=== PATIENT | female | born 1940 | race Native Hawaiian/Other Pacific Islander ===

== ENCOUNTER 2019-09-16 12:44 | Outpatient (CLI) | payer OTHER, SELFPAY ==
--- NOTE | ~2019-09-16 | XR_ITS ---
XR chest 2V DATE: 09/16/2019 14:22 INDICATION: Chronic cough TECHNIQUE: 2 views COMPARISON: 09/28/2018 2 view chest FINDINGS: A new ill-defined up to approximately 2 cm opacity is noted at the middle lobe; CT thorax i s recommended to exclude any pulmonary mass lesion or focal consolidation. The lungs are hyperinflated but clear of infiltrate or consolidation otherwise. No pleural effusion or pulmonary vascular congestion or pneumothorax. Normal heart size. Aortic arch calcification. Included skeletal structures are unremarkable other than osteopenia, calcified intervertebral at appr oximately T12-L1. IMPRESSION: Approximately 2 cm ill-defined density of middle lobe; recommend CT thorax Bilateral hyperinflation suggesting COPD Dr. Cota telephoned the report and recommendation for CT chest examination to Dr. Gaspar on 09/16/2019 a t 1550 hours. Reviewed, dictated and finalized at location B. UCT CONTROL AND LOGISTICS ANALYST IMPRESSION: Approximately 2 cm ill-defined density of middle lobe; recommend CT thorax Bilateral hyperinflation suggesting COPD Dr. Cota telephoned the report and recommendation for CT chest examination to Natasha Gaspar on 09/16/2019 at 1550 hours.
--- NOTE | 2019-09-17 11:12 | WPDPFTINT ---
PFT Interpretation PFT Interpretation: This PFT met all criteria for ATS standards and reproducibility FEV/FVC post bronchodilator 70% of predicted which improved to 74% post bronchodilator FEV1 126% of predicted FVC 116 % of predicted TLC 122% of predicted RV 119% RV/TLC 41% DLCO 83% when adjusted for alveolar volume but not adjusted for hemoglobin Flow volume loops showed some end expiratory coving Impression: Possible mild airflow obstruction with hyperinflation and borderline air trapping. This may correlate with Asthma or COPD. Clinical correlation is advised.
== END 2019-09-16 12:45 | disposition home or self-care (01) ==
PROVIDERS: PCP Internal Medicine; Visit Provider Internal Medicine Critical Care Medicine
DX: J44.9 Chronic obstructive pulmonary disease, unspecified (principal); R05 Cough; J45.909 Unspecified asthma, uncomplicated; R91.8 Other nonspecific abnormal finding of lung field
CPT/HCPCS: 36415; 71046; 82785; 86003; 94060; 94726; 94729

== ENCOUNTER 2019-11-08 10:16 | Outpatient (CLI) | payer OTHER, SELFPAY ==
--- NOTE | ~2019-11-08 | CT_ITS ---
EXAMINATION: CT chest w con EXAM DATE: 11/08/2019 11:26 INDICATION: Right lung nodule. TECHNIQUE: Spiral CT of the chest following intravenous injection of 75 mL Omnipaque 350. Axial, cor onal and sagittal images were reviewed. Coronal maximum intensity pixel images of chest reviewed. T he dose-length product (DLP) for this examination was 137.32 mGy-cm. The exposure was tailored accor ding to patient size (auto mA exposure control), and iterative reconstruction (ASIR) was used as alcides tional dose reduction technique. Correlation is made to 09/16/2019. FINDINGS: There is a bilobulated nodule with some spiculations in the right middle lobe measuring 2. 1 x 1.0 cm, the same opacity seen on chest x-ray from last month. If this were infectious process, sh ould have resolved. Appearances suspicious for malignancy, CT-guided biopsy is indicated. Smaller denny obular lingular opacity more medially. There is mild emphysema and hyperinflation. Mild bronchiectasi s. Biapical scarring. There are no pleural or pericardial effusions. Tracheobronchial tree is paten t. There is no mediastinal, hilar or axillary lymphadenopathy. There is no pneumothorax. Heart normal in size. No evidence of coronary arterial calcification. Several liver lesions consistent wi th cysts. There is thoracic spondylosis without osteoblastic or osteolytic lesions identified. IMPRESSION: 1. Right middle lobe lobulated nodules, suspicious for primary lung cancer. Largest amenable to CT-g uided percutaneous biopsy. 2. Mild emphysema, hyperinflation and bronchiectasis. Reviewed, dictated and finalized at location A. IMPRESSION: 1. Right middle lobe lobulated nodules, suspicious for primary lung cancer. La rgest amenable to CT-guided percutaneous biopsy. 2. Mild emphysema, hyperinflation and bronchiectasis.
[2019-11-08 11:18] LABS: Estimated Glomerular Filt Rate > 60
== END 2019-11-08 10:17 | disposition home or self-care (01) ==
PROVIDERS: Visit Provider Internal Medicine Critical Care Medicine
DX: R91.8 Other nonspecific abnormal finding of lung field (principal); J43.9 Emphysema, unspecified
CPT/HCPCS: 36415; 71260; Q9967

== ENCOUNTER → 2020-03-21 09:18 | Outpatient (CLI) | payer OTHER, SELFPAY ==
--- NOTE | ~2020-03-21 | CT_ITS ---
EXAMINATION: CT sinus wo con DATE: 03/21/2020 09:32 INDICATION: Chronic sinusitis, chronic cough TECHNIQUE: Computed tomography (CT) of the paranasal sinuses was performed without contrast. Iterativ e reconstruction technique was employed. Exam dose: 266.74 mGy-cm total exam DLP. COMPARISON: None FINDINGS: There is rightward bowing of the nasal septum. There is intralamellar cell and manjula bullosa of the left middle nasal turbinate. There is moderate soft tissue thickening of the nasal turbinates. The ostiomeatal units are patent. The paranasal sinuses are normally developed and aerated. The mastoid air cells are normally developed and aerated. IMPRESSION: Rightward bowing of nasal septum Manjula bullosa and intralamellar cell of left middle nasal turbinate Patent paranasal sinuses, ostiomeatal units and mastoid air cells Reviewed, dictated and finalized at [facility]. Reviewed, dictated and finalized at location A.
== END ==
PROVIDERS: PCP Internal Medicine; Visit Provider Allergy & Immunology
DX: J32.9 Chronic sinusitis, unspecified (principal); R05 Cough
CPT/HCPCS: 70486

== ENCOUNTER 2021-02-23 14:50 | Outpatient (CLI) | payer OTHER, SELFPAY ==
--- NOTE | ~2021-02-23 | US_ITS ---
EXAMINATION: US pelvic limited DATE: 02/23/2021 15:26 INDICATION: Pelvic and perineal pain. Dysuria. TECHNIQUE: Multiple transabdominal sonographic images of the pelvis were obtained. COMPARISON: None. FINDINGS: The bladder is normal with calculated prevoid volume of 135 mL calculated postvoid bladder volume of 21 mL which remains within normal limits. Shadowing bowel gas partially obscures the dome of the blad phuong on the prevoid imaging. No evident free fluid in the visualized pelvis. IMPRESSION: Normal bladder. Reviewed, dictated and finalized at location A. IMPRESSION: Normal bladder.
== END 2021-02-23 14:51 | disposition home or self-care (01) ==
LOC: ANHIMG 14:56
PROVIDERS: PCP Internal Medicine; Visit Provider Nurse Practitioner
DX: R10.2 Pelvic and perineal pain (principal)
CPT/HCPCS: 76857

== ENCOUNTER 2021-03-14 10:42 | Outpatient (CLI) | payer OTHER, SELFPAY ==
--- NOTE | ~2021-03-14 | CT_ITS ---
EXAMINATION: CT abdomen pelvis wo con DATE: 03/14/2021 11:06 INDICATION: Pelvic and perineal pain, history of breast and uterine cancer TECHNIQUE: Computed tomography (CT) of the abdomen and pelvis was performed without intravenous contr ast. The dose-length product (DLP) was 234.34 mGy-cm. Automated exposure control and iterative recons truction technique were employed. COMPARISON: 11/08/2019 FINDINGS: Minimal dependent atelectasis is present in the lung bases. Cardiomegaly is noted. Cysts of the liver measure up to 9 mm. The spleen, pancreas, gallbladder, and adrenal glands are normal. Ther e is a 1.8 cm cyst of the right kidney. The left kidney is unremarkable. No pathologically enlarged l ymph nodes are identified. There are changes of pelvic lymph node dissection. Severe lumbar spondylos is is noted. IMPRESSION: 1. No CT correlate for the patient's symptoms. Reviewed, dictated and finalized at location A.
== END 2021-03-14 10:43 | disposition home or self-care (01) ==
PROVIDERS: PCP Internal Medicine; Visit Provider Nurse Practitioner
DX: R10.2 Pelvic and perineal pain (principal)
CPT/HCPCS: 74176

== ENCOUNTER 2021-10-22 10:51 | Outpatient (CLI) | payer OTHER, SELFPAY ==
--- NOTE | ~2021-10-22 | CT_ITS ---
EXAMINATION: CT diagnostic chest wo con DATE: 10/22/2021 11:35 INDICATION: Solitary pulmonary nodule TECHNIQUE: Computed tomography (CT) of the chest was performed without intravenous contrast. The dose -length product (DLP) was 55.80 mGy-cm. Automated exposure control and iterative reconstruction techn ique were employed. COMPARISON: 11/08/2019 FINDINGS: There is mild emphysema. The previously described right middle lobe nodules have resolved. There is a small amount of residual scarring. Scattered small nodules throughout the lungs are stable . The lungs are free of acute opacities. There is no pleural effusion or pneumothorax. There is biatr ial enlargement of the heart. There are no pathologically enlarged thoracic lymph nodes. There is mil d thoracic spondylosis. IMPRESSION: 1. Resolved right middle lobe nodule with residual scarring, consistent with prior infection/inflamma tion. 2. Mild emphysema. Reviewed, dictated and finalized at location A. IMPRESSION: 1. Resolved right middle lobe nodule with residual scarring, consistent with pr ior infection/inflammation. 2. Mild emphysema.
== END 2021-10-22 10:52 | disposition home or self-care (01) ==
LOC: ANHIMG 10:52
PROVIDERS: PCP Internal Medicine; Visit Provider Physician Assistant
DX: R91.1 Solitary pulmonary nodule (principal); R91.8 Other nonspecific abnormal finding of lung field; J43.9 Emphysema, unspecified
CPT/HCPCS: 71250

== ENCOUNTER 2022-05-01 09:10 | Outpatient (CLI) | payer OTHER, SELFPAY ==
--- NOTE | 2022-05-01 09:20 | EST_ITS ---
Patient Info Name: Karely Terrazas Age: 82 years : 1940 Gender: Female Ht: 61 in Wt: 124 lbs BSA: 1.56 m2 Exam Date: 05/01/2022 9:31 AM Exam Location: [facility] Stress Patient Status: Outpatient Admit Date: 05/01/2022 Staff Ordering Physician: Nydia Cheung Attending Provider: Nydia Cheung Exercise Technologist: Anselmo Quiroz RDCS, RT Exercise Physician: Fer Parmar DO Exam Type: CA stress test treadmill Study Info A treadmill exercise stress test was performed. Summary 1. 1. Negative Ady exercise stress test for ischemic ST changes by ECG criteria. However, patient achieved only 74% MPHR for age group which reduces sensitivity of the test. 2. 2. Reduced functional capacity, achieving 7 METs of workload. 3. 3. Baseline hypertension with hypertensive response to exercise. 4. 4. Appropriate HR response to exercise. 5. 5. Appropriate HR recovery at 1 minute post exercise. 6. 6. No imaging with stress testing. 7. 7. Patient informed of the above results. Protocol: Ady Stress ECG Details Stage: REST Duration (min): 2 min : 7 sec Speed (mph): 0.0 Grade (%): 0 HR (bpm): 69 SBP (mmHg): 184 DBP (mmHg): 97 METS: --- Stage: REST Duration (min): 11 min : 15 sec Speed (mph): 0.0 Grade (%): 0 HR (bpm): 67 SBP (mmHg): 184 DBP (mmHg): 97 METS: --- Stage: STAGE 1 Duration (min): 1 min : 0 sec Speed (mph): 1.7 Grade (%): 10 HR (bpm): 79 SBP (mmHg): 184 DBP (mmHg): 97 METS: --- Stage: STAGE 1 Duration (min): 2 min : 0 sec Speed (mph): 1.7 Grade (%): 10 HR (bpm): 88 SBP (mmHg): 184 DBP (mmHg): 97 METS: --- Stage: STAGE 1 Duration (min): 3 min : 0 sec Speed (mph): 1.7 Grade (%): 10 HR (bpm): 94 SBP (mmHg): 181 DBP (mmHg): 104 METS: --- Stage: STAGE 2 Duration (min): 1 min : 0 sec Speed (mph): 2.5 Grade (%): 12 HR (bpm): 98 SBP (mmHg): 181 DBP (mmHg): 104 METS: --- Stage: STAGE 2 Duration (min): 1 min : 37 sec Speed (mph): 2.5 Grade (%): 12 HR (bpm): 102 SBP (mmHg): 181 DBP (mmHg): 104 METS: --- Stage: RECOVERY Duration (min): 0 min : 22 sec Speed (mph): 1.5 Grade (%): 0 HR (bpm): 102 SBP (mmHg): 165 DBP (mmHg): 103 METS: --- Stage: RECOVERY Duration (min): 1 min : 22 sec Speed (mph): 0.0 Grade (%): 0 HR (bpm): 89 SBP (mmHg): 165 DBP (mmHg): 103 METS: --- Stage: RECOVERY Duration (min): 2 min : 22 sec Speed (mph): 0.0 Grade (%): 0 HR (bpm): 81 SBP (mmHg): 165 DBP (mmHg): 103 METS: --- Stage: RECOVERY Duration (min): 3 min : 22 sec Speed (mph): 0.0 Grade (%): 0 HR (bpm): 77 SBP (mmHg): 165 DBP (mmHg): 103 METS: --- Stage: RECOVERY Duration (min): 4 min : 22 sec Speed (mph): 0.0 Grade (%): 0 HR (bpm): 73 SBP (mmHg): 165 DBP (mmHg): 103
== END 2022-05-01 09:11 | disposition home or self-care (01) ==
PROVIDERS: PCP Internal Medicine; Visit Provider Nurse Practitioner
DX: R06.00 Dyspnea, unspecified (principal)
CPT/HCPCS: 93017

== ENCOUNTER 2023-12-22 10:57 | Emergency (ER) | payer OTHER, SELFPAY ==
[2023-12-22 11:04] VITALS: BP 149/85; PULSE 69; RESP 16; TEMP 36.3; O2SAT 100
--- NOTE | 2023-12-22 12:27 | ED.NAVMDI ---
HPI - Nausea/Vomiting/Diarrhea General Chief complaint: Nausea/Vomiting/Diarrhea Stated complaint: Nausea Time Seen by Provider: 12/22/23 13:02 Source: patient and RN notes reviewed Mode of arrival: ambulatory Limitations: no limitations History of Present Illness HPI Narrative: Patient presents today complaining of 5 day history of nausea and 2 day history of left sided abdominal pain that is worse with movement with decreased appetite. Patient also reports loose stools today without mucus or blood. Denies vomiting or fever. She currently rates her pain 3/10 and has tried Tums or Gas-X without relief. Related Data Home Medications Medication Instructions Recorded Confirmed multivitamin 1 tablet PO DAILY 06/14/21 09/29/23 omeprazole 20 mg capsule,delayed 20 mg PO DAILY 12/31/21 12/22/23 release fluorometholone 0.1 % eye 1 drp ophthalmic (eye) DIRECTED 12/22/23 12/22/23 drops,suspension Allergies Allergy/AdvReac Type Severity Reaction Status Date / Time nabumetone Allergy Unknown Rash Verified 12/22/23 11:22 Review of Systems Review of Systems: CONSTITUTIONAL: Denies body aches, fever, chills, or sweats. EYES: Denies visual changes, redness, or discharge. ENT: Denies rhinorrhea, congestion, sore throat, or otalgia. CARDIOVASCULAR: Denies chest pain, palpitations, or edema. RESPIRATORY: Denies cough or dyspnea. GASTROINTESTINAL: Denies vomiting, or diarrhea.+ nausea, abdominal pain, loose stool, decreased appetite GENITOURINARY: Denies dysuria or hematuria. SKIN: Denies rash, itching, or wounds. MUSCULOSKELETAL: Denies back pain, joint pain, or myalgia. NEUROLOGIC: Denies headache, numbness, tingling, or weakness. PSYCH: Denies depression or anxiety. [facility] Past Medical History Medical History Chronic left-sided thoracic back pain Diverticulosis of large intestine without perforation or abscess with bleeding Heart palpitations Hernia, umbilical History of uterine cancer Hyperlipidemia Hypertension Insomnia Insomnia, unspecified Osteoporosis Screening for breast cancer Surgical History Surgical History H/O cataract removal with insertion of prosthetic lens History of hysterectomy Family History Family History Father Family history of emphysema Patient's father is Family history of chronic obstructive pulmonary disease, Onset Age: 84 Sibling Family history of atrial fibrillation Mother Family history of atrial fibrillation Patient's mother is Family history of malignant neoplasm of kidney Social History Social History Smoking status: Never smoker Second hand tobacco smoke exposure: No Alcohol intake: never Substance use: never Substance use type: does not use Lack of Transportation: No Lack of Food: Never True Current Housing: I Have Housing Concerned About Future Housing: No Difficulty Paying Gas/Electric Bills: No Difficulty Paying for Meds: No Currently Unemployed: No Education: Associate Degree Difficulty w/ Childcare or Family Care: No Occupation/Education: retired Comments At time of signature, I have reviewed and agree with nursing past medical, surgical, social and family history unless otherwise noted. Please see nursing chart for further information. There is no relevant family history pertinent to the presenting complaint Exam Narrative: GENERAL: Well-appearing, well-nourished, and in no acute distress. HEAD: Normocephalic, atraumatic. EYES: EOMI. No redness or drainage. Conjunctivae normal. ENT: Mucous membranes pink and moist. NECK: Normal AROM. CHEST: No respiratory distress. Clear to auscultation. HEART: Regular rate and rhythm. No murmur appreciated.
== END 2023-12-22 13:02 | disposition left against medical advice (07) ==
PROVIDERS: Emergency Provider Nurse Practitioner; PCP Family Medicine
DX: R10.12 Left upper quadrant pain (principal); R10.32 Left lower quadrant pain; R11.0 Nausea; E78.5 Hyperlipidemia, unspecified; I10 Essential (primary) hypertension; M81.0 Age-related osteoporosis without current pathological fracture
CPT/HCPCS: 99211; G0463

== ENCOUNTER 2023-12-23 11:31 | Emergency (ER) | payer OTHER, SELFPAY ==
[2023-12-23] VITALS (24 sets, daily range): BP systolic 164–194; BP diastolic 76–97; PULSE 57–76; RESP 9–21; TEMP 36.3; O2SAT 59–100
--- NOTE | ~2023-12-23 | XR_ITS ---
Clinical Indication: Cough PA and lateral views of the chest: Comparison: 09/16/2019 Findings: The lungs are clear, without evidence of focal consolidation or pleural effusion. Oh cells COPD. Cardiomediastinal silhouette is within normal limits. Bones and soft tissues are unremarkable. Impression: Clear lungs. Possible COPD. Reviewed, dictated and finalized at location . Impression: Clear lungs. Possible COPD.
--- NOTE | ~2023-12-23 | CT_ITS ---
CTA chest PE abdomen pel Ordering provider: Tigre Guzmán MD History: 83 years Female with . ddimer, nausea, CP . Comparison: October 22, 2021 Technique: CT angiogram chest was performed following timed intravenous injection of contrast. Thin s lice axial images and reformatted coronal images were obtained. Three dimensional reformatted images of the chest were also obtained using a [employer] workstation. Radiation reduction technique utilized. Findings: PULMONARY ARTERIES: No pulmonary embolus. VISUALIZED THORACIC INLET: Normal. MEDIASTINUM: Aorta/coronary arteries: Mild atheromatous disease. Heart/other: The heart is slightly enlarged. Lymph nodes: No mediastinal or hilar adenopathy. LUNGS: No pulmonary nodules or masses. No infiltrates or effusions. No pneumothorax. MUSCULOSKELETAL: Soft tissues: The superficial soft tissues are normal. Bones: Age appropriate degenerative changes of the spine. IMPRESSION: 1. No pulmonary embolus. 2. No acute cardiopulmonary pathology. CTA chest PE abdomen pel Ordering provider: Tigre Guzmán MD History: . ddimer, nausea, CP . Comparison: None. Technique: CT abdomen with IV and without oral contrast. Radiation reduction technique utilized. Findings: VISUALIZED LOWER CHEST: Normal. UPPER ABDOMINAL ORGANS: Liver: Multiple hypodense lesions most likely small cysts seen in segment 6, 7 and 8. CBD measures 0. 9 cm. Gallbladder: Normal. Spleen: Normal. Stomach/duodenum: Normal. Pancreas: Normal. Slight dilatation of the pancreatic duct. Adrenals: Normal. Kidneys: Right renal cyst measuring 1.4 cm. Urinary bladder: Normal. VISUALIZED BOWEL AND MESENTERY: No evidence of diverticulitis. No evidence of appendicitis. The bowel is otherwise normal. No free air or free fluid. No mesenteric lymphadenopathy. RETROPERITONEUM: Mild atheromatous disease of the abdominal aorta. No retroperitoneal lymphadenopathy . MUSCULOSKELETAL: The superficial soft tissues are normal. Age appropriate degenerative changes of the spine. Facet degenerative disease in the lower lumbar area. Anterolisthesis at the level of L4-L5. IMPRESSION: Slightly dilated pancreatic duct. No acute abdominal process. Multiple hypodense lesions in the liver most likely cysts. Right renal cyst. Reviewed, dictated and finalized at location A. IMPRESSION: 1. No pulmonary embolus. 2. No acute cardiopulmonary pathology. CTA chest PE abdomen pel Ordering provider: Tigre Guzmán MD History: . ddimer, nausea, CP . Comparison: None. Technique: CT abdomen with IV and without oral contrast. Radiation reduction technique utilized. Findings: VISUALIZED LOWER CHEST: Normal. UPPER ABDOMINAL ORGANS: Liver: Multiple hypodense lesions most likely small cysts seen in segment 6, 7 and 8. CBD measures 0.9 cm. Gallbladder: Normal. Spleen: Normal. Stomach/duodenum: Normal. Pancreas: Normal. Slight dilatation of the pancreatic duct. Adrenals: Normal. Kidneys: Right renal cyst measuring 1.4 cm. Urinary bladder: Normal. VISUALIZED BOWEL AND MESENTERY: No evidence of diverticulitis. No evidence of a ppendicitis. The bowel is otherwise normal. No free air or free fluid. No mesen teric lymphadenopathy. RETROPERITONEUM: Mild atheromatous disease of the abdominal aorta. No retroperi toneal lymphadenopathy. MUSCULOSKELETAL: The superficial soft tissues are normal. Age appropriate degen erative changes of the spine. Facet degenerative disease in the lower lumbar ar ea. Anterolisthesis at the
--- NOTE | 2023-12-23 11:48 | ECG_ITS ---
Test Date: 2023-12-23 11:56:13 Measurements Intervals [place] Rate: 61 P: 66 DC: 165 QRS: 29 QRSD: 93 T: 23 QT: 405 QTc: 411 Interpretive Statements SINUS RHYTHM WITH SINUS ARRHYTHMIA No previous ECG available for comparison Electronically Signed On 12-23-2023 12:21:21 CDT by Joan Larkin M.D.
[2023-12-23 12:05] LABS: Basophils Absolute Auto 0.1 K/mm3 (0.0-0.1); Basophils Percent Auto 1.2 % (0.2-1.2); Eosinophils Absolute Auto 0.3 K/mm3 (0-0.3); Eosinophils Percent Auto 4.6 % (0-4.4); Hemoglobin 13.9 g/dL (12.0-15.0); Immature Granulocyte Absolute 0.01 K/mm3 (0.00-0.031); Immature Granulocyte Percent A 0.2 % (0-0.5); Mean Corpuscular HGB Conc 33.1 g/dl (32-36); Mean Corpuscular Hemoglobin 32.9 pg (26-34); Mean Corpuscular Volume 99.5 fl (80-100); Mean Platelet Volume 11.5 fl (7.4-10.4); Monocytes Absolute Auto 0.5 K/mm3 (0.1-0.6); Monocytes Percent Auto 8.7 % (2.6-8.5); Neutrophils Absolute Auto 3.4 K/mm3 (1.3-6.7); Neutrophils Percent Auto 60.3 % (45.5-73.1); Platelet Count Result 184 k/mm3 (150-375); Red Blood Count 4.22 M/mm3 (4.2-5.4); Red Cell Distribution Width 12.7 % (11.5-14.5); White Blood Count 5.6 K/mm3 (4.5-10.0)
[2023-12-23 12:23] LABS: Alanine Aminotransferase 20 U/L (6-35); Albumin Level 4.6 g/dL (3.5-5.1); Alkaline Phosphatase 66 U/L (38-126); Anion Gap 7 mmol/L (4-12); Aspartate Amino Transferase 38 U/L (14-36); Bilirubin,Total 0.8 mg/dL (0.2-1.3); Blood Urea Nitrogen 13 mg/dL (7-17); Calcium 10.2 mg/dL (8.4-10.2); Carbon Dioxide 32 mmol/L (22-30); Chloride 99 mmol/L (98-107); Estimated CRCL calculation 36 ml/min; Estimated Glomerular Filt Rate > 60; Glucose 90 mg/dL (65-110); Lipase 150 U/L (23-300); Potassium 3.3 mmol/L (3.4-5.0); Sodium 138 mmol/L (137-145)
--- NOTE | 2023-12-23 12:34 | ED.GENADULT ---
HPI - General Adult General Chief complaint: Nausea/Vomiting/Diarrhea Stated complaint: N/V Time Seen by Provider: 12/23/23 11:56 History of Present Illness HPI narrative: 83-year-old female present to the emergency department for evaluation nausea without vomiting over the course of the last week. Family states patient is also had increased cough increased congestion with increased sputum production. Patient does have a prior history of COPD. Patient states she is having some intermittent chest pain that is worsened with coughing. Patient denies any chest pain at rest. Patient attempted have follow-up with her primary care physician and was referred to the emergency department for further workup. Patient does have a prior history of hysterectomy and bili hernia repair. Patient denies any prior history of [place] Related Data Home Medications Medication Instructions Recorded Confirmed multivitamin 1 tablet PO DAILY 06/14/21 09/29/23 omeprazole 20 mg capsule,delayed 20 mg PO DAILY 12/31/21 12/22/23 release fluorometholone 0.1 % eye 1 drp ophthalmic (eye) DIRECTED 12/22/23 12/22/23 drops,suspension Allergies Allergy/AdvReac Type Severity Reaction Status Date / Time nabumetone Allergy Unknown Rash Verified 12/23/23 11:41 Review of Systems Review of Systems: All systems reviewed & are unremarkable except as noted in HPI and below PMFSH Past Medical History Medical History Chronic left-sided thoracic back pain Diverticulosis of large intestine without perforation or abscess with bleeding Heart palpitations Hernia, umbilical History of uterine cancer Hyperlipidemia Hypertension Insomnia Insomnia, unspecified Osteoporosis Screening for breast cancer Surgical History Surgical History H/O cataract removal with insertion of prosthetic lens History of hysterectomy Family History Family History Father Family history of emphysema Patient's father is Family history of chronic obstructive pulmonary disease, Onset Age: 84 Sibling Family history of atrial fibrillation Mother Family history of atrial fibrillation Patient's mother is Family history of malignant neoplasm of kidney Social History Social History Smoking status: Never smoker Second hand tobacco smoke exposure: No Alcohol intake: never Substance use: never Substance use type: does not use Lack of Transportation: No Lack of Food: Never True Current Housing: I Have Housing Concerned About Future Housing: No Difficulty Paying Gas/Electric Bills: No Difficulty Paying for Meds: No Currently Unemployed: No Education: Associate Degree Difficulty w/ Childcare or Family Care: No Occupation/Education: retired Exam Narrative: APPEARANCE: Well appearing, no pain, no distress, well-nourished. HEAD: normocephalic, atraumatic. EYES: PERRLA/EOMI, conjunctivae clear. NOSE: Normal no drainage EARS:TMS clear with good light reflex. THROAT: Pharynx clear, no exudate. NECK: Supple. No adenopathy, no masses. RESPIRATORY: Airway patent, respirations nonlabored. Clear to auscultation bilaterally, no rales, rhonchi, wheezing. CARDIOVASCULAR: Regular rate and rhythm without murmurs rubs or gallops. ABDOMINAL: Soft, nontender, nondistended, normal bowel sounds MUSCULOSKELETAL: Moves all extremities. Strength/ROM intact, No edema, No calf tenderness. NEURO: Alert. Cranial nerves II through XII intact. grossly intact SKIN: Warm, dry. Normal Color Course Course Emergency Course: patient family were updated on the results of the workup patient was comfortable the plan for discharge and close follow-up. Vital Signs Vital signs: Vital Signs Temperatu
[2023-12-23 12:59] LABS: Appearance Urine Clear (Clear); Bacteria Urine None Seen /hpf; Bilirubin Urine Negative (Negative); Blood Urine Negative (Negative); Color Urine Yellow (Yellow); Glucose Urine UA Negative (Negative); Ketones Urine Negative (Negative); Leukocyte Esterase Ur Trace LEU/UL (Negative); Nitrate Urine Negative (Negative); Non Pathogenic Casts 0-2; Protein Urine Negative (Negative); RBC Urine 0-2 /hpf (0-2); Specific Grav Ur 1.005 (1.001-1.035); Squamous Epithelial Cell Urine None Seen /hpf (Few); Urobilinogen Urine 0.2 mg/dL (<2.0); WBC Urine 0-5 /hpf (0-3)
[2023-12-23 13:20] LABS: Add Urine Microscopic? YES
[2023-12-23 13:28] LABS: D Dimer 1.11 ug/mL (<0.48)
[2023-12-23 13:30] LABS: Influenza A QL RT-PCR Negative (Negative); Influenza B QL RT-PCR Negative (Negative); RSV RNA, RT-PCR Negative (Negative); SARS-CoV-2 RNA PCR Negative (Negative)
[2023-12-23 14:57] LABS: Troponin I < 0.012 ng/mL (0.000-0.034)
[2023-12-23 15:50] LABS: Troponin I < 0.012 ng/mL (0.000-0.034)
== END 2023-12-23 16:32 | disposition home or self-care (01) ==
PROVIDERS: Emergency Medicine; Emergency Provider Emergency Medicine; PCP Family Medicine
DX: R11.0 Nausea (principal); R07.89 Other chest pain; Z20.822 Contact with and (suspected) exposure to COVID-19; Z85.42 Personal history of malignant neoplasm of other parts of uterus; E78.5 Hyperlipidemia, unspecified; I10 Essential (primary) hypertension
CPT/HCPCS: 36415; 71046; 71275; 74177; 80053; 81001; 83690; 84484; 85025; 85380; 87637; 93005; 99284; Q9967

== ENCOUNTER 2023-12-25 14:07 | Emergency (ER) | payer OTHER, SELFPAY ==
--- NOTE | ~2023-12-25 | XR_ITS ---
EXAMINATION: XR chest 2V 12/25/2023 13:30 INDICATION: Chest pain and shortness of breath PROCEDURE: 2 view chest COMPARISON: Comparison to multiple prior studies sequentially, with oldest reviewed study dated 01/28. FINDINGS: The lungs are clear. The lungs are hyperinflated which is consistent with, but not diagnost ic of chronic obstructive pulmonary disease. The cardiomediastinal silhouette is within normal limits . There are no pleural effusions. There is no pneumothorax suspected. IMPRESSION: 1: NO ACUTE CARDIOPULMONARY DISEASE. Reviewed, dictated and finalized at location B.
[2023-12-25 12:58] VITALS: BP 153/71; PULSE 60; RESP 18; TEMP 36.2; O2SAT 98
--- NOTE | 2023-12-25 13:03 | ECG_ITS ---
Test Date: 2023-12-25 13:08:28 Measurements Intervals [place] Rate: 62 P: 75 HI: 163 QRS: 48 QRSD: 93 T: 42 QT: 418 QTc: 425 Interpretive Statements SINUS RHYTHM NONSPECIFIC ST & T-WAVE ABNORMALITY ABNORMAL ECG No previous ECG available for comparison Electronically Signed On 12-26-2023 06:57:36 CDT by Diego Carrillo M.D.
[2023-12-25 13:53] LABS: Basophils Percent Auto 0.9 % (0.2-1.2); Eosinophils Absolute Auto 0.1 K/mm3 (0-0.3); Eosinophils Percent Auto 2.8 % (0-4.4); Hemoglobin 13.8 g/dL (12.0-15.0); Immature Granulocyte Absolute 0.02 K/mm3 (0.00-0.031); Immature Granulocyte Percent A 0.4 % (0-0.5); Lymphocytes Absolute Auto 1.06 K/mm3 (0.9-3.2); Lymphocytes Percent Auto 22.8 % (18.3-44.2); Mean Corpuscular HGB Conc 33.7 g/dl (32-36); Mean Corpuscular Hemoglobin 32.9 pg (26-34); Mean Corpuscular Volume 97.9 fl (80-100); Mean Platelet Volume 11.5 fl (7.4-10.4); Monocytes Absolute Auto 0.4 K/mm3 (0.1-0.6); Neutrophils Percent Auto 64.1 % (45.5-73.1); Platelet Count Result 187 k/mm3 (150-375); Red Blood Count 4.19 M/mm3 (4.2-5.4); Red Cell Distribution Width 12.5 % (11.5-14.5); White Blood Count 4.7 K/mm3 (4.5-10.0)
[2023-12-25 14:06] LABS: Alanine Aminotransferase 20 U/L (6-35); Albumin Level 4.5 g/dL (3.5-5.1); Alkaline Phosphatase 88 U/L (38-126); Anion Gap 8 mmol/L (4-12); Aspartate Amino Transferase 41 U/L (14-36); Bilirubin,Total 0.9 mg/dL (0.2-1.3); Blood Urea Nitrogen 17 mg/dL (7-17); Calcium 10.6 mg/dL (8.4-10.2); Carbon Dioxide 33 mmol/L (22-30); Chloride 98 mmol/L (98-107); Estimated CRCL calculation 36 ml/min; Estimated Glomerular Filt Rate > 60; Glucose 97 mg/dL (65-110); Lipase 204 U/L (23-300); Potassium 3.3 mmol/L (3.4-5.0); Sodium 139 mmol/L (137-145)
--- NOTE | 2023-12-25 14:07 | ED.WEAKNESS ---
HPI - Weakness General Chief complaint: Weakness <JONATAN Herrera Last Filed: 12/25/23 14:18> Stated complaint: weak, sob <JONATAN Herrera Last Filed: 12/25/23 14:18> Time Seen by Provider: 12/25/23 14:08 <Yusra Barry PA-C - Last Filed: 12/25/23 14:18> Focused HPI: Patient is an 83 y/o female who presents to the ED via EMS with report of weakness. Patient reports she was seen in the ED here on Friday for weakness, N/V, SOB. Had reassuring w/u, negative cardiac enzymes, negative CTA of chest, negative viral swabs. Patient states she felt slightly better yesterday but felt increasingly weak this morning. States she felt very shaky and was having labored breathing. She then called her daughter who called EMS. Patient states she feels improved currently. She has been having intermittent cough and CP over the past 2 weeks. Denies CP currently. Was rx'd zofran on Friday, has not taken this. Denies vomiting. Does endorse diarrhea. Denies fevers. Patient lives at home alone. GENERAL: Elderly, well-nourished, and in no acute distress. HEAD: Normocephalic, atraumatic. CHEST: Clear to auscultation. ?No respiratory distress. No focal lung sounds. HEART: Regular rate and rhythm.? NEURO: ?Alert and oriented x3. Patient screened in triage and initial orders placed.? ?Additional care and disposition to be based upon?diagnostic testing and treatment. <Yusra Barry PA-C - Last Filed: 12/25/23 14:18> Source: patient <JONATAN Herrera Last Filed: 12/25/23 14:18> Mode of arrival: EMS <JONATAN Herrera Last Filed: 12/25/23 14:18> Limitations: no limitations <JONATAN Herrera Last Filed: 12/25/23 14:18> History of Present Illness HPI Narrative: 83-year-old with a history of hypertension hyperlipidemia, asthma with med in by family with a sudden onset of generalized weakness, feeling shaky. If his states that he has happened this morning. She was seen few days ago for the same had a pretty extensive workup which were all unremarkable was advised to come back to the ER a few feels the same. She presently denies having any chest pain however she states that she has on and off chest pain for does past several weeks. She denies any nausea or vomiting. No history of fever or chills. By the time she got into the ER room she her symptoms have not subsided. She states that when she walks around she gets extremely weak and tired. <Pierre Ramirez MD - Last Filed: 12/25/23 16:58> MD Complaint: generalized weakness <Pierre Ramirez MD - Last Filed: 12/25/23 16:58> Onset (ago): week(s) (1) <Pierre Ramirez MD - Last Filed: 12/25/23 16:58> Duration: intermittent <Pierre Ramirez MD - Last Filed: 12/25/23 16:58> Location: generalized <Pierre Ramirez MD - Last Filed: 12/25/23 16:58> Migration: none <Pierre Ramirez MD - Last Filed: 12/25/23 16:58> Severity: moderate <Pierre Ramirez MD - Last Filed: 12/25/23 16:58> Exacerbating factors: exertion <Pierre Ramirez MD - Last Filed: 12/25/23 16:58> Associated symptoms: denies other symptoms <Pierre Ramirez MD - Last Filed: 12/25/23 16:58> Related Data Home medications: Home Medications Medication Instructions Recorded Confirmed multivitamin 1 tablet PO DAILY 06/14/21 09/29/23 omeprazole 20 mg capsule,delayed 20 mg PO DAILY 12/31/21 12/22/23 release fluorometholone 0.1 % eye 1 drp ophthalmic (eye) DIRECTED 12/22/23 12/22/23 drops,suspension <Yusra Barry PA-C - Last Filed: 12/25/23 14:18> Allergies/Adverse reactions: Allergies Allergy/AdvReac Type Severity Reaction Status Date / Time nabumetone Allergy Unknown Rash Verified 12/25/23 15:02 <Yusra Barry PA-C - Last Filed: 12/25/23 14:18> Review of Systems Review of Systems: All systems reviewed & are unremarkable except as noted in HPI
[2023-12-25 14:08] LABS: Partial Thromboplastin Time 27.2 Seconds (22.3-36.8); Prothrombin Time 13.4 Seconds (11.1-14.7)
[2023-12-25 14:16] LABS: Troponin I < 0.012 ng/mL (0.000-0.034)
[2023-12-25 14:46] LABS: Magnesium 1.9 mg/dL (1.6-2.3)
[2023-12-25 15:03] VITALS: PULSE 63
[2023-12-25 15:06] VITALS: O2SAT 100
[2023-12-25 15:07] VITALS: BP 161/89; PULSE 63; RESP 18; O2SAT 100
[2023-12-25 16:10] VITALS: BP 173/68; PULSE 61; RESP 15; O2SAT 99
--- NOTE | 2023-12-25 16:13 | ECG_ITS ---
Test Date: 2023-12-25 16:20:37 Measurements Intervals [place] Rate: 68 P: 74 FL: 168 QRS: 32 QRSD: 92 T: 21 QT: 401 QTc: 426 Interpretive Statements SINUS RHYTHM NONSPECIFIC ST AND T ABNORMALITY ABNORMAL ECG Compared to ECG 12/25/2023 13:08:28 NO DIFFERENCE Electronically Signed On 12-26-2023 07:04:01 CDT by Diego Carrillo M.D.
[2023-12-25 16:42] LABS: Troponin I < 0.012 ng/mL (0.000-0.034)
[2023-12-25 17:17] VITALS: BP 164/87; PULSE 62; RESP 14; O2SAT 99
== END 2023-12-25 17:19 | disposition home or self-care (01) ==
PROVIDERS: Physician Assistant; Emergency Provider Family Medicine; PCP Family Medicine
DX: R53.1 Weakness (principal); I10 Essential (primary) hypertension; E78.5 Hyperlipidemia, unspecified; J45.909 Unspecified asthma, uncomplicated; Z85.42 Personal history of malignant neoplasm of other parts of uterus
CPT/HCPCS: 36415; 71046; 80053; 83690; 83735; 84484; 85025; 85610; 85730; 93005; 99284

== ENCOUNTER 2024-04-20 10:38 | Outpatient (CLI) | payer OTHER, SELFPAY ==
[2024-04-20 14:32] LABS: Basophils Absolute Auto 0.1 K/mm3 (0.0-0.1); Eosinophils Absolute Auto 0.1 K/mm3 (0-0.3); Eosinophils Percent Auto 1.2 % (0-4.4); Hematocrit 36.8 % (37.0-47.0); Hemoglobin 11.9 g/dL (12.0-15.0); Immature Granulocyte Absolute 0.04 K/mm3 (0.00-0.031); Immature Granulocyte Percent A 0.6 % (0-0.5); Lymphocytes Absolute Auto 0.82 K/mm3 (0.9-3.2); Lymphocytes Percent Auto 12.2 % (18.3-44.2); Mean Corpuscular HGB Conc 32.3 g/dl (32-36); Mean Corpuscular Hemoglobin 33.2 pg (26-34); Mean Corpuscular Volume 102.8 fl (80-100); Mean Platelet Volume 11.8 fl (7.4-10.4); Monocytes Absolute Auto 0.5 K/mm3 (0.1-0.6); Monocytes Percent Auto 6.7 % (2.6-8.5); Neutrophils Absolute Auto 5.2 K/mm3 (1.3-6.7); Neutrophils Percent Auto 78.3 % (45.5-73.1); Platelet Count Result 179 k/mm3 (150-375); Red Blood Count 3.58 M/mm3 (4.2-5.4); White Blood Count 6.7 K/mm3 (4.5-10.0)
[2024-04-20 14:49] LABS: Alanine Aminotransferase 59 U/L (6-35); Albumin Level 4.3 g/dL (3.5-5.1); Alkaline Phosphatase 100 U/L (38-126); Anion Gap 8 mmol/L (4-12); Aspartate Amino Transferase 77 U/L (14-36); Bilirubin,Total 0.8 mg/dL (0.2-1.3); Blood Urea Nitrogen 19 mg/dL (7-17); Calcium 9.1 mg/dL (8.4-10.2); Carbon Dioxide 30 mmol/L (22-30); Chloride 98 mmol/L (98-107); Estimated Glomerular Filt Rate > 60; Glucose 139 mg/dL (65-110); Potassium 3.6 mmol/L (3.4-5.0); Sodium 136 mmol/L (137-145)
== END 2024-04-20 10:39 | disposition home or self-care (01) ==
PROVIDERS: PCP Family Medicine; Visit Provider Family Medicine
DX: I10 Essential (primary) hypertension (principal); R53.83 Other fatigue; Z13.228 Encounter for screening for other metabolic disorders; Z13.29 Encounter for screening for other suspected endocrine disorder
CPT/HCPCS: 36415; 80053; 84443; 85025

== ENCOUNTER 2024-04-20 10:47 | Outpatient (CLI) | payer OTHER, SELFPAY ==
--- NOTE | ~2024-04-20 | XR_ITS ---
XR chest 2V 04/20/2024 11:06 Indication: Cough and shortness of breath Procedure: 2 view chest Comparison: Comparison to multiple prior studies sequentially, with oldest reviewed study dated 02/2019. Findings: Cardiomegaly. Bibasilar airspace disease. Small pleural effusions. No pneumothorax. There i s atherosclerosis. Impression: 1: Bibasilar airspace disease, compatible with pneumonia. 2: Small pleural effusions. Reviewed, dictated and finalized at location B. Impression: 1: Bibasilar airspace disease, compatible with pneumonia. 2: Small pleural effusions.
== END 2024-04-20 10:48 | disposition home or self-care (01) ==
PROVIDERS: PCP Family Medicine; Visit Provider Family Medicine
DX: J39.8 Other specified diseases of upper respiratory tract (principal); J90 Pleural effusion, not elsewhere classified
CPT/HCPCS: 71046

== ENCOUNTER 2024-12-08 10:32 | Outpatient (CLI) | payer OTHER, SELFPAY ==
--- NOTE | ~2024-12-08 | XR_ITS ---
XR facial bones min 3V Ordering provider: Margaret Martin DO History: . Walked into screen door 10 days ago. . Comparison: None. FINDINGS: BONES: No acute fracture as visualized. PARANASAL SINUSES: Well aerated. Mild left nasal septal deviation. SOFT TISSUES: Normal. IMPRESSION: No visualized acute facial fracture. . Reviewed, dictated and finalized at location A.
== END 2024-12-08 10:33 | disposition home or self-care (01) ==
LOC: GOSHIMG 10:32
PROVIDERS: PCP Family Medicine; Visit Provider Family Medicine
DX: S09.93XA Unspecified injury of face, initial encounter (principal); X58.XXXA Exposure to other specified factors, initial encounter
CPT/HCPCS: 70150

== ENCOUNTER 2025-03-09 18:26 | Inpatient (IN) | payer OTHER, SELFPAY ==
--- OUTSIDE RECORDS SUMMARY | 2005-02-12 10:15 | XMS_ITS | Continuity of Care Document ---
Author Organization [facility] Address [address] [place] [address] Phone Care Team Providers Care Adult Caregiver Name Role Phone Ketty White Unavailable Unavailable Advance Directives Directive Yes / No Effective Date File Name No Information Encounters Encounter Description Practice Location Reason(s) For Visit Diagnoses Date Provider Providers Copied on Encounter [facility], [address], [place], [place], [address], [place] tel:[phone] [facility] No Information 0 2-200 5 Cindy Hdez. [address] , [address], [place], [address], [place]. tel:[phone] Family History Family Member Type Diagnosis Age [...]
--- OUTSIDE RECORDS SUMMARY | 2013-08-11 16:29 | XMS_ITS | Continuity of Care Document ---
Author Organization [facility] Address [address] [place] [address] Phone Care Team Providers Care Special Effects Technician Name Role Phone Patric Russell MD Unavailable Unavailable Allergies, Adverse Reactions, Alerts Substance Reaction Status Criticality nabumetone rash Active No Information Medications Medication Instructions Dosage Effective Dates (start - stop) Status Comments Actonel 150 mg tablet take 1 tablet by o ral route every month on the same date with a full glass of water at least 30 min before first food or drink of the day; remain in an upright position for at least 30 min. 150 MG - Active Ambien 5 mg tablet take 1 Tablet by ora l route every day at bedtime 5 MG - Active naproxen 375 mg tablet take 1 tablet by oral route 2 times every day with food 375 MG - Active Advance Directives Directive Yes / No Effective Date File Name No Information Encounters Encounter Description Practice Location Reason(s) For Visit Diagnoses Date Provider Providers Copied on Encounter [facility], [address], [place], [place], [address] , tel: [phone] [facility] No Information [address], [place], [place], [address] , [place]. tel: [phone] [facility], [address], [place], [place], [address] , tel: [phone] [facility] Rectal bleeding 3 Drew [address]. [address], [address], [place], [place], [address] , [place]. tel: [phone] Referring Provider: [address], [place], [address] . tel:[phone] [facility], [address], [place], [place], [address] , tel: [phone] [facility] Enlargement of lymph nodes Mar- 0-201 3 Drew [address]. [address], [address], [place], [place], [address] , . tel: [phone] Referring Provider: [address], [place], [address] . tel:[phone] [facility], [address], [place], [place], [address] , tel: [phone] [facility] NEED FOR PROPHYLACTIC VACCINATION AND INOCULATION, INFLUENZATrochanter ic bursitis of left hipEnlarged lymph nodeHistory of uterine cancerHistory of breast cancer 3 Drew [address], [address] [facility], [place], [place], [address] , . tel: [phone] Referring Provider: [address] [facility], [place], [address] . tel:[phone] Family History Family Member Type Diagnosis Age At Onset No Information Immunizations Vaccine Date Status Comments Fluzone administered Source: New Imm unization Record Td (7 yrs and older) administered Source: Other Provider pneumo (2 yrs or older) (PPV23) administered Source: New Immuniza tion Record Payers Payer name Insurance type Covered green party ID Authoriza tion(s) [facility] [id number] Social History Type Description Quantity Date Captured [...]
--- OUTSIDE RECORDS SUMMARY | 2015-08-03 01:00 | XMS_ITS | Encounter Summary ---
Author Organization [facility] Address [address] [place] [address] Care Team Providers Care Unix Analyst Name Role Phone Unavailable Primary Care Provider Unavailabl e Reason for Visit * Diagnostic Imaging (Routine) - Closed Specialty Diagnoses / Procedures Referred By Contac t Referred To Contact Procedures Breast Imaging Screening Outside Reference Lakeshia Woodall MD PhD [address] [phone] [place] [address] Phone: tel: fax: Referral ID Status Reason Start Date Expiration Date Visits Re quested Visits Authorized [id number] Closed 01/10/2022 02/09/2023 1 1 Encounter Details Date Type Department Care Team (Late st Contact Info) Description 08/03/2015 Hospital Encounter [facility] [address] [place] [address] Social History Tobacco Use Types Packs/Day Years Used Date Smoking Tobacco: Never Smokeless Tobacco: Never Comments Unknown Sex and Gender Information Value Date Recorded Sex Assigned at Not on file Legal Sex Female 6:16 AM PERSONAL INJURY LEGAL ASSISTANT Gender Identity Female 08/17/2020 12:34 PM PERSONAL INJURY LEGAL ASSISTANT Sexual Orientation Straight 11/22/2019 7: 07 PM CDT documented as of this encounter Plan of Treatment Not on file documented as of this encounter Procedures Procedure Name Priority Date/Time Associated Diagnosis Comments BREAST IMAGING MG SCREENING OUTSIDE REFERENCE Routine 08/03/2015 12:00 AM PERSONAL INJURY LEGAL ASSISTANT documented in this encounter Results * Breast Imaging Screening Outside Reference (08/03/2015 12:00 AM PERSONAL INJURY LEGAL ASSISTANT) Impressions [facility] - 01/10/2022 1:24 PM CDT These images are for Reference purposes only and have not been reviewed by [facility] Radiology. There will be no report generated by a [facility] Radiologist. Narrative [facility] - 01/10/2022 1:24 PM CDT EXAMINATION: Images For Reference Purposes Only us Lakeshia Woodall MD PhD IMG MAMMO PROCEDURES Final Result [facility] documented in this encounter Visit Diagnoses Not on filedocumented in this encounter
--- OUTSIDE RECORDS SUMMARY | 2016-08-06 01:00 | XMS_ITS | Encounter Summary ---
Author Organization [facility] Address [address] [place] [address] Care Team Providers Care Washery Boss Name Role Phone Unavailable Primary Care Provider Unavailabl e Reason for Visit * Diagnostic Imaging (Routine) - Closed Specialty Diagnoses / Procedures Referred By Contac t Referred To Contact Procedures Breast Imaging Screening Outside Reference Lakeshia Woodall MD PhD [address] [phone] [place] [address] Phone: tel: fax: Referral ID Status Reason Start Date Expiration Date Visits Re quested Visits Authorized [id number] Closed 01/10/2022 02/09/2023 1 1 Encounter Details Date Type Department Care Team (Late st Contact Info) Description 08/06/2016 Hospital Encounter [facility] [address] [place] [address] Social History Tobacco Use Types Packs/Day Years Used Date Smoking Tobacco: Never Smokeless Tobacco: Never Comments Unknown Sex and Gender Information Value Date Recorded Sex Assigned at Not on file Legal Sex Female 6:16 AM GYNAECOLOGICAL ONCOLOGIST Gender Identity Female 08/17/2020 12:34 PM GYNAECOLOGICAL ONCOLOGIST Sexual Orientation Straight 11/22/2019 7: 07 PM CDT documented as of this encounter Plan of Treatment Not on file documented as of this encounter Procedures Procedure Name Priority Date/Time Associated Diagnosis Comments BREAST IMAGING MG SCREENING OUTSIDE REFERENCE Routine 08/06/2016 12:00 AM GYNAECOLOGICAL ONCOLOGIST documented in this encounter Results * Breast Imaging Screening Outside Reference (08/06/2016 12:00 AM GYNAECOLOGICAL ONCOLOGIST) Impressions [facility] - 01/10/2022 1:24 PM CDT These images are for Reference purposes only and have not been reviewed by [facility] Radiology. There will be no report generated by a [facility] Radiologist. Narrative [facility] - 01/10/2022 1:24 PM CDT EXAMINATION: Images For Reference Purposes Only us Lakeshia Woodall MD PhD IMG MAMMO PROCEDURES Final Result [facility] documented in this encounter Visit Diagnoses Not on filedocumented in this encounter
--- OUTSIDE RECORDS SUMMARY | 2017-08-07 01:00 | XMS_ITS | Encounter Summary ---
Author Organization [facility] Healthcare Address [address] [place] [address] Care Team Providers Care Analysis Evaluator Name Role Phone Ion García MD Primary Care Provider [phone] Reason for Visit * Diagnostic Imaging (Routine) - Closed Specialty Diagnoses / Procedures Referred By Contac t Referred To Contact Procedures Breast Imaging Screening Outside Reference Lakeshia Woodall MD PhD [address] [phone] [place] [address] Phone: tel: fax: Referral ID Status Reason Start Date Expiration Date Visits Re quested Visits Authorized [id number] Closed 01/10/2022 02/09/2023 1 1 Encounter Details Date Type Department Care Team (Late st Contact Info) Description 08/07/2017 Hospital Encounter [facility] Radiology [facility] [address] [place] [address] Social History Tobacco Use Types Packs/Day Years Used Date Smoking Tobacco: Never Smokeless Tobacco: Never Comments Unknown Sex and Gender Information Value Date Recorded Sex Assigned at Not on file Legal Sex Female 6:16 AM SEWING TECHNIQUES DEMONSTRATOR Gender Identity Female 08/17/2020 12:34 PM SEWING TECHNIQUES DEMONSTRATOR Sexual Orientation Straight 11/22/2019 7: 07 PM CDT documented as of this encounter Plan of Treatment Not on file documented as of this encounter Procedures Procedure Name Priority Date/Time Associated Diagnosis Comments BREAST IMAGING MG SCREENING OUTSIDE REFERENCE Routine 08/07/2017 12:00 AM SEWING TECHNIQUES DEMONSTRATOR documented in this encounter Results * Breast Imaging Screening Outside Reference (08/07/2017 12:00 AM SEWING TECHNIQUES DEMONSTRATOR) Impressions [facility] - 01/10/2022 1:25 PM CDT These images are for Reference purposes only and have not been reviewed by [facility] Radiology. There will be no report generated by a [facility] Radiologist. Narrative RAD_M[facility]MO[facility] - 01/10/2022 1:25 PM CDT EXAMINATION: Images For Reference Purposes Only us Lakeshia Woodall MD PhD IMG MAMMO PROCEDURES Final Result [facility] documented in this encounter Visit Diagnoses Not on filedocumented in this encounter Care Teams Analysis Evaluator Relationship Specialty Start Date End Date Ion García MD PCP - General Internal Medicine 07/24/17 11/18/19 documented as of this encounter
--- OUTSIDE RECORDS SUMMARY | 2018-09-08 01:00 | XMS_ITS | Encounter Summary ---
Author Organization [facility] Healthcare Address [address] [place] [address] Care Team Providers Care Regulatory Technician Name Role Phone Ion García MD Primary Care Provider [phone] Reason for Visit * Diagnostic Imaging (Routine) - Closed Specialty Diagnoses / Procedures Referred By Contac t Referred To Contact Procedures Breast Imaging Screening Outside Reference Lakeshia Woodall MD PhD [address] [phone] [place] [address] Phone: tel: fax: Referral ID Status Reason Start Date Expiration Date Visits Re quested Visits Authorized [id number] Closed 01/10/2022 02/09/2023 1 1 Encounter Details Date Type Department Care Team (Late st Contact Info) Description 09/08/[address] [facility]iology [facility] [address] [place] [phone] Social History Tobacco Use Types Packs/Day Years Used Date Smoking Tobacco: Never Smokeless Tobacco: Never Comments Unknown Sex and Gender Information Value Date Recorded Sex Assigned at Not on file Legal Sex Female 6:16 AM CULINARY ASSISTANT Gender Identity Female 08/17/2020 12:34 PM CULINARY ASSISTANT Sexual Orientation Straight 11/22/2019 7: 07 PM CDT documented as of this encounter Plan of Treatment Not on file documented as of this encounter Procedures Procedure Name Priority Date/Time Associated Diagnosis Comments BREAST IMAGING MG SCREENING OUTSIDE REFERENCE Routine 09/08/2018 12:00 AM CULINARY ASSISTANT documented in this encounter Results * Breast Imaging Screening Outside Reference (09/08/2018 12:00 AM CULINARY ASSISTANT) Impressions [facility] - 01/10/2022 1:24 PM CDT These images are for Reference purposes only and have not been reviewed by [facility] Radiology. There will be no report generated by a [facility] Radiologist. Narrative RAD_M[facility]MO[facility] - 01/10/2022 1:24 PM CDT EXAMINATION: Images For Reference Purposes Only us Lakeshia Woodall MD PhD IMG MAMMO PROCEDURES Final Result [facility] documented in this encounter Visit Diagnoses Not on filedocumented in this encounter Care Teams Regulatory Technician Relationship Specialty Start Date End Date Ion Gacría MD PCP - General Internal Medicine 07/24/17 11/18/19 documented as of this encounter
--- OUTSIDE RECORDS SUMMARY | 2019-09-21 | XMS_ITS | Encounter Summary ---
Author Organization [facility] Healthcare Address [address] [place] [address] Care Team Providers Care Reference Services Head Name Role Phone Ion García MD Primary Care Provider [phone] Reason for Visit * Diagnostic Imaging (Routine) - Closed Specialty Diagnoses / Procedures Referred By Contac t Referred To Contact Procedures Breast Imaging Screening Outside Reference aLkeshia Woodall MD PhD [address] [phone] [place] [address] Phone: tel: fax: Referral ID Status Reason Start Date Expiration Date Visits Re quested Visits Authorized [id number] Closed 01/10/2022 02/09/2023 1 1 Encounter Details Date Type Department Care Team (Late st Contact Info) Description 09/21/2019 Hospital Encounter [facility]iology [facility] [address] [place] [address] Social History Tobacco Use Types Packs/Day Years Used Date Smoking Tobacco: Never Smokeless Tobacco: Never Comments Unknown Sex and Gender Information Value Date Recorded Sex Assigned at Not on file Legal Sex Female 6:16 AM AUTOMOBILE BODY REPAIRER Gender Identity Female 08/17/2020 12:34 PM AUTOMOBILE BODY REPAIRER Sexual Orientation Straight 11/22/2019 7: 07 PM [...] only and have not been reviewed by [facility] Radiology. There will be no report generated by a [facility] Radiologist. Narrative RAD_M[facility]MO[facility] - 01/10/2022 1:25 PM CDT EXAMINATION: Images For Reference Purposes Only us Lakeshia Woodall MD PhD IMG MAMMO PROCEDURES Final Result [facility] documented in this encounter Visit Diagnoses Not on filedocumented in this encounter Care Teams Reference Services Head Relationship Specialty Start Date End Date Ion García MD PCP - General Internal Medicine 07/24/17 11/18/19 documented as of this encounter
--- OUTSIDE RECORDS SUMMARY | 2020-10-13 | XMS_ITS | Encounter Summary ---
Author Organization [facility] Healthcare Address [address] [place] [address] Care Team Providers Care Speech Lang Path Name Role Phone Gonzalez Kolb DO Primary Care Provider [phone] Reason for Visit * Diagnostic Imaging (Routine) - Closed Specialty Diagnoses / Procedures Referred By Janae t Referred To Contact Procedures Breast Imaging Screening Outside Reference Lakeshia Woodall MD PhD [address] [id number] [place] [address] Phone: tel: fax: Referral ID Status Reason Start Date Expiration Date Visits Re quested Visits Authorized [id number] Closed 01/10/2022 02/09/2023 1 1 Encounter Details Date Type Department Care Team (Late st Contact Info) Description 10/13/2020 Hospital Encounter [facility] [address] [place] [id number] Social History Tobacco Use Types Packs/Day Years Used Date Smoking Tobacco: Never Smokeless Tobacco: Never Comments Unknown Sex and Gender Information Value Date Recorded Sex Assigned at Not on file 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. There will be no report generated by a [facility] Radiologist. Narrative [facility] - 01/10/2022 1:24 PM CDT EXAMINATION: Images For Reference Purposes Only us Lakeshia Woodall MD PhD IMG MAMMO PROCEDURES Final Result [facility] documented in this encounter Visit Diagnoses Not on filedocumented in this encounter Care Teams Speech Lang Path Relationship Specialty Start Date End Date Gonzalez Kolb DO PCP - General Internal Medicine 11/19/19 10/29/23 documented as of this encounter
[2025-03-09] VITALS (16 sets, daily range): BP systolic 152–168; BP diastolic 83–105; PULSE 78–96; RESP 10–21; TEMP 36.6; O2SAT 95–100; BMI 19.1
--- NOTE | ~2025-03-09 | CT_ITS ---
EXAMINATION: CT diagnostic chest wo con DATE: 03/10/2025 11:39 INDICATION: Mild emphysema TECHNIQUE: Computed tomography (CT) of the chest was performed without intravenous contrast. The dose-length product was 139.07 mGy-cm. COMPARISON: CTA chest abdomen 12/23/2023 FINDINGS: No enlarged mediastinal or hilar lymph nodes. There are a few nonenlarged, nonspecific mediastinal and hilar lymph nodes. Heart is mildly enlarged. There are a few too small to characterize low-attenuation lesions in the liver similar to the prior study. Thoracic aorta is partially calcified but is not aneurysmal. Tracheobronchial tree is patent. No pleural effusion. No pneumothorax. No pulmonary mass. Minimal centrilobular emphysema in the lung apices. Mild biapical scarring. There are a few small reticular and bandlike opacities in the lower lungs likely atelectasis or scarring. Bones appear osteopenic. Multilevel predominantly mild degenerative change throughout the visualized spine. IMPRESSION: 1. No pulmonary mass. No pulmonary nodules. 2. There are a few small reticular and bandlike opacities in the lower lungs likely atelectasis or scarring. 3. Minimal centrilobular emphysema in the lung apices. Reviewed, dictated and finalized at location Q. IMPRESSION: 1. No pulmonary mass. No pulmonary nodules. 2. There are a few small reticular and bandlike opacities in the lower lungs li edson atelectasis or scarring. 3. Minimal centrilobular emphysema in the lung apices.
--- NOTE | ~2025-03-09 | XR_ITS ---
EXAMINATION: XR chest 1V portable DATE: 03/09/2025 19:17 INDICATION: Palpitations TECHNIQUE: frontal view of the chest was obtained. COMPARISON: Chest radiograph dated 04/20/24 FINDINGS: Cardiomegaly. Basilar predominant increased interstitial pattern in the bilateral mid and lower lung zones with associated peripheral Ahsan B-lines consistent with mild pulmonary edema. No pleural effusion or pneumothorax. IMPRESSION: 1. Congestive heart failure with cardiomegaly and mild pulmonary edema in the bilateral mid and lower lung zones. Reviewed, dictated and finalized at location A. IMPRESSION: 1. Congestive heart failure with cardiomegaly and mild pulmonary edema in the b ilateral mid and lower lung zones.
--- NOTE | 2025-03-09 18:54 | ECG_ITS ---
Test Date: 2025-03-09 18:57:46 Measurements Intervals [place] Rate: 79 P: 0 WY: 0 QRS: 67 QRSD: 89 T: 41 QT: 384 QTc: 442 Interpretive Statements ATRIAL FIBRILLATION VOLTAGE CRITERIA FOR LVH BASELINE ARTIFACT- I, II, AR, AVL, AVF, V1-V3 ABNORMAL ECG Compared to ECG 12/25/2023 16:20:37 Sinus rhythm no longer present Electronically Signed On 03-09-2025 19:01:14 CDT by Fer Parmar D.O.
--- OUTSIDE RECORDS SUMMARY | 2025-03-09 19:02 | XMS_ITS | Encounter Summary ---
Author Organization [facility] Address [address] [place] [address] Care Team Providers Care End Touching Machine Operator Name Role Phone Domo Scruggs DO Primary Care Provider +1- [phone] Encounter Details Date Type Department Care Team (Late st Contact Info) Description 10/07/2002 Outpatient Historical [facility] [address] [facility] [address] [address] Patric Monroe Social History Tobacco Use Types Packs/Day Years Used Date Smoking Tobacco: Never Assessed Comments Unknown Sex and Gender Information Value Date Recorded Sex Assigned at Not on file Legal Sex Female 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
--- OUTSIDE RECORDS SUMMARY | 2025-03-09 19:02 | XMS_ITS | Encounter Summary ---
Author Organization [facility] Address [address] [place] [address] Care Team Providers Care Hog Cutter Name Role Phone Domo Scruggs DO Primary Care Provider +1- [phone] Encounter Details Date Type Department Care Team (Late st Contact Info) Description 01/11/2002 Outpatient Historical [facility] [address] [facility] [address] [address] Patric Monroe Social History Tobacco Use Types Packs/Day Years Used Date Smoking Tobacco: Never Assessed Comments Unknown Sex and Gender Information Value Date Recorded Sex Assigned at Not on file Legal Sex Female 4:44 AM BUSINESS DIVISION CHAIR Gender Identity Not on file Sexual Orientation Not on file documented as of this encounter Plan of Treatment Not on file documented as of this encounter Visit Diagnoses Not on filedocumented in this encounter Care Teams Hog Cutter Relationship Specialty Start Date End Date Domo Scruggs DO [address] [place] [address] PCP - General 07/01/06 documented as of this encounter
--- OUTSIDE RECORDS SUMMARY | 2025-03-09 19:02 | XMS_ITS | Encounter Summary ---
Author Organization [facility] Address [address] [place] [address] Care Team Providers Care Big Machine Consultant Name Role Phone Domo Scruggs DO Primary Care Provider +1- [phone] Encounter Details Date Type Department Care Team (Late st Contact Info) Description 09/17/2001 Outpatient Historical [facility] [address] [facility] [address] [address] Patric Monroe Social History Tobacco Use Types Packs/Day Years Used Date Smoking Tobacco: Never Assessed Comments Unknown Sex and Gender Information Value Date Recorded Sex Assigned at Not on file Legal Sex Female 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
--- OUTSIDE RECORDS SUMMARY | 2025-03-09 19:02 | XMS_ITS | Encounter Summary ---
Author Organization [facility] Address [address] [place] [address] Care Team Providers Care Section Chief Name Role Phone Domo Scruggs DO Primary Care Provider +1- [phone] Encounter Details Date Type Department Care Team (Latest Contact Info) Description 01/08/2007 Outpatient Historical [facility] Ion Pham MD NO ADDRESS ON FILE Malignant Neoplasm of Cervix Uteri, Unspecified Site (CMS/HCC) (Primary Dx) Social History Tobacco Use Types Packs/Day Years Used Date Smoking Tobacco: Never Assessed Comments Unknown Sex and Gender Information Value Date Recorded Sex Assigned at Not on file Legal Sex Female 4:44 AM NURSE NAVIGATOR Gender Identity Not on file Sexual Orientation Not on file documented as of this encounter Plan of Treatment Not on file documented as of this encounter Visit Diagnoses Diagnosis Malignant neoplasm of cervix uteri, unspecified site (CMS/HCC)- Primary Malignant neoplasm of cervix uteri, unspecified site documented in this encounter Care Teams Section Chief Relationship Specialty Start Date End Date Domo Scruggs DO [address] [place] [address] PCP - General 07/01/06 documented as of this encounter
--- OUTSIDE RECORDS SUMMARY | 2025-03-09 19:02 | XMS_ITS | Encounter Summary ---
Author Organization [facility] Address [address] [place] [address] Care Team Providers Care Facility Maintenance Technician Name Role Phone Domo Scruggs DO Primary Care Provider +1- [phone] Encounter Details Date Type Department Care Team (Late st Contact Info) Description 06/24/2002 Outpatient Historical [facility] Mahoney, Catalino Saucedo MD [address] [place] [address] [address] PERS HX OF BREAST MALIGNANCY (Primary Dx) Social History Tobacco Use Types Packs/Day Years Used Date Smoking Tobacco: Never Assessed Comments Unknown Sex and Gender Information Value Date Recorded Sex Assigned at Not on file Legal Sex Female 4:44 AM THERMOMETER TESTER Gender Identity Not on file Sexual Orientation Not on file documented as of this encounter Plan of Treatment Not on file documented as of this encounter Visit Diagnoses Diagnosis Personal history of malignant neoplasm of breast- Primary documented in this encounter Care Teams Facility Maintenance Technician Relationship Specialty Start Date End Date Domo Scruggs DO [address] [place] [address] PCP - General 07/01/06 documented as of this encounter
--- OUTSIDE RECORDS SUMMARY | 2025-03-09 19:02 | XMS_ITS | Encounter Summary ---
Author Organization [facility] Address [address] [place] [address] Care Team Providers Care Bee Worker Name Role Phone Domo Scruggs DO Primary Care Provider +1- [phone] Encounter Details Date Type Department Care Team (Latest Contact Info) Description 07/01/2006 Outpatient Historical [facility] Rodriguez, Henrry Jennings MD [facility] [place] [address] Lump or Mass in Breast (Primary Dx) Social History Tobacco Use Types Packs/Day Years Used Date Smoking Tobacco: Never Assessed Comments Unknown Sex and Gender Information Value Date Recorded Sex Assigned at Not on file Legal Sex Female 4:44 AM MISSILE TECHNICIAN Gender Identity Not on file Sexual Orientation Not on file documented as of this encounter Plan of Treatment Not on file documented as of this encounter Visit Diagnoses Diagnosis Lump or mass in breast- Primary documented in this encounter Care Teams Bee Worker Relationship Specialty Start Date End Date Domo Scruggs DO [address] [place] [address] PCP - General 07/01/06 documented as of this encounter
--- OUTSIDE RECORDS SUMMARY | 2025-03-09 19:02 | XMS_ITS | Encounter Summary ---
Author Organization [facility] Address [address] [place] [address] Care Team Providers Care Money Order Clerk Name Role Phone Domo Scruggs DO Primary Care Provider +1- [phone] Encounter Details Date Type Department Care Team (Latest Contact Info) Description 06/01/2003 Outpatient Historical HIS [facility] MARCIAL Rodriguez, Henrry Jennings MD [facility] [place] [address] MASTODYNIA (Primary Dx) Social History Tobacco Use Types Packs/Day Years Used Date Smoking Tobacco: Never Assessed Comments Unknown Sex and Gender Information Value Date Recorded Sex Assigned at Not on file Legal Sex Female 4:44 AM WATER SYSTEMS DESIGNER Gender Identity Not on file Sexual Orientation Not on file documented as of this encounter Plan of Treatment Not on file documented as of this encounter Visit Diagnoses Diagnosis Mastodynia- Primary documented in this encounter Care Teams Money Order Clerk Relationship Specialty Start Date End Date Domo Scruggs DO [address] [place] [address] PCP - General 07/01/06 documented as of this encounter
--- OUTSIDE RECORDS SUMMARY | 2025-03-09 19:02 | XMS_ITS | Encounter Summary ---
Author Organization [facility] Address [address] [place] [address] Care Team Providers Care Physical Sciences Instructor Name Role Phone Domo Scruggs DO Primary Care Provider +1- [phone] Encounter Details Date Type Department Care Team (Late st Contact Info) Description 02/10/2002 Outpatient Historical [facility] [address] [facility] [facility] [address] [address] Patric Monroe Social History Tobacco Use Types Packs/Day Years Used Date Smoking Tobacco: Never Assessed Comments Unknown Sex and Gender Information Value Date Recorded Sex Assigned at Not on file Legal Sex Female 4:44 AM BRICK GRADER Gender Identity Not on file Sexual Orientation Not on file documented as of this encounter Plan of Treatment Not on file documented as of this encounter Visit Diagnoses Not on filedocumented in this encounter Care Teams Physical Sciences Instructor Relationship Specialty Start Date End Date Domo Scruggs DO [address] [place] [address] PCP - General 07/01/06 documented as of this encounter
--- OUTSIDE RECORDS SUMMARY | 2025-03-09 19:02 | XMS_ITS | Encounter Summary ---
Author Organization [facility] Address [address] [place] [address] Care Team Providers Care Neon Sign Maker Name Role Phone Domo Scruggs DO Primary Care Provider +1- [phone] Encounter Details Date Type Department Care Team (Late st Contact Info) Description 04/26/2002 Outpatient Historical [facility] [address] [facility] [address] [address] Patric Monroe Social History Tobacco Use Types Packs/Day Years Used Date Smoking Tobacco: Never Assessed Comments Unknown Sex and Gender Information Value Date Recorded Sex Assigned at Not on file Legal Sex Female 4:44 AM MEDICAL POLICY SPECIALIST Gender Identity Not on file Sexual Orientation Not on file documented as of this encounter Plan of Treatment Not on file documented as of this encounter Visit Diagnoses Not on filedocumented in this encounter Care Teams Neon Sign Maker Relationship Specialty Start Date End Date Domo Scruggs DO [address] [place] [address] PCP - General 07/01/06 documented as of this encounter
--- OUTSIDE RECORDS SUMMARY | 2025-03-09 19:02 | XMS_ITS | Encounter Summary ---
Author Organization [facility] Address [address] [facility] [address] [place] [address] Phone Care Team Providers Care Fire Lieutenant Marine Name Role Phone Margaret Martin DO Primary Care Provider + Marisela Hannon MD Unavailable [phone] Encounter Details Date Type Department Care Team (Late st Contact Info) Description 01/16/2025 Results Follow-Up [facility] Medicine Surgery [address] [place] [address] Lakeshia Woodall MD PhD [address] [facility] 4281[address]7930[address] [place] [address] Surgical pathology Social History Tobacco Use Types Packs/Day Years Used Date Smoking Tobacco: Never Smokeless Tobacco: Never Comments Unknown Sex and Gender Information Value Date Recorded Sex Assigned at Not on file Legal Sex Female 6:16 AM ACCORDION REPAIRER Gender Identity Female 08/17/2020 12:34 PM ACCORDION REPAIRER Sexual Orientation Straight 11/22/2019 7: 07 PM CDT documented as of this encounter Plan of Treatment Not on file documented as of this encounter Visit Diagnoses Not on filedocumented in this encounter Care Teams Fire Lieutenant Marine Relationship Specialty Start Date End Date Margaret Martin DO [address] [place] [address] [address] [place], [place] [id number] PCP - General Family Medicine 10/25/24 Marisela Hannon MD [address] [place] [address] Referring Physician Gynecology 11/10/24 documented as of this encounter
--- OUTSIDE RECORDS SUMMARY | 2025-03-09 19:02 | XMS_ITS | Encounter Summary ---
Author Organization [facility] Address [address] [place] [address] Care Team Providers Care Urban Planning Teacher Name Role Phone Domo Scruggs DO Primary Care Provider +1- [phone] Encounter Details Date Type Department Care Team (Latest Contact Info) Description 07/01/2007 Outpatient Historical HIS [facility] MARCIAL Rodriguez, Henrry Jennings MD [facility] [place] [address] Other Screening Mammogram; Personal History of Malignant Neoplasm of Breast Social History Tobacco Use Types Packs/Day Years Used Date Smoking Tobacco: Never Assessed Comments Unknown Sex and Gender Information Value Date Recorded Sex Assigned at Not on file Legal Sex Female 4:44 AM LUNCH COUNTER MANAGER Gender Identity Not on file Sexual Orientation Not on file documented as of this encounter Plan of Treatment Not on file documented as of this encounter Visit Diagnoses Diagnosis Other screening mammogram Personal history of malignant neoplasm of breast documented in this encounter Care Teams Urban Planning Teacher Relationship Specialty Start Date End Date Domo Scruggs DO [address] [place] [address] PCP - General 07/01/06 documented as of this encounter
--- OUTSIDE RECORDS SUMMARY | 2025-03-09 19:02 | XMS_ITS | Encounter Summary ---
Author Organization [facility] Address [address] [place] [address] Care Team Providers Care Plastic Surgery Coordinator Name Role Phone Domo Scruggs DO Primary Care Provider +1- [phone] Encounter Details Date Type Department Care Team (Late st Contact Info) Description 06/26/2001 Outpatient Historical [facility] MARCIAL Mahoney, Catalino Saucedo MD [address] [place] [address] [address] MALIG NEOPLASM BREAST UP-OUTER (CMS/HCC) (Primary Dx) Social History Tobacco Use Types Packs/Day Years Used Date Smoking Tobacco: Never Assessed Comments Unknown Sex and Gender Information Value Date Recorded Sex Assigned at Not on file Legal Sex Female 4:44 AM FEATHER BONER Gender Identity Not on file Sexual Orientation Not on file documented as of this encounter Plan of Treatment Not on file documented as of this encounter Visit Diagnoses Diagnosis 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
--- OUTSIDE RECORDS SUMMARY | 2025-03-09 19:02 | XMS_ITS | Encounter Summary ---
Author Organization [facility] Address [address] [place] [address] Care Team Providers Care Rubber Block Layer Name Role Phone Domo Scruggs DO Primary Care Provider +1- [phone] Encounter Details Date Type Department Care Team (Late st Contact Info) Description 01/06/2007 Outpatient Historical [facility] ([facility]) [address] [place] [address] Jose Alfredo Sanz MD NO ADDRESS ON FILE Social History Tobacco Use Types Packs/Day Years Used Date Smoking Tobacco: Never Assessed Comments Unknown Sex and Gender Information Value Date Recorded Sex Assigned at Not on file Legal Sex Female 4:44 AM CHRISTIAN SCIENCE PRACTITIONER Gender Identity Not on file Sexual Orientation Not on file documented as of this encounter Plan of Treatment Not on file documented as of this encounter Visit Diagnoses Not on filedocumented in this encounter Care Teams Rubber Block Layer Relationship Specialty Start Date End Date Domo Scruggs DO [address] [place] [address] PCP - General 07/01/06 documented as of this encounter
--- OUTSIDE RECORDS SUMMARY | 2025-03-09 19:02 | XMS_ITS | Encounter Summary ---
Author Organization [facility] Address [address] [place] [address] Care Team Providers Care Spinning Operator Name Role Phone Domo Scruggs DO Primary Care Provider +1- [phone] Encounter Details Date Type Department Care Team (Latest Contact Info) Description 09/13/2004 Outpatient Historical HIS [facility] MARCIAL Rodriguez, Henrry Jennings MD [facility] [place] [address] CHEST PAIN NOS (Primary Dx) Social History Tobacco Use Types Packs/Day Years Used Date Smoking Tobacco: Never Assessed Comments Unknown Sex and Gender Information Value Date Recorded Sex Assigned at Not on file Legal Sex Female 4:44 AM DIRECTOR PUBLIC POLICY Gender Identity Not on file Sexual Orientation Not on file documented as of this encounter Plan of Treatment Not on file documented as of this encounter Visit Diagnoses Diagnosis Chest pain, unspecified- Primary documented in this encounter Care Teams Spinning Operator Relationship Specialty Start Date End Date Domo Scruggs DO [address] [place] [address] PCP - General 07/01/06 documented as of this encounter
--- OUTSIDE RECORDS SUMMARY | 2025-03-09 19:02 | XMS_ITS | Encounter Summary ---
Author Organization Address [address] [place] [address] Care Team Providers Care Public Transportation Inspector Name Role Phone Domo Scruggs DO Primary Care Provider [phone]- [phone] Encounter Details Date Type Department Care Team (Late st Contact Info) Description 06/12/2004 Outpatient Historical [facility] Mahoney, Catalino Saucedo MD [address] [place] [address] [address] PERS HX OF BREAST MALIGNANCY (Primary Dx) Social History Tobacco Use Types Packs/Day Years Used Date Smoking Tobacco: Never Assessed Comments Unknown Sex and Gender Information Value Date Recorded Sex Assigned at Not on file Legal Sex Female 4:44 AM PRODUCT CONSULTANT Gender Identity Not on file Sexual Orientation Not on file documented as of this encounter Plan of Treatment Not on file documented as of this encounter Visit Diagnoses Diagnosis Personal history of malignant neoplasm of breast- Primary documented in this encounter Care Teams Public Transportation Inspector Relationship Specialty Start Date End Date Domo Scruggs DO [address] [place] [address] PCP - General 07/01/06 documented as of this encounter
--- OUTSIDE RECORDS SUMMARY | 2025-03-09 19:02 | XMS_ITS | Clinical Summary ---
Author Organization [facility] Address [address] [place] [address] Care Team Providers Care Systems Qa Analyst Name Role Phone Gonzalez Kolb Primary Care Provider [phone] Allergies Active Allergy Reactions Criticality Noted Date Comments Nabumetone Rash Low 07/26/2018 Social History Tobacco Use Types Packs/Day Years Used Date Smoking Tobacco: Never Smokeless Tobacco: Never Alcohol Use Standard Drinks/Week Comments No 0 (1 standard drink = 0.6 oz pur e alcohol) AUDIT-C Answer Date Recorded Frequency of Alcohol Consumption Never 07/26/2018 Average Number of Drinks Not on file 019 Frequency of Binge Drinking Not on file 07/14 Comments No Sex and Gender Information Value Date Recorded Sex Assigned at Not on file Legal Sex Female 11:46 AM HELICOPTER ENGINEER Gender Identity Not on file Sexual Orientation Not on file Last Filed Vital Signs Vital Sign Reading Time Taken Comments Blood Pressure 174/91 07/26/2018 11:56 AM HELICOPTER ENGINEER Pulse 68 07/26/2018 3:45 PM HELICOPTER ENGINEER Temperature 36.9 C (98.4 F) 07/26/2018 11:56 AM HELICOPTER ENGINEER Respiratory Rate 16 07/26/2018 3:45 PM HELICOPTER ENGINEER Oxygen Saturation 98% 07/26/2018 3:45 PM HELICOPTER ENGINEER Inhaled Oxygen Concentration - - Weight 56.9 kg (125 lb 6.4 oz) 07/26/2018 11:56 AM HELICOPTER ENGINEER Height 154.9 cm (5' 1) 07/26/2018 11:56 AM HELICOPTER ENGINEER Body Mass Index 23.69 07/26/2018 11:56 AM HELICOPTER ENGINEER Plan of Treatment Health Maintenance Due Date Last Done Comments DTaP, Tdap and Td Vaccines ( 1 - Tdap) 1959 Annual Medicare Wellness Visit 2007 Dexa Scan (General) 2007 Pneumococcal Vaccine: 50+ Ye ars (2 of 2 - PCV) 07/14/2008 07/14/2007 Zoster Vaccines (2 of 3) 06/26/2011 05/01/2011 RSV Immunization or 60+ Years (1 - 1-dose 75+ series) 2017 COVID-19 Vaccine (1 - 2023-2 5 season) 2024 Meningococcal B Vaccine Aged Out No l onger eligible based on patient's age to complete this topic Meningococcal Vaccine Aged Out No cassandra madeline eligible based on patient's age to complete this topic RSV Immunizations Under 20 Months Aged Out No longer eligible based on patient's age to complete this topic Insurance [employer] Care Teams Systems Qa Analyst Relationship Specialty Start Date End Date Gonzalez Kolb DO [address] [place] [address] PCP - General INTERNAL MEDICINE 07/26/18
--- OUTSIDE RECORDS SUMMARY | 2025-03-09 19:02 | XMS_ITS | Encounter Summary ---
Author Organization [facility] Address [address] [place] [address] Phone Care Team Providers Care Tin Flopper Name Role Phone Ion García MD Primary Care Provider [phone] Gonzalez Kolb DO Primary Care Provider [phone] Anselmo Hernandez DO Primary Care Provider [phone] Margaret Martin DO Primary Care Provider + Marisela Hannon MD Unavailable [phone] Encounter Details Date Type Department Care Team (Latest Contact Info) Description 09/16/2019 Orders Only [facility] Scanning, Provider Social History Tobacco Use Types Packs/Day Years Used Date Smoking Tobacco: Never Assessed Comments Unknown Sex and Gender Information Value Date Recorded Sex Assigned at Not on file Legal Sex Female 6:16 AM CASING CREW Gender Identity Female 08/17/2020 12:34 PM CASING CREW Sexual Orientation Straight 11/22/2019 7: 07 PM CDT documented as of this encounter Plan of Treatment Not on file documented as of this encounter Procedures Procedure Name Priority Date/Time Associated Diagnosis Comments PULMONARY - RESULT SCAN 09/16/2019 SCAN - RADIOLOGY/IMAGING 09/16/2019 documented in this encounter Results * SCAN - RADIOLOGY/IMAGING (09/16/2019) Anatomical Region Laterality Modality Other us Provider Scanning Final Result * PULMONARY - RESULT SCAN (09/16/2019) Anatomical Region Laterality Modality Other us Provider Scanning Final Result documented in this encounter Visit Diagnoses Not on filedocumented in this encounter Care Teams Tin Flopper Relationship Specialty Start Date End Date Ion García MD PCP - General Internal Medicine 07/24/17 11/18/19 Gonzalez Kolb DO PCP - General Internal Medicine 11/19/19 10/29/23 Anselmo Hernandez DO [address] [place] [address] [address] [place] [address] PCP - General Family Medicine 10/30/23 10/24/24 Margaret Martin DO [address] [place] [address] [address] [place] [address] PCP - General Family Medicine 10/25/24 Marisela Hannon MD [address] [place] [address] Referring Physician Gynecology 11/10/24 documented as of this encounter
--- OUTSIDE RECORDS SUMMARY | 2025-03-09 19:02 | XMS_ITS | Encounter Summary ---
Author Organization [employer] Address [address] [place] [address] Care Team Providers Care Tank Washer Name Role Phone Domo Scruggs DO Primary Care Provider [phone]- [phone] Encounter Details Date Type Department Care Team (Latest Contact Info) Description 01/12/2007 Inpatient Historical [facility] Ion Pham MD NO ADDRESS ON FILE Malignant Neoplasm of Uterus, Part Unspecified (CMS/HCC) (Primary Dx) Social History Tobacco Use Types Packs/Day Years Used Date Smoking Tobacco: Never Assessed Comments Unknown Sex and Gender Information Value Date Recorded Sex Assigned at Not on file Legal Sex Female 4:44 AM RETAIL CASHIER ASSOCIATE Gender Identity Not on file Sexual Orientation Not on file documented as of this encounter Plan of Treatment Not on file documented as of this encounter Procedures Procedure Name Priority Date/Time Associated Diagnosis Comments HEMOGLOBIN AND HEMATOCRIT Routine 01/13/2007 6:30 AM CDT BASIC METABOLIC PANEL Routine 01/13/2007 6:30 AM CDT HEMOGLOBIN AND HEMATOCRIT Routine 01/06/2007 2:22 PM CDT BASIC METABOLIC PANEL Routine 01/06/2007 2:22 PM CDT documented in this encounter Results * (ABNORMAL) BASIC METABOLIC PANEL (01/13/2007 6:30 AM CDT) GLUCOSE 98 65 - 99 mg/dL INTERFACE SYSTEM CREATININE 0.65 0.51 - 0.95 mg/dL INTERFACE SYSTEM CALCIUM 7.1(L) 8.4 - 10.2 mg/dL INTERFACE SYSTEM BUN 8 6 - 20 mg/dL INTERFACE SYSTEM SODIUM 140 135 - 145 mmol/L INTERFACE SYSTEM POTASSIUM 4.3 3.5 - 4.9 mmol/L INTERFACE SYSTEM CHLORIDE 110(H) 96 - 108 mmol/L INTERFACE SYSTEM CO2 25 22 - 30 mmol/L INTERFACE SYSTEM GFR, >60 >=60 mL/min/1. 7 sq meter INTERFACE SYSTEM GFR >60 >=60 mL/min/1. 7 sq meter INTERFACE SYSTEM Comment: Estimated GFR rate interpretative information for both Americans and non- Americans is available on the [facility] at: [email or web address] Select: Lab Policies and Procedures Select: Reference Ranges - GFR 01/13/2007 6:30 AM CDT us Ion Pham MD CHEMISTRY ORDERABLES Edited Performing Organization Address [facility] de Phone Number INTERFACE SYSTEM Refer to clinic/hospital department * (ABNORMAL) HEMOGLOBIN AND HEMATOCRIT (01/13/2007 6:30 AM CDT) HEMOGLOBIN 10.2(L) 11.8 - 14.8 g/dL INTERFACE SYSTEM HEMATOCRIT 31.1(L) 35.5 - 44.0 % INTERFACE SYSTEM 01/13/2007 6:30 AM CDT us Ion Pham MD HEMATOLOGY ORDERABLES Edited Performing Organization Address [facility] de Phone Number INTERFACE SYSTEM Refer to clinic/hospital department * BASIC METABOLIC PANEL (01/06/2007 2:22 PM CDT) GLUCOSE 90 65 - 99 mg/dL INTERFACE SYSTEM CREATININE 0.73 0.51 - 0.95 mg/dL INTERFACE SYSTEM CALCIUM 9.7 8.4 - 10.2 mg/dL INTERFACE SYSTEM BUN 11 6 - 20 mg/dL INTERFACE SYSTEM SODIUM 143 135 - 145 mmol/L INTERFACE SYSTEM POTASSIUM 4.3 3.5 - 4.9 mmol/L INTERFACE SYSTEM CHLORIDE 106 96 - 108 mmol/L INTERFACE SYSTEM CO2 30 22 - 30 mmol/L INTERFACE SYSTEM GFR, >60 >=60 mL/min/1.7 sq meter INTERFACE SYSTEM GFR >60 >=60 mL/min/1.7 sq meter INTERFACE SYSTEM Comment: Estimated GFR rate interpretative information for both Americans and non- Americans is available on the [facility] at: [email or web address] Select: Lab Policies and Procedures Select: Reference Ranges - GFR 01/06/2007 2:22 PM CDT oIn Pham MD CHEMISTRY ORDERABLES Edited Performing Organization Address City/[facility] Co de Phone Number INTERFACE SYSTEM Refer to clinic/hospital department * HEMOGLOBIN AND HEMATOCRIT (01/06/2007 2:22 PM CDT) HEMOGLOBIN 12.2 11.8 - 14.8 g/dL INTERFACE SYSTEM HEMATOCRIT 37.0 35.5 - 44.0 % INTERFACE SYSTEM 01/06/2007 2:22 PM CDT Ion Pham MD HEMATOLOGY ORDERABLES Edited INTERFACE SYSTEM Refer to clinic/hospital department documented in this encounter Visit Diagnoses Diagnosis Malignant neoplasm of uterus, part unspecified (CMS/HCC)- Primary Malignant neoplasm of uterus, part unspecified documented in this encounter Care Teams Tank Washer Relationship Specialty Start Date End Date Domo Scruggs DO [address] [place] [phone] PCP - General 07/01/06 documented as of this encounter
--- OUTSIDE RECORDS SUMMARY | 2025-03-09 19:02 | XMS_ITS | Encounter Summary ---
Author Organization [facility] Address [address] [place] [address] Care Team Providers Care Script Editor Name Role Phone Domo Scruggs DO Primary Care Provider [phone]- [phone] Encounter Details Date Type Department Care Team (Late st Contact Info) Description 12/28/2001 Outpatient Historical [facility] [address] [facility] [address] [address] Patric Monroe Social History Tobacco Use Types Packs/Day Years Used Date Smoking Tobacco: Never Assessed Comments Unknown Sex and Gender Information Value Date Recorded Sex Assigned at Not on file Legal Sex Female 4:44 AM FIRE CHIEF'S AIDE Gender Identity Not on file Sexual Orientation Not on file documented as of this encounter Plan of Treatment Not on file documented as of this encounter Visit Diagnoses Not on filedocumented in this encounter Care Teams Script Editor Relationship Specialty Start Date End Date Domo Scruggs DO [address] [place] [address] PCP - General 07/01/06 documented as of this encounter
--- OUTSIDE RECORDS SUMMARY | 2025-03-09 19:02 | XMS_ITS | Encounter Summary ---
Author Organization [facility] Address [address] [place] [address] Care Team Providers Care Certified Travel Counselor Name Role Phone Domo Scruggs DO Primary Care Provider +1- [phone] Encounter Details Date Type Department Care Team (Latest Contact Info) Description 03/23/2003 Outpatient Historical [facility] Domenic Lozano MD [address] [place] [address] MALIGN NEOPL BREAST NOS (CMS/HCC) (Primary Dx) Social History Tobacco Use Types Packs/Day Years Used Date Smoking Tobacco: Never Assessed Comments Unknown Sex and Gender Information Value Date Recorded Sex Assigned at Not on file Legal Sex Female 4:44 AM RN TELEHEALTH Gender Identity Not on file Sexual Orientation Not on file documented as of this encounter Plan of Treatment Not on file documented as of this encounter Visit Diagnoses Diagnosis Malignant neoplasm of breast (female), unspecified site- Primary documented in this encounter Care Teams Certified Travel Counselor Relationship Specialty Start Date End Date Domo Scruggs DO [address] [place] [address] PCP - General 07/01/06 documented as of this encounter
--- OUTSIDE RECORDS SUMMARY | 2025-03-09 19:02 | XMS_ITS | Encounter Summary ---
Author Organization [facility] Address [address] [place] [address] Care Team Providers Care Arborist Climber Name Role Phone Domo Scruggs DO Primary Care Provider [phone]- [phone] Encounter Details Date Type Department Care Team (Latest Contact Info) Description 04/25/2004 Outpatient Historical [facility] Domenic Lozano MD [address] [place] [address] [address] Henrry Rodriguez MD [address] [place] [address] MALIGN NEOPL BREAST NOS (CMS/HCC) (Primary Dx) Social History Tobacco Use Types Packs/Day Years Used Date Smoking Tobacco: Never Assessed Comments Unknown Sex and Gender Information Value Date Recorded Sex Assigned at Not on file Legal Sex Female 4:44 AM BOILERMAKER INDUSTRIAL BOILERS Gender Identity Not on file Sexual Orientation Not on file documented as of this encounter Plan of Treatment Not on file documented as of this encounter Visit Diagnoses Diagnosis Malignant neoplasm of breast (female), unspecified site- Primary documented in this encounter Care Teams Arborist Climber Relationship Specialty Start Date End Date Domo Scruggs DO [address] [place] [address] PCP - General 07/01/06 documented as of this encounter
--- OUTSIDE RECORDS SUMMARY | 2025-03-09 19:02 | XMS_ITS | Encounter Summary ---
Author Organization [facility] Address [address] [place] [address] Care Team Providers Care Technical Account Representative Name Role Phone Domo Scruggs DO Primary Care Provider [phone]- [phone] Encounter Details Date Type Department Care Team (Late st Contact Info) Description 02/25/2002 Outpatient Historical [facility] [address] [facility] [address] [address] Patric Monroe Social History Tobacco Use Types Packs/Day Years Used Date Smoking Tobacco: Never Assessed Comments Unknown Sex and Gender Information Value Date Recorded Sex Assigned at Not on file Legal Sex Female 4:44 AM HAY RAKE OPERATOR Gender Identity Not on file Sexual Orientation Not on file documented as of this encounter Plan of Treatment Not on file documented as of this encounter Visit Diagnoses Not on filedocumented in this encounter Care Teams Technical Account Representative Relationship Specialty Start Date End Date Domo Scruggs DO [address] [place] [address] PCP - General 07/01/06 documented as of this encounter
--- OUTSIDE RECORDS SUMMARY | 2025-03-09 19:02 | XMS_ITS | Encounter Summary ---
Author Organization [facility] Address [address] [place] [address] Care Team Providers Care Crew Mess Attendant Name Role Phone Domo Scruggs DO Primary Care Provider +1- [phone] Encounter Details Date Type Department Care Team (Late st Contact Info) Description 08/03/1998 Outpatient Historical [facility] Mahoney, Catalino Saucedo MD [address] [place] [address] [address] Malignant neoplasm of breast (female), unspecified site (Primary Dx) Social History Tobacco Use Types Packs/Day Years Used Date Smoking Tobacco: Never Assessed Comments Unknown Sex and Gender Information Value Date Recorded Sex Assigned at Not on file Legal Sex Female 4:44 AM AUTOMATION ARCHITECT Gender Identity Not on file Sexual Orientation Not on file documented as of this encounter Plan of Treatment Not on file documented as of this encounter Visit Diagnoses Diagnosis Malignant neoplasm of breast (female), unspecified site- Primary documented in this encounter Care Teams Crew Mess Attendant Relationship Specialty Start Date End Date Domo Scruggs DO [address] [place] [address] PCP - General 07/01/06 documented as of this encounter
--- OUTSIDE RECORDS SUMMARY | 2025-03-09 19:02 | XMS_ITS | Encounter Summary ---
Author Organization [facility] Address [address] [place] [address] Care Team Providers Care Vocational Director Name Role Phone Domo Scruggs DO Primary Care Provider +1- [phone] Encounter Details Date Type Department Care Team (Late st Contact Info) Description 09/22/2003 Outpatient Historical [facility] [address] [facility] [address] [address] Patric Monroe Social History Tobacco Use Types Packs/Day Years Used Date Smoking Tobacco: Never Assessed Comments Unknown Sex and Gender Information Value Date Recorded Sex Assigned at Not on file Legal Sex Female 4:44 AM BRICKMASON Gender Identity Not on file Sexual Orientation Not on file documented as of this encounter Plan of Treatment Not on file documented as of this encounter Visit Diagnoses Not on filedocumented in this encounter Care Teams Vocational Director Relationship Specialty Start Date End Date Domo Scruggs DO [address] [place] [address] PCP - General 07/01/06 documented as of this encounter
--- OUTSIDE RECORDS SUMMARY | 2025-03-09 19:02 | XMS_ITS | Clinical Summary ---
Author Organization [employer] [facility] Address [address] [place] [address] Phone Care Team Providers Care Freezer Machine Operator Name Role Phone Domo Scruggs Primary Care Provider +1- [phone] Family History Medical History Relation Name Comments Breast Cancer Neg Hx Ovarian Cancer Neg Hx Social History Tobacco Use Types Packs/Day Years Used Date Smoking Tobacco: Never Assessed Comments Unknown Sex and Gender Information Value Date Recorded Sex Assigned at Not on file Legal Sex Female 4:44 AM SPECIAL EDUCATION PARAPROFESSIONAL Gender Identity Not on file Sexual Orientation Not on file Occupation Industry Job Start Date Job End Date Not on file Not on file Not on file Not on file Plan of Treatment Health Maintenance Due Date Last Done Comments DTAP/TDAP/TD VACCINES (1 - Tdap) 1959 PNEUMOCOCCAL VACCINE 50+ YEA RS (1 of 1 - PCV) 02/17/1992 ZOSTER VACCINE (1 of 2) 02/17/1992 OSTEOPOROSIS SCREENING 2007 RSV VACCINE (60+ or ) (1 - 1-dose 75+ series) 2017 INFLUENZA VACCINE (#1) 2025 Colorectal Cancer Screening Discontinued FIT/FOBT Q 1 year Discontinued 09/22/2003, , 09/17/2001, Additional history exists COLORECTAL SCREENING Discontinued FIT-DNA Q 3 years Discontinued Flex Sig/CT Colonography Q 5 years Discontinued Insurance [facility] Care Teams Freezer Machine Operator Relationship Specialty Start Date End Date Domo Scruggs DO [address] [place] [address] PCP - General 07/01/06
--- OUTSIDE RECORDS SUMMARY | 2025-03-09 19:02 | XMS_ITS | Encounter Summary ---
Author Organization [facility] Address [address] [place] [address] Care Team Providers Care Button Buttonhole Marker Name Role Phone Domo Scruggs DO Primary Care Provider +1- [phone] Encounter Details Date Type Department Care Team (Late st Contact Info) Description 10/07/2002 Outpatient Historical [facility] [address] [facility] [address] [address] Estevan Monroe MD NO ADDRESS ON FILE Social History Tobacco Use Types Packs/Day Years Used Date Smoking Tobacco: Never Assessed Comments Unknown Sex and Gender Information Value Date Recorded Sex Assigned at Not on file Legal Sex Female 4:44 AM PROPERTY OFFICER Gender Identity Not on file Sexual Orientation Not on file documented as of this encounter Plan of Treatment Not on file documented as of this encounter Visit Diagnoses Not on filedocumented in this encounter Care Teams Button Buttonhole Marker Relationship Specialty Start Date End Date Domo Scruggs DO [address] [place] [address] PCP - General 07/01/06 documented as of this encounter
--- OUTSIDE RECORDS SUMMARY | 2025-03-09 19:02 | XMS_ITS | Encounter Summary ---
Author Organization [facility] Address [address] [place] [address] Care Team Providers Care Grain Mill Products Inspector Name Role Phone Domo Scruggs DO Primary Care Provider +1- [phone] Encounter Details Date Type Department Care Team (Late st Contact Info) Description 06/20/2005 Outpatient Historical [facility] Mahoney, Catalino Saucedo MD [address] [place] [address] [address] SCREENING MAMM-MAILG NEOPL NEC (Primary Dx) Social History Tobacco Use Types Packs/Day Years Used Date Smoking Tobacco: Never Assessed Comments Unknown Sex and Gender Information Value Date Recorded Sex Assigned at Not on file Legal Sex Female 4:44 AM UNDERGROUND DRILL OPERATOR Gender Identity Not on file Sexual Orientation Not on file documented as of this encounter Plan of Treatment Not on file documented as of this encounter Visit Diagnoses Diagnosis Other screening mammogram- Primary documented in this encounter Care Teams Grain Mill Products Inspector Relationship Specialty Start Date End Date Domo Scruggs DO [address] [place] [address] PCP - General 07/01/06 documented as of this encounter
--- OUTSIDE RECORDS SUMMARY | 2025-03-09 19:03 | XMS_ITS | Encounter Summary ---
Author Organization [facility] Address [address] [place] [address] Care Team Providers Care Net Developer Architect Name Role Phone Domo Scruggs DO Primary Care Provider +1- [phone] Encounter Details Date Type Department Care Team (Late st Contact Info) Description 11/03/1998 Outpatient Historical [facility] Mahoney, Catalino Saucedo MD [address] [place] [address] [address] Personal history of malignant neoplasm of breast (Primary Dx) Social History Tobacco Use Types Packs/Day Years Used Date Smoking Tobacco: Never Assessed Comments Unknown Sex and Gender Information Value Date Recorded Sex Assigned at Not on file Legal Sex Female 4:44 AM GENERAL INTERNAL MEDICINE PHYSICIAN Gender Identity Not on file Sexual Orientation Not on file documented as of this encounter Plan of Treatment Not on file documented as of this encounter Visit Diagnoses Diagnosis Personal history of malignant neoplasm of breast- Primary documented in this encounter Care Teams Net Developer Architect Relationship Specialty Start Date End Date Domo Scruggs DO [address] [place] [address] PCP - General 07/01/06 documented as of this encounter
--- OUTSIDE RECORDS SUMMARY | 2025-03-09 19:03 | XMS_ITS | Encounter Summary ---
Author Organization [facility] Health Address [address] [place] [address] Care Team Providers Care Last Waxer Name Role Phone Wandy Arellano MD Unavailable [phone] Ion García MD Primary Care Provider [phone] Gonzalez Kolb DO Primary Care Provider [phone] Encounter Details Date Type Department Care Team (Late st Contact Info) Description 10/20/2013 Therapy Visit EXTERNAL NON-[facility] DEPT Unknown, Provider Social History Tobacco Use Types Packs/Day Years Used Date Smoking Tobacco: Never Smokeless Tobacco: Never Alcohol Use Standard Drinks/Week Comments No 0 (1 standard drink = 0.6 oz pur e alcohol) Comments No Sex and Gender Information Value Date Recorded Sex Assigned at Female 11/15/2022 8:26 PM CDT Legal Sex Female 4:28 AM ANTIQUE COLLECTOR Gender Identity Female 11/15/2022 8:26 PM CDT Sexual Orientation Straight 11/15/2022 8: 26 PM CDT documented as of this encounter Plan of Treatment Not on file documented as of this encounter Visit Diagnoses Not on filedocumented in this encounter Care Teams Last Waxer Relationship Specialty Start Date End Date Ion García MD [address] [place] [address] PCP - General Internal Medicine 10/13/13 09/07/18 Gonzalez Kolb DO [address] [place] [address] PCP - General Internal Medicine 09/08/18 Wandy Arellano MD Orthopedic Surgery 02/05/13 documented as of this encounter
--- OUTSIDE RECORDS SUMMARY | 2025-03-09 19:03 | XMS_ITS | Encounter Summary ---
Author Organization [facility] Address 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) Social History Tobacco Use Types Packs/Day Years Used Date Smoking Tobacco: Never Assessed Comments Unknown Sex and Gender Information Value Date Recorded Sex Assigned at Not on file Legal Sex Female 4:44 AM CEMENTING BULK MATERIAL OPERATOR Gender Identity Not on file Sexual Orientation Not on file documented as of this encounter Plan of Treatment Not on file documented as of this encounter Visit Diagnoses Diagnosis Malignant neoplasm of upper-outer quadrant of female breast (CMS/HCC)- Primary Malignant neoplasm of upper-outer quadrant of female breast documented in this encounter Care Teams Drying Tumbler Operator Relationship Specialty Start Date End Date Domo Scruggs DO [address] [place] [address] PCP - General 07/01/06 documented as of this encounter
--- OUTSIDE RECORDS SUMMARY | 2025-03-09 19:03 | XMS_ITS | Encounter Summary ---
Author Organization [facility] Address [address] [place] [address] Care Team Providers Care Pricing Associate Name Role Phone Domo Scruggs DO Primary Care Provider [phone] Encounter Details Date Type Department Care Team (Late st Contact Info) Description 02/28/2009 Outpatient Historical [facility] Gallo Duong MD [address] [place] [address] Social History Tobacco Use Types Packs/Day Years Used Date Smoking Tobacco: Never Assessed Comments Unknown Sex and Gender Information Value Date Recorded Sex Assigned at Not on file Legal Sex Female 4:44 AM VIGOUREUX PRINTER Gender Identity Not on file Sexual Orientation Not on file documented as of this encounter Plan of Treatment Not on file documented as of this encounter Visit Diagnoses Not on filedocumented in this encounter Care Teams Pricing Associate Relationship Specialty Start Date End Date Domo Scruggs DO [address] [place] [address] PCP - General 07/01/06 documented as of this encounter
--- OUTSIDE RECORDS SUMMARY | 2025-03-09 19:03 | XMS_ITS | Encounter Summary ---
Author Organization [facility] Address [address] [place] [address] Care Team Providers Care Shrub Planter Name Role Phone Domo Scruggs DO Primary Care Provider [phone] Encounter Details Date Type Department Care Team (Late st Contact Info) Description 09/13/1999 Outpatient Historical [facility] [address] [address] Patric Monroe Social History Tobacco Use Types Packs/Day Years Used Date Smoking Tobacco: Never Assessed Comments Unknown Sex and Gender Information Value Date Recorded Sex Assigned at Not on file Legal Sex Female 4:44 AM RISK MANAGEMENT PROFESSIONAL Gender Identity Not on file Sexual Orientation Not on file documented as of this encounter Plan of Treatment Not on file documented as of this encounter Visit Diagnoses Not on filedocumented in this encounter Care Teams Shrub Planter Relationship Specialty Start Date End Date Domo Scruggs DO [address] [place] [address] PCP - General 07/01/06 documented as of this encounter
--- OUTSIDE RECORDS SUMMARY | 2025-03-09 19:03 | XMS_ITS | Encounter Summary ---
Author Organization [facility] Address [address] [place] [address] Care Team Providers Care Process Improvement Specialist Name Role Phone Domo Scruggs DO Primary Care Provider [phone] Encounter Details Date Type Department Care Team (Late st Contact Info) Description 05/18/1999 Outpatient Historical [facility] Mahoney, Catalino Saucedo MD [address] [place] [address] [address] Malignant neoplasm of upper-outer quadrant of female breast (CMS/HCC) (Primary Dx) Social History Tobacco Use Types Packs/Day Years Used Date Smoking Tobacco: Never Assessed Comments Unknown Sex and Gender Information Value Date Recorded Sex Assigned at Not on file Legal Sex Female 4:44 AM CLINICAL REIMBURSEMENT SPECIALIST Gender Identity Not on file Sexual Orientation Not on file documented as of this encounter Plan of Treatment Not on file documented as of this encounter Visit Diagnoses Diagnosis Malignant neoplasm of upper-outer quadrant of female breast (CMS/HCC)- Primary Malignant neoplasm of upper-outer quadrant of female breast documented in this encounter Care Teams Process Improvement Specialist Relationship Specialty Start Date End Date Domo Scruggs DO [address] [place] [address] PCP - General 07/01/06 documented as of this encounter
--- OUTSIDE RECORDS SUMMARY | 2025-03-09 19:03 | XMS_ITS | Encounter Summary ---
Author Organization [facility] Health Address [address] [place] [address] Care Team Providers Care Service Establishment Attendant Name Role Phone Wandy Arellano MD Unavailable [phone] Ion García MD Primary Care Provider [phone] Gonzalez Kolb DO Primary Care Provider [phone] Encounter Details Date Type Department Care Team (Late st Contact Info) Description 01/06/2014 Therapy Visit EXTERNAL NON-[facility] DEPT Unknown, Provider Social History Tobacco Use Types Packs/Day Years Used Date Smoking Tobacco: Never Smokeless Tobacco: Never Alcohol Use Standard Drinks/Week Comments No 0 (1 standard drink = 0.6 oz pur e alcohol) Comments No Sex and Gender Information Value Date Recorded Sex Assigned at Female 11/15/2022 8:26 PM CDT 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 Gender Identity Female 11/15/2022 8:26 PM CDT Sexual Orientation Straight 11/15/2022 8: 26 PM CDT documented as of this encounter Plan of Treatment Not on file documented as of this encounter Visit Diagnoses Not on filedocumented in this encounter Care Teams Service Establishment Attendant Relationship Specialty Start Date End Date Ion García MD [address] [place] [address] PCP - General Internal Medicine 10/13/13 09/07/18 Gonzalez Kolb DO [address] [place] [address] PCP - General Internal Medicine 09/08/18 Wandy Arellano MD Orthopedic Surgery 02/05/13 documented as of this encounter
--- OUTSIDE RECORDS SUMMARY | 2025-03-09 19:03 | XMS_ITS | Clinical Summary ---
Author Organization [facility] [address] Address [address] [place] [address] Care Team Providers Care Cut Off Saw Operator Pipe Blanks Name Role Phone Margaret Martin DO Primary Care Provider + Marisela Hannon MD Unavailable [phone] Allergies Active Allergy Reactions Criticality Noted Date Comments Nabumetone Rash Medium 05/01/2010 Medications metoprolol succinate (KAPSPARGO) 25 mg capsule,sprinkl e,ER 24hr extended release capsule 8 Active multivitamin (MULTIPLE VITAMINS ORAL) Take by mouth A ctive calcium citrate-vitamin D3 250 mg-5 mcg (200 unit) tablet Take by mouth Active doxepin (SINEquan) 10 mg capsule 0 Active ipratropium (ATROVENT) 0.03 % nasal spray Active albuterol HFA (Proventil HFA) 90 mcg/actuation inhaler Inhale 2 puffs every 4 (four) hours as needed for wheezing or shortness of breath 6.7 g 1 0 Active Additional Information Patient not taking.Reported on 12/21/2024 atorvastatin (LIPITOR) 10 mg tablet Take 1 tablet (10 mg total) by mouth daily 0 Active losartan (COZAAR) 25 mg tablet Take 25 mg by mouth daily 2 Active senna-docusate (PERICOLACE) 8.6-50 mg Take 1 tablet by mouth daily Active amLODIPine (NORVASC) 5 mg tablet Take 1 tablet (5 mg total) by mouth daily 3 Active benzonatate (TESSALON) 200 mg capsule TAKE 1 CAPSULE BY MOUTH THREE TIMES A DAY NEEDED FOR COUGH 3 Active fluticasone propionate (FLONASE) 50 mcg/actuation nasal spray SPRAY 1 SPRAY INTO EACH NOSTRIL TWICE A DAY 3 Active losartan (COZAAR) 100 mg tablet Take 1 tablet (100 mg total) by mouth daily 3 Active metoprolol XL (TOPROL-XL) 25 mg extended release tablet Take 1 tablet (25 mg total) by mouth 2 (two) times a day 3 Active Active Problems Problem Noted Date Diagnosed Date Lung nodule 11/16/2019 Encounters Date Type Department Care Team Description 01/16/2025 Results Follow-Up [facility] [address] [place] [phone] Lakeshia Woodall MD PhD Surgical pathology 01/11/2025 4:22 PM CDT - 01/11/2025 11:59 PM CDT Hospital Encounter [facility] [address] [place] [phone] Discharge Disposition: Discharge to home or self care 01/11/2025 10:30 AM CDT Office Visit [facility] [address] [place] [phone] Lakeshia Woodall MD PhD Abnormal finding on breast imaging (Primary Dx); Breast erythema; Inversion of left nipple 12/21/2024 10:00 AM CDT Office Visit [facility] [address] [place] [phone] Karley Floyd NP Breast erythema 12/10/2024 8:08 AM CDT - 12/10/2024 11:59 PM CDT Hospital Encounter [facility] ` [address] [place] [id number] Other signs and symptoms in breast Discharge Disposition: Discharge to home or self care 12/10/2024 8:07 AM CDT - 12/10/2024 11:59 PM CDT Hospital Encounter [facility] [address] [place] [phone] Other signs and symptoms in breast Discharge Disposition: Discharge to home or self care from Last 3 Months Immunizations Immunization Administration Dates Next Due Influenza, Quadrivalent, Hig h Dose, Preservative Free, Intrr 04/28/2020 Influenza, Trivalent, High D ose, Split, Preservative Free, Intramuscular 05/22/2019,04/24/2018 Influenza, Trivalent, IM (MDV) 04/19/2012 Influenza, Unspecified 04/13/2011,04/16/2010 Pneumococcal Polysaccharide PPV23 07/14/2007 Tdap 02/05/2016 ZOSTER LIVE 01/12/2019,05/01/2011 ZOSTER Recombinant 01/12/2019 Surgical History Surgery Date Site/Laterality Comments BREAST BIOPSY 07/14/1981 - 07/13/1982 Left benign BREAST BIOPSY 07/14/1997 - 07/13/1998 Left DCIS HYSTERECTOMY 07/14/2006 - 07/13/2007 HERNIA REPAIR 07/14/2006 - 07/13/2007 DILATION AND CURETTAGE OF UTERUS 07/14/2006 - 07/13/2007 CATARACT EXTRACTION 07/14/2019 - 07/13/2020 Medical History Medical History Date Comments Hypertension Headache Osteoporosis Arthritis History of radiation therapy Fracture, foot 2019 Breast cancer (HCC) 1998 History of chemotherapy Family History Medical History Relation Name Comments Emphysema Father Heart disease Father Prostate cancer Father's Brother Cancer Mother Kidney cancer Mother Kidney cancer Mother's Sister Breast cancer Neg Hx Endometrial cancer Neg Hx Ovarian cancer Neg Hx Thyroid cancer Neg Hx Relation Name Status Comments Father Father's Brother Mother Mother's Sister Social History Tobacco Use Types Packs/Day Years Used Date Smoking Tobacco: Never Smokeless Tobacco: Never Comments Unknown Sex and Gender Information Value Date Recorded Sex Assigned at Not on file Legal 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 Gender Identity Female 08/17/2020 12:34 PM EXHAUSTER ENGINEER Sexual Orientation Straight 11/22/2019 7: 07 PM CDT Obstetrics History Para Term AB IAB SAB Ectopic Multiple Livin g Live Births 4 3 3 Date Outcome GA Total Labor Labor/2nd/3rd Weight Sex Type Anes PTL Christy A1 A5 Name Clin Term Term Term Last Filed Vital Signs Vital Sign Reading Time Taken Comments Blood Pressure 161/83 01/11/2025 11:12 AM CDT notified team Pulse 69 01/11/2025 11:12 AM CDT Temperature 36.3 C (97.3 F) 01/11/2025 11:12 AM CDT Respiratory Rate 18 01/11/2025 11:1 2 AM CDT Oxygen Saturation 99% 01/11/2025 11: 12 AM CDT Inhaled Oxygen Concentration - - Weight 55.7 kg (122 lb 12.8 oz) 01/11/2025 11:12 AM CDT Height 152.4 cm (5') 01/11/2025 11:12 AM CDT Body Mass Index 23.98 01/11/2025 11:12 AM CDT Plan of Treatment Health Maintenance Due Date Last Done Comments Depression Screening 1940 Fall Risk Assessment 1940 Hepatitis B Screening 02/17/1960 Well Visit 65+ 2007 Pneumococcal vaccine 65+ (2 of 2 - PCV) 07/14/2008 07/14/2007 Zoster Vaccine (3 of 3) 03/09/2019 01/13/20 19, 01/12/2019, 05/01/2011 Influenza Vaccine (#1) 2025 0, 05/22/2019, 04/24/2018, Additional history exists Osteoporosis Screening-Bone Density Scan 11/12/2025 11/13/2023, 10/18/2021, 10/18/2021, Additional history exists DTaP/Tdap/Td Vaccine (2 - Td or Tdap) 02/04/2026 02/05/2016 Procedures Procedure Name Priority Date/Time Associated Diagnosis Comments SPECIMEN TRACKING Routine 01/11/2025 4:1 8 PM CDT DERM PUNCH BIOPSY Routine 01/11/2025 1:0 5 PM CDT Breast erythema SURGICAL PATHOLOGY Routine 01/11/2025 9 :55 AM CDT US BREAST LEFT LIMITED Schedule Routine, Read Routine (OP Routine) 12/10/2024 9:19 AM CDT Other signs and symptoms in breast DIAGNOSTIC MAMMOGRAM BILATERAL W THAD Schedule Routine, Read Routine (OP Routine) 12/10/2024 8:45 AM CDT Other signs and symptoms in breast DEXA AXIAL SKELETON BONE DENSITY 1 OR MORE SITES Schedule Routine, Read Routine (OP Routine) 11/13/2023 2:07 PM CDT Age-related osteoporosis without current pathological fracture from Last 3 Months or Most Recently Relevant to Health Maintenance Results * Specimen tracking (01/11/2025 4:18 PM CDT) Specimen Tissue Comment:Testing performed by : [facility] [place] [address] Specimen sent to Surgical Pathology [facility] Comment: Sent to [facility] Surgical Pathology Testing performed by: [facility] [place] [address] Date sent [id number] [facility] Comment:Testing performed by : [facility] [place] [address] Other 01/11/2025 4:18 PM CDT 01/11/2025 4:23 PM CDT us Lakeshia Woodall MD PhD LAB BLOOD ORDERABLES Final Result [facility] [address] [facility] Department [place] [address] * DERM PUNCH BIOPSY (01/11/2025 1:05 PM CDT) Narrative Lakeshia Woodall MD PhD - 01/11/2025 1:05 PM CDT Lakeshia Woodall MD PhD 01/16/2025 7:53 PM Punch Biopsy Date/Time: 01/11/2025 1:05 PM Performed by: Lakeshia Woodall MD PhD Authorized by: Lakeshia Woodall MD PhD Preparation: Patient was prepped and draped in the usual sterile fashion. Local anesthesia used: yes Anesthesia: local infiltration Anesthesia: Local anesthesia used: yes Local Anesthetic: lidocaine 1% without epinephrine Anesthetic total: 3 mL Sedation: Patient sedated: no Patient tolerance: patient tolerated the procedure well with no immediate complications Comments: After obtaining verbal consent, the patient's left breast was prepped and draped in usual sterile fashion. The skin lesion/skin thickening was identified and a wheal of local anesthetic was made in this area 3 ml 1:1 mix of 0.5 % Bupivacaine and 1% Lidocaine. This was at the 9 o'clock position of the nipple. A 4 mm punch biopsy was obtained and placed in formalin. Pressure was held for hemostasis. The skin defect was then closed with a 4-0 Monocryl suture. Dermabond applied. Patient tolerated the procedure well without immediate complications. us Lakeshia Woodall MD PhD IN CLINIC /BEDSIDE ORDERABLES Final Result * Surgical pathology (01/11/2025 9:55 AM CDT) Skin, punch biopsy 01/11/2025 9:55 AM CDT 01/12/2025 9:55 AM CDT Narrative 01/13/2025 8:53 PM CDT EPIC results best viewed via link to PDF [facility] Department of Pathology [address] [place] [phone] Note to Patients: This report may contain a detailed description of human tissue sent by a health care provider to the laboratory for pathologic evaluation. The content of this report is essential for diagnosis and may provide important critical findings. This information may be unfamiliar to patients to review without a medical professional present. It is advised that the patient review this report in the presence of a health care provider who can answer questions and explain the details. Final Report Patient Name: SULEMAN CHAVARRIA Address: [address] [place] [address] Gender: F : 1940 (Age: 84) Service: Location: [facility] : [id number] [facility] #: [id number] Patient Type: SPECIMEN Taken: 01/11/2025 Received: 01/12/2025 Accessioned: 01/12/2025 Reported: 01/13/2025 Physician(s):Lakeshia Woodall M.D. Diagnosis: Skin, left breast, punch biopsy: - Superficial dermal perivascular chronic inflammation with eosinophils. - See microscopic description. Estefani De La Rosa M.D. Report Electronically Reviewed and Signed Out By Estefani De La Rosa M.D. 01/13/2025 20:53:21 Specimen(s) Received: A: Left breast Microscopic Description: Microscopic examination of the left breast punch biopsy, examined at multiple levels show skin with a superficial dermal, perivascular chronic inflammatory infiltrate composed of lymphocytes with scattered eosinophils. There is some hyperkeratosis, however there is no evidence of dysplasia or malignancy by routine light microscopy on review of the negative healy keratin AE1/AE3 (performed with appropriate controls). A special stain (PAS) for fungi (performed with appropriate controls) is also negative. While these findings are mild and nonspecific, possible etiologies include but are not limited to contact dermatitis, drug reaction or insect bite. Clinical correlation is recommended. Clinical History: Breast erythema Gross Description: The specimen is submitted in a single container labeled SULEMAN BIMES and left breast. It is a 3 mm in diameter punch biopsy of lucero skin measuring 6 mm in depth. The specimen is inked and all in one cassette. Jimmy Figueroa R.N., P.A./Haydee Adler M.D. REPORT IMAGES AND SCANNED DOCUMENTS, IF INCLUDED, ONLY VIEWABLE IN PDF VERSION OF REPORT The performance characteristics of some immunohistochemical stains, fluorescence in-situ hybridization tests and immunophenotyping by flow cytometry cited in this report (if any) were determined by the Surgical Pathology Department at [facility] as part of an ongoing quality assurance assessor program and in compliance with federally mandated regulations drawn from the Clinical Laboratory Improvement Act of 1988 (CLIA '88). Some of these tests rely on the use of analyte specific reagents and are subject to specific labeling requirements by the US Food and Drug Administration. Such diagnostic tests may only be performed in a facility that is certified by the Department of Health and Human Services as a high complexity laboratory under CLIA '88. The FDA has determined that such clearance or approval is not necessary. This test is used for clinical purposes. It should not be regarded as investigational or for research. Nevertheless, federal rules concerning the medical use of analyte specific reagents require that the following disclaimer be attached to the report: This test was developed and its performance characteristics determined by the Surgical Pathology Department [facility]. It has not been cleared or approved by the U. S. Food and Drug Administration. Note for decalcified specimens: This assay has not been validated on decalcified tissues. Results should be interpreted with caution given the possibility of false negativity on decalcified specimens us Lakeshia Woodall MD PhD LAB PATHO LOGY ORDERABLES Final Result * US Breast Left Limited (12/10/2024 9:19 AM CDT) Anatomical Region Laterality Modality Breast Left Ultrasound 12/10/2024 9:37 AM CDT Impressions 12/10/2024 9:37 AM CDT 1. No suspicious mammographic abnormality in EITHER breast. 2. A small amount of erythema associated with a chronically inverted LEFT nipple. Further evaluation with breast surgery is recommended to assess for need for punch biopsy. OVERALL FINAL ASSESSMENT: BI-RADS Category 1: Negative. RECOMMENDATION: 1. Annual screening mammography is recommended. 2. Clinical follow-up is recommended. Breast surgery consultation is recommended to evaluate for need for punch biopsy of the LEFT nipple. Dr. Morales discussed the above findings and recommendations with the patient, who expressed her understanding of the management plan. Electronically signed by: Patrica Morales M.D. Narrative 12/10/2024 9:37 AM CDT EXAMINATION: BILATERAL DIGITAL DIAGNOSTIC MAMMOGRAM INCLUDING CAD AND BILATERAL DIGITAL BREAST TOMOSYNTHESIS; LEFT BREAST SONOGRAM HISTORY: 84-year-old female with a history of LEFT breast conservation therapy greater than 20 years ago, presenting with small erythematous area overlying her chronically inverted LEFT nipple. COMPARISON: Multiple prior mammograms dating back to 2020 TECHNIQUE: Full field digital mammographic views of BOTH breasts were performed, including computer aided detection (CAD) and BILATERAL digital breast tomosynthesis (DBT). Directed ultrasound evaluation of the LEFT breast was performed. BREAST PARENCHYMAL COMPOSITION: There are scattered areas of fibroglandular density. MAMMOGRAM FINDINGS: Apparent asymmetries in the LEFT breast does not persist on additional views compatible with overlapping fibroglandular tissue. There is chronic inversion of the LEFT nipple. No suspicious abnormality in EITHER breast. On physical examination, there is a small amount of erythema associated with the LEFT nipple which is chronically inverted. SONOGRAM FINDINGS: LEFT breast, subareolar, there is no suspicious cystic or solid mass. us Marisela Hannon MD IMG MAMMO PROCEDURES Fin al Result * Diagnostic Mammogram Bilateral W Thad (12/10/2024 8:45 AM CDT) Anatomical Region Laterality Modality Breast Bilateral Mammography 12/10/2024 9:37 AM CDT Impressions 12/10/2024 9:37 AM CDT 1. No suspicious mammographic abnormality in EITHER breast. 2. A small amount of erythema associated with a chronically inverted LEFT nipple. Further evaluation with breast surgery is recommended to assess for need for punch biopsy. OVERALL FINAL ASSESSMENT: BI-RADS Category 1: Negative. RECOMMENDATION: 1. Annual screening mammography is recommended. 2. Clinical follow-up is recommended. Breast surgery consultation is recommended to evaluate for need for punch biopsy of the LEFT nipple. Dr. Morales discussed the above findings and recommendations with the patient, who expressed her understanding of the management plan. Electronically signed by: Patrica Morales M.D. Narrative 12/10/2024 9:37 AM CDT EXAMINATION: BILATERAL DIGITAL DIAGNOSTIC MAMMOGRAM INCLUDING CAD AND BILATERAL DIGITAL BREAST TOMOSYNTHESIS; LEFT BREAST SONOGRAM HISTORY: 84-year-old female with a history of LEFT breast conservation therapy greater than 20 years ago, presenting with small erythematous area overlying her chronically inverted LEFT nipple. COMPARISON: Multiple prior mammograms dating back to 2020 TECHNIQUE: Full field digital mammographic views of BOTH breasts were performed, including computer aided detection (CAD) and BILATERAL digital breast tomosynthesis (DBT). Directed ultrasound evaluation of the LEFT breast was performed. BREAST PARENCHYMAL COMPOSITION: There are scattered areas of fibroglandular density. MAMMOGRAM FINDINGS: Apparent asymmetries in the LEFT breast does not persist on additional views compatible with overlapping fibroglandular tissue. There is chronic inversion of the LEFT nipple. No suspicious abnormality in EITHER breast. On physical examination, there is a small amount of erythema associated with the LEFT nipple which is chronically inverted. SONOGRAM FINDINGS: LEFT breast, subareolar, there is no suspicious cystic or solid mass. us Marisela BROWN MAMMO PROCEDURES Fin al Result * Dexa Axial Skeleton Bone Density 1 or 2 Site (11/13/2023 2:07 PM CDT) Anatomical Region Laterality Modality Body N/A Other 11/13/2023 2:16 PM CDT Impressions 11/13/2023 2:16 PM CDT Osteopenia. Consider follow-up bone densitometry evaluation in 2-3 years. Electronically signed by: Henrry Gutierrez II, D.O. Narrative 11/13/2023 2:16 PM CDT Examination: Bone densitometry of the lumbar spine and the left hip History: Osteoporosis screening. Comparison: No priors available for comparison. Findings: The bone densitometry of the L1-L4 region, the left femoral neck and the total left hip was calculated using dual-energy x-ray absorptiometry. Menopausal status: Post menopausal Summary: Bone mineral density (BMD) of the lumbar spine (L1-4): T-score -0.7 Bone mineral density (BMD) of the left femoral neck: T-score -2.4 Bone mineral density (BMD) of the total left hip: T-score -1.8 Procedure Note Henrry Gutierrez II, DO - 11/13/2023 Examination: Bone densitometry of the lumbar spine and the left hip History: Osteoporosis screening. Comparison: No priors available for comparison. Findings: The bone densitometry of the L1-L4 region, the left femoral neck and the total left hip was calculated using dual-energy x-ray absorptiometry. Menopausal status: Post menopausal Summary: Bone mineral density (BMD) of the lumbar spine (L1-4): T-score -0.7 Bone mineral density (BMD) of the left femoral neck: T-score -2.4 Bone mineral density (BMD) of the total left hip: T-score -1.8 IMPRESSION: Osteopenia. Consider follow-up bone densitometry evaluation in 2-3 years. Electronically signed by: Henrry Gutierrez II, D.O. Tarsha Ash NP IMG DXA PROCEDURES Final Re sult from Last 3 Months or Most Recently Relevant to Health Maintenance Insurance [facility] ADVANTAGE CHOICE PPO [facility] ADVANTAGE CHOICE PPO Member Subscriber Plan / Payer (Ef fective 2024-Present) Name:Suleman Chavarria Relation to Subscriber:Self Name:Suleman Chavarria Payer ID:[id number] (NAIC) Type:MEDICARE RISK OTHER Address: [place] [id number] Care Teams Cut Off Saw Operator Pipe Blanks Relationship Specialty Start Date End Date Margaret Martin DO [address] [place] [address] [place] [address] PCP - General Family Medicine 10/25/24 Marisela Hannon MD [address] [place] [address] Referring Physician Gynecology 11/10/24
--- OUTSIDE RECORDS SUMMARY | 2025-03-09 19:03 | XMS_ITS | Encounter Summary ---
Author Organization [facility] Address [address] [place] [address] Care Team Providers Care Roof Panel Hanger Name Role Phone Domo Scruggs DO Primary Care Provider [phone] Encounter Details Date Type Department Care Team (Latest Contact Info) Description 06/14/1998 Outpatient Historical HIS [facility] Rodriguez, Henrry Jennings MD [address] [place] [address] Personal history of malignant neoplasm of breast (Primary Dx) Social History Tobacco Use Types Packs/Day Years Used Date Smoking Tobacco: Never Assessed Comments Unknown Sex and Gender Information Value Date Recorded Sex Assigned at Not on file 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
--- OUTSIDE RECORDS SUMMARY | 2025-03-09 19:03 | XMS_ITS | Encounter Summary ---
Author Organization [facility] Address [address] [place] [address] Care Team Providers Care Nutrition Coordinator Name Role Phone Domo Scruggs DO Primary Care Provider [phone] Encounter Details Date Type Department Care Team (Late st Contact Info) Description 05/30/2000 Outpatient Historical HIS [facility] Mahoney, Catalino Saucedo MD [address] [place] [address] [address] Malignant neoplasm of upper-outer quadrant of female breast (CMS/HCC) (Primary Dx) Social History Tobacco Use Types Packs/Day Years Used Date Smoking Tobacco: Never Assessed Comments Unknown Sex and Gender Information Value Date Recorded Sex Assigned at Not on file Legal Sex Female 4:44 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
--- OUTSIDE RECORDS SUMMARY | 2025-03-09 19:03 | XMS_ITS | Encounter Summary ---
Author Organization [facility] Address [address] [place] [address] Care Team Providers Care Director Workers Compensation Name Role Phone Domo Scruggs DO Primary Care Provider +1- [phone] Encounter Details Date Type Department Care Team (Latest Contact Info) Description 02/07/2009 Outpatient Historical HIS [facility] MARCIAL Duong, Gallo Salazar MD [address] [place] [address] Abdominal Pain, Epigastric Social History Tobacco Use Types Packs/Day Years Used Date Smoking Tobacco: Never Assessed Comments Unknown Sex and Gender Information Value Date Recorded Sex Assigned at Not on file 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 Gender Identity Not on file Sexual Orientation Not on file documented as of this encounter Plan of Treatment Not on file documented as of this encounter Procedures Procedure Name Priority Date/Time Associated Diagnosis Comments CBC WITH DIFFERENTIAL Routine 02/07/2009 8:38 AM CDT LIPASE Routine 02/07/2009 8:38 AM CDT AMYLASE Routine 02/07/2009 8:38 AM CDT COMPREHENSIVE METABOLIC PANEL Routine 02/07/2009 8:38 AM CDT documented in this encounter Results * (ABNORMAL) COMPREHENSIVE METABOLIC PANEL (02/07/2009 8:38 AM CDT) ALKALINE PHOSPHATASE 65 35 - 104 U/L [facility] BILIRUBIN TOTAL 0.4 0.2 - 1.0 mg/dL [facility] CO2 34(H) 22 - 30 mmol/L [facility] TOTAL PROTEIN 7.2 6.3 - 8.6 g/dL [facility] POTASSIUM 3.9 3.5 - 4.9 mmol/L [facility] GLUCOSE 88 65 - 99 mg/dL [facility] AST 24 12 - 32 U/L [facility] BUN 14 6 - 20 mg/dL [facility] CALCIUM 9.8 8.6 - 10.2 mg/dL [facility] CHLORIDE 103 96 - 108 mmol/L [facility] ALBUMIN 4.7 3.4 - 4.8 g/dL [facility] CREATININE 0.79 0.51 - 0.95 mg/dL [facility] SODIUM 142 135 - 145 mmol/L [facility] ALT 18 0 - 31 U/L [facility] GFR, >60 >=60 mL/min/1.7 sq meter [facility] GFR >60 >=60 mL/min/1.7 sq meter [facility] Comment: Modification of Diet in Renal Disease (MDRD) study formula. Estimated GFR rate interpretative information for both Americans and non- Americans is available on the [facility] Intranet at: [email or web address] Select: Lab Policies and Procedures Select: Reference Ranges - GFR Blood specimen (specimen) 02/07/2009 8:38 AM CDT 02/07/2009 8:39 AM CDT Narrative [facility] - 02/07/2009 9:23 AM CDT cc: Dr. Ion Pham [address] [address], [place] [address] Gallo Duong MD CHEMISTRY ORDERABLES Edited Performing Organization Address [facility] Co de Phone Number [facility] CLIA# [id number] [address] [place] [address] * LIPASE (02/07/2009 8:38 AM CDT) [facility] LIPASE 51 13 - 60 U/L [facility] Blood specimen (specimen) 02/07/2009 8:38 AM CDT 02/07/2009 8:39 AM CDT Narrative [facility] - 02/07/2009 9:23 AM CDT cc: Dr. Ion Pham [address] [address] [facility] [address], [address], [place] [address] Gallo Duong MD CHEMISTRY ORDERABLES Final Resul t Performing Organization Address [facility] Co de Phone Number [facility] CLIA# [id number] [address] [place] [address] * (ABNORMAL) CBC WITH DIFFERENTIAL (02/07/2009 8:38 AM CDT) [facility] WBC 4.1 4.0 - 9.8 K/uL [facility] MCH 32.6 27.2 - 32.6 pg [facility] MPV 11.4 9.3 - 12.4 fL [facility] HEMATOCRIT 37.9 35.5 - 44.0 % [facility] RDW-STDEV 43.5 37.1 - 48.7 fL [facility] RBC 3.93 3.90 - 4.90 M/uL [facility] MCHC 33.8 31.5 - 35.5 % [facility] MCV 96.4 82.0 - 99.0 fL [facility] PLATELETS 227 140 - 350 K/uL [facility] HEMOGLOBIN 12.8 11.8 - 14.8 g/dL [facility] RDW 12.4 11.5 - 14.5 % [facility] BASOPHILS 1 0 - 2 % [facility] BASOPHILS ABSOLUTE 0.03 0.00 - 0.20 K/uL [facility] MONOCYTES 10 3 - 13 % [facility] MONOCYTE ABSOLUTE 0.42 0.10 - 1.30 K/uL [facility] NEUTROPHILS 50 45 - 70 % [facility] NEUTROPHIL ABSOLUTE 2.04 1.90 - 7.00 K/uL [facility] EOSINOPHILS 8(H) 0 - 7 % [facility] EOSINOPHIL ABSOLUTE 0.31 0.00 - 0.70 K/uL [facility] LYMPHOCYTES 32 16 - 45 % [facility] LYMPHOCYTE ABSOLUTE 1.30 0.70 - 4.50 K/uL [facility] Blood specimen (specimen) 02/07/2009 8:38 AM CDT 02/07/2009 8:39 AM CDT Narrative [facility] - 02/07/2009 9:11 AM CDT cc: Dr. Ion Pham [address] [address], [address], [place] [address] Gallo Duong MD HEMATOLOGY ORDERABLES Edited [facility] CLIA# [id number] [address] [place] [address] * (ABNORMAL) AMYLASE (02/07/2009 8:38 AM CDT) AMYLASE 126(H) 28 - 100 U/L [facility] Blood specimen (specimen) 02/07/2009 8:38 AM CDT 02/07/2009 8:39 AM CDT Narrative [facility] - 02/07/2009 9:23 AM CDT cc: Dr. Ion Pham [address] [facility] , [address], [place] [address] us Gallo Duong MD CHEMISTRY ORDERABLES Final Resul t [facility] CLIA# [id number] [address] [place] [address] documented in this encounter Visit Diagnoses Diagnosis Abdominal pain, epigastric documented in this encounter Care Teams Director Workers Compensation Relationship Specialty Start Date End Date Domo Scruggs DO [address] [place] [address] PCP - General 07/01/06 documented as of this encounter
--- OUTSIDE RECORDS SUMMARY | 2025-03-09 19:03 | XMS_ITS | Encounter Summary ---
Author Organization [facility] Address [address] [place] [address] Care Team Providers Care Supervisor Hot Strip Mill Name Role Phone Domo Scruggs DO Primary Care Provider +1- [phone] Encounter Details Date Type Department Care Team (Late st Contact Info) Description 12/07/1999 Outpatient Historical HIS [facility] MARCIAL Mahoney, Catalino Saucedo MD [address] [place] [address] [address] Malignant neoplasm of upper-outer quadrant of female breast (CMS/HCC) (Primary Dx) Social History Tobacco Use Types Packs/Day Years Used Date Smoking Tobacco: Never Assessed Comments Unknown Sex and Gender Information Value Date Recorded Sex Assigned at Not on file Legal Sex Female 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
--- OUTSIDE RECORDS SUMMARY | 2025-03-09 19:03 | XMS_ITS | Encounter Summary ---
Author Organization [facility] Address [address] [place] [address] Care Team Providers Care Welding Machine Assembler Name Role Phone Domo Scruggs DO Primary Care Provider +1- [phone] Encounter Details Date Type Department Care Team (Late st Contact Info) Description 06/25/2001 Outpatient Historical HIS [facility] MARCIAL Mahoney, Catalino Saucedo MD [address] [place] [address] [address] PERS HX OF BREAST MALIGNANCY (Primary Dx) Social History Tobacco Use Types Packs/Day Years Used Date Smoking Tobacco: Never Assessed Comments Unknown Sex and Gender Information Value Date Recorded Sex Assigned at Not on file 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
--- OUTSIDE RECORDS SUMMARY | 2025-03-09 19:03 | XMS_ITS | Encounter Summary ---
Author Organization [facility] Address [address] [place] [address] Care Team Providers Care Industrial Accountant Name Role Phone Domo Scruggs DO Primary Care Provider +1- [phone] Encounter Details Date Type Department Care Team (Latest Contact Info) Description 06/22/1999 Outpatient Historical HIS [facility] MARCIAL Rodriguez, Henrry Jennings MD [address] [place] [address] Personal history of malignant neoplasm of breast (Primary Dx) Social History Tobacco Use Types Packs/Day Years Used Date Smoking Tobacco: Never Assessed Comments Unknown Sex and Gender Information Value Date Recorded Sex Assigned at Not on file 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
--- OUTSIDE RECORDS SUMMARY | 2025-03-09 19:03 | XMS_ITS | Encounter Summary ---
Author Organization [facility] Address [address] [place] [address] Care Team Providers Care Senior Counsel Name Role Phone Domo Scruggs DO Primary Care Provider +1- [phone] Encounter Details Date Type Department Care Team (Late st Contact Info) Description 04/12/1999 Outpatient Historical [facility] [address] [facility] [address] [address] Patric Monroe Social History Tobacco Use Types Packs/Day Years Used Date Smoking Tobacco: Never Assessed Comments Unknown Sex and Gender Information Value Date Recorded Sex Assigned at Not on file Legal Sex Female 4:44 AM RELAY CHECKER Gender Identity Not on file Sexual Orientation Not on file documented as of this encounter Plan of Treatment Not on file documented as of this encounter Visit Diagnoses Not on filedocumented in this encounter Care Teams Senior Counsel Relationship Specialty Start Date End Date Domo Scruggs DO [address] [place] [address] PCP - General 07/01/06 documented as of this encounter
--- OUTSIDE RECORDS SUMMARY | 2025-03-09 19:03 | XMS_ITS | Encounter Summary ---
Author Organization [facility] Address [address] [place] [address] Care Team Providers Care Block Hacker Name Role Phone Domo Scruggs DO Primary Care Provider +1- [phone] Encounter Details Date Type Department Care Team (Latest Contact Info) Description 09/22/1998 Outpatient Historical HIS [facility] MARCIAL Rodriguez, Henrry Jennings MD [facility] [place] [address] General symptoms NEC (Primary Dx) Social History Tobacco Use Types Packs/Day Years Used Date Smoking Tobacco: Never Assessed Comments Unknown Sex and Gender Information Value Date Recorded Sex Assigned at Not on file Legal Sex Female 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
--- OUTSIDE RECORDS SUMMARY | 2025-03-09 19:03 | XMS_ITS | Encounter Summary ---
Author Organization [facility] Address [address] [place] [address] Care Team Providers Care Access Nurse Name Role Phone Domo Scruggs DO Primary Care Provider +1- [phone] Encounter Details Date Type Department Care Team (Late st Contact Info) Description 09/01/2000 Outpatient Historical [facility] [address] [facility] [address] [address] Patric Monroe Social History Tobacco Use Types Packs/Day Years Used Date Smoking Tobacco: Never Assessed Comments Unknown Sex and Gender Information Value Date Recorded Sex Assigned at Not on file Legal Sex Female 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
--- OUTSIDE RECORDS SUMMARY | 2025-03-09 19:03 | XMS_ITS | Encounter Summary ---
Author Organization [facility] Address [address] [place] [address] Care Team Providers Care Instructor Bridge Name Role Phone Domo Scruggs Primary Care Provider +1- [phone] Encounter Details Date Type Department Care Team (Late st Contact Info) Description 07/01/2008 Outpatient Historical HIS [facility] Catalino Mathis MD [address] [place] [address] [address] Other Screening Mammogram; Personal History of Malignant Neoplasm of Breast Social History Tobacco Use Types Packs/Day Years Used Date Smoking Tobacco: Never Assessed Comments Unknown Sex and Gender Information Value Date Recorded Sex Assigned at Not on file Legal Sex Female 4:44 AM CHARGING BOARD OPERATOR Gender Identity Not on file Sexual Orientation Not on file documented as of this encounter Plan of Treatment Not on file documented as of this encounter Procedures Procedure Name Priority Date/Time Associated Diagnosis Comments MAMMO SCREEN BILAT W OR WO CAD Routine 07/01/2008 10:00 AM CHARGING BOARD OPERATOR documented in this encounter Results * MAMMO DIGITAL SCREEN BILAT (07/01/2008 10:00 AM CHARGING BOARD OPERATOR) Anatomical Region Laterality Modality Breast Bilateral Other 07/01/2008 10:0 0 AM CHARGING BOARD OPERATOR Narrative 07/02/2008 10:20 AM CHARGING BOARD OPERATOR [address] [address] Admit Date: 07/01/2008 KARELY CHAVARRIA Sex: F Admit Prov: CATALINO LEE Date: 1940 Primary Care Prov: DOMO SCRUGGS CMRN: [id number] [facility]: [id number] IMAGING SERVICES Ordering Prov: CATALINO LEE Accession Number: [id number] Interpretation BILATERAL SCREENING DIGITAL MAMMOGRAMS WITH COMPUTER ASSISTED DIAGNOSIS History: Annual screening study. Comparison is made to 06/20/05. The images were reviewed using the CAD system. The breast parenchyma has scattered fibroglandular densities. No new dominant masses, suspicious calcifications or areas of parenchymal asymmetry or distortion are identified. Impression: Stable screening mammogram Recommend routine followup Overall assessment: BIRADS category 1 - Negative Assessment BIRADS: 1-Negative Recommendation: Normal interval follow-up Dictated by: YELENA MORIN Electronically signed by: YELENA MORIN 07/02/2008 10:19 Transcribed: 07/02/2008 10:01 AMK Procedure Note Yelena Morin - 07/02/2008 [facility] [address] [place], [place] [address] Admit Date: 07/01/2008 KARELY CHAVARRIA Sex: F Admit Prov: CATALINO LEE Date: 1940 Primary Care Prov: DOMO SCRUGGS CMRN: [id number] [facility] [id number] IMAGING SERVICES Ordering Prov: CATALINO LEE Interpretation BILATERAL SCREENING DIGITAL MAMMOGRAMS WITH COMPUTER ASSISTEDDIAGNOSIS History: Annual screening study. Comparison is made to 06/20/05. The images were reviewed using theCAD system. The breast parenchyma has scattered fibroglandulardensities. No new dominant masses, suspicious calcifications or areas ofparenchymal asymmetry or distortion are identified. Impression: Stable screening mammogram Recommend routine followup Overall assessment: BIRADS category 1 - Negative Assessment BIRADS: 1-Negative Recommendation: Normal interval follow-up Dictated by: YELENA MORIN Electronically signed by: YELENA MORIN 07/02/2008 10:19 Transcribed: 07/02/2008 10:01 AMK Catalino Lee MD MAMMO ORDERABLES Final Result documented in this encounter Visit Diagnoses Diagnosis Other screening mammogram Personal history of malignant neoplasm of breast documented in this encounter Care Teams Instructor Bridge Relationship Specialty Start Date End Date Domo Scruggs DO [address] [place] [address] PCP - General 07/01/06 documented as of this encounter
--- OUTSIDE RECORDS SUMMARY | 2025-03-09 19:03 | XMS_ITS | Encounter Summary ---
Author Organization [facility] Address [address] [place] [address] Care Team Providers Care Learning Services Coordinator Name Role Phone Domo Scruggs DO Primary Care Provider +1- [phone] Encounter Details Date Type Department Care Team (Late st Contact Info) Description 11/21/2000 Outpatient Historical HIS [facility] MARCIAL Mahoney, Catalino Saucedo MD [address] [place] [address] [address] Malignant neoplasm of upper-outer quadrant of female breast (CMS/HCC) (Primary Dx) Social History Tobacco Use Types Packs/Day Years Used Date Smoking Tobacco: Never Assessed Comments Unknown Sex and Gender Information Value Date Recorded Sex Assigned at Not on file Legal Sex Female 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
--- OUTSIDE RECORDS SUMMARY | 2025-03-09 19:03 | XMS_ITS | Clinical Summary ---
Author Organization [facility] Address [address] [place] [address] Care Team Providers Care Solder Technician Name Role Phone Wandy Arellano MD Unavailable [phone] Gonzalez Kolb DO Primary Care Provider [phone] Source Comments [facility],non-owned Affiliates and Associated Physician Practices is amultiple site organization consisting of ambulatory clinics and hospital sitesin [place], [place], [place] and [place]. This disclosure is being madepursuant to the Care Everywhere program and may not contain all information available regarding this patient. Last updated 18.[facility] Allergies Active Allergy Reactions Criticality Noted Date Comments Relafen Rash Low 05/01/2010 Medications * Be aware that medications may not be up to date on this document. Alwaysverify current medications with the patient. aspirin 81 MG tablet Take 81 mg by mouth daily. Active Calcium Citrate-Vitamin D (CITRACAL + D) 250-200 MG-UNIT TABS Take by mouth. Active Multiple Vitamins-Minera ls (WOMENS 50+ MULTI VITAMIN/MIN) TABS Take by mouth. Active mometasone (NASONEX) 50 MCG/ACT nasal spray Clover 1 Clover into each nostril daily. 1 Inhaler 5 10/24/2010 Active zolpidem (AMBIEN) 5 MG tablet Take 1 Tab by mouth nightly as needed for Insomnia. 30 Tab 0 07/20/2012 Active Docusate Calcium (STOOL SOFTENER PO) Take 1 Tab by mouth once daily. Active ACTONEL 150 MG tablet TAKE 1 TABLET BY MOUTH EVERY 30 DAYS 3 Tab 3 02/07/2013 Active naproxen (NAPROSYN) 375 MG tablet Take 375 mg by mouth 2 times daily. Active hydrocodone-hiram taminophen (NORCO) 5-325 MG tablet Take 1 Tab by mouth every 4 hours as needed for Pain. 30 Tab 0 04/06/2013 Active hydrocodone-hiram taminophen (NORCO) 5-325 MG tablet Take 1 Tab by mouth every 4 hours as needed for Pain. 15 Tab 0 07/31/2013 Active ondansetron (ZOFRAN) 4 MG tablet Take 1 Tab by mouth every 4 hours as needed for Nausea/Vomit ing. 10 Tab 0 07/31/2013 Active Active Problems Problem Noted Date Diagnosed Date Left hip pain 10/13/2013 Insomnia 05/01/2011 Hx of breast cancer 05/01/2010 Overview (05/01/2010): dx'ed in 98 Uterine cancer 05/01/2010 Overview (05/01/2010): Dx'ed in 07 HTN (hypertension) 07/21/2009 Hypothyroidism 07/21/2009 Immunizations Immunization Administration Dates Next Due INFLUENZA VACCINE 04/19/2012,04/13/2011,04/16/20 10 PNEUMOCOCCAL PPSV23 07/14/2007 ZOSTER VACCINE, LIVE 05/01/2011 Family History Medical History Relation Name Comments Emphysema Father Heart Failure Maternal Grandmother Other Mother afib Heart Failure Paternal Grandmother Other Sister 2 afib Relation Name Status Comments Father emphyesma Maternal Grandmother Mother heart attack Paternal Grandmother Sister 1 Alive Sister 2 Social History Tobacco Use Types Packs/Day Years Used Date Smoking Tobacco: Never Smokeless Tobacco: Never Alcohol Use Standard Drinks/Week Comments No 0 (1 standard drink = 0.6 oz pur e alcohol) Comments No Sex and Gender Information Value Date Recorded Sex Assigned at Female 11/15/2022 8:26 PM CDT Legal Sex Female 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 Gender Identity Female 11/15/2022 8:26 PM CDT Sexual Orientation Straight 11/15/2022 8: 26 PM CDT Last Filed Vital Signs Vital Sign Reading Time Taken Comments Blood Pressure 157/72 07/31/2013 5:36 AM STROBOROMA OPERATOR Pulse 86 07/31/2013 5:36 AM STROBOROMA OPERATOR Temperature 36.4 C (97.6 F) 07/31/2013 3:07 AM STROBOROMA OPERATOR Respiratory Rate 13 07/31/2013 5:36 AM STROBOROMA OPERATOR Oxygen Saturation 100% 07/31/2013 5:35 AM STROBOROMA OPERATOR Inhaled Oxygen Concentration - - Weight 55.8 kg (123 lb) 07/31/2013 3:07 AM STROBOROMA OPERATOR Height 154.9 cm (5' 1) 07/31/2013 3:07 AM STROBOROMA OPERATOR Body Mass Index 23.24 07/31/2013 3:07 AM STROBOROMA OPERATOR Plan of Treatment Health Maintenance Due Date Last Done Comments DTAP/TDAP/TD VACCINES (1 - Tdap) 1959 PNEUMOCOCCAL VACCINE 50+ (2 of 2 - PCV) 07/14/2008 07/14/2007 ZOSTER VACCINE (2 of 3) 06/26/2011 05/01/2011 Respiratory Syncytial Virus (RSV) Vaccine Pt: or over 60 yrs (1 - 1-dose 75+ series) 2017 COVID-19 VACCINE ( - season) 2024 06/10/2021, 10/03/2020, 08/23/2020 DEPRESSION SCREENING 07/14/2024 INFLUENZA VACCINE (#1) 2025 , 04/28/2020, 04/19/2012, Additional history exists BONE DENSITY TESTING Completed 10/18/2021, 09/21/2019, 08/07/2017, Additional history exists HEPATITIS B VACCINE Aged Out No longe r eligible based on patient's age to complete this topic HIB VACCINE Aged Out No longer eligi ble based on patient's age to complete this topic HPV VACCINE Aged Out No longer eligi ble based on patient's age to complete this topic MENINGOCOCCAL (Group B) VACCINE SHARED DECISION-MAKING Aged Out No longer eligible based on patient's age to complete this topic MENINGOCOCCAL GROUPS A/C/Y/W VACCINE Aged Out No longer eligible based on patient's age to complete this topic Procedures Procedure Name Priority Date/Time Associated Diagnosis Comments DEXA BONE DENSITY AXIAL SKELETON Routine 10/18/2021 12:29 PM CDT Osteoporosis, unspecified osteoporosis type, unspecified pathological fracture presence from Last 3 Months or Most Recently Relevant to Health Maintenance Results * DEXA BONE DENSITY AXIAL SKELETON (10/18/2021 12:29 PM CDT) Anatomical Region Laterality Modality Mammography 10/18/2021 2:29 PM CDT Narrative 10/18/2021 2:57 PM CDT BONE MINERAL DENSITY STUDY INDICATION: Ovarian failure. FINDINGS: The average bone mineral density from L1 to L4 is 1.007 g/cm2. T-score is -1.4 which is the standard deviations (SD) of the mean for the young adult. The Z-score is 0.7 which is the standard deviations for the mean for age matched control. Since 09/21/2019, decreased 2.3% bone mineral density. The average bone mineral density of the total mean hip is 0.760 g/cm2. T-score is -2.0. Z-score is 0.3. Since 09/21/2019, decreased 3.7% bone mineral density. ASSESSMENT: The above findings represent mild increased risk of fracture through the spine and moderate increased risk of fracture through femur. WORLD HEALTH ORGANIZATION DEFINITIONS OSTEOPENIA = -1 TO -2.5 SD BELOW T-SCORE OSTEOPOROSIS = LESS THAN -2.5 SD BELOW T-SCORE 1. No significant- < 1 SD below T score 2. Mild - 1 -2.0 SD below T-score 3. Moderate - 2 -2.5 SD below T-score 4. Significant - > 2.5 SD below T-score Edited by Radha Casillas on 10/18/2021 2:50 PM *Reading Radiologist: Royal Estrada on 10/18/2021 at 2:57 PM Procedure Note Royal Estrada MD - 10/18/2021 BONE MINERAL DENSITY STUDY INDICATION: Ovarian failure. FINDINGS: The average bone mineral density from L1 to L4 is 1.007 g/cm2. T-score is -1.4 which is the standard deviations (SD) of the mean for the young adult. The Z-score is 0.7 which is the standard deviations for the mean for age matched control. Since 09/21/2019, decreased 2.3% bone mineral density. The average bone mineral density of the total mean hip is 0.760 g/cm2. T-score is -2.0. Z-score is 0.3. Since 09/21/2019, decreased 3.7% bone mineral density. ASSESSMENT: The above findings represent mild increased risk of fracture through the spine and moderate increased risk of fracture through femur. WORLD HEALTH ORGANIZATION DEFINITIONS OSTEOPENIA = -1 TO -2.5 SD BELOW T-SCORE OSTEOPOROSIS = LESS THAN -2.5 SD BELOW T-SCORE 1. No significant- < 1 SD below T score 2. Mild - 1 -2.0 SD below T-score 3. Moderate - 2 -2.5 SD below T-score 4. Significant - > 2.5 SD below T-score Edited by Radha Casillas on 10/18/2021 2:50 PM *Reading Radiologist: Royal Estrada on 10/18/2021 at 2:57 PM us Marisela Hannon MD DEXA ORDERABLES Final Res ult from Last 3 Months or Most Recently Relevant to Health Maintenance Insurance [facility] MED[facility] MEDIC[facility] Care Teams Solder Technician Relationship Specialty Start Date End Date Gonzalez oKlb DO [address] [place] [address] PCP - General Internal Medicine 09/08/18 Wandy Arellano MD Orthopedic Surgery 02/05/13
--- OUTSIDE RECORDS SUMMARY | 2025-03-09 19:03 | XMS_ITS | Encounter Summary ---
Author Organization [facility] Address [address] [place] [address] Care Team Providers Care Rn Mobile Name Role Phone Domo Scruggs DO Primary Care Provider [phone] Encounter Details Date Type Department Care Team (Late st Contact Info) Description 12/22/[address] 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
--- OUTSIDE RECORDS SUMMARY | 2025-03-09 19:03 | XMS_ITS | Encounter Summary ---
Author Organization [facility] Address [address] [place] [address] Care Team Providers Care Wing Coverer Name Role Phone Domo Scruggs DO Primary Care Provider [phone] Encounter Details Date Type Department Care Team (Latest Contact Info) Description 07/04/2000 Outpatient Historical [facility] Rodriguez, Henrry Jennings MD [facility] [place] [address] Personal history of malignant neoplasm of breast (Primary Dx) Social History Tobacco Use Types Packs/Day Years Used Date Smoking Tobacco: Never Assessed Comments Unknown Sex and Gender Information Value Date Recorded Sex Assigned at Not on file Legal Sex Female 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
[2025-03-09 19:37] LABS: Hematocrit 38.1 % (37.0-47.0); Hemoglobin 12.4 g/dL (12.0-15.0); Immature Granulocyte Percent A 0.4 % (0-0.5); Lymphocytes Absolute Auto 1.00 K/mm3 (0.9-3.2); Mean Corpuscular HGB Conc 32.5 g/dl (32-36); Mean Corpuscular Hemoglobin 31.9 pg (26-34); Mean Corpuscular Volume 97.9 fl (80-100); Nucleated Red Blood Cells Absolute Auto 0.000 K/mm3 (0.0-0.012); Nucleated Red Blood Cells Perc 0.0 % (0.0-0.2); Platelet Count Result 199 k/mm3 (150-375); Red Blood Count 3.89 M/mm3 (4.2-5.4); White Blood Count 5.2 K/mm3 (4.5-10.0)
--- NOTE | 2025-03-09 19:46 | ED_ITS ---
HPI - Arrhythmia/Palpitations General Chief Complaint: Arrhythmia/Palpitations Stated Complaint: sob Time Seen by Provider: 03/09/25 18:57 History of Present Illness HPI narrative: Patient is an 85-year-old female who presents to the emergency department this evening complaining of an episode of palpitations and shortness of breath. Patient states this started earlier this afternoon and lasted for a brief period and has not subsided. Patient states that she has also noticed that lately she has been having more exertional dyspnea. Denies any history of coronary artery disease or heart failure. Denies any active chest pain, nausea vomiting, recent illness, fevers or chills. Related Data Home Medications ?Medication ?Instructions ?Recorded ?Confirmed ?Last Taken ?Type multivitamin 1 tablet PO DAILY 06/14/21 0 03/03/25 Unknown History fluorometholone 0.1 % eye 1 drp ophthalmic (eye) DI RECTED 12/22/23 03/03/25 Unknown History drops,suspension Allergies Allergy/AdvReac Type Severity Reaction Status Date / Time nabumetone Allergy Unknown Rash Verified 03/09/25 18:33 Review of Systems 2 Review of Systems: All systems are reviewed and are negative unless stated otherwise in the HPI. [facility] Past Medical History Medical History Screening for breast cancer History of uterine cancer Chronic left-sided thoracic back pain Diverticulosis of large intestine without perforation or abscess with bleeding Insomnia, unspecified Heart palpitations Hernia, umbilical Insomnia Osteoporosis Hyperlipidemia Hypertension Surgical History Surgical History H/O cataract removal with insertion of prosthetic lens History of hysterectomy Family History Family History Father Family history of emphysema Patient's father is Family history of chronic obstructive pulmonary disease, Onset Age: 84 Sibling Family history of atrial fibrillation Mother Family history of atrial fibrillation Patient's mother is Family history of malignant neoplasm of kidney Social History Social History Smoking status: Never smoker Second hand tobacco smoke exposure: No Alcohol intake: never Substance use: never Substance use type: does not use Lack of Transportation: No Lack of Food: Never True Current Housing: I Have Housing Concerned About Future Housing: No Difficulty Paying Gas/Electric Bills: No Difficulty Paying for Meds: No Currently Unemployed: No Education: Associate Degree Difficulty w/ Childcare or Family Care: No Occupation/Education: retired Exam 2 Narrative: General: Alert, awake, afebrile, in no acute distress. HEENT: PERRL, no rhinorrhea, no post nasal drip, oropharynx clear. Neck: Trachea midline, no JVD, no lymphadenopathy. Cardiovascular: Regular rate and rhythm, no murmurs, rubs or gallops, no peripheral edema. Respiratory: Clear to auscultation bilaterally, no tachypnea, no wheezing, no rhonchi, no rubs, no respiratory distress. Abdomen: Soft, nontender, nondistended, no rebound, no guarding, no peritoneal signs. Musculoskeletal: No joint swelling or deformity, normal muscle tone. Skin: No rashes or petechia, no signs of infection. Psychiatric: Alert and oriented, normal behavior and judgment for situation. Neurological: Alert and oriented to person, place, and time. Follows all commands. No focal deficits, speech is clear and fluent. Course Vital Signs Vital signs: Vital Signs Temperature 97.9 F 03/09/25 18:33 Pulse Rate 79 03/09/25 18:33 Respiratory Rate 16 03/09/25 18:33 Blood Pressure 157/98 H 03/09/25 18:33 Pulse Oximetry 97 03/09/25 18:33 Temperature 97.9 F 03/09/25 18:33 Pulse Rate 89 03/09/25 21:25 Respiratory Rate 16 03/09/25 21:25 Blood Pressure 159/92 H 03/09/25 20:16 Pulse Oximetry 98 03/09/25 21:25 MDM - Arrhythmia/Palpitations MDM Narrative Medical decision making narrative: The patient was evaluated by myself in the emergency department. History is obtained from patient who is an independent historian and physical exam was performed. External medical records were reviewed at this time. IV was established and pertinent tests were ordered. EKG was obtained which revealed atrial fibrillation at a rate of 79 beats per minute, otherwise no evidence of acute ischemia. EKG was independently interpreted by me and is currently pending official cardiology read. Laboratory results obtained revealing an elevated proBNP of 3320, mild transaminitis with an AST 51 and ALT of 39, otherwise unremarkable. Troponin negative. D-dimer negative. Imaging studies obtained included CXR which was independently interpreted by me revealing: IMPRESSION: 1. Congestive heart failure with cardiomegaly and mild pulmonary edema in the bilateral mid and lower lung zones. Differential diagnosis considerations include pulmonary emboli, acute viral syndrome, cardiomyopathy, coronary artery disease, acute viral syndrome, infectious process such as pneumonia. Comorbidities impacting this visit include history of AFIB. I have evaluated and discussed social determinants of health with the patient that could potentially impact subsequent diagnosis and treatment plans. On repeat assessment of the patient, reevaluation revealed that the patient is doing well and is in no acute distress. Patient symptoms have improved since she arrived to our emergency department. Repeat vital signs were all reviewed and noted to be stable. Differential diagnosis and treatment plan were discussed with the patient at bedside. Patient agrees with discussion and after shared medical decision making agrees with admission. All questions were answered to the patient's satisfaction. Case discussed with the on-call SPECIALIZED LANGUAGE INSTRUCTOR for kristopher Blanco at [phone] and he accepted admission for further evaluation for possible new onset CHF. Lab Data 03/09/25 19:31 03/09/25 19:31 Labs: Lab Results 03/09/25 03/09/25 Range/Units 19:31 22:34 WBC 5.2 (4.5-10.0) K/mm3 RBC 3.89 L (4.2-5.4) M/mm3 Hgb 12.4 (12.0-15.0) g/dL Hct 38.1 (37.0-47.0) % MCV 97.9 (80-100) fl MCH 31.9 (26-34) pg MCHC 32.5 (32-36) g/dl RDW 13.1 (11.5-14.5) % Plt Count 199 (150-375) k/mm3 MPV 10.5 H (7.4-10.4) fl Immature Gran % (Auto) 0.4 (0-0.5) % Neut % (Auto) 65.4 (45.5-73.1) % Lymph % (Auto) 19.1 (18.3-44.2) % [place] % (Auto) 7.3 (2.6-8.5) % Eos % (Auto) 6.7 H (0-4.4) % Baso % (Auto) 1.1 (0.2-1.2) % Lymph # (Auto) 1.00 (0.9-3.2) K/mm3 [place] # (Auto) 0.4 (0.1-0.6) K/mm3 Eos # (Auto) 0.4 H (0-0.3) K/mm3 Baso # (Auto) 0.1 (0.0-0.1) K/mm3 Abs Immat Gran (auto) 0.02 (0.00-0.031) K/mm3 Absolute Neuts (auto) 3.4 (1.3-6.7) K/mm3 Absolute Nucleated RBC 0.000 (0.0-0.012) K/mm3 Nucleated RBC % 0.0 (0.0-0.2) % PT 13.7 (11.1-14.7) Seconds INR 1.1 APTT 31.8 (22.3-36.8) Seconds D-Dimer 0.30 (<0.48) ug/mL Sodium 134 L (137-145) mmol/L Potassium 3.8 (3.4-5.0) mmol/L Chloride 98 (98-107) mmol/L Carbon Dioxide 29 (22-30) mmol/L Anion Gap 7 (4-12) mmol/L BUN 22 H (7-17) mg/dL Creatinine 0.94 (0.7-1.0) mg/dL Estim Creat Clear Calc 30 ml/min Estimated GFR 57 L (59 - ) Glucose 108 (65-110) mg/dL Calcium 9.2 (8.4-10.2) mg/dL Magnesium 2.0 (1.6-2.3) mg/dL Total Bilirubin 0.4 (0.2-1.3) mg/dL AST 51 H (14-36) U/L ALT 39 H (6-35) U/L Alkaline Phosphatase 132 H (38-126) U/L Troponin I < 0.012 Cancelled (0.000-0.034) ng/mL NT-Pro-B Natriuret Pep 3320 H (19.9-100) pg/mL Total Protein 6.9 (6.3-8.2) g/dL Albumin 4.1 (3.5-5.1) g/dL Discharge Plan Discharge Clinical Impression: Exertional dyspnea, Congestive heart failure, Heart palpitations Patient Disposition: Still a Patient Condition: Improved Patient Language: Jordanian Prescriptions: No Action fluorometholone 0.1 % drops,suspension 1 drp ophthalmic (eye) DIRECTED multivitamin Tablet 1 tablet PO DAILY Eliquis 2.5 mg tablet 2.5 mg PO BID Qty: 60 5RF omeprazole 40 mg capsule,delayed release(DR/EC) 40 mg PO DAILY Qty: 90 1RF Linzess 145 mcg capsule 145 mcg PO QAM Qty: 90 0RF ipratropium bromide 21 mcg (0.03 %) spray,non-aerosol See Rx Instructions .ROUTE .COMPLEX Qty: 30 5RF Dose Instruction: USE 2 SPRAYS INTO EACH NOSTRIL TWICE A DAY Rx Instructions: USE 2 SPRAYS INTO EACH NOSTRIL TWICE A DAY losartan 100 mg tablet 100 mg PO DAILY Qty: 90 1RF metoprolol succinate 25 mg tablet extended release 24 hr 25 mg PO BID Qty: 180 1RF atorvastatin 10 mg tablet 10 mg PO DAILY Qty: 90 0RF Rx Instructions: DUE FOR APPOINTMENT IN MAY amlodipine 5 mg tablet 5 mg PO DAILY Qty: 90 0RF Rx Instructions: DUE FOR APPOINTMENT IN MAY Follow-up/Referrals: Margaret Martin DO [Primary Care Provider, [facility]] Time of Disposition: 21:01
[2025-03-09 19:51] LABS: Alanine Aminotransferase 39 U/L (6-35); Albumin Level 4.1 g/dL (3.5-5.1); Alkaline Phosphatase 132 U/L (38-126); Anion Gap 7 mmol/L (4-12); Aspartate Amino Transferase 51 U/L (14-36); Bilirubin,Total 0.4 mg/dL (0.2-1.3); Blood Urea Nitrogen 22 mg/dL (7-17); Calcium 9.2 mg/dL (8.4-10.2); Carbon Dioxide 29 mmol/L (22-30); Chloride 98 mmol/L (98-107); Estimated CRCL calculation 30 ml/min; Estimated Glomerular Filt Rate 57; Glucose 108 mg/dL (65-110); Magnesium 2.0 mg/dL (1.6-2.3); Potassium 3.8 mmol/L (3.4-5.0); Sodium 134 mmol/L (137-145); Total Protein 6.9 g/dL (6.3-8.2)
[2025-03-09 20:03] LABS: NT Pro B Type Natriuretic Pept 3320 pg/mL (19.9-100); Troponin I < 0.012 ng/mL (0.000-0.034)
[2025-03-09 20:09] LABS: INR 1.1; Partial Thromboplastin Time 31.8 Seconds (22.3-36.8); Prothrombin Time 13.7 Seconds (11.1-14.7)
--- NOTE | 2025-03-09 22:23 | ECG_ITS ---
Test Date: 2025-03-09 22:41:43 Measurements Intervals [place] Rate: 86 P: 0 ND: 0 QRS: 60 QRSD: 93 T: 26 QT: 362 QTc: 435 Interpretive Statements ATRIAL FIBRILLATION VOLTAGE CRITERIA FOR LVH ABNORMAL ECG Compared to ECG 03/09/2025 18:57:46 NO SIGNIFICANT CHANGE Electronically Signed On 03-10-2025 06:14:36 CDT by Fer Parmar D.O.
[2025-03-09 22:57] LABS: Troponin I < 0.012 ng/mL (0.000-0.034)
--- NOTE | 2025-03-09 23:12 | P.HP_ITS ---
H&P: HPI History of Present Illness Date/Time: 03/09/25 23:12 Chief Complaint: Dyspnea on exertion, New Onset CHF most likely Narrative: Karely is an 85-year-old female admitted for apparent new onset CHF with incre ased dyspnea on exertion and palpitations. She reports a sensation of her heart pounding earlier this evening, but not racing. She has a history of hypertension and is currently taking Amlodipine, Losartan (both in the morning), and Metoprolol 25 mg twice daily (missed her evening dose today). She has been on Metoprolol for a few years, prescribed for high blood pressure. She also takes Eliquis 2.5 mg in the evening for a new diagnosis of atrial fibrillation, diagnosed after experiencing abnormal heartbeats at night; this was confirmed by EKG by Dr. Parmar whom she sees in the clinic. She describes worsening shortness of breath over the past few weeks, now significant enough to require ambulance transport today. She notes decreased exercise tolerance, with symptoms triggered by minimal exertion (e.g., walking up the driveway, climbing steps). She denies chest pain, lightheadedness, dizziness, or syncope. She reports a productive cough, worse over the last few weeks, consistent with a flare of her mild emphysema. Sputum is usually white or clear and often occurs after eating. She experiences mild morning nausea for the past couple of months, resolving after 5?10 minutes. She also describes bilateral upper back/shoulder pain, starting nightly around 7?8 pm and lasting through the evening, possibly related to posture. No recent vomiting, fevers, chills, or leg swelling. No history of blood clots. Past medical history includes: * Hypertension * Atrial fibrillation (recent diagnosis) * Mild emphysema * DCIS (left breast, treated with lumpectomy and radiation in 1998) * Uterine cancer (radical hysterectomy in 2006) No known drug allergies (possible Relafen allergy listed, but patient doubts this). Review of Systems Review of Systems: * Constitutional: Denies fever, chills. Reports fatigue with exertion. * Cardiovascular: Heart pounding (not racing), hypertension, new diagnosis of atrial fibrillation. Denies current chest pain, syncope, or dizziness. Notes prior heart palpitations seven years ago. * Respiratory: Worsening shortness of breath, productive cough (white/clear sputum), mild emphysema. Denies wheezing. * Gastrointestinal: Mild morning nausea, no vomiting. * Musculoskeletal: Bilateral upper back/shoulder pain, worse in evenings, possibly positional. Electrolyte imbalances may contribute to muscle spasms. * Skin: No edema or swelling in legs. * Allergic/Immunologic: No true allergies identified. * Other systems: No significant findings reported. All systems reviewed & are unremarkable except as noted in HPI and below PMFSH Past Medical History Medical History Screening for breast cancer History of uterine cancer Chronic left-sided thoracic back pain Diverticulosis of large intestine without perforation or abscess with bleeding Insomnia, unspecified Heart palpitations Hernia, umbilical Insomnia Osteoporosis Hyperlipidemia Hypertension Surgical History Surgical History H/O cataract removal with insertion of prosthetic lens History of hysterectomy Family History Family History Father Family history of emphysema Patient's father is Family history of chronic obstructive pulmonary disease, Onset Age: 84 Sibling Family history of atrial fibrillation Mother Family history of atrial fibrillation Patient's mother is Family history of malignant neoplasm of kidney Social History Social History Smoking status: Never smoker Second hand tobacco smoke exposure: No Alcohol intake: never Substance use: never Substance use type: does not use Lack of Transportation: No Lack of Food: Never True Current Housing: I Have Housing Concerned About Future Housing: No Difficulty Paying Gas/Electric Bills: No Difficulty Paying for Meds: No Currently Unemployed: No Education: Associate Degree Difficulty w/ Childcare or Family Care: No Occupation/Education: retired Spiritual care concerns: No Meds Home Medications and Allergies Home Medications ?Medication ?Instructions ?Recorded ?Confirmed ?Type multivitamin 1 tablet PO DAILY 06/14/21 0 03/09/25 History fluorometholone 0.1 % eye 1 drp ophthalmic (eye) PRN 0 12/22/23 03/09/25 History drops,suspension ipratropium bromide 21 mcg (0.03 See Rx Instructions . Route 07/02/24 03/09/25 Rx %) nasal spray .COMPLEX #30 mL losartan 100 mg tablet 100 mg PO DAILY #90 tabs 11/0503/09/25 Rx metoprolol succinate 25 mg 25 mg PO BID #180 tabs 11/0503/09/25 Rx tablet,extended release 24 hr apixaban 2.5 mg tablet (Eliquis) 2.5 mg PO BID #60 tab s 02/09/25 03/09/25 Rx amlodipine 5 mg tablet 5 mg PO DAILY #90 tabs 02/2203/09/25 Rx atorvastatin 10 mg tablet 10 mg PO DAILY #90 tabs 02/1103/09/25 Rx linaclotide 145 mcg capsule 145 mcg PO QAM #90 caps 03/09/25 Rx (Linzess) omeprazole 40 mg capsule,delayed 40 mg PO DAILY #90 ca ps 03/03/25 03/09/25 Rx release Allergies Allergy/AdvReac Type Severity Reaction Status Date / Time nabumetone Allergy Unknown Rash Verified 03/09/25 18:33 Vital Signs Vital Signs - 24 hr 03/09/25 18:33 03/09/25 18:53 03/09/25 18:54 Temperature 36.6 C Pulse Rate 79 79 80 Respiratory Rate 16 16 13 Blood Pressure 157/98 H 168/105 H Pulse Oximetry 97 99 100 03/09/25 18:57 03/09/25 19:00 03/09/25 19:15 Temperature Pulse Rate 79 78 86 Respiratory Rate 10 L 18 Blood Pressure Pulse Oximetry 97 97 03/09/25 19:30 03/09/25 19:31 03/09/25 19:59 Temperature Pulse Rate 80 81 84 Respiratory Rate 14 11 L 17 Blood Pressure 167/93 H Pulse Oximetry 96 97 98 03/09/25 20:00 03/09/25 20:01 03/09/25 20:15 Temperature Pulse Rate 85 83 79 Respiratory Rate 20 19 14 Blood Pressure 152/83 H Pulse Oximetry 98 97 03/09/25 20:16 03/09/25 21:00 03/09/25 21:25 Temperature Pulse Rate 85 89 89 Respiratory Rate 21 H 13 16 Blood Pressure 159/92 H Pulse Oximetry 95 98 98 Exam Narrative: GENERAL: Well-appearing, well-nourished, and in no acute distress. HEAD: Normocephalic, atraumatic. ENT:? Mucous membranes moist. CHEST: Clear to auscultation.? No respiratory distress. HEART: Regular rate and irregular rhythm. ? Normal peripheral pulses. ABDOMEN: Soft, nontender, nondistended. EXTREMITIES: Normal range of motion. No peripheral edema. SKIN: Warm dry normal color NEURO: Alert and oriented x3. PSYCH: Normal mood and affect H&P: Results Labs Labs: Short CBC 03/09/25 Range/Units 19:31 WBC 5.2 (4.5-10.0) K/mm3 Hgb 12.4 (12.0-15.0) g/dL Hct 38.1 (37.0-47.0) % Plt Count 199 (150-375) k/mm3 BMP 03/09/25 19:31 Sodium 134 L Potassium 3.8 Chloride 98 Carbon Dioxide 29 BUN 22 H Creatinine 0.94 Glucose 108 Calcium 9.2 Cardiac Enzymes 03/09/25 03/09/25 03/09/25 Range/Units 19:31 22:28 22:34 Troponin I < 0.012 < 0.012 Cancelled (0.000-0.034) ng/mL Liver Function 03/09/25 Range/Units 19:31 Total Bilirubin 0.4 (0.2-1.3) mg/dL AST 51 H (14-36) U/L ALT 39 H (6-35) U/L Alkaline Phosphatase 132 H (38-126) U/L Albumin 4.1 (3.5-5.1) g/dL Pulse Oximetry SpO2 results: 95-100% on room air Attestation: I personally reviewed and interpreted this pulse oximetry as follows: Interpretation: No need for supplemental oxygenation at this time ECG Attestation: I personally reviewed and interpreted this ECG as follows: ECG completion date: 03/09/25 ECG completion time: 22:41 Prior ECG tracings: available for review Interpretation: Atrial fibrillation rate of 86 QRS duration 93 QTC 435 QRS axis 60? no STEMI or acute ischemic changes, no significant change from prior EKG Imaging Chest x-ray: Radiologist's impression: EXAMINATION: XR chest 1V portable DATE: 03/09/2025 19:17 INDICATION: Palpitations TECHNIQUE: frontal view of the chest was obtained. COMPARISON: Chest radiograph dated 04/20/24 FINDINGS: Cardiomegaly. Basilar predominant increased interstitial pattern in the bilateral mid and lower lung zones with associated peripheral Ahsan B-lines consistent with mild pulmonary edema. No pleural effusion or pneumothorax. IMPRESSION: 1. Congestive heart failure with cardiomegaly and mild pulmonary edema in the bilateral mid and lower lung zones. Reviewed, dictated and finalized at location A. Assessment and Plan Assessment and plan (1) Congestive heart failure: Code(s): I50.9 - Heart failure, unspecified Status: Acute Assessment and Plan: -New onset CHF with worsening dyspnea on exertion for a few weeks -CXR with findings of pulmonary edema and Cardiomegaly -Echocardiogram ordered -Recent discovery of atrial fibrillation, on Eliquis 2.5 mg BID for about a month, dose reduction due to weight and age. -Dr. Parmar consulted--patient sees Ghulam in the clinic (2) Dyspnea on exertion: Code(s): R06.00 - Dyspnea, unspecified Status: Acute Assessment and Plan: -Worsening over the past couple weeks (3) Heart palpitations: Code(s): R00.2 - Palpitations Status: Acute Assessment and Plan: -Patient felt heart pounding in her chest today with increased dyspnea which is why she called 911 to come to ER (4) Atrial fibrillation: Code(s): I48.91 - Unspecified atrial fibrillation Status: Chronic Assessment and Plan: -See above (5) GERD (gastroesophageal reflux disease): Qualifiers: Esophagitis presence: esophagitis presence not specified Qualified Code(s): K21.9 - Gastro-esophageal reflux disease without esophagitis Code(s): K21.9 - Gastro-esophageal reflux disease without esophagitis Status: Chronic Assessment and Plan: -Noted, continue PPI (6) Chronic constipation: Code(s): K59.09 - Other constipation Status: Chronic Assessment and Plan: -History noted, prescribed Linzess but doesn't take due to cost (7) COPD (chronic obstructive pulmonary disease): Code(s): J44.9 - Chronic obstructive pulmonary disease, unspecified Status: Chronic Assessment and Plan: -Mild productive white sputum (8) Insomnia, unspecified: Qualifiers: Insomnia type: unspecified Qualified Code(s): G47.00 - Insomnia, unspecified Code(s): G47.00 - Insomnia, unspecified Status: Chronic Assessment and Plan: -Melatonin PRN (9) Hypertension: Qualifiers: Hypertension type: primary hypertension Qualified Code(s): I10 - Essential (primary) hypertension Code(s): I10 - Essential (primary) hypertension Status: Chronic Assessment and Plan: -Continue home medications -Dr. Parmar consulted and Echocardiogram ordered Quality VTE Prophylaxis VTE prophylaxis: pharmacologic ordered (Heparin SQ) Hospitalist MIPS Advance Care Plan I have confirmed that the patient's Advanced Care Plan is present, code status is documented, or surrogate decision maker is listed in patient medical record.: Yes Medication Reconciliation I have utilized all available resources to obtain, update and review the patients current medications (includes all prescriptions, OTC, herbals, cannabis, and nutritional supplements).: Yes
--- NOTE | 2025-03-09 23:20 | ADMGEN ---
This patient, Karely Terrazas, was admitted to IMU Room 206-02. Patient/family oriented to hospital policies and general routines including ID bracelet, bed and alarms, visiting hours, pain management, procedures, bathroom and other care routines, personal items, smoking policy, room service/diet, and visiting hours. Information on how to activate the Rapid Response Team has been discussed. Patient/Family are encouraged to report perceived risks to care and to ask questions if they do not understand what they are told or what they should do.
[2025-03-10] VITALS (18 sets, daily range): BP systolic 135–146; BP diastolic 74–89; PULSE 65–101; RESP 12–18; TEMP 36.4–36.9; O2SAT 95–100
--- NOTE | 2025-03-10 | ECHO_ITS ---
Patient Info Name: Karely Terrazas Age: 85 years : 1940 Gender: Female Ht: 67 in Wt: 121 lbs BSA: 1.60 m2 HR: 68 bpm BP: 135 / 81 mmHg Heart Rhythm: Atrial Fibrillation Technical Quality: Good Exam Date: 03/10/2025 10:45 AM Patient Status: I Admit Date: 03/09/2025 Exam Type: CA echo doppler color flow Complete two-dimensional, color flow and Doppler transthoracic echocardiogram is performed. Staff Referring Physician: Reji Rosario Media Coordinator: Blanca Dixon Attending Provider: Reji Rosario Summary 1. Complete two-dimensional, color flow and Doppler transthoracic echocardiogram is performed. 2. Left ventricular chamber dimension is normal. 3. Left ventricular systolic function is normal, estimated at 60-65. 4. The left ventricular diastolic function is abnormal. 5. E/e' 12 is mildly elevated. 6. Atrial fibrillation. 7. Left atrial chamber dimension is moderately enlarged. 8. Right atrial chamber dimension is moderately enlarged. 9. There is mild aortic valve sclerosis. 10. There is mild to moderate aortic valve regurgitation. 11. The mitral valve has a moderately calcified annulus. 12. There is mild to moderate mitral valve regurgitation. 13. There is moderate to severe tricuspid valve regurgitation. 14. Moderate pulmonary hypertension, estimated pulmonary arterial systolic pressure is 58 mmHg. 15. There is trace pulmonic regurgitation. Left Ventricle E/e' 12 is mildly elevated. Left ventricular chamber dimension is normal. Left ventricular systolic function is normal, estimated at 60-65. The left ventricular diastolic function is abnormal. Atrial fibrillation. Right Ventricle Right ventricular chamber dimension is normal. Right ventricular systolic function is normal. Left Atria Left atrial chamber dimension is moderately enlarged. Right Atria Right atrial chamber dimension is moderately enlarged. Aortic Valve The aortic valve is trileaflet. There is mild aortic valve sclerosis. There is no aortic valve stenosis. There is mild to moderate aortic valve regurgitation. Pulmonic Valve There is trace pulmonic regurgitation. Mitral Valve The mitral valve has a moderately calcified annulus. There is no mitral valve stenosis. There is mild to moderate mitral valve regurgitation. Tricuspid Valve There is moderate to severe tricuspid valve regurgitation. Moderate pulmonary hypertension, estimated pulmonary arterial systolic pressure is 58 mmHg. Pericardium/Pleural There is no pericardial effusion. Inferior Vena Cava Normal inferior vena cava with >50% collapse upon inspiration consistent with normal right atrial pressure, 5 mmHg. Aorta The aortic root size at the sinus of Valsalva is normal. Left Ventricular Outflow Tract Name Value Normal LVOT 2D LVOT Diameter 1.6 cm LVOT Doppler LVOT Peak Velocity 91 cm/s LVOT Peak Gradient 3 mmHg LVOT Mean Gradient 2 mmHg LVOT VTI 20 cm LVOT Stroke Volume 41 ml LVOT CO 2.8 l/min LVOT CI 1.7 l/min/m2 Pulmonic Valve Name Value Normal RVOT Doppler RVOT Peak Velocity 56 cm/s RVOT Peak Gradient 1 mmHg PV Doppler PV Peak Velocity 75 cm/s PV Peak Gradient 2 mmHg PV Regurgitation Doppler [place] Peak End Diastolic Velocity 130 cm/s Mitral Valve Name Value Normal MV Regurgitation Doppler MR Peak Gradient 186 mmHg MV Diastolic Function MV E Peak Velocity 103 cm/s MV A Peak Velocity 30 cm/s MV E/A 3.5 MV Decel Time (PW) 151 ms MV Annular TDI MV E/e' (Septal) 13.0 MV E/e' (Lateral) 11.9 MV E/e' (Average) 12.5 Tricuspid Valve Name Value Normal TV Regurgitation Doppler TR Peak Velocity 363 cm/s TR Peak Gradient 34 mmHg Estimated PAP/RSVP RA Pressure 5 mmHg <=5 PA Systolic Pressure 58 mmHg <36 RV Systolic Pressure 58 mmHg <36 Aortic Valve Name Value Normal AV Doppler AV Peak Velocity 149 cm/s AV Peak Gradient 9 mmHg AV Area (Cont Eq Anil) 1.3 cm2 AV DI (Anil) 0.61 AV Regurgitation 2D LVOT Area 2.1 cm2 Ventricles Name Value Normal LV Dimensions 2D/MM IVS Diastolic Thickness (2D) 1.0 cm 0.6-1.0 LVID Diastole (2D) 4.4 cm 3.8-5.2 LVIW Diastolic Thickness (2D) 0.9 cm 0.6-0.9 LVID Systole (2D) 2.8 cm 2.2-3.5 LVOT Diameter 1.6 cm LV Mass (2D Cubed) 138.76 g 67.00-162.00 LV Mass Index (2D Cubed) 87 g/m2 43-95 Relative Wall Thickness (2D) 0.42 <=0.42 LV Fractional Shortening/Ejection Fraction 2D/MM LV Fractional Shortening (2D) 36 % 27-45 LV EF (2D Teichholz) 66 % LV Diastolic Volume (4C MOD) 70 ml LV EF (4C MOD) 65 % LV Diastolic Volume (2C MOD) 64 ml LV EF (2C MOD) 57 % LV Diastolic Volume (BP MOD) 68 ml 46-106 LV Diastolic Volume Index (BP MOD) 42 ml/m2 29-61 LV Systolic Volume (BP MOD) 27 ml 14-42 LV Systolic Volume Index (BP MOD) 17 ml/m2 8-24 LV EF (BP MOD) 60 % 54-74 LV Diastolic Length (4C) 7.1 cm LV Systolic Length (4C) 6.3 cm LV Stroke Volume (4C MOD) 45 ml RV Dimensions 2D/MM TAPSE 1.3 cm >=1.7 Atria Name Value Normal LA Dimensions LA Volume (4C A-L) 81 ml LA Volume (BP A-L) 79 ml RA Dimensions RA Systolic Major Sandy Length (4C) 6.4 cm 2.2-2.8 RA Area (4C) 25.0 cm2 <=18.0 Report Signatures
[2025-03-10] MEDS: APIXABAN 2.5 MG TABLET PO ×3 (00:33→20:10)
[2025-03-10] MEDS: METOPROLOL SUCCINATE EXT REL 25 MG TABCR PO ×3 (00:33→20:10)
[2025-03-10] MEDS: MELATONIN 5 MG TABLET PO (00:33)
[2025-03-10] MEDS: ACETAMINOPHEN 325 MG TABLET 650 MG PO (00:33)
[2025-03-10 01:40] LABS: Hematocrit 34.8 % (37.0-47.0); Hemoglobin 11.6 g/dL (12.0-15.0); Immature Granulocyte Percent A 0.6 % (0-0.5); Lymphocytes Absolute Auto 0.90 K/mm3 (0.9-3.2); Mean Corpuscular HGB Conc 33.3 g/dl (32-36); Mean Corpuscular Hemoglobin 32.3 pg (26-34); Mean Corpuscular Volume 96.9 fl (80-100); Nucleated Red Blood Cells Absolute Auto 0.000 K/mm3 (0.0-0.012); Nucleated Red Blood Cells Perc 0.0 % (0.0-0.2); Platelet Count Result 178 k/mm3 (150-375); Red Blood Count 3.59 M/mm3 (4.2-5.4); White Blood Count 5.1 K/mm3 (4.5-10.0)
[2025-03-10 01:54] LABS: Alanine Aminotransferase 35 U/L (6-35); Albumin Level 3.9 g/dL (3.5-5.1); Alkaline Phosphatase 126 U/L (38-126); Anion Gap 6 mmol/L (4-12); Aspartate Amino Transferase 51 U/L (14-36); Bilirubin,Total 0.5 mg/dL (0.2-1.3); Blood Urea Nitrogen 19 mg/dL (7-17); Calcium 9.2 mg/dL (8.4-10.2); Carbon Dioxide 27 mmol/L (22-30); Chloride 102 mmol/L (98-107); Cholesterol 142 mg/dL (0-200); Estimated CRCL calculation 40 ml/min; Estimated Glomerular Filt Rate > 60; Glucose 114 mg/dL (65-110); HDL Direct 62 mg/dL; Magnesium 2.0 mg/dL (1.6-2.3); Potassium 3.6 mmol/L (3.4-5.0); Sodium 135 mmol/L (137-145); Total Protein 6.5 g/dL (6.3-8.2); Triglycerides 67 mg/dL (<150)
[2025-03-10 02:04] LABS: Troponin I < 0.012 ng/mL (0.000-0.034)
--- NOTE | 2025-03-10 07:47 | P.PNIM_ITS ---
Progress Note: A&P Assessment and Plan (1) Congestive heart failure: Code(s): I50.9 - Heart failure, unspecified Status: Acute Assessment and Plan: -New onset CHF with worsening dyspnea on exertion for a few weeks -CXR with findings of pulmonary edema and Cardiomegaly -Echocardiogram ordered -Recent discovery of atrial fibrillation, on Eliquis 2.5 mg BID for about a month, dose reduction due to weight and age. -Dr. Parmar consulted--patient sees Ghulam in the clinic (2) Dyspnea on exertion: Code(s): R06.00 - Dyspnea, unspecified Status: Acute Assessment and Plan: -Worsening over the past couple weeks (3) Heart palpitations: Code(s): R00.2 - Palpitations Status: Acute Assessment and Plan: -Patient felt heart pounding in her chest today with increased dyspnea which is why she called 911 to come to ER (4) Atrial fibrillation: Code(s): I48.91 - Unspecified atrial fibrillation Status: Chronic Assessment and Plan: -See above (5) GERD (gastroesophageal reflux disease): Qualifiers: Esophagitis presence: esophagitis presence not specified Qualified Code(s): K21.9 - Gastro-esophageal reflux disease without esophagitis Code(s): K21.9 - Gastro-esophageal reflux disease without esophagitis Status: Chronic Assessment and Plan: -Noted, continue PPI (6) Chronic constipation: Code(s): K59.09 - Other constipation Status: Chronic Assessment and Plan: -History noted, prescribed Linzess but doesn't take due to cost (7) COPD (chronic obstructive pulmonary disease): Code(s): J44.9 - Chronic obstructive pulmonary disease, unspecified Status: Chronic Assessment and Plan: -Mild productive white sputum (8) Insomnia, unspecified: Qualifiers: Insomnia type: unspecified Qualified Code(s): G47.00 - Insomnia, unspecified Code(s): G47.00 - Insomnia, unspecified Status: Chronic Assessment and Plan: -Melatonin PRN (9) Hypertension: Qualifiers: Hypertension type: primary hypertension Qualified Code(s): I10 - Essential (primary) hypertension Code(s): I10 - Essential (primary) hypertension Status: Chronic Assessment and Plan: -Continue home medications -Dr. Parmar consulted and Echocardiogram ordered Subjective Date/time seen: 03/10/25 07:47 Interval history: Patient underwent CT scan which shows minimal centrilobular emphysema. Patient denies a smoking but exposed to secondary smoking. Patient follows up with Dr. Parmar for atrial fibrillation. Review of Systems Review of Systems: * Constitutional: Denies fever, chills. Reports fatigue with exertion. * Cardiovascular: Heart pounding (not racing), hypertension, new diagnosis of atrial fibrillation. Denies current chest pain, syncope, or dizziness. Notes prior heart palpitations seven years ago. * Respiratory: Worsening shortness of breath, productive cough (white/clear sputum), mild emphysema. Denies wheezing. * Gastrointestinal: Mild morning nausea, no vomiting. * Musculoskeletal: Bilateral upper back/shoulder pain, worse in evenings, possibly positional. Electrolyte imbalances may contribute to muscle spasms. * Skin: No edema or swelling in legs. * Allergic/Immunologic: No true allergies identified. * Other systems: No significant findings reported. All systems reviewed & are unremarkable except as noted in HPI and below Exam Narrative: GENERAL: Well-appearing, well-nourished, and in no acute distress. HEAD: Normocephalic, atraumatic. ENT:? Mucous membranes moist. CHEST: Clear to auscultation.? No respiratory distress. HEART: Regular rate and irregular rhythm. ? Normal peripheral pulses. ABDOMEN: Soft, nontender, nondistended. EXTREMITIES: Normal range of motion. No peripheral edema. SKIN: Warm dry normal color NEURO: Alert and oriented x3. PSYCH: Normal mood and affect Objective Data Vital Signs Vital Signs: Vital Signs - 24 hr 03/09/25 18:33 03/09/25 18:53 03/09/25 18:54 Temperature 97.9 F Pulse Rate 79 79 80 Respiratory Rate 16 16 13 Blood Pressure 157/98 H 168/105 H Pulse Oximetry 97 99 100 Oxygen Delivery 03/09/25 18:57 03/09/25 19:00 03/09/25 19:15 Temperature Pulse Rate 79 78 86 Respiratory Rate 10 L 18 Blood Pressure Pulse Oximetry 97 97 Oxygen Delivery 03/09/25 19:30 03/09/25 19:31 03/09/25 19:59 Temperature Pulse Rate 80 81 84 Respiratory Rate 14 11 L 17 Blood Pressure 167/93 H Pulse Oximetry 96 97 98 Oxygen Delivery 03/09/25 20:00 03/09/25 20:01 03/09/25 20:15 Temperature Pulse Rate 85 83 79 Respiratory Rate 20 19 14 Blood Pressure 152/83 H Pulse Oximetry 98 97 Oxygen Delivery 03/09/25 20:16 03/09/25 21:00 03/09/25 21:25 Temperature Pulse Rate 85 89 89 Respiratory Rate 21 H 13 16 Blood Pressure 159/92 H Pulse Oximetry 95 98 98 Oxygen Delivery 03/09/25 23:55 03/10/25 00:00 03/10/25 00:00 Temperature 97.8 F Pulse Rate 96 88 Respiratory Rate 17 Blood Pressure 157/99 H Pulse Oximetry 100 Oxygen Delivery Room Air 03/10/25 00:33 03/10/25 02:00 03/10/25 03:59 Temperature 97.7 F Pulse Rate 90 76 91 Respiratory Rate 17 Blood Pressure 135/81 Pulse Oximetry 95 Oxygen Delivery 03/10/25 04:00 03/10/25 04:00 03/10/25 06:00 Temperature Pulse Rate 101 H 68 Respiratory Rate Blood Pressure Pulse Oximetry Oxygen Delivery Room Air Meds/Results Medications: Active Medications Generic Name Dose Route Start Last Admin Trade Name Freq PRN Reason Stop Dose Admin Acetaminophen 650 mg 03/10/25 00:01 03/10/25 00:33 Acetaminophen 325 Mg Tablet PO 650 mg Q6H PRN Administration Pain/Fever/Headache Amlodipine Besylate 5 mg 03/10/25 09:00 Amlodipine Besylate 5 Mg Tablet PO DAILY [facility] Apixaban 2.5 mg 03/10/25 00:00 03/10/25 00:33 Apixaban 2.5 Mg Tablet PO 2.5 mg Q12HR [facility] Administration Atorvastatin Calcium 10 mg 03/10/25 09:00 Atorvastatin 10 Mg Tablet PO DAILY [facility] Fluorometholone 1 drop 03/09/25 23:58 Fluorometholone 0.1% Op Susp 5 Ml Btl EACH EYE On Hold: 03/10/25 00:42 PRN PRN Comment: HOLD WHILE IN dry eye HOSPITAL Furosemide 20 mg 03/10/25 09:00 Furosemide Inj 40 Mg/4 Ml Vial IV PUSH BID [facility] Ipratropium [place] 2 spray 03/10/25 09:00 Ipratropium Nasal [place] 0.03% 15 Ml Bottle NASAL Q12HR [facility] Linaclotide 145 mcg 03/10/25 09:00 Linaclotide 145 Mcg Capsule PO QAM [facility] Losartan Potassium 100 mg 08/28/25 09:00 Losartan Potassium 100 Mg Tablet PO DAILY [facility] Melatonin 5 mg 03/10/25 00:01 03/10/25 00:33 Melatonin 5 Mg Tablet PO 5 mg HS PRN Administration insomnia Metoprolol Succinate 25 mg 03/10/25 00:00 03/10/25 00:33 Metoprolol Succinate Ext Rel 25 Mg Tabcr PO 25 mg Q12HR [facility] Administration Multivitamins Therapeutic 1 tablet 03/10/25 09:00 Multivitamins Therapeutic Tab (*Bkc) PO DAILY [facility] Pantoprazole Sodium 40 mg 03/10/25 09:00 Pantoprazole 40 Mg Tablet PO QAM [facility] Perflutren Lipid Microsphere 0 ml 03/10/25 00:02 Perflutren Lipid Microspheres 1.5 Ml Vial Diluted To 10 Ml Total Volume IV PUSH 03/13/25 00:03 ONCE PRN adequate visualization Protocol Spironolactone 25 mg 03/10/25 09:00 Spironolactone 25 Mg Tablet PO QAM [facility] Radiology Results: ITS Impressions Chest X-Ray 03/09/25 19:44 IMPRESSION: 1. Congestive heart failure with cardiomegaly and mild pulmonary edema in the bilateral mid and lower lung zones. Labs Labs: Laboratory Results - last 24 hr 03/09/25 03/09/25 03/09/25 19:31 22:28 22:34 WBC 5.2 RBC 3.89 L Hgb 12.4 Hct 38.1 MCV 97.9 MCH 31.9 MCHC 32.5 RDW 13.1 Plt Count 199 MPV 10.5 H Immature Gran % (Auto) 0.4 Neut % (Auto) 65.4 Lymph % (Auto) 19.1 [place] % (Auto) 7.3 Eos % (Auto) 6.7 H Baso % (Auto) 1.1 Lymph # (Auto) 1.00 [place] # (Auto) 0.4 Eos # (Auto) 0.4 H Baso # (Auto) 0.1 Abs Immat Gran (auto) 0.02 Absolute Neuts (auto) 3.4 Absolute Nucleated RBC 0.000 Nucleated RBC % 0.0 PT 13.7 INR 1.1 APTT 31.8 D-Dimer 0.30 Sodium 134 L Potassium 3.8 Chloride 98 Carbon Dioxide 29 Anion Gap 7 BUN 22 H Creatinine 0.94 Estim Creat Clear Calc 30 Estimated GFR 57 L Glucose 108 Calcium 9.2 Magnesium 2.0 Total Bilirubin 0.4 AST 51 H ALT 39 H Alkaline Phosphatase 132 H Troponin I < 0.012 < 0.012 Cancelled NT-Pro-B Natriuret Pep 3320 H Total Protein 6.9 Albumin 4.1 Triglycerides Cholesterol LDL Cholesterol Direct HDL Direct 03/10/25 01:35 WBC 5.1 RBC 3.59 L Hgb 11.6 L Hct 34.8 L MCV 96.9 MCH 32.3 MCHC 33.3 RDW 13.0 Plt Count 178 MPV 10.4 Immature Gran % (Auto) 0.6 H Neut % (Auto) 64.0 Lymph % (Auto) 17.8 L [place] % (Auto) 10.7 H Eos % (Auto) 5.7 H Baso % (Auto) 1.2 Lymph # (Auto) 0.90 [place] # (Auto) 0.5 Eos # (Auto) 0.3 Baso # (Auto) 0.1 Abs Immat Gran (auto) 0.03 Absolute Neuts (auto) 3.2 Absolute Nucleated RBC 0.000 Nucleated RBC % 0.0 PT INR APTT D-Dimer Sodium 135 L Potassium 3.6 Chloride 102 Carbon Dioxide 27 Anion Gap 6 BUN 19 H Creatinine 0.82 Estim Creat Clear Calc 40 Estimated GFR > 60 Glucose 114 H Calcium 9.2 Magnesium 2.0 Total Bilirubin 0.5 AST 51 H ALT 35 Alkaline Phosphatase 126 Troponin I < 0.012 NT-Pro-B Natriuret Pep Total Protein 6.5 Albumin 3.9 Triglycerides 67 Cholesterol 142 LDL Cholesterol Direct 47 HDL Direct 62 Quality VTE Prophylaxis VTE prophylaxis: pharmacologic ordered (Heparin SQ) Hospitalist MIPS Advance Care Plan I have confirmed that the patient's Advanced Care Plan is present, code status is documented, or surrogate decision maker is listed in patient medical record.: Yes Medication Reconciliation I have utilized all available resources to obtain, update and review the patients current medications (includes all prescriptions, OTC, herbals, cannabis, and nutritional supplements).: Yes
--- NOTE | 2025-03-10 07:49 | PM.CNCAR ---
Assessment and Plan Assessment and plan (1) Congestive heart failure: Code(s): I50.9 - Heart failure, unspecified Status: Acute Assessment and Plan: Probably acute on chronic diastolic HF in setting of atrial fibrillation. Check echo. Start Lasix 20 mg IV BID and Spironolactone 25 mg daily. If echo is OK, would change Lasix 20 mg PO daily and continue Spironolactone, and may d/c home and f/u with me in 2 weeks. (2) Atrial fibrillation: Code(s): I48.91 - Unspecified atrial fibrillation Status: Chronic Assessment and Plan: [id number] 4. Rate is controlled on Metoprolol. On Eliquis. (3) Hypertension: Qualifiers: Hypertension type: primary hypertension Qualified Code(s): I10 - Essential (primary) hypertension Code(s): I10 - Essential (primary) hypertension Status: Chronic Assessment and Plan: Stable. (4) Hyperlipidemia: Code(s): E78.5 - Hyperlipidemia, unspecified Status: Acute Assessment and Plan: On Atorvastatatin. History of Present Illness History of Present Illness Consult date/time: 03/10/25 07:49 Reason For Visit: Exertional dyspnea, new onset CHF Narrative: Patient is a 85 yr old woman who is my regular cardiology patient and patient of Dr. Martin presents to ER with sob. She has a history of atrial fibrillation, diastolic dysfunction, hypertension, dyslipidemia and PAT. Reports she felt sob and palpitations last evening that started a few weeks ago that prompted her to call ambulance to come to ER. She feels better now and no longer sob. She can walk up to 1 mile now after having foot surgery. When she checks her BP at home it would tell her she is in atrial fib. No palpitations, chest pain or sob. Cardiovascular Procedures Echo/MUGA:: Echo (EF 60-65%, grade 3 diastolic dysfunction (E/E' 11), mod biatrial enlargement, mod MAC, mild MR/AI/TR, RVSP 42 mmHg.) - 09/10/2017 Electrophysiology:: 02/09/25 EKG: Atrial fibrillation at 68 bpm. EVR (14 day event monitor: Sinus rhythm, HR range 56-73 bpm; intermittent PAC's.) - 02/18/2018 EVR (21 day event monitor: Sinus rhythm, HR range 47-120 bpm; average 61 bpm; one atrial tachycardia at 110 bpm lasting 5 beats.) - 11/26/2017 EKG (Sinus rhythm at 61 bpm.) - 11/26/2017 EKG (Sinus rhythm, RSR' in v1 or v2, consider RVH or right VC, borderline ST abnormality- inferior leads.) - 08/05/2017 Holter (Sinus rhythm, HR range 52-104 bpm; average 74 bpm; 84 PAC's, 2 short atrial runs longest lasting 5 beats; 336 PVC's and 1 couplet.) - 07/25/2017 Stress Tests:: 05/01/22 Stress test: Negative; achieved 74% MPHR for age group; exercised for 4 min and 37 seconds. Review of Systems Review of Systems: All systems reviewed & are unremarkable except as noted in HPI and below Constitutional: Constitutional: Reports as per HPI, Denies chills and Denies fever(s) Cardiovascular: Cardiovascular: Reports as per HPI, Denies chest pain and Reports irregular heart rhythm Respiratory: Respiratory: Reports as per HPI and Reports dyspnea Gastrointestinal: Gastrointestinal: Reports as per HPI and Denies abdominal pain Genitourinary: Genitourinary: Reports as per HPI and Denies dysuria Musculoskeletal: Musculoskeletal: Reports as per HPI Neurologic: Reports as per HPI, Denies dizziness and Denies syncope PMFSH Past Medical History Medical History Screening for breast cancer History of uterine cancer Chronic left-sided thoracic back pain Diverticulosis of large intestine without perforation or abscess with bleeding Insomnia, unspecified Heart palpitations Hernia, umbilical Insomnia Osteoporosis Hyperlipidemia Hypertension Surgical History Surgical History H/O cataract removal with insertion of prosthetic lens History of hysterectomy Family History Family History Father Family history of emphysema Patient's father is Family history of chronic obstructive pulmonary disease, Onset Age: 84 Sibling Family history of atrial fibrillation Mother Family history of atrial fibrillation Patient's mother is Family history of malignant neoplasm of kidney Social History Social History Smoking status: Never smoker Second hand tobacco smoke exposure: No Alcohol intake: never Substance use: never Substance use type: does not use Lack of Transportation: No Lack of Food: Never True Current Housing: I Have Housing Concerned About Future Housing: No Difficulty Paying Gas/Electric Bills: No Difficulty Paying for Meds: No Currently Unemployed: No Education: Associate Degree Difficulty w/ Childcare or Family Care: No Occupation/Education: retired Spiritual care concerns: No Meds Home Medications and Allergies Home Medications ?Medication ?Instructions ?Recorded ?Confirmed ?Type multivitamin 1 tablet PO DAILY 06/14/21 03/09/25 History fluorometholone 0.1 % eye 1 drp ophthalmic (eye) PRN 12/22/23 03/09/25 History drops,suspension ipratropium bromide 21 mcg (0.03 See Rx Instructions .Route 07/02/24 03/09/25 Rx %) nasal spray .COMPLEX #30 mL losartan 100 mg tablet 100 mg PO DAILY #90 tabs 12/15/24 03/09/25 Rx metoprolol succinate 25 mg 25 mg PO BID #180 tabs 12/15/24 03/09/25 Rx tablet,extended release 24 hr apixaban 2.5 mg tablet (Eliquis) 2.5 mg PO BID #60 tabs 02/09/25 03/09/25 Rx amlodipine 5 mg tablet 5 mg PO DAILY #90 tabs 02/22/25 03/09/25 Rx atorvastatin 10 mg tablet 10 mg PO DAILY #90 tabs 02/22/25 03/09/25 Rx linaclotide 145 mcg capsule 145 mcg PO QAM #90 caps 03/03/25 03/09/25 Rx (Linzess) omeprazole 40 mg capsule,delayed 40 mg PO DAILY #90 caps 03/03/25 03/09/25 Rx release Allergies Allergy/AdvReac Type Severity Reaction Status Date / Time nabumetone Allergy Unknown Rash Verified 03/09/25 18:33 Vital Signs Vital Signs - 24 hr 03/09/25 18:33 03/09/25 18:53 03/09/25 18:54 Temperature 97.9 F Pulse Rate 79 79 80 Respiratory Rate 16 16 13 Blood Pressure 157/98 H 168/105 H Pulse Oximetry 97 99 100 Oxygen Delivery 03/09/25 18:57 03/09/25 19:00 03/09/25 19:15 Temperature Pulse Rate 79 78 86 Respiratory Rate 10 L 18 Blood Pressure Pulse Oximetry 97 97 Oxygen Delivery 03/09/25 19:30 03/09/25 19:31 03/09/25 19:59 Temperature Pulse Rate 80 81 84 Respiratory Rate 14 11 L 17 Blood Pressure 167/93 H Pulse Oximetry 96 97 98 Oxygen Delivery 03/09/25 20:00 03/09/25 20:01 03/09/25 20:15 Temperature Pulse Rate 85 83 79 Respiratory Rate 20 19 14 Blood Pressure 152/83 H Pulse Oximetry 98 97 Oxygen Delivery 03/09/25 20:16 03/09/25 21:00 03/09/25 21:25 Temperature Pulse Rate 85 89 89 Respiratory Rate 21 H 13 16 Blood Pressure 159/92 H Pulse Oximetry 95 98 98 Oxygen Delivery 03/09/25 23:55 03/10/25 00:00 03/10/25 00:00 Temperature 97.8 F Pulse Rate 96 88 Respiratory Rate 17 Blood Pressure 157/99 H Pulse Oximetry 100 Oxygen Delivery Room Air 03/10/25 00:33 03/10/25 02:00 03/10/25 03:59 Temperature 97.7 F Pulse Rate 90 76 91 Respiratory Rate 17 Blood Pressure 135/81 Pulse Oximetry 95 Oxygen Delivery 03/10/25 04:00 03/10/25 04:00 03/10/25 06:00 Temperature Pulse Rate 101 H 68 Respiratory Rate Blood Pressure Pulse Oximetry Oxygen Delivery Room Air Exam Const: General: cooperative, healthy appearing and comfortable Resp: Auscultation: clear to auscultation bilaterally, no crackles, no rales, no rhonchi and no wheezes Cardio: Rate: regular rate Rhythm: abnormal rhythm Heart sounds: no murmurs Peripheral pulses: dorsalis pedis present GI: GI Palp: No abdominal tenderness and Yes Soft to palpation Neuro: General: oriented to person, oriented to place and oriented to time Extrem: Right lower extremity: no edema Left lower extremity: no edema Results Labs and Meds 03/10/25 01:35 03/10/25 01:35 Lab results: Cardiac Enzymes 03/09/25 03/09/25 03/09/25 Range/Units 19:31 22:28 22:34 AST 51 H (14-36) U/L Troponin I < 0.012 < 0.012 Cancelled (0.000-0.034) ng/mL 03/10/25 Range/Units 01:35 AST 51 H (14-36) U/L Troponin I < 0.012 (0.000-0.034) ng/mL Coagulation 03/09/25 Range/Units 19:31 PT 13.7 (11.1-14.7) Seconds APTT 31.8 (22.3-36.8) Seconds Lipids 03/10/25 Range/Units 01:35 Triglycerides 67 (<150) mg/dL Cholesterol 142 (0-200) mg/dL CBC 03/09/25 03/10/25 Range/Units 19:31 01:35 WBC 5.2 5.1 (4.5-10.0) K/mm3 RBC 3.89 L 3.59 L (4.2-5.4) M/mm3 Hgb 12.4 11.6 L (12.0-15.0) g/dL Hct 38.1 34.8 L (37.0-47.0) % Plt Count 199 178 (150-375) k/mm3 Lymph # (Auto) 1.00 0.90 (0.9-3.2) K/mm3 [place] # (Auto) 0.4 0.5 (0.1-0.6) K/mm3 Eos # (Auto) 0.4 H 0.3 (0-0.3) K/mm3 Baso # (Auto) 0.1 0.1 (0.0-0.1) K/mm3 Comprehensive Metabolic Panel 03/09/25 03/10/25 Range/Units 19:31 01:35 Sodium 134 L 135 L (137-145) mmol/L Potassium 3.8 3.6 (3.4-5.0) mmol/L Chloride 98 102 (98-107) mmol/L Carbon Dioxide 29 27 (22-30) mmol/L BUN 22 H 19 H (7-17) mg/dL Creatinine 0.94 0.82 (0.7-1.0) mg/dL Glucose 108 114 H (65-110) mg/dL Calcium 9.2 9.2 (8.4-10.2) mg/dL AST 51 H 51 H (14-36) U/L ALT 39 H 35 (6-35) U/L Alkaline Phosphatase 132 H 126 (38-126) U/L Total Protein 6.9 6.5 (6.3-8.2) g/dL Albumin 4.1 3.9 (3.5-5.1) g/dL Intake and Output 03/09/25 03/09/25 03/10/25 15:59 23:59 07:59 Other: # Unmeasured Voids 1 1 Patient Weight 03/10/25 23:59 Weight 54.9 kg
[2025-03-10] MEDS: LOSARTAN POTASSIUM 100 MG TABLET PO (08:51)
[2025-03-10] MEDS: PANTOPRAZOLE 40 MG TABLET PO (08:51)
[2025-03-10] MEDS: ATORVASTATIN 10 MG TABLET PO (08:51)
[2025-03-10] MEDS: FUROSEMIDE INJ 40 MG/4 ML VIAL 20 MG IV PUSH (08:52)
[2025-03-10] MEDS: MULTIVITAMINS THERAPEUTIC TAB (*BKC) 1 TABLET PO (08:52)
[2025-03-10] MEDS: SPIRONOLACTONE 25 MG TABLET PO (08:52)
[2025-03-10] MEDS: IPRATROPIUM NASAL SPRAY 0.03% 15 ML BOTTLE 2 SPRAY NASAL ×2 (10:19→20:11)
--- NOTE | 2025-03-10 21:45 | PC.NURSE ---
Pt was transferred from IMU to Med/Surg rm [id number]. Pt arrived to the floor via hospital bed. Pt oriented to room & hospital policies. Pt placed on telemetry, monitor 10. Vitals within normal range. Bed alarm on.
[2025-03-11 00:05] VITALS: PULSE 77
[2025-03-11 04:00] VITALS: PULSE 75
[2025-03-11 04:42] VITALS: BP 142/87; PULSE 81; RESP 16; TEMP 36.6; O2SAT 100
[2025-03-11 06:20] LABS: Hematocrit 35.0 % (37.0-47.0); Hemoglobin 11.4 g/dL (12.0-15.0); Mean Corpuscular HGB Conc 32.6 g/dl (32-36); Mean Corpuscular Hemoglobin 32.3 pg (26-34); Mean Corpuscular Volume 99.2 fl (80-100); Platelet Count Result 176 k/mm3 (150-375); Red Blood Count 3.53 M/mm3 (4.2-5.4); White Blood Count 4.8 K/mm3 (4.5-10.0)
[2025-03-11 06:59] LABS: Alanine Aminotransferase 29 U/L (6-35); Albumin Level 3.6 g/dL (3.5-5.1); Alkaline Phosphatase 107 U/L (38-126); Anion Gap 4 mmol/L (4-12); Aspartate Amino Transferase 41 U/L (14-36); Bilirubin,Total 0.5 mg/dL (0.2-1.3); Blood Urea Nitrogen 17 mg/dL (7-17); Calcium 8.7 mg/dL (8.4-10.2); Carbon Dioxide 29 mmol/L (22-30); Chloride 102 mmol/L (98-107); Estimated CRCL calculation 38 ml/min; Estimated Glomerular Filt Rate > 60; Glucose 88 mg/dL (65-110); Magnesium 2.1 mg/dL (1.6-2.3); NT Pro B Type Natriuretic Pept 3270 pg/mL (19.9-100); Potassium 3.7 mmol/L (3.4-5.0); Sodium 135 mmol/L (137-145); Total Protein 6.1 g/dL (6.3-8.2)
[2025-03-11 08:01] VITALS: PULSE 85
--- NOTE | 2025-03-11 08:09 | P.DS_ITS ---
DS: Admitting Diagnosis Discharge Date 03/11/2025 Admitting Diagnosis Shortness of breath DS: Discharge Diagnosis Discharge Diagnosis (1) Congestive heart failure: Code(s): I50.9 - Heart failure, unspecified Status: Acute Assessment and Plan: Please refer to hospital course for brief summary -New onset CHF with worsening dyspnea on exertion for a few weeks -CXR with findings of pulmonary edema and Cardiomegaly -Echocardiogram ordered -Recent discovery of atrial fibrillation, on Eliquis 2.5 mg BID for about a month, dose reduction due to weight and age. -Dr. Parmar consulted--patient sees Ghulam in the clinic (2) Dyspnea on exertion: Code(s): R06.00 - Dyspnea, unspecified Status: Acute Assessment and Plan: -Worsening over the past couple weeks (3) Heart palpitations: Code(s): R00.2 - Palpitations Status: Acute Assessment and Plan: -Patient felt heart pounding in her chest today with increased dyspnea which is why she called 911 to come to ER (4) Atrial fibrillation: Code(s): I48.91 - Unspecified atrial fibrillation Status: Chronic Assessment and Plan: -See above (5) GERD (gastroesophageal reflux disease): Qualifiers: Esophagitis presence: esophagitis presence not specified Qualified Code(s): K21.9 - Gastro-esophageal reflux disease without esophagitis Code(s): K21.9 - Gastro-esophageal reflux disease without esophagitis Status: Chronic Assessment and Plan: -Noted, continue PPI (6) Chronic constipation: Code(s): K59.09 - Other constipation Status: Chronic Assessment and Plan: -History noted, prescribed Linzess but doesn't take due to cost (7) COPD (chronic obstructive pulmonary disease): Code(s): J44.9 - Chronic obstructive pulmonary disease, unspecified Status: Chronic Assessment and Plan: -Mild productive white sputum (8) Insomnia, unspecified: Qualifiers: Insomnia type: unspecified Qualified Code(s): G47.00 - Insomnia, unspecified Code(s): G47.00 - Insomnia, unspecified Status: Chronic Assessment and Plan: -Melatonin PRN (9) Hypertension: Qualifiers: Hypertension type: primary hypertension Qualified Code(s): I10 - Essential (primary) hypertension Code(s): I10 - Essential (primary) hypertension Status: Chronic Assessment and Plan: -Continue home medications -Dr. Parmar consulted and Echocardiogram ordered DS: Summary Hospital Course Hospital Course: 85-year-old female admitted for apparent new onset CHF with increased dyspnea on exertion and palpitations. She reports a sensation of her heart pounding earlier this evening, but not racing. She has a history of hypertension and is currently taking Amlodipine, Losartan (both in the morning), and Metoprolol 25 mg twice daily (missed her evening dose today). She has been on Metoprolol for a few years, prescribed for high blood pressure. She also takes Eliquis 2.5 mg in the evening for a new diagnosis of atrial fibrillation, diagnosed after experiencing abnormal heartbeats at night; this was confirmed by EKG by Dr. Parmar whom she sees in the clinic. She describes worsening shortness of breath over the past few weeks, now si gnificant enough to require ambulance transport today. She notes decreased exercise tolerance, with symptoms triggered by minimal exertion (e.g., walking up the driveway, climbing steps). She denies chest pain, lightheadedness, dizziness, or syncope. She reports a productive cough, worse over the last few weeks, consistent with a flare of her mild emphysema. Sputum is usually white or clear and often occurs after eating. She experiences mild morning nausea for the past couple of months, resolving after 5?10 minutes. She also describes bilateral upper back/shoulder pain, starting nightly around 7?8 pm and lasting through the evening, possibly related to posture. No recent vomiting, fevers, chills, or leg swelling. No history of blood clots 03/11/2025: Patient underwent echocardiogram which shows 60-65%. Patient underwent a CT chest due to history of mild emphysema which shows Minimal centrilobular emphysema in the lung apices. Cardiology evaluated the patient and started on spironolactone and Lasix 20 mg once a day and advised to follow- up in 2 weeks. On the day of discharge, the patient was seen and examined. Vital signs were stable. Physical exam were stable and labs were reviewed at length. Discharge instructions, medications, and follow-up appointments were discussed with the patient at length and all day questions were answered. ER warnings were given. Status at Discharge Cognitive/behavioral status at discharge: Stable Time Spent with Patient Time attestation: Total time spent providing and/or coordinating discharge services: 45 minutes Exam Narrative: GENERAL: Well-appearing, well-nourished, and in no acute distress. HEAD: Normocephalic, atraumatic. ENT:? Mucous membranes moist. CHEST: Clear to auscultation.? No respiratory distress. HEART: Regular rate and irregular rhythm. ? Normal peripheral pulses. ABDOMEN: Soft, nontender, nondistended. EXTREMITIES: Normal range of motion. No peripheral edema. SKIN: Warm dry normal color NEURO: Alert and oriented x3. PSYCH: Normal mood and affect DS: Data Data Completed and Pending Labs on day of discharge: Labs from last 24 hours 03/11/25 06:07 WBC 4.8 RBC 3.53 L Hgb 11.4 L Hct 35.0 L MCV 99.2 MCH 32.3 MCHC 32.6 RDW 13.2 Plt Count 176 MPV 10.4 Sodium 135 L Potassium 3.7 Chloride 102 Carbon Dioxide 29 Anion Gap 4 BUN 17 Creatinine 0.89 Estim Creat Clear Calc 38 Estimated GFR > 60 Glucose 88 Calcium 8.7 Magnesium 2.1 Total Bilirubin 0.5 AST 41 H ALT 29 Alkaline Phosphatase 107 NT-Pro-B Natriuret Pep 3270 H Total Protein 6.1 L Albumin 3.6 Imaging Radiologist's impression: ITS Impressions Chest X-Ray 03/09/25 19:44 IMPRESSION: 1. Congestive heart failure with cardiomegaly and mild pulmonary edema in the bilateral mid and lower lung zones. Chest CT 03/10/25 12:20 IMPRESSION: 1. No pulmonary mass. No pulmonary nodules. 2. There are a few small reticular and bandlike opacities in the lower lungs likely atelectasis or scarring. 3. Minimal centrilobular emphysema in the lung apices. Discharge Plan Discharge Attending physician on discharge: Reji Rosario Consulting providers: Fer Parmar Discharging Clinician: Reji Rosario Anticipated Discharge Date/Time: 03/11/25 08:23 Patient Disposition: Home Activity: as tolerated Diet: heart healthy Discharge Instructions: Patient started on spironolactone and Lasix by Cardiology Check blood pressure 1 to 2 times a day. Record and bring into your doctor for review. Call your doctor if your blood pressure is greater than 180/110 or less than 90/45. Walk with cane or other assist device. Take precautions to avoid falls. Rise slowly from a lying or sitting position. Pause before standing or walking. Contact your doctor or call 911 and come to the Emergency Room if you have any type of trauma, lightheadedness with standing or other worrisome symptoms. Avoid NSAIDs (ibuprofen, naproxen, Aleve). Tylenol is safe to take. Follow-up with your primary care provider in 1-2 weeks. Please call for appointment. Follow-up with Cardiology in 2-4 weeks. Please call for an appointment. Thank you for using [facility] for your health care needs. Patient Instructions: Antibiotic Form, Apixaban (By mouth), Heart Failure (GEN) Patient Language: Chinese Stand Alone Forms: General Discharge Information Follow-up/Referrals: Margaret Martin DO [Primary Care Provider, Family Practice] Fer Parmar DO [Physician, Cardiology] Discharge Medications: New spironolactone 25 mg Tablet 25 mg PO QAM Qty: 30 0RF furosemide 20 mg Tablet 20 mg PO DAILY Qty: 30 0RF Continued fluorometholone 0.1 % drops,suspension 1 drp ophthalmic (eye) PRN multivitamin Tablet 1 tablet PO DAILY Eliquis 2.5 mg tablet 2.5 mg PO BID Qty: 60 5RF omeprazole 40 mg capsule,delayed release(DR/EC) 40 mg PO DAILY Qty: 90 1RF Linzess 145 mcg capsule 145 mcg PO QAM Qty: 90 0RF senna 8.6 mg capsule 8.6 mg PO HS ipratropium bromide 21 mcg (0.03 %) spray,non-aerosol See Rx Instructions .ROUTE .COMPLEX Qty: 30 5RF Dose Instruction: USE 2 SPRAYS INTO EACH NOSTRIL TWICE A DAY Rx Instructions: USE 2 SPRAYS INTO EACH NOSTRIL TWICE A DAY losartan 100 mg tablet 100 mg PO DAILY Qty: 90 1RF metoprolol succinate 25 mg tablet extended release 24 hr 25 mg PO BID Qty: 180 1RF atorvastatin 10 mg tablet 10 mg PO DAILY Qty: 90 0RF Rx Instructions: DUE FOR APPOINTMENT IN MAY amlodipine 5 mg tablet 5 mg PO DAILY Qty: 90 0RF Rx Instructions: DUE FOR APPOINTMENT IN MAY Date of admission: 03/09/25 22:19 Primary Care Provider: Margaret Martin Admitting Provider: Reji Rosario Attending physician on admission: Reji Rosario Condition: Stable
--- NOTE | 2025-03-11 08:32 | PM.PNCARD ---
Progress Note: A&P Assessment and Plan (1) Congestive heart failure: Code(s): I50.9 - Heart failure, unspecified Status: Acute Assessment and Plan: Euvolemic. Acute on chronic diastolic HF in setting of atrial fibrillation. 03/10/25 Echo: EF 60-65%, diastolic dysfunction (E/e' 12), mod biatrial enlargement, mild-mod AI/MR, mod-severe TR, RVSP 58 mmHg. On Lasix 20 mg PO daily and Spironolactone 25 mg daily. May d/c home and f/u with me in 2 weeks. (2) Atrial fibrillation: Code(s): I48.91 - Unspecified atrial fibrillation Status: Chronic Assessment and Plan: [id number] 4. Rate is controlled on Metoprolol. On Eliquis. (3) Hypertension: Qualifiers: Hypertension type: primary hypertension Qualified Code(s): I10 - Essential (primary) hypertension Code(s): I10 - Essential (primary) hypertension Status: Chronic Assessment and Plan: Stable. (4) Hyperlipidemia: Code(s): E78.5 - Hyperlipidemia, unspecified Status: Acute Assessment and Plan: On Atorvastatatin. Subjective Date/time seen: 03/11/25 08:32 Interval history: Denies chest pain or sob. Exam Const: General: cooperative, healthy appearing and comfortable Orientation/consciousness: oriented to person, oriented to place and oriented to time Resp: Auscultation: clear to auscultation bilaterally, no crackles, no rales, no rhonchi and no wheezes Cardio: Rate: regular rate Rhythm: abnormal rhythm Heart sounds: no murmurs Peripheral pulses: dorsalis pedis present Neuro: General: oriented to person, oriented to place and oriented to time Extrem: Right lower extremity: no edema Left lower extremity: no edema Objective Data Vital Signs Vital Signs: Vital Signs - 24 hr 03/10/25 08:51 03/10/25 10:00 03/10/25 11:39 Temperature 97.6 F Pulse Rate 68 66 65 Respiratory Rate 12 Blood Pressure 137/77 Pulse Oximetry 98 Oxygen Delivery 03/10/25 12:00 03/10/25 15:51 03/10/25 16:00 Temperature 98.0 F Pulse Rate 69 67 74 Respiratory Rate 16 Blood Pressure 138/80 Pulse Oximetry 100 Oxygen Delivery 03/10/25 19:41 03/10/25 20:00 03/10/25 20:00 Temperature 97.8 F Pulse Rate 76 80 Respiratory Rate 18 Blood Pressure 137/74 Pulse Oximetry 97 Oxygen Delivery Room Air 03/10/25 20:10 03/10/25 22:00 03/10/25 22:47 Temperature 98.5 F Pulse Rate 89 71 Respiratory Rate 16 Blood Pressure 143/84 H Pulse Oximetry 98 Oxygen Delivery Room Air 03/11/25 00:05 03/11/25 04:00 03/11/25 04:42 Temperature 97.8 F Pulse Rate 77 75 81 Respiratory Rate 16 Blood Pressure 142/87 H Pulse Oximetry 100 Oxygen Delivery Intake/Output Intake/Output: Intake & Output 03/08/25 03/09/25 03/10/25 03/11/25 23:59 23:59 23:59 23:59 Intake Total 1260 Balance 1260 Meds/Results Medications: Active Medications Generic Name Dose Route Start Last Admin Trade Name Freq PRN Reason Stop Dose Admin Acetaminophen 650 mg 03/10/25 00:01 03/10/25 00:33 Acetaminophen 325 Mg Tablet PO 650 mg Q6H PRN Administration Pain/Fever/Headache Amlodipine Besylate 5 mg 03/10/25 09:00 03/10/25 08:51 Amlodipine Besylate 5 Mg Tablet PO 5 mg DAILY MATT Administration Apixaban 2.5 mg 03/10/25 00:00 03/10/25 20:10 Apixaban 2.5 Mg Tablet PO 2.5 mg Q12HR MATT Administration Atorvastatin Calcium 10 mg 03/10/25 09:00 03/10/25 08:51 Atorvastatin 10 Mg Tablet PO 10 mg DAILY MATT Administration Fluorometholone 1 drop 03/09/25 23:58 Fluorometholone 0.1% Op Susp 5 Ml Btl EACH EYE On Hold: 03/10/25 00:42 PRN PRN Comment: HOLD WHILE IN dry eye HOSPITAL Furosemide 20 mg 03/11/25 09:00 Furosemide 20 Mg Tablet PO DAILY MATT Ipratropium [place] 2 spray 03/10/25 09:00 03/10/25 20:11 Ipratropium Nasal [place] 0.03% 15 Ml Bottle NASAL 2 spray Q12HR MATT Administration Linaclotide 145 mcg 03/10/25 09:00 03/10/25 10:17 Linaclotide 145 Mcg Capsule PO Not Given QAM MATT Losartan Potassium 100 mg 03/10/25 09:00 03/10/25 08:51 Losartan Potassium 100 Mg Tablet PO 100 mg DAILY MATT Administration Melatonin 5 mg 03/10/25 00:01 03/10/25 00:33 Melatonin 5 Mg Tablet PO 5 mg HS PRN Administration insomnia Metoprolol Succinate 25 mg 03/10/25 00:00 03/10/25 20:10 Metoprolol Succinate Ext Rel 25 Mg Tabcr PO 25 mg Q12HR MATT Administration Multivitamins Therapeutic 1 tablet 03/10/25 09:00 03/10/25 08:52 Multivitamins Therapeutic Tab (*Bkc) PO 1 tablet DAILY MATT Administration Pantoprazole Sodium 40 mg 03/10/25 09:00 03/10/25 08:51 Pantoprazole 40 Mg Tablet PO 40 mg QAM MATT Administration Perflutren Lipid Microsphere 0 ml 03/10/25 00:02 Perflutren Lipid Microspheres 1.5 Ml Vial Diluted To 10 Ml Total Volume IV PUSH 03/13/25 00:03 ONCE PRN adequate visualization Protocol Spironolactone 25 mg 03/10/25 09:00 03/10/25 08:52 Spironolactone 25 Mg Tablet PO 25 mg QAM MATT Administration Radiology Results: ITS Impressions Chest X-Ray 03/09/25 19:44 IMPRESSION: 1. Congestive heart failure with cardiomegaly and mild pulmonary edema in the bilateral mid and lower lung zones. Chest CT 03/10/25 12:20 IMPRESSION: 1. No pulmonary mass. No pulmonary nodules. 2. There are a few small reticular and bandlike opacities in the lower lungs likely atelectasis or scarring. 3. Minimal centrilobular emphysema in the lung apices. Labs Labs: Laboratory Results - last 24 hr 03/11/25 06:07 WBC 4.8 RBC 3.53 L Hgb 11.4 L Hct 35.0 L MCV 99.2 MCH 32.3 MCHC 32.6 RDW 13.2 Plt Count 176 MPV 10.4 Sodium 135 L Potassium 3.7 Chloride 102 Carbon Dioxide 29 Anion Gap 4 BUN 17 Creatinine 0.89 Estim Creat Clear Calc 38 Estimated GFR > 60 Glucose 88 Calcium 8.7 Magnesium 2.1 Total Bilirubin 0.5 AST 41 H ALT 29 Alkaline Phosphatase 107 NT-Pro-B Natriuret Pep 3270 H Total Protein 6.1 L Albumin 3.6
[2025-03-11] MEDS: SPIRONOLACTONE 25 MG TABLET PO (09:10)
[2025-03-11] MEDS: LOSARTAN POTASSIUM 100 MG TABLET PO (09:10)
[2025-03-11] MEDS: ATORVASTATIN 10 MG TABLET PO (09:10)
[2025-03-11] MEDS: MULTIVITAMINS THERAPEUTIC TAB (*BKC) 1 TABLET PO (09:10)
[2025-03-11] MEDS: FUROSEMIDE 20 MG TABLET PO (09:10)
[2025-03-11] MEDS: APIXABAN 2.5 MG TABLET PO (09:10)
[2025-03-11 09:11] VITALS: PULSE 66
[2025-03-11] MEDS: PANTOPRAZOLE 40 MG TABLET PO (09:11)
[2025-03-11] MEDS: METOPROLOL SUCCINATE EXT REL 25 MG TABCR PO (09:11)
[2025-03-11] MEDS: IPRATROPIUM NASAL SPRAY 0.03% 15 ML BOTTLE 2 SPRAY NASAL (09:12)
== END 2025-03-11 13:10 | disposition home or self-care (01) | DRG 291 ==
LOC: ANHED 21:02 → ANHIMU 23:09 → ANH3MEDSUR 03-10 22:10
PROVIDERS: Nurse Practitioner; Admitting Provider General Practice; Emergency Provider Emergency Medicine; PCP Family Medicine; Visit Provider General Practice
DX: I11.0 Hypertensive heart disease with heart failure (principal); I50.33 Acute on chronic diastolic (congestive) heart failure; E78.5 Hyperlipidemia, unspecified; G47.00 Insomnia, unspecified; I48.91 Unspecified atrial fibrillation; J43.2 Centrilobular emphysema; K21.9 Gastro-esophageal reflux disease without esophagitis; K59.09 Other constipation; R00.2 Palpitations; Z85.42 Personal history of malignant neoplasm of other parts of uterus; Z79.01 Long term (current) use of anticoagulants
CPT/HCPCS: 36415; 71045; 71250; 80053; 80061; 83735; 83880; 84484; 85025; 85027; 85380; 85610; 85730; 93005; 93306; 99285; A9270; J1938

== ENCOUNTER 2025-04-08 00:30 | Emergency (ER) | payer OTHER, SELFPAY ==
--- OUTSIDE RECORDS SUMMARY | 2005-02-12 10:15 | XMS_ITS | Continuity of Care Document ---
Author Organization [facility] Address [address] [place] [address] Phone Care Team Providers Care Chemical Project Engineer Name Role Phone Ketty White Unavailable Unavailable Advance Directives Directive Yes / No Effective Date File Name No Information Encounters Encounter Description Practice Location Reason(s) For Visit Diagnoses Date Provider Providers Copied on Encounter [facility], [address], [place], [place], [address], [place] tel:[phone] [facility] No Information Feb-0 2-200 5 Cindy Hdez. [address] , [address], [place], [address], [place]. tel:[phone] Family History Family Member Type Diagnosis Age At Onset No Information Payers Payer name Insurance type Covered republican ID Authoriza tion(s) No Information Social History Type Description Quantity Date Captured Comments Sex Female Smoking Status No Information Chief Complaint And Reason For Visit No Information Reason For Referral Reason For Referral No Information History Of Present Illness Encounter Date Complaint History Of Prese nt Illness No Information Functional Status Date Functional Assessmen t No Information Instructions Date Instruction Additional Infor mation No Information Assessments Type Assessment Date No Information Patient Care Teams Name Effective Dates (start - stop) Status Members No Information
--- OUTSIDE RECORDS SUMMARY | 2005-02-12 10:15 | XMS_ITS | Continuity of Care Document ---
Author Organization [facility] Address [address] [place] [address] Phone Care Team Providers Care Load Checker Name Role Phone Ketty White Unavailable Unavailable Advance Directives Directive Yes / No Effective Date File Name No Information Encounters Encounter Description Practice Location Reason(s) For Visit Diagnoses Date Provider Providers Copied on Encounter [facility], [address], [place], [place], [address], [place] tel:[phone] [facility] No Information Feb-0 2-200 5 Cindy Hdez. [address] , [address], [place], [address], [place]. tel:[phone] Family History Family Member Type Diagnosis Age At Onset No Information Payers Payer name Insurance type Covered democrat ID Authoriza tion(s) No Information Social History [...]
--- OUTSIDE RECORDS SUMMARY | 2013-08-11 16:29 | XMS_ITS | Continuity of Care Document ---
Author Organization [facility] Address [address] [place] [address] Phone Care Team Providers Care Linux Unix System Administrator Name Role Phone Patric Russell MD Unavailable [...] Diagnoses Date Provider Providers Copied on Encounter [facility], [address], [place], [place], [address] , tel: [phone] [facility] No Information 4 Drew [address], [address], [place], [place], [address] , [place]. tel: [phone] [facility], [address], [place], [place], [address] , tel: [phone] [facility] Rectal bleeding 3 Drew [address], [address], [place], [place], [address] , [place]. tel: [phone] Referring Provider: [address], [place], [address] . tel:[phone] [facility], [address], [place], [place], [address] , tel: [phone] [facility] Enlargement of lymph nodes Mar- 0-201 3 Drew Sp[address]. [address], [address], [place], [place], [address] , . tel: [phone] Referring Provider: [address], [place], [address] . tel:[phone] [facility], [address], [place], [place], [address] , tel: [phone] [facility] NEED FOR PROPHYLACTIC VACCINATION AND INOCULATION, INFLUENZATrochanter ic bursitis of left hipEnlarged lymph nodeHistory of uterine cancerHistory of breast cancer 3 Drew [address], [address] [facility], [place], [place], [address] , . tel: [phone] Referring Provider: [address] [facility], [place], [address] . tel:[phone] Family History Family Member Type Diagnosis Age At Onset No Information Immunizations Vaccine Date Status Comments Fluzone administered Source: New Imm unization Record Td (7 yrs and older) administered Source: Other Provider pneumo (2 yrs or older) (PPV23) administered Source: New Immuniza tion Record Payers Payer name Insurance type Covered green party ID Authoriza tion(s) [facility] [id number] Social History Type Description Quantity Date Captured [...]
--- OUTSIDE RECORDS SUMMARY | 2013-08-11 16:29 | XMS_ITS | Continuity of Care Document ---
Author Organization [facility] Address [address] [place] [address] Phone Care Team Providers Care Tool And Die Machinist Name Role Phone Patric Russell MD Unavailable [...] Diagnoses Date Provider Providers Copied on Encounter [facility], [address], [place], [place], [address] , tel: [phone] [facility] No Information 4 Drew [address], [address], [place], [place], [address] , [place]. tel: [phone] [facility], [address], [place], [place], [address] , tel: [phone] [facility] Rectal bleeding 3 Drew [address], [address], [place], [place], [address] , [place]. tel: [phone] Referring Provider: [address], [place], [address] . tel:[phone] [facility], [address], [place], [place], [address] , tel: [phone] [facility] Enlargement of lymph nodes Mar- 0-201 3 Drew [address], [address], [place], [place], [address] , . tel: [phone] Referring Provider: [address], [place], [address] . tel:[phone] [facility], [address], [place], [place], [address] , tel: [phone] [facility] NEED FOR PROPHYLACTIC VACCINATION AND INOCULATION, INFLUENZATrochanter ic bursitis of left hipEnlarged lymph nodeHistory of uterine cancerHistory of breast cancer 3 [address], [address] [facility], [place], [place], [address] , . tel: [phone] Referring Provider: [address] [facility], [place], [address] . tel:[phone] Family History Family Member Type Diagnosis Age At Onset No Information Immunizations Vaccine Date Status Comments Fluzone administered Source: New Imm unization Record Td (7 yrs and older) administered Source: Other Provider pneumo (2 yrs or older) (PPV23) administered Source: New Immuniza tion Record Payers Payer name Insurance type Covered green party ID Authoriza tion(s) [facility] [id number] Social History Type Description Quantity Date Captured [...]
--- OUTSIDE RECORDS SUMMARY | 2015-08-03 01:00 | XMS_ITS | Encounter Summary ---
Author Organization [facility] Address [address] [place] [address] Care Team Providers Care Business Technology Teacher Name Role Phone Unavailable Primary Care Provider Unavailabl e Reason for Visit * Diagnostic Imaging (Routine) - Closed Specialty Diagnoses / Procedures Referred By Contac t Referred To Contact Procedures Breast Imaging Screening Outside Reference Lakeshia Woodall MD PhD [address] [phone] [place] [address] Phone: tel: fax: Referral ID Status Reason Start Date Expiration Date Visits Re quested Visits Authorized [id number] Closed 01/10/2022 02/09/2023 1 1 Encounter Details Date Type Department Care Team (Late st Contact Info) Description 08/03/[address] [facility] [address] [place] [address] Social History Tobacco Use Types Packs/Day Years Used Date Smoking Tobacco: Never Smokeless Tobacco: Never Comments Unknown Sex and Gender Information Value Date Recorded Sex Assigned at Not on file Legal Sex Female 6:16 AM BURNING PLANT OPERATOR Gender Identity Female 08/17/2020 12:34 PM BURNING PLANT OPERATOR Sexual Orientation Straight 11/22/2019 7: 07 PM CDT documented as of this encounter Plan of Treatment Not on file documented as of this encounter Procedures Procedure Name Priority Date/Time Associated Diagnosis Comments BREAST IMAGING MG SCREENING OUTSIDE REFERENCE Routine 08/03/2015 12:00 AM BURNING PLANT OPERATOR documented in this encounter Results * Breast Imaging Screening Outside Reference (08/03/2015 12:00 AM BURNING PLANT OPERATOR) Impressions [facility] - 01/10/2022 1:24 PM CDT These images are for Reference purposes only and have not been reviewed by [facility]iology. There will be no report generated by a [facility] Radiologist. Narrative [facility] - 01/10/2022 1:24 PM CDT EXAMINATION: Images For Reference Purposes Only us Lakeshia Woodall MD PhD IMG MAMMO PROCEDURES Final Result [facility] documented in this encounter Visit Diagnoses Not on filedocumented in this encounter
--- OUTSIDE RECORDS SUMMARY | 2015-08-03 01:00 | XMS_ITS | Encounter Summary ---
Author Organization [facility] Address [address] [place] [address] Care Team Providers Care Processing Talc And Borate Supervisor Name Role Phone Unavailable Primary Care Provider Unavailabl e Reason for Visit * Diagnostic Imaging (Routine) - Closed Specialty Diagnoses / Procedures Referred By Contac t Referred To Contact Procedures Breast Imaging Screening Outside Reference Lakeshia Woodall MD PhD [address] [phone] [place] [address] Phone: tel: fax: Referral ID Status Reason Start Date Expiration Date Visits Re quested Visits Authorized [id number] Closed 01/10/2022 02/09/2023 1 1 Encounter Details Date Type Department Care Team (Late st Contact Info) Description 08/03/2015 Hospital Encounter [facility] [address] [place] [address] Social History Tobacco Use Types Packs/Day Years Used Date Smoking Tobacco: Never Smokeless Tobacco: Never Comments Unknown Sex and Gender Information Value Date Recorded Sex Assigned at Not on file Legal Sex Female 6:16 AM ENGRAVER BLOCK Gender Identity Female 08/17/2020 12:34 PM ENGRAVER BLOCK Sexual Orientation Straight 11/22/2019 7: 07 PM CDT documented as of this encounter Plan of Treatment Not on file documented as of this encounter Procedures Procedure Name Priority Date/Time Associated Diagnosis Comments BREAST IMAGING MG SCREENING OUTSIDE REFERENCE Routine 08/03/2015 12:00 AM ENGRAVER BLOCK documented in this encounter Results * Breast Imaging Screening Outside Reference (08/03/2015 12:00 AM ENGRAVER BLOCK) Impressions [facility] - 01/10/2022 1:24 PM CDT These images are for Reference purposes only and have not been reviewed by [facility] Radiology. There will be no report generated by a [facility] Radiologist. Narrative [facility] - 01/10/2022 1:24 PM CDT EXAMINATION: Images For Reference Purposes Only us Lakeshia Woodall MD PhD IMG MAMMO PROCEDURES Final Result [facility] documented in this encounter Visit Diagnoses Not on filedocumented in this encounter
--- OUTSIDE RECORDS SUMMARY | 2016-08-06 01:00 | XMS_ITS | Encounter Summary ---
Author Organization [facility] Healthcare Address [address] [place] [address] Care Team Providers Care Cage Supervisor Name Role Phone Unavailable Primary Care Provider Unavailabl e Reason for Visit * Diagnostic Imaging (Routine) - Closed Specialty Diagnoses / Procedures Referred By Contac t Referred To Contact Procedures Breast Imaging Screening Outside Reference Lakeshia Woodall MD PhD [address] [phone] [place] [address] Phone: tel: fax: Referral ID Status Reason Start Date Expiration Date Visits Re quested Visits Authorized [id number] Closed 01/10/2022 02/09/2023 1 1 Encounter Details Date Type Department Care Team (Late st Contact Info) Description 08/06/2016 Hospital Encounter [facility]iology [facility] [address] [place] [address] Social History Tobacco Use Types Packs/Day Years Used Date Smoking Tobacco: Never Smokeless Tobacco: Never Comments Unknown Sex and Gender Information Value Date Recorded Sex Assigned at Not on file Legal Sex Female 6:16 AM NET LEAD DEVELOPER Gender Identity Female 08/17/2020 12:34 PM NET LEAD DEVELOPER Sexual Orientation Straight 11/22/2019 7: 07 PM CDT documented as of this encounter Plan of Treatment Not on file documented as of this encounter Procedures Procedure Name Priority Date/Time Associated Diagnosis Comments BREAST IMAGING MG SCREENING OUTSIDE REFERENCE Routine 08/06/2016 12:00 AM NET LEAD DEVELOPER documented in this encounter Results * Breast Imaging Screening Outside Reference (08/06/2016 12:00 AM NET LEAD DEVELOPER) Impressions [facility] - 01/10/2022 1:24 PM CDT These images are for Reference purposes only and have not been reviewed by [facility] Radiology. There will be no report generated by a [facility] Radiologist. Narrative [facility] - 01/10/2022 1:24 PM CDT EXAMINATION: Images For Reference Purposes Only us Lakeshia Woodall MD PhD IMG MAMMO PROCEDURES Final Result [facility] documented in this encounter Visit Diagnoses Not on filedocumented in this encounter
--- OUTSIDE RECORDS SUMMARY | 2016-08-06 01:00 | XMS_ITS | Encounter Summary ---
Author Organization [facility] Healthcare Address [address] [place] [address] Care Team Providers Care Pictures Editor Name Role Phone Unavailable Primary Care Provider Unavailabl e Reason for Visit * Diagnostic Imaging (Routine) - Closed Specialty Diagnoses / Procedures Referred By Contac t Referred To Contact Procedures Breast Imaging Screening Outside Reference Lakeshia Woodall MD PhD [address] [phone] [place] [address] Phone: tel: fax: Referral ID Status Reason Start Date Expiration Date Visits Re quested Visits Authorized [id number] Closed 01/10/2022 02/09/2023 1 1 Encounter Details Date Type Department Care Team (Late st Contact Info) Description 08/06/2016 Hospital Encounter [facility] [address] [place] [address] Social History Tobacco Use Types Packs/Day Years Used Date Smoking Tobacco: Never Smokeless Tobacco: Never Comments Unknown Sex and Gender Information Value Date Recorded Sex Assigned at Not on file Legal Sex Female 6:16 AM SERVICE BAR CASHIER Gender Identity Female 08/17/2020 12:34 PM SERVICE BAR CASHIER Sexual Orientation Straight 11/22/2019 7: 07 PM CDT documented as of this encounter Plan of Treatment Not on file documented as of this encounter Procedures Procedure Name Priority Date/Time Associated Diagnosis Comments BREAST IMAGING MG SCREENING OUTSIDE REFERENCE Routine 08/06/2016 12:00 AM SERVICE BAR CASHIER documented in this encounter Results * Breast Imaging Screening Outside Reference (08/06/2016 12:00 AM SERVICE BAR CASHIER) Impressions [facility] - 01/10/2022 1:24 PM CDT These images are for Reference purposes only and have not been reviewed by [facility] Radiology. There will be no report generated by a [facility] Radiologist. Narrative RAD[facility] - 01/10/2022 1:24 PM CDT EXAMINATION: Images For Reference Purposes Only us Lakeshia Woodall MD PhD IMG MAMMO PROCEDURES Final Result [facility] documented in this encounter Visit Diagnoses Not on filedocumented in this encounter
--- OUTSIDE RECORDS SUMMARY | 2017-08-07 01:00 | XMS_ITS | Encounter Summary ---
Author Organization [facility] Healthcare Address [address] [place] [address] Care Team Providers Care Entry Level Sales Associate Name Role Phone Ion García MD Primary Care Provider [phone] Reason for Visit * Diagnostic Imaging (Routine) - Closed Specialty Diagnoses / Procedures Referred By Contac t Referred To Contact Procedures Breast Imaging Screening Outside Reference Lakeshia Woodall MD PhD [address] [phone] [place] [address] Phone: tel: fax: Referral ID Status Reason Start Date Expiration Date Visits Re quested Visits Authorized [id number] Closed 01/10/2022 02/09/2023 1 1 Encounter Details Date Type Department Care Team (Late st Contact Info) Description 08/07/2017 Hospital Encounter [facility] [address] [place] [address] Social History Tobacco Use Types Packs/Day Years Used Date Smoking Tobacco: Never Smokeless Tobacco: Never Comments Unknown Sex and Gender Information Value Date Recorded Sex Assigned at Not on file Legal Sex Female 6:16 AM PARKING LOT CHAUFFEUR Gender Identity Female 08/17/2020 12:34 [address] CHAUFFEUR Sexual Orientation Straight 11/22/2019 7: 07 PM CDT documented as of this encounter Plan of Treatment Not on file documented as of this encounter Procedures Procedure Name Priority Date/Time Associated Diagnosis Comments BREAST IMAGING MG SCREENING OUTSIDE REFERENCE Routine 08/07/2017 12:00 AM P[address]ING LOT CHAUFFEUR documented in this encounter Results * Breast Imaging Screening Outside Reference (08/07/2017 12:00 AM PARKING LOT CHAUFFEUR) Impressions [facility]MO[facility] - 01/10/2022 1:25 PM CDT These images are for Reference purposes only and have not been reviewed by [facility]iology. There will be no report generated by a [facility] Radiologist. Narrative [facility]MO[facility] - 01/10/2022 1:25 PM CDT EXAMINATION: Images For Reference Purposes Only us Lakeshia Woodall MD PhD IMG MAMMO PROCEDURES Final Result [facility] documented in this encounter Visit Diagnoses Not on filedocumented in this encounter Care Teams Entry Level Sales Associate Relationship Specialty Start Date End Date Ion García MD PCP - General Internal Medicine 07/24/17 11/18/19 documented as of this encounter
--- OUTSIDE RECORDS SUMMARY | 2017-08-07 01:00 | XMS_ITS | Encounter Summary ---
Author Organization [facility] Healthcare Address [address] [place] [address] Care Team Providers Care Urologist Physician Name Role Phone Ion García MD Primary Care Provider [phone] Reason for Visit * Diagnostic Imaging (Routine) - Closed Specialty Diagnoses / Procedures Referred By Contac t Referred To Contact Procedures Breast Imaging Screening Outside Reference Lakeshia Woodall MD PhD [address] [phone] [place] [address] Phone: tel: fax: Referral ID Status Reason Start Date Expiration Date Visits Re quested Visits Authorized [id number] Closed 01/10/2022 02/09/2023 1 1 Encounter Details Date Type Department Care Team (Late st Contact Info) Description 08/07/[address] [facility] Radiology [facility] [address] [place] [address] Social History Tobacco Use Types Packs/Day Years Used Date Smoking Tobacco: Never Smokeless Tobacco: Never Comments Unknown Sex and Gender Information Value Date Recorded Sex Assigned at Not on file Legal Sex Female 6:16 AM RETAIL SUPPORT MANAGER Gender Identity Female 08/17/2020 12:34 PM RETAIL SUPPORT MANAGER Sexual Orientation Straight 11/22/2019 7: 07 PM CDT documented as of this encounter Plan of Treatment Not on file documented as of this encounter Procedures Procedure Name Priority Date/Time Associated Diagnosis Comments BREAST IMAGING MG SCREENING OUTSIDE REFERENCE Routine 08/07/2017 12:00 AM RETAIL SUPPORT MANAGER documented in this encounter Results * Breast Imaging Screening Outside Reference (08/07/2017 12:00 AM RETAIL SUPPORT MANAGER) Impressions [facility] - 01/10/2022 1:25 PM CDT These images are for Reference purposes only and have not been reviewed by [facility] Radiology. There will be no report generated by a [facility] Radiologist. Narrative RAD_MAMMO[facility] - 01/10/2022 1:25 PM CDT EXAMINATION: Images For Reference Purposes Only us Lakeshia Woodall MD PhD IMG MAMMO PROCEDURES Final Result [facility] documented in this encounter Visit Diagnoses Not on filedocumented in this encounter Care Teams Urologist Physician Relationship Specialty Start Date End Date Ion García MD PCP - General Internal Medicine 07/24/17 11/18/19 documented as of this encounter
--- OUTSIDE RECORDS SUMMARY | 2018-09-08 01:00 | XMS_ITS | Encounter Summary ---
Author Organization [facility] Healthcare Address [address] [place] [address] Care Team Providers Care Lumber Loader Name Role Phone Ion García MD Primary Care Provider [phone] Reason for Visit * Diagnostic Imaging (Routine) - Closed Specialty Diagnoses / Procedures Referred By Contac t Referred To Contact Procedures Breast Imaging Screening Outside Reference Lakeshia Woodall MD PhD [address] [phone] [place] [address] Phone: tel: fax: Referral ID Status Reason Start Date Expiration Date Visits Re quested Visits Authorized [id number] Closed 01/10/2022 02/09/2023 1 1 Encounter Details Date Type Department Care Team (Late st Contact Info) Description 09/08/2018 Hospital Encounter [facility] Radiology [facility] [address] [place] [address] Social History Tobacco Use Types Packs/Day Years Used Date Smoking Tobacco: Never Smokeless Tobacco: Never Comments Unknown Sex and Gender Information Value Date Recorded Sex Assigned at Not on file Legal Sex Female 6:16 AM MEDICAL AFFAIRS DIRECTOR Gender Identity Female 08/17/2020 12:34 PM MEDICAL AFFAIRS DIRECTOR Sexual Orientation Straight 11/22/2019 7: 07 PM CDT documented as of this encounter Plan of Treatment Not on file documented as of this encounter Procedures Procedure Name Priority Date/Time Associated Diagnosis Comments BREAST IMAGING MG SCREENING OUTSIDE REFERENCE Routine 09/08/2018 12:00 AM MEDICAL AFFAIRS DIRECTOR documented in this encounter Results * Breast Imaging Screening Outside Reference (09/08/2018 12:00 AM MEDICAL AFFAIRS DIRECTOR) Impressions [facility] - 01/10/2022 1:24 PM CDT These images are for Reference purposes only and have not been reviewed by [facility] Radiology. There will be no report generated by a [facility] Radiologist. Narrative RAD_M[facility]MO[facility] - 01/10/2022 1:24 PM CDT EXAMINATION: Images For Reference Purposes Only us Lakeshia Woodall MD PhD IMG MAMMO PROCEDURES Final Result [facility] documented in this encounter Visit Diagnoses Not on filedocumented in this encounter Care Teams Lumber Loader Relationship Specialty Start Date End Date Ion García MD PCP - General Internal Medicine 07/24/17 11/18/19 documented as of this encounter
--- OUTSIDE RECORDS SUMMARY | 2018-09-08 01:00 | XMS_ITS | Encounter Summary ---
Author Organization [facility] Healthcare Address [address] [place] [address] Care Team Providers Care Toy Assembler Name Role Phone Ion García MD Primary Care Provider [phone] Reason for Visit * Diagnostic Imaging (Routine) - Closed Specialty Diagnoses / Procedures Referred By Contac t Referred To Contact Procedures Breast Imaging Screening Outside Reference Lakeshia Woodall MD PhD [address] [phone] [place] [address] Phone: tel: fax: Referral ID Status Reason Start Date Expiration Date Visits Re quested Visits Authorized [id number] Closed 01/10/2022 02/09/2023 1 1 Encounter Details Date Type Department Care Team (Late st Contact Info) Description 09/08/2018 Hospital Encounter [facility]iology [facility] [address] [place] [address] Social History Tobacco Use Types Packs/Day Years Used Date Smoking Tobacco: Never Smokeless Tobacco: Never Comments Unknown Sex and Gender Information Value Date Recorded Sex Assigned at Not on file Legal Sex Female 6:[address] Gender Identity Female 08/17/2020 12:[address]ER Sexual Orientation Straight 11/22/2019 7: 07 PM CDT documented as of this encounter Plan of Treatment Not on file documented as of this encounter Procedures Procedure Name Priority Date/Time Associated Diagnosis Comments BREAST IMAGING MG SCREENING OUTSIDE REFERENCE Routine 09/08/2018 12:[address] documented in this encounter Results * Breast Imaging Screening Outside Reference (09/08/2018 12:[address]) Impressions RAD_M[facility]MO[facility] - 01/10/2022 1:24 PM CDT These images are for Reference purposes only and have not been reviewed by [facility]. There will be no report generated by a [facility] Radiologist. Narrative RAD_MAMMO[facility] - 01/10/2022 1:24 PM CDT EXAMINATION: Images For Reference Purposes Only us Lakeshia Woodall MD PhD IMG MAMMO PROCEDURES Final Result [facility] documented in this encounter Visit Diagnoses Not on filedocumented in this encounter Care Teams Toy Assembler Relationship Specialty Start Date End Date Ion García MD PCP - General Internal Medicine 07/24/17 11/18/19 documented as of this encounter
--- OUTSIDE RECORDS SUMMARY | 2019-09-21 | XMS_ITS | Encounter Summary ---
Author Organization [facility] Healthcare Address [address] [place] [address] Care Team Providers Care Mainframe Applications Developer Name Role Phone Ion García MD Primary Care Provider [phone] Reason for Visit * Diagnostic Imaging (Routine) - Closed Specialty Diagnoses / Procedures Referred By Contac t Referred To Contact Procedures Breast Imaging Screening Outside Reference Lakeshia Woodall MD PhD [address] [phone] [place] [address] Phone: tel: fax: Referral ID Status Reason Start Date Expiration Date Visits Re quested Visits Authorized [id number] Closed 01/10/2022 02/09/2023 1 1 Encounter Details Date Type Department Care Team (Late st Contact Info) Description 09/21/2019 Hospital Encounter [facility]iology [facility] [address] [place] [address] Social History Tobacco Use Types Packs/Day Years Used Date Smoking Tobacco: Never Smokeless Tobacco: Never Comments Unknown Sex and Gender Information Value Date Recorded Sex Assigned at Not on file Legal Sex Female 6:16 AM FREIGHT HUSTLER Gender Identity Female 08/17/2020 12:34 PM FREIGHT HUSTLER Sexual Orientation Straight 11/22/2019 7: 07 PM CDT documented as of this encounter Plan of Treatment Not on file documented as of this encounter Procedures Procedure Name Priority Date/Time Associated Diagnosis Comments BREAST IMAGING MG SCREENING OUTSIDE REFERENCE Routine 09/21/2019 12:00 AM CDT documented in this encounter Results * Breast Imaging Screening Outside Reference (09/21/2019 12:00 AM CDT) Impressions RAD_[facility]MO[facility] - 01/10/2022 1:25 PM CDT These images are for Reference purposes only and have not been reviewed by [facility] Radiology. There will be no report generated by a [facility] Radiologist. Narrative RAD_MAMMO[facility] - 01/10/2022 1:25 PM CDT EXAMINATION: Images For Reference Purposes Only us Lakeshia Woodall MD PhD IMG MAMMO PROCEDURES Final Result [facility] documented in this encounter Visit Diagnoses Not on filedocumented in this encounter Care Teams Mainframe Applications Developer Relationship Specialty Start Date End Date Ion García MD PCP - General Internal Medicine 07/24/17 11/18/19 documented as of this encounter
--- OUTSIDE RECORDS SUMMARY | 2019-09-21 | XMS_ITS | Encounter Summary ---
Author Organization [facility] Healthcare Address [address] [place] [address] Care Team Providers Care Spin Table Operator Name Role Phone Ion García MD Primary Care Provider [phone] Reason for Visit * Diagnostic Imaging (Routine) - Closed Specialty Diagnoses / Procedures Referred By Contac t Referred To Contact Procedures Breast Imaging Screening Outside Reference Lakeshia Woodall MD PhD [address] [phone] [place] [address] Phone: tel: fax: Referral ID Status Reason Start Date Expiration Date Visits Re quested Visits Authorized [id number] Closed 01/10/2022 02/09/2023 1 1 Encounter Details Date Type Department Care Team (Late st Contact Info) Description 09/21/2019 Hospital Encounter [facility] [address] [place] [phone] Social History Tobacco Use Types Packs/Day Years Used Date Smoking Tobacco: Never Smokeless Tobacco: Never Comments Unknown Sex and Gender Information Value Date Recorded Sex Assigned at Not on file Legal Sex Female 6:16 AM EDUCATIONAL PROGRAM ASSISTANT Gender Identity Female 08/17/2020 12:34 PM EDUCATIONAL PROGRAM ASSISTANT Sexual Orientation Straight 11/22/2019 7: 07 [...] [facility] Radiologist. Narrative RAD_M[facility]MO[facility] - 01/10/2022 1:25 PM CDT EXAMINATION: Images For Reference Purposes Only us Lakeshia Woodall MD PhD IMG MAMMO PROCEDURES Final Result [facility] documented in this encounter Visit Diagnoses Not on filedocumented in this encounter Care Teams Spin Table Operator Relationship Specialty Start Date End Date Ion García MD PCP - General Internal Medicine 07/24/17 11/18/19 documented as of this encounter
--- OUTSIDE RECORDS SUMMARY | 2020-10-13 | XMS_ITS | Encounter Summary ---
Author Organization [facility] Healthcare Address [address] [place] [address] Care Team Providers Care Band Salvager Name Role Phone Gonzalez Kolb DO Primary Care Provider [phone] Reason for Visit * Diagnostic Imaging (Routine) - Closed Specialty Diagnoses / Procedures Referred By Janae schmidt Referred To Contact Procedures Breast Imaging Screening Outside Reference Lakeshia Woodall MD PhD [address] [phone] [place] [address] Phone: tel: fax: Referral ID Status Reason Start Date Expiration Date Visits Re quested Visits Authorized [id number] Closed 01/10/2022 02/09/2023 1 1 Encounter Details Date Type Department Care Team (Late st Contact Info) Description 10/13/2020 Hospital Encounter [facility] [address] [place] [id number] Social History Tobacco Use Types Packs/Day Years Used Date Smoking Tobacco: Never Smokeless Tobacco: Never Comments Unknown Sex and Gender Information Value Date Recorded Sex Assigned at Not on file Legal Sex Female 6:16 AM DURALUMIN MECHANIC Gender Identity Female 08/17/2020 12:34 PM DURALUMIN MECHANIC Sexual Orientation Straight 11/22/2019 7: 07 PM CDT documented as of this encounter Plan of Treatment Not on file documented as of this encounter Procedures Procedure Name Priority Date/Time Associated Diagnosis Comments BREAST IMAGING MG SCREENING OUTSIDE REFERENCE Routine 10/13/2020 12:00 AM CDT documented in this encounter Results * Breast Imaging Screening Outside Reference (10/13/2020 12:00 AM CDT) Impressions [facility] - 01/10/2022 1:24 PM CDT These images are for Reference purposes only and have not been reviewed by [facility]. There will be no report generated by a [facility] Radiologist. Narrative [facility] - 01/10/2022 1:24 PM CDT EXAMINATION: Images For Reference Purposes Only us Lakeshia Woodall MD PhD IMG MAMMO PROCEDURES Final Result [facility] documented in this encounter Visit Diagnoses Not on filedocumented in this encounter Care Teams Band Salvager Relationship Specialty Start Date End Date Gonzalez Kolb DO PCP - General Internal Medicine 11/19/19 10/29/23 documented as of this encounter
--- OUTSIDE RECORDS SUMMARY | 2020-10-13 | XMS_ITS | Encounter Summary ---
Author Organization [facility] Healthcare Address [address] [place] [address] Care Team Providers Care [employer] Rep Name Role Phone Gonzalez Kolb DO Primary Care Provider [phone] Reason for Visit * Diagnostic Imaging (Routine) - Closed Specialty Diagnoses / Procedures Referred By Janae schmidt Referred To Contact Procedures Breast Imaging Screening Outside Reference Lakeshia Woodall MD PhD [address] [phone] [place] [address] Phone: tel: fax: Referral ID Status Reason Start Date Expiration Date Visits Re quested Visits Authorized [id number] Closed 01/10/2022 02/09/2023 1 1 Encounter Details Date Type Department Care Team (Late st Contact Info) Description 10/13/2020 Hospital Encounter [facility] [address] [place] [id number] Social History Tobacco Use Types Packs/Day Years Used Date Smoking Tobacco: Never Smokeless Tobacco: Never Comments Unknown Sex and Gender Information Value Date Recorded Sex Assigned at Not on file 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
--- OUTSIDE RECORDS SUMMARY | 2025-04-08 00:32 | XMS_ITS | Encounter Summary ---
Author Organization [facility] Address [address] [place] [address] Care Team Providers Care Gaggerman Name Role Phone Wandy Arellano MD Unavailable [phone] Patric Russell MD Primary Care Provider [phone] Ion García MD Primary Care Provider [phone] Gonzalez Kolb DO Primary Care Provider [phone] Encounter Details Date Type Department Care Team (Late st Contact Info) Description 03/26/2013 [facility] [place] [address] [address] Social History Tobacco Use Types Packs/Day Years Used Date Smoking Tobacco: Never Smokeless Tobacco: Never Alcohol Use Standard Drinks/Week Comments No 0 (1 standard drink = 0.6 oz pur e alcohol) Comments No Sex and Gender Information Value Date Recorded Sex Assigned at Female 11/15/2022 8:26 PM CDT 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 Gender Identity Female 11/15/2022 8:26 PM CDT Sexual Orientation Straight 11/15/2022 8: 26 PM CDT documented as of this encounter Plan of Treatment Not on file documented as of this encounter Visit Diagnoses Not on filedocumented in this encounter Care Teams Gaggerman Relationship Specialty Start Date End Date Patrci Russell MD PCP - General Internal Medicine 03/29/13 09/22/13 Ion García MD [address] [place] [address] PCP - General Internal Medicine 10/13/13 09/07/18 Gonzalez Kolb DO [address] [place] [address] PCP - General Internal Medicine 09/08/18 Wandy Arellano MD Orthopedic Surgery 02/05/13 documented as of this encounter
--- OUTSIDE RECORDS SUMMARY | 2025-04-08 00:32 | XMS_ITS | Clinical Summary ---
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
--- OUTSIDE RECORDS SUMMARY | 2025-04-08 00:33 | XMS_ITS | Encounter Summary ---
Author Organization [facility] Address [address] [place] [address] Care Team Providers Care Manager Book Name Role Phone Domo Scruggs DO Primary Care Provider [phone] Encounter Details Date Type Department Care Team (Late st Contact Info) Description 06/12/2004 Outpatient Historical [facility]CIAL Mahoney, Catalino Saucedo MD [address] [place] [address] [address] PERS HX OF BREAST MALIGNANCY (Primary Dx) Social History Tobacco Use Types Packs/Day Years Used Date Smoking Tobacco: Never Assessed Comments Unknown Sex and Gender Information Value Date Recorded Sex Assigned at Not on file 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
--- OUTSIDE RECORDS SUMMARY | 2025-04-08 00:33 | XMS_ITS | Encounter Summary ---
Author Organization [facility] Address [address] [place] [address] Care Team Providers Care Patrol Conductor Name Role Phone Domo Scruggs DO Primary Care Provider [phone] Encounter Details Date Type Department Care Team (Late st Contact Info) Description 12/28/2001 Outpatient Historical [facility] [address] [address] Patric Monroe Social History Tobacco Use Types Packs/Day Years Used Date Smoking Tobacco: Never Assessed Comments Unknown Sex and Gender Information Value Date Recorded Sex Assigned at Not on file 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
--- OUTSIDE RECORDS SUMMARY | 2025-04-08 00:33 | XMS_ITS | Encounter Summary ---
Author Organization [facility] Address [address] [place] [address] Care Team Providers Care Repairer Evaporator Name Role Phone Domo Scruggs DO Primary Care Provider [phone] Encounter Details Date Type Department Care Team (Latest Contact Info) Description 07/04/2000 Outpatient Historical [facility] MAR[facility] Rodriguez, Henrry Jennings MD [facility] [place] [address] Personal history of malignant neoplasm of breast (Primary Dx) Social History Tobacco Use Types Packs/Day Years Used Date Smoking Tobacco: Never Assessed Comments Unknown Sex and Gender Information Value Date Recorded Sex Assigned at Not on file 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
--- OUTSIDE RECORDS SUMMARY | 2025-04-08 00:33 | XMS_ITS | Encounter Summary ---
Author Organization [facility] Address 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
--- OUTSIDE RECORDS SUMMARY | 2025-04-08 00:33 | XMS_ITS | Encounter Summary ---
Author Organization [facility] Address [address] [place] [address] Care Team Providers Care Chemical Laboratory Chief Name Role Phone Domo Scruggs DO Primary Care Provider [phone] Encounter Details Date Type Department Care Team (Late st Contact Info) Description 10/07/2002 Outpatient Historical [facility] [address] [facility] [address] [address] Estevan Monroe MD NO ADDRESS ON FILE Social History Tobacco Use Types Packs/Day Years Used Date Smoking Tobacco: Never Assessed Comments Unknown Sex and Gender Information Value Date Recorded Sex Assigned at Not on file 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
--- OUTSIDE RECORDS SUMMARY | 2025-04-08 00:33 | XMS_ITS | Clinical Summary ---
Author Organization [facility] Address [address] [place] [address] Care Team Providers Care Assistant Scientist Name Role Phone Gonzalez Kolb Primary Care Provider Allergies Active Allergy Reactions Criticality Noted Date [...] on file Legal Sex Female 11:46 AM INDUSTRIAL THERAPIST Gender Identity Not on file Sexual Orientation Not on file Last Filed Vital Signs Vital Sign Reading Time Taken Comments Blood Pressure 174/91 07/26/2018 11:56 AM INDUSTRIAL THERAPIST Pulse 68 07/26/2018 3:45 PM INDUSTRIAL THERAPIST Temperature 36.9 C (98.4 F) 07/26/2018 11:56 AM INDUSTRIAL THERAPIST Respiratory Rate 16 07/26/2018 3:45 PM INDUSTRIAL THERAPIST Oxygen Saturation 98% 07/26/2018 3:45 PM INDUSTRIAL THERAPIST Inhaled Oxygen Concentration - - Weight 56.9 kg (125 lb 6.4 oz) 07/26/2018 11:56 AM INDUSTRIAL THERAPIST Height 154.9 cm (5' 1) 07/26/2018 11:56 AM INDUSTRIAL THERAPIST Body Mass Index 23.69 07/26/2018 11:56 AM INDUSTRIAL THERAPIST Plan of Treatment Health Maintenance Due Date [...] COVID-19 Vaccine (1 - 2023-2 5 season) 2025 Meningococcal B Vaccine Aged Out No l onger eligible based on patient's age to complete this topic Meningococcal Vaccine Aged Out No cassandra madeline eligible based on patient's age to complete this topic RSV Immunizations Under 20 Months Aged Out No longer eligible based on patient's age to complete this topic Insurance E[employer] Care Teams Assistant Scientist Relationship Specialty Start Date End Date Gonzalez Kolb DO [address] [place] [address] PCP - General INTERNAL MEDICINE 07/26/18
--- OUTSIDE RECORDS SUMMARY | 2025-04-08 00:33 | XMS_ITS | Encounter Summary ---
Author Organization [facility] Address [address] [place] [address] Care Team Providers Care Van Owner Operator Name Role Phone Domo Scruggs DO Primary Care Provider +1- [phone] Encounter Details Date Type Department Care Team (Latest Contact Info) Description 06/14/1998 Outpatient Historical HIS [facility] MARCIAL Rodriguez, Henrry Jennings MD [address] [place] [address] Personal history of malignant neoplasm of breast (Primary Dx) Social History Tobacco Use Types Packs/Day Years Used Date Smoking Tobacco: Never Assessed Comments Unknown Sex and Gender Information Value Date Recorded Sex Assigned at Not on file Legal Sex Female 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
--- OUTSIDE RECORDS SUMMARY | 2025-04-08 00:33 | XMS_ITS | Encounter Summary ---
Author Organization [facility] Address [address] [place] [address] Care Team Providers Care Varnish Finisher Name Role Phone Domo Scruggs DO Primary Care Provider +1- [phone] Encounter Details Date Type Department Care Team (Latest Contact Info) Description 09/22/1998 Outpatient Historical HIS [facility] MARCIAL Rodriguez, Henrry Jennings MD [facility] [place] [place] [address] General symptoms NEC (Primary Dx) Social History Tobacco Use Types Packs/Day Years Used Date Smoking Tobacco: Never Assessed Comments Unknown Sex and Gender Information Value Date Recorded Sex Assigned at Not on file Legal Sex Female 4:44 AM PRIMARY CARE PEDIATRICIAN Gender Identity Not on file Sexual Orientation Not on file documented as of this encounter Plan of Treatment Not on file documented as of this encounter Visit Diagnoses Diagnosis General symptoms NEC- Primary Other general symptoms documented in this encounter Care Teams Varnish Finisher Relationship Specialty Start Date End Date Domo Scruggs DO [address] [place] [address] PCP - General 07/01/06 documented as of this encounter
--- OUTSIDE RECORDS SUMMARY | 2025-04-08 00:33 | XMS_ITS | Encounter Summary ---
Author Organization [facility] Address [address] [place] [address] Care Team Providers Care Review Coordinator Name Role Phone Domo Scruggs DO Primary Care Provider +1- [phone] Encounter Details Date Type Department Care Team (Late st Contact Info) Description 01/06/2007 Outpatient Historical [facility] Support Serv. (Adt Cardiology-[facility]) [address] 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
--- OUTSIDE RECORDS SUMMARY | 2025-04-08 00:33 | XMS_ITS | Encounter Summary ---
Author Organization [email or web address] Address 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 Gender Identity Not on file Sexual Orientation [...] and non- Americans is available on the [facility] Intranet at: [email or web address] lev[facility] children's be[facility] ol[facility] children’s [email or web address] Select: Lab Policies and Procedures Select: Reference Ranges - GFR 01/13/2007 6:30 AM CDT us Ion Pham MD CHEMISTRY ORDERABLES Edited Performing Organization Address [facility] de Phone Number INTERFACE SYSTEM Refer to clinic/hospital department * (ABNORMAL) HEMOGLOBIN AND HEMATOCRIT (01/13/2007 6:30 AM CDT) HEMOGLOBIN 10.2(L) 11.8 - 14.8 g/dL INTERFACE SYSTEM HEMATOCRIT 31.1(L) 35.5 - 44.0 % INTERFACE SYSTEM 01/13/2007 6:30 AM CDT us Ion Pham MD HEMATOLOGY ORDERABLES Edited Performing Organization Address [facility] de Phone Number INTERFACE SYSTEM Refer [...] and non- Americans is available on the [facility] Intranet at: [email or web address] health [facility] children's be[facility] olson children’s hospitalSky Medical [email or web address] Select: Lab Policies and Procedures Select: Reference Ranges - GFR 01/06/2007 2:22 PM CDT Ion Pham MD CHEMISTRY ORDERABLES Edited Performing Organization Address [facility] Co de Phone Number INTERFACE SYSTEM [...] unspecified documented in this encounter Care Teams Molder Bench Relationship Specialty Start Date End Date Domo Scruggs DO [address] [place] [id number] PCP - General 07/01/06 documented as of this encounter
--- OUTSIDE RECORDS SUMMARY | 2025-04-08 00:33 | XMS_ITS | Encounter Summary ---
Author Organization [facility] Address [address] [place] [address] Care Team Providers Care Assistant Family Teacher Name Role Phone Domo Scruggs DO Primary Care Provider +1- [phone] Encounter Details Date Type Department Care Team (Latest Contact Info) Description 03/23/2003 Outpatient Historical [facility] Domenic Lozano MD [address] [place] [address] MALIGN NEOPL BREAST NOS (CMS/HCC) (Primary Dx) Social History Tobacco Use Types Packs/Day Years Used Date Smoking Tobacco: Never Assessed Comments Unknown Sex and Gender Information Value Date Recorded Sex Assigned at Not on file Legal Sex Female 4:44 AM SPARE PARTS CLERK Gender Identity Not on file Sexual Orientation Not on file documented as of this encounter Plan of Treatment Not on file documented as of this encounter Visit Diagnoses Diagnosis Malignant neoplasm of breast (female), unspecified site- Primary documented in this encounter Care Teams Assistant Family Teacher Relationship Specialty Start Date End Date Domo Scruggs DO [address] [place] [address] PCP - General 07/01/06 documented as of this encounter
--- OUTSIDE RECORDS SUMMARY | 2025-04-08 00:33 | XMS_ITS | Encounter Summary ---
Author Organization [facility] Address [address] [place] [address] Care Team Providers Care Strainer Cleaner Name Role Phone Domo Scruggs DO Primary Care Provider +1- [phone] Encounter Details Date Type Department Care Team (Latest Contact Info) Description 06/01/2003 Outpatient Historical HIS [facility] MARCIAL Rodriguez, Henrry Jennings MD [facility] [place] [address] MASTODYNIA (Primary Dx) Social History Tobacco Use Types Packs/Day Years Used Date Smoking Tobacco: Never Assessed Comments Unknown Sex and Gender Information Value Date Recorded Sex Assigned at Not on file Legal Sex Female 4:44 AM BALL SHAGGER Gender Identity Not on file Sexual Orientation Not on file documented as of this encounter Plan of Treatment Not on file documented as of this encounter Visit Diagnoses Diagnosis Mastodynia- Primary documented in this encounter Care Teams Strainer Cleaner Relationship Specialty Start Date End Date Domo Scruggs DO [address] [place] [address] PCP - General 07/01/06 documented as of this encounter
--- OUTSIDE RECORDS SUMMARY | 2025-04-08 00:33 | XMS_ITS | Encounter Summary ---
Author Organization [facility] Address [address] [place] [address] Care Team Providers Care Digital Marketing Assistant Name Role Phone Domo Scruggs DO Primary Care Provider +1- [phone] Encounter Details Date Type Department Care Team (Late st Contact Info) Description 01/11/2002 Outpatient Historical [facility] [address] [facility] [address] [address] Patric [place] Social History Tobacco Use Types Packs/Day Years Used Date Smoking Tobacco: Never Assessed Comments Unknown Sex and Gender Information Value Date Recorded Sex Assigned at Not on file Legal Sex Female 4: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
--- OUTSIDE RECORDS SUMMARY | 2025-04-08 00:33 | XMS_ITS | Encounter Summary ---
Author Organization [facility] Address [address] [place] [address] Care Team Providers Care Cornetist Name Role Phone Domo Scruggs DO Primary Care Provider +1- [phone] Encounter Details Date Type Department Care Team (Late st Contact Info) Description 02/10/2002 Outpatient Historical [facility] [address] [facility] [address] [address] Patric [place] Social History Tobacco Use Types Packs/Day Years Used Date Smoking Tobacco: Never Assessed Comments Unknown Sex and Gender Information Value Date Recorded Sex Assigned at Not on file Legal Sex Female 4: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
--- OUTSIDE RECORDS SUMMARY | 2025-04-08 00:33 | XMS_ITS | Encounter Summary ---
Author Organization [facility] Address [address] [place] [address] Care Team Providers Care Adjustment Examiner Name Role Phone Domo Scruggs DO Primary Care Provider +1- [phone] Encounter Details Date Type Department Care Team (Late st Contact Info) Description 09/01/2000 Outpatient Historical [facility] [address] [facility] [address] [address] Patric [place] Social History Tobacco Use Types Packs/Day Years Used Date Smoking Tobacco: Never Assessed Comments Unknown Sex and Gender Information Value Date Recorded Sex Assigned at Not on file Legal Sex Female 4:44 AM ADJUSTMENT EXAMINER Gender Identity Not on file Sexual Orientation Not on file documented as of this encounter Plan of Treatment Not on file documented as of this encounter Visit Diagnoses Not on filedocumented in this encounter Care Teams Adjustment Examiner Relationship Specialty Start Date End Date Domo Scruggs DO [address] [place] [address] PCP - General 07/01/06 documented as of this encounter
--- OUTSIDE RECORDS SUMMARY | 2025-04-08 00:33 | XMS_ITS | Encounter Summary ---
Author Organization [facility] Address [address] [place] [address] Care Team Providers Care Service Loss Control Consultant Name Role Phone Domo Scruggs DO Primary Care Provider +1- [phone] Encounter Details Date Type Department Care Team (Late st Contact Info) Description 02/25/2002 Outpatient Historical [facility] [address] [facility] [address] [address] Patric [place] Social History Tobacco Use Types Packs/Day Years Used Date Smoking Tobacco: Never Assessed Comments Unknown Sex and Gender Information Value Date Recorded Sex Assigned at Not on file Legal Sex Female 4:44 AM CUT ORDER HAND Gender Identity Not on file Sexual Orientation Not on file documented as of this encounter Plan of Treatment Not on file documented as of this encounter Visit Diagnoses Not on filedocumented in this encounter Care Teams Service Loss Control Consultant Relationship Specialty Start Date End Date Domo Scruggs DO [address] [place] [address] PCP - General 07/01/06 documented as of this encounter
--- OUTSIDE RECORDS SUMMARY | 2025-04-08 00:33 | XMS_ITS | Encounter Summary ---
Author Organization [facility] Address [address] [place] [address] Care Team Providers Care Senior Case Manager Name Role Phone Domo Scruggs DO Primary Care Provider +1- [phone] Encounter Details Date Type Department Care Team (Late st Contact Info) Description 10/07/2002 Outpatient Historical [facility] [address] [facility] [address] [address] Patric [place] Social History Tobacco Use Types Packs/Day Years Used Date Smoking Tobacco: Never Assessed Comments Unknown Sex and Gender Information Value Date Recorded Sex Assigned at Not on file Legal Sex Female 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
--- OUTSIDE RECORDS SUMMARY | 2025-04-08 00:33 | XMS_ITS | Encounter Summary ---
Author Organization [facility] Address [address] [place] [address] Care Team Providers Care Test Pilot Name Role Phone Domo Scruggs DO Primary Care Provider +1- [phone] Encounter Details Date Type Department Care Team (Latest Contact Info) Description 09/13/2004 Outpatient Historical HIS [facility] MARCIAL Rodriguez, Henrry Jennings MD [facility] [place] [address] CHEST PAIN NOS (Primary Dx) Social History Tobacco Use Types Packs/Day Years Used Date Smoking Tobacco: Never Assessed Comments Unknown Sex and Gender Information Value Date Recorded Sex Assigned at Not on file Legal Sex Female 4:44 AM JEWELRY MAKER Gender Identity Not on file Sexual Orientation Not on file documented as of this encounter Plan of Treatment Not on file documented as of this encounter Visit Diagnoses Diagnosis Chest pain, unspecified- Primary documented in this encounter Care Teams Test Pilot Relationship Specialty Start Date End Date Domo Scruggs DO [address] [place] [address] PCP - General 07/01/06 documented as of this encounter
--- OUTSIDE RECORDS SUMMARY | 2025-04-08 00:33 | XMS_ITS | Encounter Summary ---
Author Organization [facility] Address [address] [place] [address] Care Team Providers Care Concrete Vibrator Operator Name Role Phone Domo Scruggs DO Primary Care Provider +1- [phone] Encounter Details Date Type Department Care Team (Late st Contact Info) Description 04/26/2002 Outpatient Historical [facility]'s [facility] [address] [facility] [address] [address] Patric [place] Social History Tobacco Use Types Packs/Day Years Used Date Smoking Tobacco: Never Assessed Comments Unknown Sex and Gender Information Value Date Recorded Sex Assigned at Not on file Legal Sex Female 4:44 AM GEAR NICKER Gender Identity Not on file Sexual Orientation Not on file documented as of this encounter Plan of Treatment Not on file documented as of this encounter Visit Diagnoses Not on filedocumented in this encounter Care Teams Concrete Vibrator Operator Relationship Specialty Start Date End Date Domo Scruggs DO [address] [place] [address] PCP - General 07/01/06 documented as of this encounter
--- OUTSIDE RECORDS SUMMARY | 2025-04-08 00:33 | XMS_ITS | Encounter Summary ---
Author Organization [facility] Address [address] [place] [address] Care Team Providers Care Case Coordinator Name Role Phone Domo Scruggs DO Primary Care Provider +1- [phone] Encounter Details Date Type Department Care Team (Late st Contact Info) Description 06/26/2001 Outpatient Historical HIS [facility] MARCIAL Mahoney, Catalino Saucedo MD [address] [place] [address] [address] MALIG NEOPLASM BREAST UP-OUTER (CMS/HCC) (Primary Dx) Social History Tobacco Use Types Packs/Day Years Used Date Smoking Tobacco: Never Assessed Comments Unknown Sex and Gender Information Value Date Recorded Sex Assigned at Not on file Legal Sex Female 4:44 AM COAL AND ASH SUPERVISOR Gender Identity Not on file Sexual Orientation Not on file documented as of this encounter Plan of Treatment Not on file documented as of this encounter Visit Diagnoses Diagnosis 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
--- OUTSIDE RECORDS SUMMARY | 2025-04-08 00:33 | XMS_ITS | Encounter Summary ---
Author Organization [facility] Address [address] [place] [address] Care Team Providers Care Rug Measurer Name Role Phone Domo Scruggs DO Primary Care Provider +1- [phone] Encounter Details Date Type Department Care Team (Latest Contact Info) Description 07/01/2007 Outpatient Historical HIS [facility] MARCIAL Rodriguez, Henrry Jennings MD [facility] [place] [address] Other Screening Mammogram; Personal History of Malignant Neoplasm of Breast Social History Tobacco Use Types Packs/Day Years Used Date Smoking Tobacco: Never Assessed Comments Unknown Sex and Gender Information Value Date Recorded Sex Assigned at Not on file Legal Sex Female 4:44 AM STONE CRUSHER OPERATOR Gender Identity Not on file Sexual Orientation Not on file documented as of this encounter Plan of Treatment Not on file documented as of this encounter Visit Diagnoses Diagnosis Other screening mammogram Personal history of malignant neoplasm of breast documented in this encounter Care Teams Rug Measurer Relationship Specialty Start Date End Date Domo Scruggs DO [address] [place] [address] PCP - General 07/01/06 documented as of this encounter
--- OUTSIDE RECORDS SUMMARY | 2025-04-08 00:33 | XMS_ITS | Encounter Summary ---
Author Organization [facility] Address [address] [place] [address] Care Team Providers Care Molecular Genetic Pathologist Name Role Phone Domo Scruggs DO Primary Care Provider +1- [phone] Encounter Details Date Type Department Care Team (Latest Contact Info) Description 04/25/2004 Outpatient Historical [facility] Domenic Lozano MD [address] [place] [address] [address] Henrry Rodriguez MD [address] [place] [address] MALIGN NEOPL BREAST NOS (CMS/HCC) (Primary Dx) Social History Tobacco Use Types Packs/Day Years Used Date Smoking Tobacco: Never Assessed Comments Unknown Sex and Gender Information Value Date Recorded Sex Assigned at Not on file Legal Sex Female 4:44 AM HOME CARE COMPANION Gender Identity Not on file Sexual Orientation Not on file documented as of this encounter Plan of Treatment Not on file documented as of this encounter Visit Diagnoses Diagnosis Malignant neoplasm of breast (female), unspecified site- Primary documented in this encounter Care Teams Molecular Genetic Pathologist Relationship Specialty Start Date End Date Domo Scruggs DO [address] [place] [address] PCP - General 07/01/06 documented as of this encounter
--- OUTSIDE RECORDS SUMMARY | 2025-04-08 00:33 | XMS_ITS | Encounter Summary ---
Author Organization [facility] Address [address] [place] [address] Phone Care Team Providers Care Sludge Filtration Operator Name Role Phone Ion García MD Primary Care Provider [phone] Gonzalez Kolb DO Primary Care Provider Anselmo Hernandez DO Primary Care Provider [phone] Margaret Martin DO Primary Care Provider + Marisela Hannon MD Unavailable [phone] Encounter Details Date Type Department Care Team (Latest Contact Info) Description 09/16/2019 Orders Only [facility] Scanning, Provider Social History Tobacco Use Types Packs/Day Years Used Date Smoking Tobacco: Never Assessed Comments Unknown Sex and Gender Information Value Date Recorded Sex Assigned at Not on file Legal Sex Female 6:16 AM DOOR MACHINE OPERATOR Gender Identity Female 08/17/2020 12:34 PM DOOR MACHINE OPERATOR Sexual Orientation Straight 11/22/2019 7: 07 [...] on filedocumented in this encounter Care Teams Sludge Filtration Operator Relationship Specialty Start Date End Date Ion García MD PCP - General Internal Medicine 07/24/17 11/18/19 Gonzalez Kolb DO PCP - General Internal Medicine 11/19/19 10/29/23 Anselmo Hernandez DO [address] [place] [address] [address] [place] [address] PCP - General Family Medicine 10/30/23 10/24/24 Margaret Martin DO [address] [place] [address] [place] [address] PCP - General Family Medicine 10/25/24 Marisela Hannon MD [address] [place] [address] Referring Physician Gynecology 11/10/24 documented as of this encounter
--- OUTSIDE RECORDS SUMMARY | 2025-04-08 00:33 | XMS_ITS | Encounter Summary ---
Author Organization [facility] Address [address] [place] [address] Care Team Providers Care Product Examiner Name Role Phone Domo Scruggs DO Primary Care Provider +1- [phone] Encounter Details Date Type Department Care Team (Latest Contact Info) Description 07/01/2006 Outpatient Historical HIS [facility] Rodriguez, Henrry Jennings MD [facility] [place] [address] Lump or Mass in Breast (Primary Dx) Social History Tobacco Use Types Packs/Day Years Used Date Smoking Tobacco: Never Assessed Comments Unknown Sex and Gender Information Value Date Recorded Sex Assigned at Not on file Legal Sex Female 4:44 AM USER INTERFACE DESIGNER Gender Identity Not on file Sexual Orientation Not on file documented as of this encounter Plan of Treatment Not on file documented as of this encounter Visit Diagnoses Diagnosis Lump or mass in breast- Primary documented in this encounter Care Teams Product Examiner Relationship Specialty Start Date End Date Domo Scruggs DO [address] [place] [address] PCP - General 07/01/06 documented as of this encounter
--- OUTSIDE RECORDS SUMMARY | 2025-04-08 00:33 | XMS_ITS | Encounter Summary ---
Author Organization [facility] Address 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) Social History Tobacco Use Types Packs/Day Years Used Date Smoking Tobacco: Never Assessed Comments Unknown Sex and Gender Information Value Date Recorded Sex Assigned at Not on file Legal Sex Female 4:44 AM CEMENT PATCHER Gender Identity Not on file Sexual Orientation Not on file documented as of this encounter Plan of Treatment Not on file documented as of this encounter Visit Diagnoses Diagnosis Malignant neoplasm of upper-outer quadrant of female breast (CMS/HCC)- Primary Malignant neoplasm of upper-outer quadrant of female breast documented in this encounter Care Teams Puttying And Calking Supervisor Relationship Specialty Start Date End Date Domo Scruggs DO [address] [place] [address] PCP - General 07/01/06 documented as of this encounter
--- OUTSIDE RECORDS SUMMARY | 2025-04-08 00:33 | XMS_ITS | Encounter Summary ---
Author Organization [employer] Address [address] [place] [address] Care Team Providers Care Resource Room Special Education Teacher Name Role Phone Domo Scruggs DO Primary Care Provider +1- [phone] Encounter Details Date Type Department Care Team [...] on file Legal Sex Female 4:44 AM IMPORT COORDINATION AND PRODUCTION HEAD Gender Identity Not on file Sexual Orientation Not on file documented as of this encounter Plan of Treatment Not on file documented as of this encounter Visit Diagnoses Diagnosis Malignant neoplasm of cervix uteri, unspecified site (CMS/HCC)- Primary Malignant neoplasm of cervix uteri, unspecified site documented in this encounter Care Teams Resource Room Special Education Teacher Relationship Specialty Start Date End Date Domo Scruggs DO [address] [place] [address] PCP - General 07/01/06 documented as of this encounter
--- OUTSIDE RECORDS SUMMARY | 2025-04-08 00:33 | XMS_ITS | Encounter Summary ---
Author Organization [facility] Address [address] [place] [address] Care Team Providers Care Drywall Boardhanger Name Role Phone Domo Scruggs DO Primary Care Provider +1- [phone] Encounter Details Date Type Department Care Team (Late st Contact Info) Description 09/22/2003 Outpatient Historical [facility] [address] [facility] [address] [address] Patric Monroe Social History Tobacco Use Types Packs/Day Years Used Date Smoking Tobacco: Never Assessed Comments Unknown Sex and Gender Information Value Date Recorded Sex Assigned at Not on file Legal Sex Female 4:44 AM TALENT ADVISOR Gender Identity Not on file Sexual Orientation Not on file documented as of this encounter Plan of Treatment Not on file documented as of this encounter Visit Diagnoses Not on filedocumented in this encounter Care Teams Drywall Boardhanger Relationship Specialty Start Date End Date Domo Scruggs DO [address] [place] [address] PCP - General 07/01/06 documented as of this encounter
--- OUTSIDE RECORDS SUMMARY | 2025-04-08 00:33 | XMS_ITS | Encounter Summary ---
Author Organization [facility] Address [address] [place] [address] Care Team Providers Care Nut Roaster Helper Name Role Phone Domo Scruggs DO Primary Care Provider +1- [phone] Encounter Details Date Type Department Care Team (Late st Contact Info) Description 08/03/1998 Outpatient Historical HIS [facility] MAR[facility] Mahoney, Catalino Saucedo MD [address] [place] [address] [address] Malignant neoplasm of breast (female), unspecified site (Primary Dx) Social History Tobacco Use Types Packs/Day Years Used Date Smoking Tobacco: Never Assessed Comments Unknown Sex and Gender Information Value Date Recorded Sex Assigned at Not on file Legal Sex Female 4:44 AM TOPOLOGY TEACHER Gender Identity Not on file Sexual Orientation Not on file documented as of this encounter Plan of Treatment Not on file documented as of this encounter Visit Diagnoses Diagnosis Malignant neoplasm of breast (female), unspecified site- Primary documented in this encounter Care Teams Nut Roaster Helper Relationship Specialty Start Date End Date Domo Scurggs DO [address] [place] [address] PCP - General 07/01/06 documented as of this encounter
--- OUTSIDE RECORDS SUMMARY | 2025-04-08 00:33 | XMS_ITS | Encounter Summary ---
Author Organization [facility] Address [address] [place] [address] Care Team Providers Care Credit Director Name Role Phone Domo Scruggs DO Primary Care Provider +1- [phone] Encounter Details Date Type Department Care Team (Late st Contact Info) Description 06/24/2002 Outpatient Historical HIS [facility] MARCIAL Mahoney, Catalino Saucedo MD [address] [place] [address] [address] PERS HX OF BREAST MALIGNANCY (Primary Dx) Social History Tobacco Use Types Packs/Day Years Used Date Smoking Tobacco: Never Assessed Comments Unknown Sex and Gender Information Value Date Recorded Sex Assigned at Not on file Legal Sex Female 4:44 AM COLLECTION SUPPORT SPECIALIST Gender Identity Not on file Sexual Orientation Not on file documented as of this encounter Plan of Treatment Not on file documented as of this encounter Visit Diagnoses Diagnosis Personal history of malignant neoplasm of breast- Primary documented in this encounter Care Teams Credit Director Relationship Specialty Start Date End Date Domo Scruggs DO [address] [place] [address] PCP - General 07/01/06 documented as of this encounter
--- OUTSIDE RECORDS SUMMARY | 2025-04-08 00:33 | XMS_ITS | Encounter Summary ---
Author Organization [facility] Address [address] [place] [address] Care Team Providers Care Cigar Making Supervisor Name Role Phone Domo Scruggs DO Primary Care Provider +1- [phone] Encounter Details Date Type Department Care Team (Late st Contact Info) Description 06/20/2005 Outpatient Historical HIS [facility] MAR[facility] Mahoney, Catalino Saucedo MD [address] [place] [address] [address] SCREENING MAMM-MAILG NEOPL NEC (Primary Dx) Social History Tobacco Use Types Packs/Day Years Used Date Smoking Tobacco: Never Assessed Comments Unknown Sex and Gender Information Value Date Recorded Sex Assigned at Not on file Legal Sex Female 4:44 AM EPIDEMIOLOGY INTERNSHIP Gender Identity Not on file Sexual Orientation Not on file documented as of this encounter Plan of Treatment Not on file documented as of this encounter Visit Diagnoses Diagnosis Other screening mammogram- Primary documented in this encounter Care Teams Cigar Making Supervisor Relationship Specialty Start Date End Date Domo Scruggs DO [address] [place] [address] PCP - General 07/01/06 documented as of this encounter
--- OUTSIDE RECORDS SUMMARY | 2025-04-08 00:33 | XMS_ITS | Encounter Summary ---
Author Organization [facility] Address [address] [place] [address] Care Team Providers Care Neuro Ophthalmologist Name Role Phone Domo Scruggs DO Primary Care Provider +1- [phone] Encounter Details Date Type Department Care Team (Late st Contact Info) Description 11/03/1998 Outpatient Historical HIS [facility] MARCIAL Mahoney, Catalino Saucedo MD [address] [place] [address] [address] Personal history of malignant neoplasm of breast (Primary Dx) Social History Tobacco Use Types Packs/Day Years Used Date Smoking Tobacco: Never Assessed Comments Unknown Sex and Gender Information Value Date Recorded Sex Assigned at Not on file Legal Sex Female 4:44 AM LOAD PLANNER Gender Identity Not on file Sexual Orientation Not on file documented as of this encounter Plan of Treatment Not on file documented as of this encounter Visit Diagnoses Diagnosis Personal history of malignant neoplasm of breast- Primary documented in this encounter Care Teams Neuro Ophthalmologist Relationship Specialty Start Date End Date Domo Scruggs DO [address] [place] [address] PCP - General 07/01/06 documented as of this encounter
--- OUTSIDE RECORDS SUMMARY | 2025-04-08 00:33 | XMS_ITS | Encounter Summary ---
Author Organization [facility] Address [address] [place] [address] Care Team Providers Care Delivery Crew Member Name Role Phone Domo Scruggs DO Primary Care Provider +1- [phone] Encounter Details Date Type Department Care Team (Late st Contact Info) Description 06/25/2001 Outpatient Historical HIS [facility] MARCIAL Mahoney, Catalino Saucedo MD [address] [place] [address] [address] PERS HX OF BREAST MALIGNANCY (Primary Dx) Social History Tobacco Use Types Packs/Day Years Used Date Smoking Tobacco: Never Assessed Comments Unknown Sex and Gender Information Value Date Recorded Sex Assigned at Not on file Legal Sex Female 4:44 AM TAKER OFF DRYING KILN Gender Identity Not on file Sexual Orientation Not on file documented as of this encounter Plan of Treatment Not on file documented as of this encounter Visit Diagnoses Diagnosis Personal history of malignant neoplasm of breast- Primary documented in this encounter Care Teams Delivery Crew Member Relationship Specialty Start Date End Date Domo Scruggs DO [address] [place] [address] PCP - General 07/01/06 documented as of this encounter
[2025-04-08 00:34] VITALS: BP 165/98; PULSE 74; RESP 18; TEMP 37; O2SAT 98
--- OUTSIDE RECORDS SUMMARY | 2025-04-08 00:34 | XMS_ITS | Encounter Summary ---
Author Organization [facility] Address [address] [place] [address] Care Team Providers Care Seamer Elastic Band Name Role Phone Domo Scruggs DO Primary Care Provider +1- [phone] Encounter Details Date Type Department Care Team (Late st Contact Info) Description 07/01/2008 Outpatient Historical HIS [facility] Catalino Mathis MD [address] [place] [address] [address] Other Screening Mammogram; Personal History of Malignant Neoplasm of Breast Social History Tobacco Use Types Packs/Day Years Used Date Smoking Tobacco: Never Assessed Comments Unknown Sex and Gender Information Value Date Recorded Sex Assigned at Not on file Legal Sex Female 4:44 AM CORRECTIONAL COUNSELOR Gender Identity Not on file Sexual Orientation Not on file documented as of this encounter Plan of Treatment Not on file documented as of this encounter Procedures Procedure Name Priority Date/Time Associated Diagnosis Comments MAMMO SCREEN BILAT W OR WO CAD Routine 07/01/2008 10:00 AM CORRECTIONAL COUNSELOR documented in this encounter Results * MAMMO DIGITAL SCREEN BILAT (07/01/2008 10:00 AM CORRECTIONAL COUNSELOR) Anatomical Region Laterality Modality Breast Bilateral Other 07/01/2008 10:0 0 AM CORRECTIONAL COUNSELOR Narrative 07/02/2008 10:20 AM CORRECTIONAL COUNSELOR [address] [address] Admit Date: 07/01/2008 KARELY CHAVARRIA Sex: F Admit Prov: CATALINO LEE Date: 1940 Primary Care Prov: DOMO SCRUGGS CMRN: [id number] [facility]: [id number] IMAGING SERVICES Ordering Prov: CATALINO LEE Accession Number: [id number] Interpretation BILATERAL SCREENING DIGITAL MAMMOGRAMS WITH COMPUTER [...] AMK Procedure Note Yelena Morin - 07/02/2008 [facility] [address] [place], [place] [address] Admit Date: 07/01/2008 KARELY CHAVARRIA Sex: F Admit Prov: CATALINO LEE Date: 1940 Primary Care Prov: DOMO SCRUGGS CMRN: [id number] [id number] [facility] Ordering Prov: CATALINO LEE Interpretation [...] breast documented in this encounter Care Teams Seamer Elastic Band Relationship Specialty Start Date End Date Domo Scruggs DO [address] [place] [address] PCP - General 07/01/06 documented as of this encounter
--- OUTSIDE RECORDS SUMMARY | 2025-04-08 00:34 | XMS_ITS | Encounter Summary ---
Author Organization [facility] Address 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) (Primary Dx) Social History Tobacco Use Types Packs/Day Years Used Date Smoking Tobacco: Never Assessed Comments Unknown Sex and Gender Information Value Date Recorded Sex Assigned at Not on file Legal Sex Female 4:44 AM BUS OPERATOR Gender Identity Not on file Sexual Orientation Not on file documented as of this encounter Plan of Treatment Not on file documented as of this encounter Visit Diagnoses Diagnosis Malignant neoplasm of upper-outer quadrant of female breast (CMS/HCC)- Primary Malignant neoplasm of upper-outer quadrant of female breast documented in this encounter Care Teams Youth Corrections Officer Relationship Specialty Start Date End Date Domo Scruggs DO [address] [place] [address] PCP - General 07/01/06 documented as of this encounter
--- OUTSIDE RECORDS SUMMARY | 2025-04-08 00:34 | XMS_ITS | Encounter Summary ---
Author Organization [facility] Address [address] [place] [address] Care Team Providers Care Human Resources Associate Name Role Phone Domo Scruggs DO Primary Care Provider +1- [phone] Encounter Details Date Type Department Care Team (Late st Contact Info) Description 12/22/1998 Outpatient Historical HIS [facility] MARCIAL Mahoney, Catalino Saucedo MD [address] [place] [address] [address] Personal history of malignant neoplasm of breast (Primary Dx) Social History Tobacco Use Types Packs/Day Years Used Date Smoking Tobacco: Never Assessed Comments Unknown Sex and Gender Information Value Date Recorded Sex Assigned at Not on file Legal Sex Female 4:44 AM COMPUTER NETWORK SUPPORT SPECIALIST Gender Identity Not on file Sexual Orientation Not on file documented as of this encounter Plan of Treatment Not on file documented as of this encounter Visit Diagnoses Diagnosis Personal history of malignant neoplasm of breast- Primary documented in this encounter Care Teams Human Resources Associate Relationship Specialty Start Date End Date Domo Scruggs DO [address] [place] [address] PCP - General 07/01/06 documented as of this encounter
--- OUTSIDE RECORDS SUMMARY | 2025-04-08 00:34 | XMS_ITS | Encounter Summary ---
Author Organization [facility] Address [address] [place] [address] Care Team Providers Care Yarder Name Role Phone Domo Scruggs DO Primary Care Provider +1- [phone] Encounter Details Date Type Department Care Team (Late st Contact Info) Description 09/13/1999 Outpatient Historical [facility] [address] [facility] [address] [address] Patric Monroe Social History Tobacco Use Types Packs/Day Years Used Date Smoking Tobacco: Never Assessed Comments Unknown Sex and Gender Information Value Date Recorded Sex Assigned at Not on file Legal Sex Female 4:44 AM MICROARRAY OPERATIONS VICE PRESIDENT Gender Identity Not on file Sexual Orientation Not on file documented as of this encounter Plan of Treatment Not on file documented as of this encounter Visit Diagnoses Not on filedocumented in this encounter Care Teams Yarder Relationship Specialty Start Date End Date Domo Scruggs DO [address] [place] [address] PCP - General 07/01/06 documented as of this encounter
--- OUTSIDE RECORDS SUMMARY | 2025-04-08 00:34 | XMS_ITS | Encounter Summary ---
Author Organization [facility] Address 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 (CMS/HCC) (Primary Dx) Social History Tobacco Use Types Packs/Day Years Used Date Smoking Tobacco: Never Assessed Comments Unknown Sex and Gender Information Value Date Recorded Sex Assigned at Not on file Legal Sex Female 4:44 AM CALL CENTER ASSOCIATE Gender Identity Not on file Sexual Orientation Not on file documented as of this encounter Plan of Treatment Not on file documented as of this encounter Visit Diagnoses Diagnosis Malignant neoplasm of upper-outer quadrant of female breast (CMS/HCC)- Primary Malignant neoplasm of upper-outer quadrant of female breast documented in this encounter Care Teams Patient Financial Rep Relationship Specialty Start Date End Date Domo Scruggs DO [address] [place] [address] PCP - General 07/01/06 documented as of this encounter
--- OUTSIDE RECORDS SUMMARY | 2025-04-08 00:34 | XMS_ITS | Encounter Summary ---
Author Organization [facility] Address [address] [place] [address] Care Team Providers Care Image Consultant Name Role Phone Domo Scruggs DO Primary Care Provider +1- [phone] Encounter Details Date Type Department Care Team (Latest Contact Info) Description 06/22/1999 Outpatient Historical HIS [facility] MARCIAL Rodriguez, Henrry Jennings MD [address] [place] [address] Personal history of malignant neoplasm of breast (Primary Dx) Social History Tobacco Use Types Packs/Day Years Used Date Smoking Tobacco: Never Assessed Comments Unknown Sex and Gender Information Value Date Recorded Sex Assigned at Not on file Legal Sex Female 4:44 AM SECONDARY TEACHER Gender Identity Not on file Sexual Orientation Not on file documented as of this encounter Plan of Treatment Not on file documented as of this encounter Visit Diagnoses Diagnosis Personal history of malignant neoplasm of breast- Primary documented in this encounter Care Teams Image Consultant Relationship Specialty Start Date End Date Domo Scruggs DO [address] [place] [address] PCP - General 07/01/06 documented as of this encounter
--- OUTSIDE RECORDS SUMMARY | 2025-04-08 00:34 | XMS_ITS | Clinical Summary ---
Author Organization [facility] [employer] Address [address] [place] [address] Care Team Providers Care Pediatric Cardiologist Name Role Phone Wandy Arellano MD Unavailable [phone] Gonzalez Kolb DO Primary Care Provider [phone] Source Comments [facility],non-owned Affiliates and Associated Physician Practices is amultiple site organization consisting of ambulatory clinics and hospital sitesin [place], [place], [place] and [place]. This disclosure is being madepursuant to the Care Everywhere program and may not contain all information available regarding this patient. Last updated 18.[facility] [employer] Allergies Active Allergy Reactions Criticality Noted Date [...] Active mometasone (NASONEX) 50 MCG/ACT nasal spray Cullom 1 [place]om into each nostril daily. 1 Inhaler 5 [...] PM CDT Legal Sex Female 4:28 AM COMMERCIAL CREDIT SPECIALIST Gender Identity Female 11/15/2022 8:26 PM CDT Sexual Orientation Straight 11/15/2022 8: 26 PM CDT Last Filed Vital Signs Vital Sign Reading Time Taken Comments Blood Pressure 157/72 07/31/2013 5:36 AM COMMERCIAL CREDIT SPECIALIST Pulse 86 07/31/2013 5:36 AM COMMERCIAL CREDIT SPECIALIST Temperature 36.4 C (97.6 F) 07/31/2013 3:07 AM COMMERCIAL CREDIT SPECIALIST Respiratory Rate 13 07/31/2013 5:36 AM COMMERCIAL CREDIT SPECIALIST Oxygen Saturation 100% 07/31/2013 5:35 AM COMMERCIAL CREDIT SPECIALIST Inhaled Oxygen Concentration - - Weight 55.8 kg (123 lb) 07/31/2013 3:07 AM COMMERCIAL CREDIT SPECIALIST Height 154.9 cm (5' 1) 07/31/2013 3:07 AM COMMERCIAL CREDIT SPECIALIST Body Mass Index 23.24 07/31/2013 3:07 AM COMMERCIAL CREDIT SPECIALIST Plan of Treatment Health Maintenance Due Date Last Done Comments DTAP/TDAP/TD VACCINES (1 - Tdap) 1959 PNEUMOCOCCAL VACCINE 50+ (2 of 2 - PCV) 07/14/2008 07/14/2007 ZOSTER VACCINE (2 of 3) 06/26/2011 05/01/2011 Respiratory Syncytial Virus (RSV) Vaccine Pt: or over 60 yrs (1 - 1-dose 75+ series) 2017 DEPRESSION SCREENING 07/14/2024 COVID-19 VACCINE ( - 2024- season) 2025 06/10/2021, 10/03/2020, 08/23/2020 INFLUENZA VACCINE (#1) 2025 , 04/28/2020, 04/19/2012, [...] Most Recently Relevant to Health Maintenance Insurance [facility] MEDICARE [facility] MEDICARE [facility] MEDICARE Care Teams Pediatric Cardiologist Relationship Specialty Start Date End Date Gonzalez Kolb DO [address] [place] [address] PCP - General Internal Medicine 09/08/18 Wandy Arellano MD Orthopedic Surgery 02/05/13
--- OUTSIDE RECORDS SUMMARY | 2025-04-08 00:34 | XMS_ITS | Encounter Summary ---
Author Organization [facility] Address [address] [place] [address] Care Team Providers Care Etcher Printed Circuit Boards Name Role Phone Wandy Arellano MD Unavailable [phone] Ion García MD Primary Care Provider [phone] Gonzalez Kolb DO Primary Care Provider [phone] Encounter Details Date Type Department Care Team [...] PM CDT Legal Sex Female 4:28 AM CELL STRIPPER FINAL Gender Identity Female 11/15/2022 8:26 PM CDT Sexual Orientation Straight 11/15/2022 8: 26 PM CDT documented as of this encounter Plan of Treatment Not on file documented as of this encounter Visit Diagnoses Not on filedocumented in this encounter Care Teams Etcher Printed Circuit Boards Relationship Specialty Start Date End Date Ion García MD [address] [place] [address] PCP - General Internal Medicine 10/13/13 09/07/18 Gonzalez Kolb DO [address] [place] [address] PCP - General Internal Medicine 09/08/18 Wandy Arellano MD Orthopedic Surgery 02/05/13 documented as of this encounter
--- OUTSIDE RECORDS SUMMARY | 2025-04-08 00:34 | XMS_ITS | Clinical Summary ---
Author Organization [facility] [place] [place] [address] Address [address] [place] [address] Care Team Providers Care Associate Buyer Name Role Phone Margaret Martin DO Primary Care Provider + Marisela Hannon MD Unavailable [phone] Allergies Active Allergy Reactions Criticality Noted Date [...] Encounters Date Type Department Care Team Description 03/15/[address] [address] Marisela Hannon MD Medical Records Request 01/16/2025 Results Follow-Up [facility] Medicine Surgery [address] [place] [phone] Lakeshia Woodall MD PhD Surgical pathology 01/11/2025 4:22 PM CDT - 01/11/2025 11:59 PM CDT Hospital Encounter [facility] [address] [place] [phone] Discharge Disposition: Discharge to home or self care 01/11/2025 10:30 AM CDT Office Visit [facility] Medicine Surgery [address] [place] [phone] Lakeshia Woodall MD PhD Abnormal finding on breast imaging (Primary Dx); Breast erythema; Inversion of left nipple from Last 3 Months Immunizations Immunization Administration [...] therapy Fracture, foot 2019 Breast cancer (HCC) 1997 History of chemotherapy Family History Medical History [...] on file Legal Sex Female 6:16 AM RAT FARMER Gender Identity Female 08/17/2020 12:34 PM RAT FARMER Sexual Orientation Straight 11/22/2019 7: 07 PM [...] CDT Breast erythema SURGICAL PATHOLOGY Routine 01/11/2025 9:55 AM CDT DEXA AXIAL SKELETON BONE DENSITY 1 OR MORE SITES Schedule Routine, Read Routine (OP Routine) 11/13/2023 2:07 PM CDT Age-related osteoporosis without current pathological fracture from Last 3 Months or Most Recently Relevant to Health Maintenance Results * Specimen tracking (01/11/2025 4:18 PM CDT) Specimen Tissue Comment:Testing performed by : [facility] [place] [address] Specimen sent to Surgical Pathology JEET BOOKER Comment: Sent to PAUL[facility] Surgical Pathology Testing performed by: [facility] at [facility], [place] [address] Date sent [id number] JEET BOOKER Comment:Testing performed by : [facility] [place] [address] Other 01/11/2025 4:18 PM CDT 01/11/2025 4:23 PM CDT us Lakeshia Woodall MD PhD LAB BLOOD ORDERABLES Final Result JEET BOOKER [address] [place] [address] * DERM PUNCH BIOPSY (01/11/2025 1:05 PM CDT) Narrative Lakeshia Woodall MD PhD - 01/11/2025 1:05 PM CDT Lakeshia Wooadll MD PhD 01/16/2025 7:53 PM Punch Biopsy [...] results best viewed via link to PDF [facility] Department of Pathology [address] [place] [id number] Note to Patients: This report may contain [...] Final Report Patient Name: SULEMAN CHAVARRIA Address: [address] [place] [address] Gender: F : 1940 (Age: 84) Service: Location: [facility] #: [id number] Patient Type: SPECIMEN Taken: 01/11/2025 Received: 01/12/2025 [...] submitted in a single container labeled SULEMAN CHAVARRIA and left breast. It is a 3 mm in diameter punch biopsy of lucero skin measuring 6 mm in depth. The specimen is inked and all in one cassette. Jimmy Figueroa R.N., P.Eusebio./Haydee Adler M.D. REPORT IMAGES AND SCANNED DOCUMENTS, IF INCLUDED, ONLY VIEWABLE IN PDF VERSION OF REPORT The performance characteristics of some immunohistochemical stains, fluorescence in-situ hybridization tests and immunophenotyping by flow cytometry cited in this report (if any) were determined by the Surgical Pathology Department at [facility] as part of an ongoing quality improvement analyst program and in compliance with federally mandated [...] characteristics determined by the Surgical Pathology Department [facility]. It has not been cleared or approved by the U. S. Food and Drug Administration. Note for decalcified specimens: This assay has not been validated on decalcified tissues. Results should be interpreted with caution given the possibility of false negativity on decalcified specimens Lakeshia Woodall MD PhD LAB PATHO LOGY ORDERABLES Final Result * Dexa Axial Skeleton Bone Density 1 or 2 Site (11/13/2023 2:07 PM CDT) Anatomical Region Laterality Modality Body N/A Other 11/13/2023 2:16 PM CDT Impressions 11/13/2023 2:16 PM CDT Osteopenia. Consider follow-up bone densitometry evaluation in 2-3 years. Electronically signed by: Bryn Reich II 11/13/2023 2:16 PM CDT Examination: Bone densitometry [...] Most Recently Relevant to Health Maintenance Insurance [facility] [employer] ADVANTAGE CHOICE PPO Member Subscriber Plan / Payer (Ef fective 2024-Present) Name:Suleman Chavarria Relation to Subscriber:Self Name:Suleman Chavarria Payer ID:[id number] (NAIC) Type:MEDICARE RISK OTHER Address: [place] [id number] [employer] ADVANTAGE CHOICE PPO Care Teams Associate Buyer Relationship Specialty Start Date End Date Margaret Martin DO [facility] [place] [address] PCP - General Family Medicine 10/25/24 Marisela Hannon MD [address] [place] [address] Referring Physician Gynecology 11/10/24
--- OUTSIDE RECORDS SUMMARY | 2025-04-08 00:34 | XMS_ITS | Encounter Summary ---
Author Organization [facility] Address [address] [place] [address] Care Team Providers Care Assembler Musical Equipment Name Role Phone Wandy Arellano MD Unavailable [phone] Ion García MD Primary Care Provider [phone] Gonzalez Kolb DO Primary Care Provider [phone] Encounter Details Date Type Department Care Team [...] PM CDT Legal Sex Female 4:28 AM EXPEDITER SERVICE ORDER Gender Identity Female 11/15/2022 8:26 PM CDT Sexual Orientation Straight 11/15/2022 8: 26 PM CDT documented as of this encounter Plan of Treatment Not on file documented as of this encounter Visit Diagnoses Not on filedocumented in this encounter Care Teams Assembler Musical Equipment Relationship Specialty Start Date End Date Ion García MD [address] [place] [address] PCP - General Internal Medicine 10/13/13 09/07/18 Gonzalez Kolb DO [address] [place] [address] PCP - General Internal Medicine 09/08/18 Wandy Arellano MD Orthopedic Surgery 02/05/13 documented as of this encounter
--- OUTSIDE RECORDS SUMMARY | 2025-04-08 00:34 | XMS_ITS | Encounter Summary ---
Author Organization [facility] Address [address] [place] [address] Care Team Providers Care Tennis Ball Coverer Hand Name Role Phone Domo Scruggs DO Primary Care Provider [phone] Encounter Details Date Type Department Care Team (Latest Contact Info) Description 02/07/2009 Outpatient Historical HIS [facility] MARCIAL Duong, Gallo Salazar MD [address] [place] [address] Abdominal Pain, Epigastric Social History Tobacco Use Types Packs/Day Years Used Date Smoking Tobacco: Never Assessed Comments Unknown Sex and Gender Information Value Date Recorded Sex Assigned at Not on file Legal Sex Female 4:44 AM CASH SALES AUDIT CLERK Gender Identity Not on file Sexual [...] ALKALINE PHOSPHATASE 65 35 - 104 U/L [facility] BILIRUBIN TOTAL 0.4 0.2 - 1.0 mg/dL [facility] CO2 34(H) 22 - 30 mmol/L [facility] TOTAL PROTEIN 7.2 6.3 - 8.6 g/dL [facility] POTASSIUM 3.9 3.5 - 4.9 mmol/L [facility] GLUCOSE 88 65 - 99 mg/dL [facility] AST 24 12 - 32 U/L [facility] BUN 14 6 - 20 mg/dL [facility] CALCIUM 9.8 8.6 - 10.2 mg/dL [facility] CHLORIDE 103 96 - 108 mmol/L [facility] ALBUMIN 4.7 3.4 - 4.8 g/dL [facility] CREATININE 0.79 0.51 - 0.95 mg/dL [facility] SODIUM 142 135 - 145 mmol/L [facility] ALT 18 0 - 31 U/L [facility] GFR, >60 >=60 mL/min/1.[address] [facility] GFR >60 >=60 mL/min/1.[address] [facility] Comment: Modification of Diet in Renal Disease (MDRD) study formula. Estimated GFR rate interpretative information for both Americans and non- Americans is available on the [facility] Intranet at: [email or web address] Select: Lab Policies and Procedures Select: Reference Ranges - GFR Blood specimen (specimen) 02/07/2009 8:38 AM CDT 02/07/2009 8:[address] [facility] - 02/07/2009 9:23 AM CDT cc: Dr. Ion Pham [address] , [address], [place] [address] Gallo Duong MD CHEMISTRY ORDERABLES Edited Performing Organization Address [facility] Co de Phone Number [facility] CLIA# [id number] [address] [place] [address] * LIPASE (02/07/2009 8:38 AM CDT) [facility] LIPASE 51 13 - 60 U/L [facility] Blood specimen (specimen) 02/07/2009 8:38 AM CDT 02/07/2009 8:[address] [facility] - 02/07/2009 9:23 AM CDT cc: Dr. Ion Pham [address] [facility] [address], [address], [place] [address] Gallo Duong MD CHEMISTRY ORDERABLES Final Resul t Performing Organization Address [facility] Co de Phone Number [facility] CLIA# [id number] [address] [place] [address] * (ABNORMAL) CBC WITH DIFFERENTIAL (02/07/2009 8:38 AM CDT) [facility] WBC 4.1 4.0 - 9.8 K/uL [facility] MCH 32.6 27.2 - 32.[address] [facility] MPV 11.4 9.3 - 12.[address] [facility] HEMATOCRIT 37.9 35.5 - 44.0 % [facility] RDW-STDEV 43.5 37.1 - 48.[address] [facility] RBC 3.93 3.90 - 4.90 M/uL [facility] MCHC 33.8 31.5 - 35.5 % [facility] MCV 96.4 82.0 - 99.[address] [facility] PLATELETS 227 140 - 350 K/uL [facility] HEMOGLOBIN 12.8 11.8 - 14.8 g/dL [facility] RDW 12.4 11.5 - 14.5 % [facility] BASOPHILS 1 0 - 2 % [facility] BASOPHILS ABSOLUTE 0.03 0.00 - 0.20 K/uL [facility] MONOCYTES 10 3 - 13 % [facility] MONOCYTE ABSOLUTE 0.42 0.10 - 1.30 K/uL [facility] NEUTROPHILS 50 45 - 70 % [facility] NEUTROPHIL ABSOLUTE 2.04 1.90 - 7.00 K/uL [facility] EOSINOPHILS 8(H) 0 - 7 % [facility] EOSINOPHIL ABSOLUTE 0.31 0.00 - 0.70 K/uL [facility] LYMPHOCYTES 32 16 - 45 % [facility] LYMPHOCYTE ABSOLUTE 1.30 0.70 - 4.50 K/uL [facility] Blood specimen (specimen) 02/07/2009 8:38 AM CDT 02/07/2009 8:[address] [facility] - 02/07/2009 9:11 AM CDT cc: Dr. Ion Pham [address] [address], [address], [place] [address] Gallo Duong MD HEMATOLOGY ORDERABLES Edited [facility] CLIA# [id number] [address] [place] [address] * (ABNORMAL) AMYLASE (02/07/2009 8:38 AM CDT) AMYLASE 126(H) 28 - 100 U/L [facility] Blood specimen (specimen) 02/07/2009 8:38 AM CDT 02/07/2009 8:[address] [facility] - 02/07/2009 9:23 AM CDT cc: Dr. Ion Pham [address] [address] [facility] , [address], [place] [address] us Gallo Duong MD CHEMISTRY ORDERABLES Final Resul t [facility] CLIA# [id number] [address] [place] [address] documented in this encounter Visit Diagnoses Diagnosis Abdominal pain, epigastric documented in this encounter Care Teams Tennis Ball Coverer Hand Relationship Specialty Start Date End Date Domo Scruggs DO [address] [place] [address] PCP - General 07/01/06 documented as of this encounter
--- OUTSIDE RECORDS SUMMARY | 2025-04-08 00:34 | XMS_ITS | Encounter Summary ---
Author Organization [facility] Address [address] [place] [address] Care Team Providers Care Doll Maker Name Role Phone Domo Scruggs DO Primary Care Provider [phone]- [phone] Encounter Details Date Type Department Care Team (Late st Contact Info) Description 12/07/1999 Outpatient Historical HIS [facility] MARCIAL Mahoney, Catalino Saucedo MD [address] [place] [address] [address] Malignant neoplasm of upper-outer quadrant of female breast (CMS/HCC) (Primary Dx) Social History Tobacco Use Types Packs/Day Years Used Date Smoking Tobacco: Never Assessed Comments Unknown Sex and Gender Information Value Date Recorded Sex Assigned at Not on file Legal Sex Female 4:44 AM MARKETING OPERATIONS CONSULTANT Gender Identity Not on file Sexual Orientation Not on file documented as of this encounter Plan of Treatment Not on file documented as of this encounter Visit Diagnoses Diagnosis Malignant neoplasm of upper-outer quadrant of female breast (CMS/HCC)- Primary Malignant neoplasm of upper-outer quadrant of female breast documented in this encounter Care Teams Doll Maker Relationship Specialty Start Date End Date Domo Scruggs DO [address] [place] [address] PCP - General 07/01/06 documented as of this encounter
--- OUTSIDE RECORDS SUMMARY | 2025-04-08 00:34 | XMS_ITS | Encounter Summary ---
Author Organization [facility] Address [address] [place] [address] Care Team Providers Care American Sign Language Interpreter Name Role Phone Domo Scruggs DO Primary Care Provider [phone]- [phone] Encounter Details Date Type Department Care Team (Late st Contact Info) Description 04/12/1999 Outpatient Historical [facility] [address] [address] Patric Monroe Social History Tobacco Use Types Packs/Day Years Used Date Smoking Tobacco: Never Assessed Comments Unknown Sex and Gender Information Value Date Recorded Sex Assigned at Not on file Legal Sex Female 4:44 AM TEST LAB TECHNICIAN Gender Identity Not on file Sexual Orientation Not on file documented as of this encounter Plan of Treatment Not on file documented as of this encounter Visit Diagnoses Not on filedocumented in this encounter Care Teams American Sign Language Interpreter Relationship Specialty Start Date End Date Domo Scruggs DO [address] [place] [address] PCP - General 07/01/06 documented as of this encounter
--- OUTSIDE RECORDS SUMMARY | 2025-04-08 00:34 | XMS_ITS | Encounter Summary ---
Author Organization [facility] Address [address] [place] [address] Care Team Providers Care Senior Service Aide Name Role Phone Domo Scruggs DO Primary Care Provider [phone]- [phone] Encounter Details Date Type Department Care Team (Late st Contact Info) Description 02/28/2009 Outpatient Historical [facility] Gallo Duong MD [address] [facility] [address] [place] [address] Social History Tobacco Use Types Packs/Day Years Used Date Smoking Tobacco: Never Assessed Comments Unknown Sex and Gender Information Value Date Recorded Sex Assigned at Not on file Legal Sex Female 4:44 AM VB DEVELOPER Gender Identity Not on file Sexual Orientation Not on file documented as of this encounter Plan of Treatment Not on file documented as of this encounter Visit Diagnoses Not on filedocumented in this encounter Care Teams Senior Service Aide Relationship Specialty Start Date End Date Domo Scruggs DO [address] [place] [address] PCP - General 07/01/06 documented as of this encounter
--- OUTSIDE RECORDS SUMMARY | 2025-04-08 00:34 | XMS_ITS | Encounter Summary ---
Author Organization [facility] Address [address] [place] [address] Care Team Providers Care Hoister Name Role Phone Domo Scruggs DO Primary Care Provider [phone]- [phone] Encounter Details Date Type Department Care Team (Late st Contact Info) Description 11/21/2000 Outpatient Historical HIS [facility] MARCIAL Mahoney, Catalino Saucedo MD [address] [place] [address] [address] Malignant neoplasm of upper-outer quadrant of female breast (CMS/HCC) (Primary Dx) Social History Tobacco Use Types Packs/Day Years Used Date Smoking Tobacco: Never Assessed Comments Unknown Sex and Gender Information Value Date Recorded Sex Assigned at Not on file Legal Sex Female 4:44 AM CONFECTIONERY MAKER Gender Identity Not on file Sexual Orientation Not on file documented as of this encounter Plan of Treatment Not on file documented as of this encounter Visit Diagnoses Diagnosis Malignant neoplasm of upper-outer quadrant of female breast (CMS/HCC)- Primary Malignant neoplasm of upper-outer quadrant of female breast documented in this encounter Care Teams Hoister Relationship Specialty Start Date End Date Domo Scruggs DO [address] [place] [address] PCP - General 07/01/06 documented as of this encounter
[2025-04-08 01:07] VITALS: BP 176/108; PULSE 88; RESP 13; O2SAT 100
[2025-04-08 01:10] VITALS: O2SAT 100
[2025-04-08 01:30] VITALS: BP 166/99; PULSE 83; RESP 12; O2SAT 97
--- OUTSIDE RECORDS SUMMARY | 2025-04-08 01:42 | XMS_ITS | Encounter Summary ---
Author Organization [facility] Address [address] [place] [address] Care Team Providers Care Commercial Carpet Installer Name Role Phone Domo Scruggs DO Primary Care Provider [phone]- [phone] Encounter Details Date Type Department Care Team (Latest Contact Info) Description 07/01/2007 Outpatient Historical HIS [facility] MACRIAL Rodriguez, Henrry Jennings MD [facility] [place] [address] Other Screening Mammogram; Personal History of Malignant Neoplasm of Breast Social History Tobacco Use Types Packs/Day Years Used Date Smoking Tobacco: Never Assessed Comments Unknown Sex and Gender Information Value Date Recorded Sex Assigned at Not on file Legal Sex Female 4:44 AM FRONT END ASSISTANT Gender Identity Not on file Sexual Orientation Not on file documented as of this encounter Plan of Treatment Not on file documented as of this encounter Visit Diagnoses Diagnosis Other screening mammogram Personal history of malignant neoplasm of breast documented in this encounter Care Teams Commercial Carpet Installer Relationship Specialty Start Date End Date Domo Scruggs DO [address] [place] [address] PCP - General 07/01/06 documented as of this encounter
--- OUTSIDE RECORDS SUMMARY | 2025-04-08 01:42 | XMS_ITS | Encounter Summary ---
Author Organization [facility] Address [address] [place] [address] Care Team Providers Care Skein Yarn Dyer Helper Name Role Phone Domo Scruggs DO Primary Care Provider +1- [phone] Encounter Details Date Type Department Care Team (Latest Contact Info) Description 03/23/[address] [facility] Domenic Lozano MD [address] [place] [address] MALIGN NEOPL BREAST NOS (CMS/HCC) (Primary Dx) Social History Tobacco Use Types Packs/Day Years Used Date Smoking Tobacco: Never Assessed Comments Unknown Sex and Gender Information Value Date Recorded Sex Assigned at Not on file Legal Sex Female 4:44 AM KENNEL AIDE Gender Identity Not on file Sexual Orientation Not on file documented as of this encounter Plan of Treatment Not on file documented as of this encounter Visit Diagnoses Diagnosis Malignant neoplasm of breast (female), unspecified site- Primary documented in this encounter Care Teams Skein Yarn Dyer Helper Relationship Specialty Start Date End Date Domo Scruggs DO [address] [place] [address] PCP - General 07/01/06 documented as of this encounter
--- OUTSIDE RECORDS SUMMARY | 2025-04-08 01:42 | XMS_ITS | Encounter Summary ---
Author Organization [facility] Address [address] [place] [address] Care Team Providers Care Engineering Scientist Name Role Phone Domo Scruggs DO Primary Care Provider +1- [phone] Encounter Details Date Type Department Care Team (Late st Contact Info) Description 02/10/2002 Outpatient Historical [facility] [address] [address] Patric Monroe Social History Tobacco Use Types Packs/Day Years Used Date Smoking Tobacco: Never Assessed Comments Unknown Sex and Gender Information Value Date Recorded Sex Assigned at Not on file Legal Sex Female 4:44 AM CAFE HELPER Gender Identity Not on file Sexual Orientation Not on file documented as of this encounter Plan of Treatment Not on file documented as of this encounter Visit Diagnoses Not on filedocumented in this encounter Care Teams Engineering Scientist Relationship Specialty Start Date End Date Domo Scruggs DO [address] [place] [address] PCP - General 07/01/06 documented as of this encounter
--- OUTSIDE RECORDS SUMMARY | 2025-04-08 01:42 | XMS_ITS | Encounter Summary ---
Author Organization [facility] Address [address] [place] [address] Care Team Providers Care Mechanical Planner Name Role Phone Domo Scruggs DO Primary Care Provider +1- [phone] Encounter Details Date Type Department Care Team (Late st Contact Info) Description 10/07/2002 Outpatient Historical [facility] [address] [address] Patric Monroe Social History Tobacco Use Types Packs/Day Years Used Date Smoking Tobacco: Never Assessed Comments Unknown Sex and Gender Information Value Date Recorded Sex Assigned at Not on file Legal Sex Female 4:44 AM CONSULTANT INTERN Gender Identity Not on file Sexual Orientation Not on file documented as of this encounter Plan of Treatment Not on file documented as of this encounter Visit Diagnoses Not on filedocumented in this encounter Care Teams Mechanical Planner Relationship Specialty Start Date End Date Domo Scruggs DO [address] [place] [address] PCP - General 07/01/06 documented as of this encounter
--- OUTSIDE RECORDS SUMMARY | 2025-04-08 01:42 | XMS_ITS | Encounter Summary ---
Author Organization [employer] Address [address] [place] [address] Care Team Providers Care Rooming House Keeper Name Role Phone Domo Scruggs DO Primary Care Provider +1- [phone] Encounter Details Date Type Department Care Team [...] on file Legal Sex Female 4:44 AM LENS COATER Gender Identity Not on file Sexual Orientation [...] [facility] [place] Intr[facility] at: [email or web address] Select: Lab Policies and Procedures Select: Reference Ranges - GFR 01/13/2007 6:30 AM CDT us Ion Pham MD CHEMISTRY ORDERABLES Edited Performing Organization Address [facility] de Phone Number INTERFACE SYSTEM Refer to clinic/hospital department * (ABNORMAL) HEMOGLOBIN AND HEMATOCRIT (01/13/2007 6:30 AM CDT) HEMOGLOBIN 10.2(L) 11.8 - 14.8 g/dL INTERFACE SYSTEM HEMATOCRIT 31.1(L) 35.5 - 44.0 % INTERFACE SYSTEM 01/13/2007 6:30 AM CDT us Ion Pham MD HEMATOLOGY ORDERABLES Edited Performing Organization Address [facility] de Phone Number INTERFACE SYSTEM Refer [...] [facility] [place] Intr[facility] at: [email or web address] Select: Lab Policies and Procedures Select: Reference Ranges - GFR 01/06/2007 2:22 PM CDT Ion Pham MD CHEMISTRY ORDERABLES Edited Performing Organization Address City/[facility] Co de Phone Number INTERFACE [...] unspecified documented in this encounter Care Teams Rooming House Keeper Relationship Specialty Start Date End Date Domo Scruggs DO [address] [place] [id number] PCP - General 07/01/06 documented as of this encounter
--- OUTSIDE RECORDS SUMMARY | 2025-04-08 01:42 | XMS_ITS | Encounter Summary ---
Author Organization [facility] Address [address] [place] [address] Care Team Providers Care Bulwark Carpenter Name Role Phone Domo Scruggs DO Primary Care Provider +1- [phone] Encounter Details Date Type Department Care Team (Late st Contact Info) Description 04/26/2002 Outpatient Historical [facility] [address] [facility] [address] [address] Patric Monroe Social History Tobacco Use Types Packs/Day Years Used Date Smoking Tobacco: Never Assessed Comments Unknown Sex and Gender Information Value Date Recorded Sex Assigned at Not on file Legal Sex Female 4:44 AM ONCOLOGY TECHNICIAN Gender Identity Not on file Sexual Orientation Not on file documented as of this encounter Plan of Treatment Not on file documented as of this encounter Visit Diagnoses Not on filedocumented in this encounter Care Teams Bulwark Carpenter Relationship Specialty Start Date End Date Domo Scruggs DO [address] [place] [address] PCP - General 07/01/06 documented as of this encounter
--- OUTSIDE RECORDS SUMMARY | 2025-04-08 01:42 | XMS_ITS | Encounter Summary ---
Author Organization [facility] Address [address] [place] [address] Care Team Providers Care Can Sealer Name Role Phone Domo Scruggs DO Primary Care Provider +1- [phone] Encounter Details Date Type Department Care Team (Latest Contact Info) Description 09/13/2004 Outpatient Historical [facility] MARCIAL Rodriguez, Henrry Jennings MD [facility] [place] [address] CHEST PAIN NOS (Primary Dx) Social History Tobacco Use Types Packs/Day Years Used Date Smoking Tobacco: Never Assessed Comments Unknown Sex and Gender Information Value Date Recorded Sex Assigned at Not on file Legal Sex Female 4:44 AM RESTORATIVE COORDINATOR Gender Identity Not on file Sexual Orientation Not on file documented as of this encounter Plan of Treatment Not on file documented as of this encounter Visit Diagnoses Diagnosis Chest pain, unspecified- Primary documented in this encounter Care Teams Can Sealer Relationship Specialty Start Date End Date Domo Scruggs DO [address] [place] [address] PCP - General 07/01/06 documented as of this encounter
--- OUTSIDE RECORDS SUMMARY | 2025-04-08 01:42 | XMS_ITS | Encounter Summary ---
Author Organization [facility] Address [address] [place] [address] Care Team Providers Care Sap Ariba Consultant Name Role Phone Domo Scruggs DO Primary Care Provider +1- [phone] Encounter Details Date Type Department Care Team (Late st Contact Info) Description 06/24/[address] [facility] MARCIAL Mahoney, Catalino Saucedo MD [address] [place] [address] [address] PERS HX OF BREAST MALIGNANCY (Primary Dx) Social History Tobacco Use Types Packs/Day Years Used Date Smoking Tobacco: Never Assessed Comments Unknown Sex and Gender Information Value Date Recorded Sex Assigned at Not on file Legal Sex Female 4:44 AM ON CALL PHARMACY TECHNICIAN Gender Identity Not on file Sexual Orientation Not on file documented as of this encounter Plan of Treatment Not on file documented as of this encounter Visit Diagnoses Diagnosis Personal history of malignant neoplasm of breast- Primary documented in this encounter Care Teams Sap Ariba Consultant Relationship Specialty Start Date End Date Domo Scruggs DO [address] [place] [address] PCP - General 07/01/06 documented as of this encounter
--- OUTSIDE RECORDS SUMMARY | 2025-04-08 01:42 | XMS_ITS | Encounter Summary ---
Author Organization [facility] Address [address] [place] [address] Phone Care Team Providers Care Electronic Equipment Maint Tech Name Role Phone Ion García MD Primary Care Provider [phone] Gonzalez Kolb DO Primary Care Provider [phone] Anselmo Hernandez DO Primary Care Provider [phone] Margaret Martin DO Primary Care Provider + Marisela Hannon MD Unavailable Encounter Details Date Type Department Care Team (Latest Contact Info) Description 09/16/2019 Orders Only [facility] Scanning, Provider Social History Tobacco Use Types Packs/Day Years Used Date Smoking Tobacco: Never Assessed Comments Unknown Sex and Gender Information Value Date Recorded Sex Assigned at Not on file Legal Sex Female 6:16 AM SUB ARC OPERATOR Gender Identity Female 08/17/2020 12:34 PM SUB ARC OPERATOR Sexual Orientation Straight 11/22/2019 7: 07 [...] on filedocumented in this encounter Care Teams Electronic Equipment Maint Tech Relationship Specialty Start Date End Date Ion García MD PCP - General Internal Medicine 07/24/17 11/18/19 Gonzalez Kolb DO PCP - General Internal Medicine 11/19/19 10/29/23 Anselmo Hernandez DO [address] [place] [address] [address] [place] [address] PCP - General Family Medicine 10/30/23 10/24/24 Margaret Martin DO [address] [place] [address] [address] [place] [address] PCP - General Family Medicine 10/25/24 Marisela Hannon MD [address] [place] [address] Referring Physician Gynecology 11/10/24 documented as of this encounter
--- OUTSIDE RECORDS SUMMARY | 2025-04-08 01:42 | XMS_ITS | Clinical Summary ---
Author Organization [employer] [facility] Address [address] [place] [address] Phone Care Team Providers Care Landing Support Specialist Name Role Phone Domo Scruggs Primary Care Provider +1- [phone] Family History Medical History Relation Name Comments Breast Cancer Neg Hx Ovarian Cancer Neg Hx Social History Tobacco Use Types Packs/Day Years Used Date Smoking Tobacco: Never Assessed Comments Unknown Sex and Gender Information Value Date Recorded Sex Assigned at Not on file Legal Sex Female 4:44 AM TUMOR REGISTRAR Gender Identity Not on file Sexual Orientation [...] Sig/CT Colonography Q 5 years Discontinued Insurance [facility] Care Teams Landing Support Specialist Relationship Specialty Start Date End Date Domo Scruggs DO [address] [place] [address] PCP - General 07/01/06
--- OUTSIDE RECORDS SUMMARY | 2025-04-08 01:42 | XMS_ITS | Clinical Summary ---
Author Organization [facility] Address [address] [place] [address] Care Team Providers Care Bar Pilot Name Role Phone Gonzalez Kolb Primary Care Provider [phone] Allergies Active Allergy Reactions Criticality Noted Date [...] on file Legal Sex Female 11:46 AM NANOTECHNICIAN Gender Identity Not on file Sexual Orientation Not on file Last Filed Vital Signs Vital Sign Reading Time Taken Comments Blood Pressure 174/91 07/26/2018 11:56 AM NANOTECHNICIAN Pulse 68 07/26/2018 3:45 PM NANOTECHNICIAN Temperature 36.9 C (98.4 F) 07/26/2018 11:56 AM NANOTECHNICIAN Respiratory Rate 16 07/26/2018 3:45 PM NANOTECHNICIAN Oxygen Saturation 98% 07/26/2018 3:45 PM NANOTECHNICIAN Inhaled Oxygen Concentration - - Weight 56.9 kg (125 lb 6.4 oz) 07/26/2018 11:56 AM NANOTECHNICIAN Height 154.9 cm (5' 1) 07/26/2018 11:56 AM NANOTECHNICIAN Body Mass Index 23.69 07/26/2018 11:56 AM NANOTECHNICIAN Plan of Treatment Health Maintenance Due Date [...] complete this topic Insurance [employer] Care Teams Bar Pilot Relationship Specialty Start Date End Date Gonzalez Kolb DO [address] [place] [address] PCP - General INTERNAL MEDICINE 07/26/18
--- OUTSIDE RECORDS SUMMARY | 2025-04-08 01:42 | XMS_ITS | Encounter Summary ---
Author Organization [facility] Address [address] [place] [address] Care Team Providers Care Water Plumber Name Role Phone Domo Scruggs DO Primary Care Provider [phone]- [phone] Encounter Details Date Type Department Care Team (Late st Contact Info) Description 06/26/2001 Outpatient Historical HIS [facility] MARCIAL Mahoney, Catalino Saucedo MD [address] [place] [address] [address] MALIG NEOPLASM BREAST UP-OUTER (CMS/HCC) (Primary Dx) Social History Tobacco Use Types Packs/Day Years Used Date Smoking Tobacco: Never Assessed Comments Unknown Sex and Gender Information Value Date Recorded Sex Assigned at Not on file Legal Sex Female 4:44 AM TYRE RETREADER Gender Identity Not on file Sexual Orientation Not on file documented as of this encounter Plan of Treatment Not on file documented as of this encounter Visit Diagnoses Diagnosis 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
--- OUTSIDE RECORDS SUMMARY | 2025-04-08 01:42 | XMS_ITS | Encounter Summary ---
Author Organization [facility] Address [address] [place] [address] Care Team Providers Care Guide Rail Cleaner Name Role Phone Wandy Arellano MD Unavailable [phone] Patric Russell MD Primary Care Provider Ion García MD Primary Care Provider [phone] Gonzalez Kolb DO Primary Care Provider Encounter Details Date Type Department Care Team (Late st Contact Info) Description 03/26/2013 [facility] [address] [address] Social History Tobacco Use Types Packs/Day Years Used Date Smoking Tobacco: Never Smokeless Tobacco: Never Alcohol Use Standard Drinks/Week Comments No 0 (1 standard drink = 0.6 oz pur e alcohol) Comments No Sex and Gender Information Value Date Recorded Sex Assigned at Female 11/15/2022 8:26 PM CDT Legal Sex Female 4:28 AM GLASS CRUSHER Gender Identity Female 11/15/2022 8:26 PM CDT Sexual Orientation Straight 11/15/2022 8: 26 PM CDT documented as of this encounter Plan of Treatment Not on file documented as of this encounter Visit Diagnoses Not on filedocumented in this encounter Care Teams Guide Rail Cleaner Relationship Specialty Start Date End Date Patric Russell MD PCP - General Internal Medicine 03/29/13 09/22/13 Ion García MD [address] [place] [address] PCP - General Internal Medicine 10/13/13 09/07/18 Gonzalez Kolb DO [address] [place] [address] PCP - General Internal Medicine 09/08/18 Wandy Arellano MD Orthopedic Surgery 02/05/13 documented as of this encounter
--- OUTSIDE RECORDS SUMMARY | 2025-04-08 01:42 | XMS_ITS | Encounter Summary ---
Author Organization [facility] Address [address] [place] [address] Care Team Providers Care Conservator Artifacts Name Role Phone Domo Scruggs DO Primary Care Provider [phone]- [phone] Encounter Details Date Type Department Care Team (Late st Contact Info) Description 01/06/2007 Outpatient Historical [facility] Support [facility]. ([facility]t Card[facility]) [address] 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
--- OUTSIDE RECORDS SUMMARY | 2025-04-08 01:42 | XMS_ITS | Encounter Summary ---
Author Organization [employer] Address [address] [place] [address] Care Team Providers Care Tucking Machine Operator Name Role Phone Domo Scruggs DO Primary Care Provider [phone]- [phone] Encounter Details Date Type Department Care Team [...] on file Legal Sex Female 4:44 AM TOOL SALVAGE WORKER Gender Identity Not on file Sexual Orientation Not on file documented as of this encounter Plan of Treatment Not on file documented as of this encounter Visit Diagnoses Diagnosis Malignant neoplasm of cervix uteri, unspecified site (CMS/HCC)- Primary Malignant neoplasm of cervix uteri, unspecified site documented in this encounter Care Teams Tucking Machine Operator Relationship Specialty Start Date End Date Domo Scruggs DO [address] [place] [address] PCP - General 07/01/06 documented as of this encounter
--- OUTSIDE RECORDS SUMMARY | 2025-04-08 01:42 | XMS_ITS | Encounter Summary ---
Author Organization [facility] Address [address] [place] [address] Care Team Providers Care Cook Fry Name Role Phone Domo Scruggs DO Primary Care Provider [phone]- [phone] Encounter Details Date Type Department Care Team (Late st Contact Info) Description 10/07/2002 Outpatient Historical [facility] [address] [facility] [address] [address] Estevan [place] MD NO ADDRESS ON FILE Social History Tobacco Use Types Packs/Day Years Used Date Smoking Tobacco: Never Assessed Comments Unknown Sex and Gender Information Value Date Recorded Sex Assigned at Not on file Legal Sex Female 4:44 AM VOCATIONAL CHILDCARE TEACHER Gender Identity Not on file Sexual Orientation Not on file documented as of this encounter Plan of Treatment Not on file documented as of this encounter Visit Diagnoses Not on filedocumented in this encounter Care Teams Cook Fry Relationship Specialty Start Date End Date Domo Scruggs DO [address] [place] [address] PCP - General 07/01/06 documented as of this encounter
--- OUTSIDE RECORDS SUMMARY | 2025-04-08 01:42 | XMS_ITS | Encounter Summary ---
Author Organization [facility] Address [address] [place] [address] Care Team Providers Care Force Adjustment Supervisor Name Role Phone Domo Scruggs DO Primary Care Provider [phone]- [phone] Encounter Details Date Type Department Care Team (Late st Contact Info) Description 01/11/2002 Outpatient Historical [facility] [address] [facility] [address] [address] Patric Monroe Social History Tobacco Use Types Packs/Day Years Used Date Smoking Tobacco: Never Assessed Comments Unknown Sex and Gender Information Value Date Recorded Sex Assigned at Not on file Legal Sex Female 4:44 AM SNOWMOBILE MECHANIC Gender Identity Not on file Sexual Orientation Not on file documented as of this encounter Plan of Treatment Not on file documented as of this encounter Visit Diagnoses Not on filedocumented in this encounter Care Teams Force Adjustment Supervisor Relationship Specialty Start Date End Date Domo Scruggs DO [address] [place] [address] PCP - General 07/01/06 documented as of this encounter
--- OUTSIDE RECORDS SUMMARY | 2025-04-08 01:42 | XMS_ITS | Encounter Summary ---
Author Organization [facility] Address [address] [place] [address] Care Team Providers Care Metal Hardener Name Role Phone Domo Scruggs DO Primary Care Provider [phone]- [phone] Encounter Details Date Type Department Care Team (Latest Contact Info) Description 07/01/2006 Outpatient Historical HIS [facility] MARCIAL Rodriguez, Henrry Jennings MD [facility] [place] [address] Lump or Mass in Breast (Primary Dx) Social History Tobacco Use Types Packs/Day Years Used Date Smoking Tobacco: Never Assessed Comments Unknown Sex and Gender Information Value Date Recorded Sex Assigned at Not on file Legal Sex Female 4:44 AM PROCESSING CLERK Gender Identity Not on file Sexual Orientation Not on file documented as of this encounter Plan of Treatment Not on file documented as of this encounter Visit Diagnoses Diagnosis Lump or mass in breast- Primary documented in this encounter Care Teams Metal Hardener Relationship Specialty Start Date End Date Domo Scruggs DO [address] [place] [address] PCP - General 07/01/06 documented as of this encounter
--- OUTSIDE RECORDS SUMMARY | 2025-04-08 01:42 | XMS_ITS | Encounter Summary ---
Author Organization [facility] Address [address] [place] [address] Care Team Providers Care School Bus Mechanic Name Role Phone Domo Scruggs DO Primary Care Provider +1- [phone] Encounter Details Date Type Department Care Team (Late st Contact Info) Description 12/28/2001 Outpatient Historical [facility] [address] [address] Patric Monroe Social History Tobacco Use Types Packs/Day Years Used Date Smoking Tobacco: Never Assessed Comments Unknown Sex and Gender Information Value Date Recorded Sex Assigned at Not on file Legal Sex Female 4:44 AM CORPORATE MANAGER Gender Identity Not on file Sexual Orientation Not on file documented as of this encounter Plan of Treatment Not on file documented as of this encounter Visit Diagnoses Not on filedocumented in this encounter Care Teams School Bus Mechanic Relationship Specialty Start Date End Date Domo Scruggs DO [address] [place] [address] PCP - General 07/01/06 documented as of this encounter
--- OUTSIDE RECORDS SUMMARY | 2025-04-08 01:42 | XMS_ITS | Encounter Summary ---
Author Organization [facility] Address [address] [place] [address] Care Team Providers Care Recording Studio Set Up Worker Name Role Phone Domo Scruggs DO Primary Care Provider +1- [phone] Encounter Details Date Type Department Care Team (Late st Contact Info) Description 02/25/2002 Outpatient Historical [facility] [address] [facility] [address] [address] Patric Monroe Social History Tobacco Use Types Packs/Day Years Used Date Smoking Tobacco: Never Assessed Comments Unknown Sex and Gender Information Value Date Recorded Sex Assigned at Not on file Legal Sex Female 4:44 AM INSPECTOR TYPE Gender Identity Not on file Sexual Orientation Not on file documented as of this encounter Plan of Treatment Not on file documented as of this encounter Visit Diagnoses Not on filedocumented in this encounter Care Teams Recording Studio Set Up Worker Relationship Specialty Start Date End Date Domo Scruggs DO [address] [place] [address] PCP - General 07/01/06 documented as of this encounter
--- OUTSIDE RECORDS SUMMARY | 2025-04-08 01:42 | XMS_ITS | Encounter Summary ---
Author Organization [facility] Address [address] [place] [address] Care Team Providers Care Key Attendant Name Role Phone Domo Scruggs DO Primary Care Provider +1- [phone] Encounter Details Date Type Department Care Team (Late st Contact Info) Description 09/17/2001 Outpatient Historical [facility] [address] [facility] [address] [address] Patric Monroe Social History Tobacco Use Types Packs/Day Years Used Date Smoking Tobacco: Never Assessed Comments Unknown Sex and Gender Information Value Date Recorded Sex Assigned at Not on file Legal Sex Female 4:44 AM RESOURCE SPECIALIST TEACHER Gender Identity Not on file Sexual Orientation Not on file documented as of this encounter Plan of Treatment Not on file documented as of this encounter Visit Diagnoses Not on filedocumented in this encounter Care Teams Key Attendant Relationship Specialty Start Date End Date Domo Scruggs DO [address] [place] [address] PCP - General 07/01/06 documented as of this encounter
--- OUTSIDE RECORDS SUMMARY | 2025-04-08 01:43 | XMS_ITS | Encounter Summary ---
Author Organization [facility] Address [address] [place] [address] Care Team Providers Care Byproducts Supervisor Name Role Phone Wandy Arellano MD Unavailable [phone] Ion García MD Primary Care Provider [phone] Gonzalez Kolb DO Primary Care Provider [phone] Encounter Details Date Type Department Care Team [...] PM CDT Legal Sex Female 4:28 AM GRADES 9 12 TUTOR Gender Identity Female 11/15/2022 8:26 PM CDT Sexual Orientation Straight 11/15/2022 8: 26 PM CDT documented as of this encounter Plan of Treatment Not on file documented as of this encounter Visit Diagnoses Not on filedocumented in this encounter Care Teams Byproducts Supervisor Relationship Specialty Start Date End Date Ion García MD [address] [place] [address] PCP - General Internal Medicine 10/13/13 09/07/18 Gonzalez Kolb DO [address] [place] [address] PCP - General Internal Medicine 09/08/18 Wandy Arellano MD Orthopedic Surgery 02/05/13 documented as of this encounter
--- OUTSIDE RECORDS SUMMARY | 2025-04-08 01:43 | XMS_ITS | Encounter Summary ---
Author Organization [facility] Address [address] [place] [address] Care Team Providers Care Brazing Machine Operator Automatic Name Role Phone Domo Scruggs DO Primary Care Provider +1- [phone] Encounter Details Date Type Department Care Team (Late st Contact Info) Description 12/22/1998 Outpatient Historical HIS [facility] MARCIAL Mahoney, Catalino Saucedo MD [address] [place] [address] [address] Personal history of malignant neoplasm of breast (Primary Dx) Social History Tobacco Use Types Packs/Day Years Used Date Smoking Tobacco: Never Assessed Comments Unknown Sex and Gender Information Value Date Recorded Sex Assigned at Not on file Legal Sex Female 4:44 AM DECONTAMINATOR Gender Identity Not on file Sexual Orientation Not on file documented as of this encounter Plan of Treatment Not on file documented as of this encounter Visit Diagnoses Diagnosis Personal history of malignant neoplasm of breast- Primary documented in this encounter Care Teams Brazing Machine Operator Automatic Relationship Specialty Start Date End Date Domo Scruggs DO [address] [place] [address] PCP - General 07/01/06 documented as of this encounter
--- OUTSIDE RECORDS SUMMARY | 2025-04-08 01:43 | XMS_ITS | Encounter Summary ---
Author Organization [facility] Address [address] [place] [address] Care Team Providers Care Warper Creeler Name Role Phone Domo Scruggs DO Primary Care Provider +1- [phone] Encounter Details Date Type Department Care Team (Late st Contact Info) Description 07/01/2008 Outpatient Historical HIS [facility] Catalino Mathis MD [address] [place] [address] [address] Other Screening Mammogram; Personal History of Malignant Neoplasm of Breast Social History Tobacco Use Types Packs/Day Years Used Date Smoking Tobacco: Never Assessed Comments Unknown Sex and Gender Information Value Date Recorded Sex Assigned at Not on file Legal Sex Female 4:44 AM LOCK MAINTENANCE SUPERVISOR Gender Identity Not on file Sexual Orientation Not on file documented as of this encounter Plan of Treatment Not on file documented as of this encounter Procedures Procedure Name Priority Date/Time Associated Diagnosis Comments MAMMO SCREEN BILAT W OR WO CAD Routine 07/01/2008 10:00 AM LOCK MAINTENANCE SUPERVISOR documented in this encounter Results * MAMMO DIGITAL SCREEN BILAT (07/01/2008 10:00 AM LOCK MAINTENANCE SUPERVISOR) Anatomical Region Laterality Modality Breast Bilateral Other 07/01/2008 10:0 0 AM LOCK MAINTENANCE SUPERVISOR Narrative 07/02/2008 10:20 AM LOCK MAINTENANCE SUPERVISOR [address] [address] Admit Date: 07/01/2008 KARELY CHAVARRIA Sex: F Admit Prov: CATALINO LEE Date: 1940 Primary Care Prov: DOMO SCRUGGS CMRN: [id number] [facility]: [id number] IMAGING SERVICES Ordering Prov: CATALINO LEE Accession Number: [id number] Interpretation BILATERAL SCREENING DIGITAL MAMMOGRAMS WITH COMPUTER [...] AMK Procedure Note Yelena Morin - 07/02/2008 [facility] [address] [place], [place] [address] Admit Date: 07/01/2008 KARELY CHAVARRIA Sex: F Admit Prov: CATALINO LEE Date: 1940 Primary Care Prov: DOMO SCRUGGS CMRN: [id number] Room: [facility]: [id number] IMAGING SERVICES Ordering Prov: CATALINO LEE Interpretation [...] breast documented in this encounter Care Teams Warper Creeler Relationship Specialty Start Date End Date Domo Scruggs DO [address] [place] [address] PCP - General 07/01/06 documented as of this encounter
--- OUTSIDE RECORDS SUMMARY | 2025-04-08 01:43 | XMS_ITS | Clinical Summary ---
Author Organization [facility] [address] Address [address] [place] [address] Care Team Providers Care Roving Inspector Name Role Phone Margaret Martin DO Primary Care Provider + Marisela Hannon MD Unavailable [phone] Allergies Active Allergy Reactions Criticality Noted Date [...] Type Department Care Team Description 03/15/[address] [address] Marisela Hannon MD Medical Records Request 01/16/2025 Results Follow-Up [facility] Medicine Surgery [address] [place] [phone] Lakeshia Woodall MD PhD Surgical pathology 01/11/2025 4:22 PM CDT - 01/11/2025 11:59 PM CDT Hospital Encounter [facility] [address] [place] [phone] Discharge Disposition: Discharge to home or self care 01/11/2025 10:30 AM CDT Office Visit [facility] Medicine Surgery [address] [place] [phone] Lakeshia Woodall MD PhD Abnormal finding on [...] on file Legal Sex Female 6:16 AM MAINTENANCE SPECIALIST Gender Identity Female 08/17/2020 12:34 PM MAINTENANCE SPECIALIST Sexual Orientation Straight 11/22/2019 7: 07 PM [...] Specimen Tissue Comment:Testing performed by : [facility] [place] [address] Specimen sent to Surgical Pathology JEET BOOKER Comment: Sent to PAULA Surgical Pathology Testing performed by: [facility], [place] [address] Date sent [id number] JEET BOOKER Comment:Testing performed by : [facility] [address] Other 01/11/2025 4:18 PM CDT 01/11/2025 4:23 PM CDT us Lakeshia Woodall MD PhD LAB BLOOD ORDERABLES Final Result JEET BOOKER [address] Department [place] [address] * DERM PUNCH BIOPSY (01/11/2025 1:05 PM [...] best viewed via link to PDF [facility] Department of Pathology [address] [place] [address] Note to Patients: This report may contain [...] Final Report Patient Name: SULEMAN CHAVARRIA Address: [address] [place] [address] Gender: F : 1940 (Age: 84) Service: Location: [facility] #: [id number] Patient Type: SPECIMEN Taken: 01/11/2025 Received: 01/12/2025 [...] by the Surgical Pathology Department at [facility] as part of an ongoing manager quality systems program and in compliance with federally mandated [...] characteristics determined by the Surgical Pathology Department [facility]. It has not been cleared or approved [...] Most Recently Relevant to Health Maintenance Insurance [facility] [employer] ADVANTAGE CHOICE PPO Member Subscriber Plan / Payer (Ef fective 2024-Present) Name:Suleman Chavarria Relation to Subscriber:Self Name:Suleman Chavarria Payer ID:[id number] (NAIC) Type:MEDICARE RISK OTHER Address: [place] [id number] [employer] ADVANTAGE CHOICE PPO Care Teams Roving Inspector Relationship Specialty Start Date End Date Margaret Martin DO [facility] [address] [place] [address] PCP - General Family Medicine 10/25/24 Marisela Hannon MD [address] [place] [address] Referring Physician Gynecology 11/10/24
--- OUTSIDE RECORDS SUMMARY | 2025-04-08 01:43 | XMS_ITS | Encounter Summary ---
Author Organization [facility] Address [address] [place] [address] Care Team Providers Care Handle Rounder Operator Name Role Phone Domo Scruggs DO Primary Care Provider [phone]- [phone] Encounter Details Date Type Department Care Team (Latest Contact Info) Description 02/07/2009 Outpatient Historical HIS [facility] MARCIAL Duong, Gallo Salazar MD [address] [place] [address] Abdominal Pain, Epigastric Social History Tobacco Use Types Packs/Day Years Used Date Smoking Tobacco: Never Assessed Comments Unknown Sex and Gender Information Value Date Recorded Sex Assigned at Not on file Legal Sex Female 4:44 AM SET UP MECHANIC CROWN ASSEMBLY MACHINE Gender Identity Not on file Sexual Orientation [...] ALKALINE PHOSPHATASE 65 35 - 104 U/L [facility] BILIRUBIN TOTAL 0.4 0.2 - 1.0 mg/dL [facility] CO2 34(H) 22 - 30 mmol/L [facility] TOTAL PROTEIN 7.2 6.3 - 8.6 g/dL [facility] POTASSIUM 3.9 3.5 - 4.9 mmol/L [facility] GLUCOSE 88 65 - 99 mg/dL [facility] AST 24 12 - 32 U/L [facility] BUN 14 6 - 20 mg/dL [facility] CALCIUM 9.8 8.6 - 10.2 mg/dL [facility] CHLORIDE 103 96 - 108 mmol/L [facility] ALBUMIN 4.7 3.4 - 4.8 g/dL [facility] CREATININE 0.79 0.51 - 0.95 mg/dL [facility] SODIUM 142 135 - 145 mmol/L [facility] ALT 18 0 - 31 U/L [facility] GFR, >60 >=60 mL/min/1.7 sq meter [facility] GFR >60 >=60 mL/min/1.7 sq meter [facility] Comment: Modification of Diet in Renal Disease (MDRD) study formula. Estimated GFR rate interpretative information for both Americans and non- Americans is available on the [facility]an[facility] at: [email or web address] Select: Lab Policies and Procedures Select: Reference Ranges - GFR Blood specimen (specimen) 02/07/2009 8:38 AM CDT 02/07/2009 8:39 AM CDT Narrative [facility] - 02/07/2009 9:23 AM CDT cc: Dr. Ion Pham [address] [facility] , [address] [address] Gallo Duong MD CHEMISTRY ORDERABLES Edited Performing Organization Address [facility] Co de Phone Number [facility] CLIA# [id number] [address] [place] [address] * LIPASE (02/07/2009 8:38 AM CDT) [facility] LIPASE 51 13 - 60 U/L [facility] Blood specimen (specimen) 02/07/2009 8:38 AM CDT 02/07/2009 8:39 AM CDT Narrative [facility] - 02/07/2009 9:23 AM CDT cc: Dr. Ion Pham [address] [facility], [address], [place] [address] Gallo Duong MD CHEMISTRY ORDERABLES Final Resul t Performing Organization Address [facility] Co de Phone Number [facility] CLIA# [id number] [address] [place] [address] * (ABNORMAL) CBC WITH DIFFERENTIAL (02/07/2009 8:38 AM CDT) [facility] WBC 4.1 4.0 - 9.8 K/uL [facility] MCH 32.6 27.2 - 32.6 pg [facility] MPV 11.4 9.3 - 12.4 fL [facility] HEMATOCRIT 37.9 35.5 - 44.0 % [facility] RDW-STDEV 43.5 37.1 - 48.7 fL [facility] RBC 3.93 3.90 - 4.90 M/uL [facility] MCHC 33.8 31.5 - 35.5 % [facility] MCV 96.4 82.0 - 99.0 fL [facility] PLATELETS 227 140 - 350 K/uL [facility] HEMOGLOBIN 12.8 11.8 - 14.8 g/dL [facility] RDW 12.4 11.5 - 14.5 % [facility] BASOPHILS 1 0 - 2 % [facility] BASOPHILS ABSOLUTE 0.03 0.00 - 0.20 K/uL [facility] MONOCYTES 10 3 - 13 % [facility] MONOCYTE ABSOLUTE 0.42 0.10 - 1.30 K/uL [facility] NEUTROPHILS 50 45 - 70 % [facility] NEUTROPHIL ABSOLUTE 2.04 1.90 - 7.00 K/uL [facility] EOSINOPHILS 8(H) 0 - 7 % [facility] EOSINOPHIL ABSOLUTE 0.31 0.00 - 0.70 K/uL [facility] LYMPHOCYTES 32 16 - 45 % [facility] LYMPHOCYTE ABSOLUTE 1.30 0.70 - 4.50 K/uL [facility] Blood specimen (specimen) 02/07/2009 8:38 AM CDT 02/07/2009 8:39 AM CDT Narrative [facility] - 02/07/2009 9:11 AM CDT cc: Dr. Ion Pham [address] [facility], [address], [place] [address] Gallo Duong MD HEMATOLOGY ORDERABLES Edited [facility] CLIA# [id number] [address] [place] [address] * (ABNORMAL) AMYLASE (02/07/2009 8:38 AM CDT) AMYLASE 126(H) 28 - 100 U/L [facility] Blood specimen (specimen) 02/07/2009 8:38 AM CDT 02/07/2009 8:39 AM CDT Narrative [facility] - 02/07/2009 9:23 AM CDT cc: Dr. Ion Pham [address] [facility] , [address], [place] [address] us Gallo Duong MD CHEMISTRY ORDERABLES Final Resul t [facility] CLIA# [id number] [address] [place] [address] documented in this encounter Visit Diagnoses Diagnosis Abdominal pain, epigastric documented in this encounter Care Teams Handle Rounder Operator Relationship Specialty Start Date End Date Domo Scruggs DO [address] [place] [address] PCP - General 07/01/06 documented as of this encounter
--- OUTSIDE RECORDS SUMMARY | 2025-04-08 01:43 | XMS_ITS | Encounter Summary ---
Author Organization [facility] Address [address] [place] [address] Care Team Providers Care Marine Railway Operator Name Role Phone Domo Scruggs DO Primary Care Provider +1- [phone] Encounter Details Date Type Department Care Team (Latest Contact Info) Description 06/14/1998 Outpatient Historical HIS [facility] MARCIAL Rodriguez, Henrry Jennings MD [address] [place] [address] Personal history of malignant neoplasm of breast (Primary Dx) Social History Tobacco Use Types Packs/Day Years Used Date Smoking Tobacco: Never Assessed Comments Unknown Sex and Gender Information Value Date Recorded Sex Assigned at Not on file Legal Sex Female 4:44 AM VISUAL PRESENTATION MANAGER Gender Identity Not on file Sexual Orientation Not on file documented as of this encounter Plan of Treatment Not on file documented as of this encounter Visit Diagnoses Diagnosis Personal history of malignant neoplasm of breast- Primary documented in this encounter Care Teams Marine Railway Operator Relationship Specialty Start Date End Date Domo Scruggs DO [address] [place] [address] PCP - General 07/01/06 documented as of this encounter
--- OUTSIDE RECORDS SUMMARY | 2025-04-08 01:43 | XMS_ITS | Encounter Summary ---
Author Organization [facility] Address [address] [place] [address] Care Team Providers Care Territory Account Manager Name Role Phone Domo Scruggs DO Primary Care Provider +1- [phone] Encounter Details Date Type Department Care Team (Late st Contact Info) Description 02/28/2009 Outpatient Historical HIS [facility] Gallo Duong MD [address] [facility] [place] [address] Social History Tobacco Use Types Packs/Day Years Used Date Smoking Tobacco: Never Assessed Comments Unknown Sex and Gender Information Value Date Recorded Sex Assigned at Not on file Legal Sex Female 4:44 AM FOIL STAMP OPERATOR Gender Identity Not on file Sexual Orientation Not on file documented as of this encounter Plan of Treatment Not on file documented as of this encounter Visit Diagnoses Not on filedocumented in this encounter Care Teams Territory Account Manager Relationship Specialty Start Date End Date Domo Scurggs DO [address] [place] [address] PCP - General 07/01/06 documented as of this encounter
--- OUTSIDE RECORDS SUMMARY | 2025-04-08 01:43 | XMS_ITS | Encounter Summary ---
Author Organization [facility] Address [address] [place] [address] Care Team Providers Care Medical Reviewer Name Role Phone Domo Scruggs DO Primary Care Provider +1- [phone] Encounter Details Date Type Department Care Team (Late st Contact Info) Description 09/22/2003 Outpatient Historical [facility] [address] [address] Patric Monroe Social History Tobacco Use Types Packs/Day Years Used Date Smoking Tobacco: Never Assessed Comments Unknown Sex and Gender Information Value Date Recorded Sex Assigned at Not on file Legal Sex Female 4:44 AM LEGISLATORS Gender Identity Not on file Sexual Orientation Not on file documented as of this encounter Plan of Treatment Not on file documented as of this encounter Visit Diagnoses Not on filedocumented in this encounter Care Teams Medical Reviewer Relationship Specialty Start Date End Date Domo Scruggs DO [address] [place] [address] PCP - General 07/01/06 documented as of this encounter
--- OUTSIDE RECORDS SUMMARY | 2025-04-08 01:43 | XMS_ITS | Encounter Summary ---
Author Organization [facility] Address [address] [place] [address] Care Team Providers Care Legal Practice Manager Name Role Phone Domo Scruggs DO Primary Care Provider [phone]- [phone] Encounter Details Date Type Department Care Team (Late st Contact Info) Description 06/25/2001 Outpatient Historical HIS [facility] MARCIAL Mahoney, Catalino Saucedo MD [address] [place] [address] [address] PERS HX OF BREAST MALIGNANCY (Primary Dx) Social History Tobacco Use Types Packs/Day Years Used Date Smoking Tobacco: Never Assessed Comments Unknown Sex and Gender Information Value Date Recorded Sex Assigned at Not on file Legal Sex Female 4:44 AM GARLAND MAKER Gender Identity Not on file Sexual Orientation Not on file documented as of this encounter Plan of Treatment Not on file documented as of this encounter Visit Diagnoses Diagnosis Personal history of malignant neoplasm of breast- Primary documented in this encounter Care Teams Legal Practice Manager Relationship Specialty Start Date End Date Domo Scruggs DO [address] [place] [address] PCP - General 07/01/06 documented as of this encounter
--- OUTSIDE RECORDS SUMMARY | 2025-04-08 01:43 | XMS_ITS | Encounter Summary ---
Author Organization [facility] Address 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) Social History Tobacco Use Types Packs/Day Years Used Date Smoking Tobacco: Never Assessed Comments Unknown Sex and Gender Information Value Date Recorded Sex Assigned at Not on file Legal Sex Female 4:44 AM TRACER BULLET CHARGING MACHINE OPERATOR Gender Identity Not on file Sexual Orientation Not on file documented as of this encounter Plan of Treatment Not on file documented as of this encounter Visit Diagnoses Diagnosis Malignant neoplasm of upper-outer quadrant of female breast (CMS/HCC)- Primary Malignant neoplasm of upper-outer quadrant of female breast documented in this encounter Care Teams Rn Teacher Relationship Specialty Start Date End Date Domo Scruggs DO [address] [place] [address] PCP - General 07/01/06 documented as of this encounter
--- OUTSIDE RECORDS SUMMARY | 2025-04-08 01:43 | XMS_ITS | Encounter Summary ---
Author Organization [facility] Address [address] [place] [address] Care Team Providers Care Rail Car Welder Name Role Phone Domo Scruggs DO Primary Care Provider +1- [phone] Encounter Details Date Type Department Care Team (Late st Contact Info) Description 04/12/1999 Outpatient Historical [facility] [address] [facility] [address] [address] Patric Monroe Social History Tobacco Use Types Packs/Day Years Used Date Smoking Tobacco: Never Assessed Comments Unknown Sex and Gender Information Value Date Recorded Sex Assigned at Not on file Legal Sex Female 4:44 AM LINOTYPE MECHANIC Gender Identity Not on file Sexual Orientation Not on file documented as of this encounter Plan of Treatment Not on file documented as of this encounter Visit Diagnoses Not on filedocumented in this encounter Care Teams Rail Car Welder Relationship Specialty Start Date End Date Domo Scruggs DO [address] [place] [address] PCP - General 07/01/06 documented as of this encounter
--- OUTSIDE RECORDS SUMMARY | 2025-04-08 01:43 | XMS_ITS | Encounter Summary ---
Author Organization [facility] Address [address] [place] [address] Care Team Providers Care Senior Java Developer Name Role Phone Wadny Arellano MD Unavailable [phone] Ion García MD Primary Care Provider [phone] Gonzalez Kolb DO Primary Care Provider [phone] Encounter Details Date Type Department Care Team [...] PM CDT Legal Sex Female 4:28 AM TELEGRAPH INSPECTOR Gender Identity Female 11/15/2022 8:26 PM CDT Sexual Orientation Straight 11/15/2022 8: 26 PM CDT documented as of this encounter Plan of Treatment Not on file documented as of this encounter Visit Diagnoses Not on filedocumented in this encounter Care Teams Senior Java Developer Relationship Specialty Start Date End Date Ion García MD [address] [place] [address] PCP - General Internal Medicine 10/13/13 09/07/18 Gonzalez Kolb DO [address] [place] [address] PCP - General Internal Medicine 09/08/18 Wandy Arellano MD Orthopedic Surgery 02/05/13 documented as of this encounter
--- OUTSIDE RECORDS SUMMARY | 2025-04-08 01:43 | XMS_ITS | Encounter Summary ---
Author Organization [facility] Address 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 breast (CMS/HCC) (Primary Dx) Social History Tobacco Use Types Packs/Day Years Used Date Smoking Tobacco: Never Assessed Comments Unknown Sex and Gender Information Value Date Recorded Sex Assigned at Not on file Legal Sex Female 4:44 AM SUPPLY ROOM CLERK Gender Identity Not on file Sexual Orientation Not on file documented as of this encounter Plan of Treatment Not on file documented as of this encounter Visit Diagnoses Diagnosis Malignant neoplasm of upper-outer quadrant of female breast (CMS/HCC)- Primary Malignant neoplasm of upper-outer quadrant of female breast documented in this encounter Care Teams Sand Mixer Relationship Specialty Start Date End Date Domo Scruggs DO [address] [place] [address] PCP - General 07/01/06 documented as of this encounter
--- OUTSIDE RECORDS SUMMARY | 2025-04-08 01:43 | XMS_ITS | Encounter Summary ---
Author Organization [facility] Address [address] [place] [address] Care Team Providers Care Dredge Operator Name Role Phone Domo Scruggs DO Primary Care Provider +1- [phone] Encounter Details Date Type Department Care Team (Late st Contact Info) Description 05/18/1999 Outpatient Historical HIS [facility] MARCIAL Mahoney, Catalino Saucedo MD [address] [place] [address] [address] Malignant neoplasm of upper-outer quadrant of female breast (CMS/HCC) (Primary Dx) Social History Tobacco Use Types Packs/Day Years Used Date Smoking Tobacco: Never Assessed Comments Unknown Sex and Gender Information Value Date Recorded Sex Assigned at Not on file Legal Sex Female 4:44 AM RN TRANSPORT Gender Identity Not on file Sexual Orientation Not on file documented as of this encounter Plan of Treatment Not on file documented as of this encounter Visit Diagnoses Diagnosis Malignant neoplasm of upper-outer quadrant of female breast (CMS/HCC)- Primary Malignant neoplasm of upper-outer quadrant of female breast documented in this encounter Care Teams Dredge Operator Relationship Specialty Start Date End Date Domo Scruggs DO [address] [place] [address] PCP - General 07/01/06 documented as of this encounter
--- OUTSIDE RECORDS SUMMARY | 2025-04-08 01:43 | XMS_ITS | Encounter Summary ---
Author Organization [facility] Address [address] [place] [address] Care Team Providers Care Outside Parts Sales Name Role Phone Domo Scruggs DO Primary Care Provider +1- [phone] Encounter Details Date Type Department Care Team (Late st Contact Info) Description 08/03/1998 Outpatient Historical HIS [facility] MARICAL Mahoney, Catalino Saucedo MD [address] [place] [address] [address] Malignant neoplasm of breast (female), unspecified site (Primary Dx) Social History Tobacco Use Types Packs/Day Years Used Date Smoking Tobacco: Never Assessed Comments Unknown Sex and Gender Information Value Date Recorded Sex Assigned at Not on file Legal Sex Female 4:44 AM IRRIGATION LABORER Gender Identity Not on file Sexual Orientation Not on file documented as of this encounter Plan of Treatment Not on file documented as of this encounter Visit Diagnoses Diagnosis Malignant neoplasm of breast (female), unspecified site- Primary documented in this encounter Care Teams Outside Parts Sales Relationship Specialty Start Date End Date Domo Scruggs DO [address] [place] [address] PCP - General 07/01/06 documented as of this encounter
--- OUTSIDE RECORDS SUMMARY | 2025-04-08 01:43 | XMS_ITS | Encounter Summary ---
Author Organization [facility] Address [address] [place] [address] Care Team Providers Care Sink Maker Name Role Phone Domo Scruggs DO Primary Care Provider +1- [phone] Encounter Details Date Type Department Care Team (Latest Contact Info) Description 06/01/2003 Outpatient Historical HIS [facility] MARCIAL Rodriugez, Henrry Jennings MD [facility] [place] [address] MASTODYNIA (Primary Dx) Social History Tobacco Use Types Packs/Day Years Used Date Smoking Tobacco: Never Assessed Comments Unknown Sex and Gender Information Value Date Recorded Sex Assigned at Not on file Legal Sex Female 4:44 AM MOTOR BOSS Gender Identity Not on file Sexual Orientation Not on file documented as of this encounter Plan of Treatment Not on file documented as of this encounter Visit Diagnoses Diagnosis Mastodynia- Primary documented in this encounter Care Teams Sink Maker Relationship Specialty Start Date End Date Domo Scruggs DO [address] [place] [address] PCP - General 07/01/06 documented as of this encounter
--- OUTSIDE RECORDS SUMMARY | 2025-04-08 01:43 | XMS_ITS | Encounter Summary ---
Author Organization [facility] Address [address] [place] [address] Care Team Providers Care Welder Tool And Die Name Role Phone Domo Scruggs DO Primary Care Provider +1- [phone] Encounter Details Date Type Department Care Team (Late st Contact Info) Description 11/03/1998 Outpatient Historical HIS [facility] MARCIAL Mahoney, Catalino Saucedo MD [address] [place] [address] [address] Personal history of malignant neoplasm of breast (Primary Dx) Social History Tobacco Use Types Packs/Day Years Used Date Smoking Tobacco: Never Assessed Comments Unknown Sex and Gender Information Value Date Recorded Sex Assigned at Not on file Legal Sex Female 4:44 AM BEAUTICIAN APPRENTICE Gender Identity Not on file Sexual Orientation Not on file documented as of this encounter Plan of Treatment Not on file documented as of this encounter Visit Diagnoses Diagnosis Personal history of malignant neoplasm of breast- Primary documented in this encounter Care Teams Welder Tool And Die Relationship Specialty Start Date End Date Domo Scruggs DO [address] [place] [address] PCP - General 07/01/06 documented as of this encounter
--- OUTSIDE RECORDS SUMMARY | 2025-04-08 01:43 | XMS_ITS | Encounter Summary ---
Author Organization [facility] Address [address] [place] [address] Care Team Providers Care Marketing Admin Name Role Phone Domo Scruggs DO Primary Care Provider +1- [phone] Encounter Details Date Type Department Care Team (Latest Contact Info) Description 05/13/1998 Outpatient Historical [facility], [address] [place] [address] [place] [address] Malignant neoplasm of upper-outer quadrant of female breast (CMS/HCC) (Primary Dx) Social History Tobacco Use Types Packs/Day Years Used Date Smoking Tobacco: Never Assessed Comments Unknown Sex and Gender Information Value Date Recorded Sex Assigned at Not on file Legal Sex Female 4:44 AM CARPENTER MAINTENANCE Gender Identity Not on file Sexual Orientation Not on file documented as of this encounter Plan of Treatment Not on file documented as of this encounter Visit Diagnoses Diagnosis Malignant neoplasm of upper-outer quadrant of female breast (CMS/HCC)- Primary Malignant neoplasm of upper-outer quadrant of female breast documented in this encounter Care Teams Marketing Admin Relationship Specialty Start Date End Date Domo Scruggs DO [address] [place] [address] PCP - General 07/01/06 documented as of this encounter
--- OUTSIDE RECORDS SUMMARY | 2025-04-08 01:43 | XMS_ITS | Encounter Summary ---
Author Organization [facility] Address [address] [place] [address] Care Team Providers Care Insurance Claims Representative Name Role Phone Domo Scruggs DO Primary Care Provider +1- [phone] Encounter Details Date Type Department Care Team (Latest Contact Info) Description 04/25/2004 Outpatient Historical HIS [facility] Domenic Lozano MD [address] [place] [address] [address] Henrry Rodriguez MD [address] [place] [address] MALIGN NEOPL BREAST NOS (CMS/HCC) (Primary Dx) Social History Tobacco Use Types Packs/Day Years Used Date Smoking Tobacco: Never Assessed Comments Unknown Sex and Gender Information Value Date Recorded Sex Assigned at Not on file Legal Sex Female 4:44 AM MACHINE PRINTER Gender Identity Not on file Sexual Orientation Not on file documented as of this encounter Plan of Treatment Not on file documented as of this encounter Visit Diagnoses Diagnosis Malignant neoplasm of breast (female), unspecified site- Primary documented in this encounter Care Teams Insurance Claims Representative Relationship Specialty Start Date End Date Domo Scruggs DO [address] [place] [address] PCP - General 07/01/06 documented as of this encounter
--- OUTSIDE RECORDS SUMMARY | 2025-04-08 01:43 | XMS_ITS | Encounter Summary ---
Author Organization [facility] Address [address] [place] [address] Care Team Providers Care Manager Mobile Name Role Phone Domo Scruggs DO Primary Care Provider +1- [phone] Encounter Details Date Type Department Care Team (Late st Contact Info) Description 09/01/2000 Outpatient Historical [facility] [address] [facility] [address] [address] Patric Monroe Social History Tobacco Use Types Packs/Day Years Used Date Smoking Tobacco: Never Assessed Comments Unknown Sex and Gender Information Value Date Recorded Sex Assigned at Not on file Legal Sex Female 4:44 AM BUNCH BREAKER Gender Identity Not on file Sexual Orientation Not on file documented as of this encounter Plan of Treatment Not on file documented as of this encounter Visit Diagnoses Not on filedocumented in this encounter Care Teams Manager Mobile Relationship Specialty Start Date End Date Domo Scruggs DO [address] [place] [address] PCP - General 07/01/06 documented as of this encounter
--- OUTSIDE RECORDS SUMMARY | 2025-04-08 01:43 | XMS_ITS | Encounter Summary ---
Author Organization [facility] Address [address] [place] [address] Care Team Providers Care Wood Craftsman Name Role Phone Domo Scruggs DO Primary Care Provider +1- [phone] Encounter Details Date Type Department Care Team (Late st Contact Info) Description 05/30/2000 Outpatient Historical HIS [facility] MARCIAL Mahoney, Catalino Saucedo MD [address] [place] [address] [address] Malignant neoplasm of upper-outer quadrant of female breast (CMS/HCC) (Primary Dx) Social History Tobacco Use Types Packs/Day Years Used Date Smoking Tobacco: Never Assessed Comments Unknown Sex and Gender Information Value Date Recorded Sex Assigned at Not on file Legal Sex Female 4:44 AM SUPPLY CHAIN ANALYST Gender Identity Not on file Sexual Orientation Not on file documented as of this encounter Plan of Treatment Not on file documented as of this encounter Visit Diagnoses Diagnosis Malignant neoplasm of upper-outer quadrant of female breast (CMS/HCC)- Primary Malignant neoplasm of upper-outer quadrant of female breast documented in this encounter Care Teams Wood Craftsman Relationship Specialty Start Date End Date Domo Scruggs DO [address] [place] [address] PCP - General 07/01/06 documented as of this encounter
--- OUTSIDE RECORDS SUMMARY | 2025-04-08 01:43 | XMS_ITS | Encounter Summary ---
Author Organization [facility] Address [address] [place] [address] Care Team Providers Care Public Relations Supervisor Name Role Phone Domo Scruggs DO Primary Care Provider +1- [phone] Encounter Details Date Type Department Care Team (Late st Contact Info) Description 06/20/2005 Outpatient Historical HIS [facility] MARCIAL Mahoney, Catalino Saucedo MD [address] [place] [address] [address] SCREENING MAMM-MAILG NEOPL NEC (Primary Dx) Social History Tobacco Use Types Packs/Day Years Used Date Smoking Tobacco: Never Assessed Comments Unknown Sex and Gender Information Value Date Recorded Sex Assigned at Not on file Legal Sex Female 4:44 AM DIGITAL PROGRAM MANAGER Gender Identity Not on file Sexual Orientation Not on file documented as of this encounter Plan of Treatment Not on file documented as of this encounter Visit Diagnoses Diagnosis Other screening mammogram- Primary documented in this encounter Care Teams Public Relations Supervisor Relationship Specialty Start Date End Date Domo Scruggs DO [address] [place] [address] PCP - General 07/01/06 documented as of this encounter
--- OUTSIDE RECORDS SUMMARY | 2025-04-08 01:43 | XMS_ITS | Encounter Summary ---
Author Organization [facility] Address [address] [place] [address] Care Team Providers Care Caving Guide Name Role Phone Domo Scruggs DO Primary Care Provider +1- [phone] Encounter Details Date Type Department Care Team (Late st Contact Info) Description 09/13/1999 Outpatient Historical [facility] [address] [facility] [address] [address] Patric Monroe Social History Tobacco Use Types Packs/Day Years Used Date Smoking Tobacco: Never Assessed Comments Unknown Sex and Gender Information Value Date Recorded Sex Assigned at Not on file Legal Sex Female 4:44 AM DRUG AND ALCOHOL COUNSELLOR Gender Identity Not on file Sexual Orientation Not on file documented as of this encounter Plan of Treatment Not on file documented as of this encounter Visit Diagnoses Not on filedocumented in this encounter Care Teams Caving Guide Relationship Specialty Start Date End Date Domo Scruggs DO [address] [place] [address] PCP - General 07/01/06 documented as of this encounter
--- OUTSIDE RECORDS SUMMARY | 2025-04-08 01:43 | XMS_ITS | Encounter Summary ---
Author Organization [facility] Address [address] [place] [address] Care Team Providers Care Longwall Foreman Name Role Phone Domo Scruggs DO Primary Care Provider +1- [phone] Encounter Details Date Type Department Care Team (Late st Contact Info) Description 06/12/2004 Outpatient Historical HIS [facility] MARCIAL Mahoney, Catalino Saucedo MD [address] [place] [address] [address] PERS HX OF BREAST MALIGNANCY (Primary Dx) Social History Tobacco Use Types Packs/Day Years Used Date Smoking Tobacco: Never Assessed Comments Unknown Sex and Gender Information Value Date Recorded Sex Assigned at Not on file Legal Sex Female 4:44 AM REGENERATION OPERATOR Gender Identity Not on file Sexual Orientation Not on file documented as of this encounter Plan of Treatment Not on file documented as of this encounter Visit Diagnoses Diagnosis Personal history of malignant neoplasm of breast- Primary documented in this encounter Care Teams Longwall Foreman Relationship Specialty Start Date End Date Domo Scruggs DO [address] [place] [address] PCP - General 07/01/06 documented as of this encounter
--- OUTSIDE RECORDS SUMMARY | 2025-04-08 01:43 | XMS_ITS | Encounter Summary ---
Author Organization [facility] Address [address] [place] [address] Care Team Providers Care Holistic Pulser Name Role Phone Domo Scruggs DO Primary Care Provider +1- [phone] Encounter Details Date Type Department Care Team (Latest Contact Info) Description 07/04/2000 Outpatient Historical HIS [facility] MARCIAL Rodriguez, Henrry Jennings MD [facility] [place] [address] Personal history of malignant neoplasm of breast (Primary Dx) Social History Tobacco Use Types Packs/Day Years Used Date Smoking Tobacco: Never Assessed Comments Unknown Sex and Gender Information Value Date Recorded Sex Assigned at Not on file Legal Sex Female 4:44 AM WHEEL LACER AND TRUER Gender Identity Not on file Sexual Orientation Not on file documented as of this encounter Plan of Treatment Not on file documented as of this encounter Visit Diagnoses Diagnosis Personal history of malignant neoplasm of breast- Primary documented in this encounter Care Teams Holistic Pulser Relationship Specialty Start Date End Date Domo Scruggs DO [address] [place] [address] PCP - General 07/01/06 documented as of this encounter
--- OUTSIDE RECORDS SUMMARY | 2025-04-08 01:43 | XMS_ITS | Encounter Summary ---
Author Organization [facility] Address [address] [place] [address] Care Team Providers Care Ship Manager Name Role Phone Domo Scruggs DO Primary Care Provider +1- [phone] Encounter Details Date Type Department Care Team (Latest Contact Info) Description 09/22/1998 Outpatient Historical HIS [facility] MARCIAL Rodriguez, Henrry Jennings MD [facility] [place] [address] General symptoms NEC (Primary Dx) Social History Tobacco Use Types Packs/Day Years Used Date Smoking Tobacco: Never Assessed Comments Unknown Sex and Gender Information Value Date Recorded Sex Assigned at Not on file Legal Sex Female 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
--- OUTSIDE RECORDS SUMMARY | 2025-04-08 01:43 | XMS_ITS | Encounter Summary ---
Author Organization [facility] Address [address] [place] [address] Care Team Providers Care Explosive Operator Fuse Name Role Phone Domo Scruggs DO Primary Care Provider +1- [phone] Encounter Details Date Type Department Care Team (Latest Contact Info) Description 06/22/1999 Outpatient Historical HIS [facility] MARCIAL Rodriguez, Henrry Jennings MD [address] [place] [address] Personal history of malignant neoplasm of breast (Primary Dx) Social History Tobacco Use Types Packs/Day Years Used Date Smoking Tobacco: Never Assessed Comments Unknown Sex and Gender Information Value Date Recorded Sex Assigned at Not on file 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
--- OUTSIDE RECORDS SUMMARY | 2025-04-08 01:43 | XMS_ITS | Clinical Summary ---
Author Organization [facility] Address [address] [place] [address] Care Team Providers Care Small Stock Facer Name Role Phone Wandy Arellano MD Unavailable [phone] Gonzalez Kolb DO Primary Care Provider [phone] Source Comments [facility],non-owned Affiliates and Associated Physician Practices is amultiple site organization consisting of ambulatory clinics and hospital sitesin [place], [place], [place] and [place]. This disclosure is being madepursuant to the Care Everywhere program and may not contain all information available regarding this patient. Last updated 18.[facility] Allergies Active Allergy Reactions Criticality Noted Date [...] Active mometasone (NASONEX) 50 MCG/ACT nasal spray Rockwood 1 [place] into each nostril daily. 1 Inhaler 5 [...] PM CDT Legal Sex Female 4:28 AM FILAMENT SHAPER Gender Identity Female 11/15/2022 8:26 PM CDT Sexual Orientation Straight 11/15/2022 8: 26 PM CDT Last Filed Vital Signs Vital Sign Reading Time Taken Comments Blood Pressure 157/72 07/31/2013 5:36 AM FILAMENT SHAPER Pulse 86 07/31/2013 5:36 AM FILAMENT SHAPER Temperature 36.4 C (97.6 F) 07/31/2013 3:07 AM FILAMENT SHAPER Respiratory Rate 13 07/31/2013 5:36 AM FILAMENT SHAPER Oxygen Saturation 100% 07/31/2013 5:35 AM FILAMENT SHAPER Inhaled Oxygen Concentration - - Weight 55.8 kg (123 lb) 07/31/2013 3:07 AM FILAMENT SHAPER Height 154.9 cm (5' 1) 07/31/2013 3:07 AM FILAMENT SHAPER Body Mass Index 23.24 07/31/2013 3:07 AM FILAMENT SHAPER Plan of Treatment Health Maintenance Due Date [...] [facility] MED[facility] Care Teams Small Stock Facer Relationship Specialty Start Date End Date Gonzalez Kolb DO [address] [place] [address] PCP - General Internal Medicine 09/08/18 Wandy Arellano MD Orthopedic Surgery 02/05/13
[2025-04-08 01:50] LABS: Hematocrit 36.2 % (37.0-47.0); Hemoglobin 11.8 g/dL (12.0-15.0); Immature Granulocyte Percent A 0.6 % (0-0.5); Lymphocytes Absolute Auto 0.93 K/mm3 (0.9-3.2); Mean Corpuscular HGB Conc 32.6 g/dl (32-36); Mean Corpuscular Hemoglobin 31.9 pg (26-34); Mean Corpuscular Volume 97.8 fl (80-100); Nucleated Red Blood Cells Absolute Auto 0.000 K/mm3 (0.0-0.012); Nucleated Red Blood Cells Perc 0.0 % (0.0-0.2); Platelet Count Result 200 k/mm3 (150-375); Red Blood Count 3.70 M/mm3 (4.2-5.4); White Blood Count 5.0 K/mm3 (4.5-10.0)
--- NOTE | 2025-04-08 02:03 | ED_ITS ---
HPI - Recheck/Abnormal Lab/Rx General Chief Complaint: Extremity Problem,Nontraumatic Stated Complaint: allergic Time Seen by Provider: 04/08/25 01:33 History of Present Illness HPI narrative: 85-year-old female with a history of congestive heart failure, atrial fibrillation. She presents to the emergency department today with complaints of potential medication side effect or adverse reaction. Patient was recently started on spironolactone and Lasix about 1 month ago. She has been having headache for about 1 month and then for the last week she has noticed bilateral itchiness and paresthesias in her hands that can go up towards her wrists and distal forearms only on the palmar surface. Intermittent in nature. She describes as sharp stinging sensation amy to paresthesias. No pain or chest difficulty breathing. No worsening swelling or shortness of breath. No nausea, vomiting, vision changes. Symptoms going on for a week. She did not call her doctor and came to the ER today. Did read the medication labile from the pharmacist and read that paresthesias or itchy/stinging pain she did get evaluated by physician for potential electrolyte problems. Family is present at bedside. Otherwise patient has no acute complaints and feeling well. Related Data Home Medications ?Medication ?Instructions ?Recorded ?Confirmed ?Last Taken ?Type multivitamin 1 tablet PO DAILY 06/14/21 0 03/17/25 03/09/25 History fluorometholone 0.1 % eye 1 drp ophthalmic (eye) PRN 0 12/22/23 03/17/25 Unknown History drops,suspension sennosides 8.6 mg capsule (senna) 8.6 mg PO HS 03/10/2 5 03/17/25 03/08/25 History losartan 100 mg tablet 50 mg PO DAILY 03/29/25 Unk nown History losartan 50 mg tablet 50 mg PO DAILY 03/29/25 Unk nown History Allergies Allergy/AdvReac Type Severity Reaction Status Date / Time nabumetone Allergy Unknown Rash Verified 04/08/25 00:36 Review of Systems 2 Review of Systems: As reviewed above in HPI [facility] Past Medical History Medical History Screening for breast cancer History of uterine cancer Chronic left-sided thoracic back pain Diverticulosis of large intestine without perforation or abscess with bleeding Insomnia, unspecified Heart palpitations Hernia, umbilical Insomnia Osteoporosis Hyperlipidemia Hypertension Surgical History Surgical History H/O cataract removal with insertion of prosthetic lens History of hysterectomy Family History Family History Father Family history of emphysema Patient's father is Family history of chronic obstructive pulmonary disease, Onset Age: 84 Sibling Family history of atrial fibrillation Mother Family history of atrial fibrillation Patient's mother is Family history of malignant neoplasm of kidney Social History Social History Smoking status: Never smoker Second hand tobacco smoke exposure: No Alcohol intake: never Substance use: never Substance use type: does not use Lack of Transportation: No Lack of Food: Never True Current Housing: I Have Housing Concerned About Future Housing: No Difficulty Paying Gas/Electric Bills: No Difficulty Paying for Meds: No Currently Unemployed: No Education: Associate Degree Difficulty w/ Childcare or Family Care: No Occupation/Education: retired Spiritual care concerns: No Exam 2 Narrative: GENERAL: [Well-appearing, well-nourished, and in no acute distress.] HEAD: [Normocephalic, atraumatic.] EYES: [PERRLA and EOMI.] ENT: Nares clear, no rhinorrhea or epistaxis. Mucous membranes moist. NECK: Supple. CHEST: No respiratory distress or tachypnea HEART: 2+ symmetric pulses and warm extremities. ABDOMEN: [Soft, nondistended], [nontender], [No rigidity or guarding] EXTREMITIES: Normal range of motion. [No edema.] SKIN: Warm, dry, no rash. No lesions on the palms, no redness or erythema. NEURO: [No focal deficits]. Alert and oriented [x3.] PSYCH: [Normal mood and affect.] Course Vital Signs Vital signs: Vital Signs Temperature 37.0 C 04/08/25 00:34 Pulse Rate 74 04/08/25 00:34 Respiratory Rate 18 04/08/25 00:34 Blood Pressure 165/98 H 04/08/25 00:34 Pulse Oximetry 98 04/08/25 00:34 Oxygen Delivery Room Air 04/08/25 00:34 Temperature 37.0 C 04/08/25 00:34 Pulse Rate 87 04/08/25 03:09 Respiratory Rate 13 04/08/25 03:09 Blood Pressure 152/92 H 04/08/25 03:09 Pulse Oximetry 99 04/08/25 03:09 Oxygen Delivery Room Air 04/08/25 01:10 MDM - Recheck/Abnormal Lab/Rx MDM Narrative Medical decision making narrative: 85-year-old female with a history of congestive heart failure, atrial fibrillation. She presents to the emergency department today with complaints of potential medication side effect or adverse reaction. Patient was recently started on spironolactone and Lasix about 1 month ago. She has been having headache for about 1 month and then for the last week she has noticed bilateral itchiness and paresthesias in her hands that can go up towards her wrists and distal forearms only on the palmar surface. Intermittent in nature. She describes as sharp stinging sensation amy to paresthesias. No pain or chest difficulty breathing. No worsening swelling or shortness of breath. No nausea, vomiting, vision changes. Symptoms going on for a week. She did not call her doctor and came to the ER today. Did read the medication labile from the pharmacist and read that paresthesias or itchy/stinging pain she did get evaluated by physician for potential electrolyte problems. Family is present at bedside. Otherwise patient has no acute complaints and feeling well. Patient has no focal exam findings. No signs of any lesions or rash on the hands. Mildly hypertensive but no significant systolic elevation, tachycardia, fever, hypoxia or blood pressure concerns. Strong symmetric pulses and warm extremities. Symptoms consistent with electrolyte shifts and potential hypo magnesemia or hypokalemia/hyperkalemia if she is on this current regimen medications. Will evaluate for electrolyte panel CBC and magnesium test. Discussed with family that given the chronicity of symptoms and no acute findings on exam that she will be safe for discharge with Cardiology follow-up to titrate her medications unless we find something needing acute attention for correction. Family and patient verbalized understanding. Medical Records Attestation: I reviewed the patient's medical records. Lab Data Attestation: I reviewed the patient's lab results. 04/08/25 01:45 04/08/25 01:45 Labs: Lab Results 04/08/25 Range/Units 01:45 WBC 5.0 (4.5-10.0) K/mm3 RBC 3.70 L (4.2-5.4) M/mm3 Hgb 11.8 L (12.0-15.0) g/dL Hct 36.2 L (37.0-47.0) % MCV 97.8 (80-100) fl MCH 31.9 (26-34) pg MCHC 32.6 (32-36) g/dl RDW 12.7 (11.5-14.5) % Plt Count 200 (150-375) k/mm3 MPV 10.2 (7.4-10.4) fl Immature Gran % (Auto) 0.6 H (0-0.5) % Neut % (Auto) 67.9 (45.5-73.1) % Lymph % (Auto) 18.8 (18.3-44.2) % Morton % (Auto) 7.1 (2.6-8.5) % Eos % (Auto) 4.6 H (0-4.4) % Baso % (Auto) 1.0 (0.2-1.2) % Lymph # (Auto) 0.93 (0.9-3.2) K/mm3 Morton # (Auto) 0.4 (0.1-0.6) K/mm3 Eos # (Auto) 0.2 (0-0.3) K/mm3 Baso # (Auto) 0.1 (0.0-0.1) K/mm3 Abs Immat Gran (auto) 0.03 (0.00-0.031) K/mm3 Absolute Neuts (auto) 3.4 (1.3-6.7) K/mm3 Absolute Nucleated RBC 0.000 (0.0-0.012) K/mm3 Nucleated RBC % 0.0 (0.0-0.2) % Sodium 136 L (137-145) mmol/L Potassium 4.0 (3.4-5.0) mmol/L Chloride 102 (98-107) mmol/L Carbon Dioxide 29 (22-30) mmol/L Anion Gap 5 (4-12) mmol/L BUN 20 H (7-17) mg/dL Creatinine 0.97 (0.7-1.0) mg/dL Estim Creat Clear Calc 29 ml/min Estimated GFR 55 L (59 - ) Glucose 104 (65-110) mg/dL Calcium 9.3 (8.4-10.2) mg/dL Magnesium 2.2 (1.6-2.3) mg/dL Total Bilirubin 0.4 (0.2-1.3) mg/dL AST 51 H (14-36) U/L ALT 23 (6-35) U/L Alkaline Phosphatase 115 (38-126) U/L Total Protein 6.9 (6.3-8.2) g/dL Albumin 4.0 (3.5-5.1) g/dL Discharge Plan Discharge Clinical Impression: Hand paresthesia, Adverse effects of medication Patient Disposition: Home Condition: Stable Instructions: Antibiotic Form Additional Instructions: Your laboratory studies show acceptable range electrolyte panel, slightly elevated nitrogen which could be just from the diuretic use itself rather than an adverse reaction but no signs of kidney injury or liver injury. The palm sensations you are experiencing are secondary to the medication most likely causing shifts in electrolytes but no signs of deficiency or excess requiring urgent or emergent treatment. We recommend you reach out to your telephone mechanic tomorrow to discuss changing medications if this side effect is not tolerable or if there are any other new concerns. Return with any emergent issues. Patient Language: Irish Prescriptions: No Action fluorometholone 0.1 % drops,suspension 1 drp ophthalmic (eye) PRN multivitamin Tablet 1 tablet PO DAILY Eliquis 2.5 mg tablet 2.5 mg PO BID Qty: 60 5RF omeprazole 40 mg capsule,delayed release(DR/EC) 40 mg PO DAILY Qty: 90 1RF losartan 50 mg tablet 50 mg PO DAILY losartan 100 mg tablet 50 mg PO DAILY senna 8.6 mg capsule 8.6 mg PO HS spironolactone 25 mg Tablet 25 mg PO QAM Qty: 30 0RF furosemide 20 mg Tablet 20 mg PO DAILY Qty: 30 0RF ipratropium bromide 21 mcg (0.03 %) spray,non-aerosol See Rx Instructions .ROUTE .COMPLEX Qty: 30 5RF Dose Instruction: USE 2 SPRAYS INTO EACH NOSTRIL TWICE A DAY Rx Instructions: USE 2 SPRAYS INTO EACH NOSTRIL TWICE A DAY metoprolol succinate 25 mg tablet extended release 24 hr 25 mg PO BID Qty: 180 1RF atorvastatin 10 mg tablet 10 mg PO DAILY Qty: 90 0RF Rx Instructions: DUE FOR APPOINTMENT IN MAY amlodipine 5 mg tablet 5 mg PO DAILY Qty: 90 0RF Patient Comments: HOLD Rx Instructions: DUE FOR APPOINTMENT IN MAY Follow-up/Referrals: Margaret Martin DO [Primary Care Provider, [facility]] Time of Disposition: 02:49
[2025-04-08 02:20] LABS: Alanine Aminotransferase 23 U/L (6-35); Albumin Level 4.0 g/dL (3.5-5.1); Alkaline Phosphatase 115 U/L (38-126); Anion Gap 5 mmol/L (4-12); Aspartate Amino Transferase 51 U/L (14-36); Bilirubin,Total 0.4 mg/dL (0.2-1.3); Blood Urea Nitrogen 20 mg/dL (7-17); Calcium 9.3 mg/dL (8.4-10.2); Carbon Dioxide 29 mmol/L (22-30); Chloride 102 mmol/L (98-107); Estimated CRCL calculation 29 ml/min; Estimated Glomerular Filt Rate 55; Glucose 104 mg/dL (65-110); Magnesium 2.2 mg/dL (1.6-2.3); Potassium 4.0 mmol/L (3.4-5.0); Sodium 136 mmol/L (137-145); Total Protein 6.9 g/dL (6.3-8.2)
[2025-04-08 03:09] VITALS: BP 152/92; PULSE 87; RESP 13; O2SAT 99
== END 2025-04-08 03:09 | disposition home or self-care (01) ==
PROVIDERS: Emergency Provider Student in an Organized Health Care Education/Training Program; PCP Family Medicine
DX: R20.2 Paresthesia of skin (principal); T50.905A Adverse effect of unspecified drugs, medicaments and biological substances, initial encounter
CPT/HCPCS: 36415; 80053; 83735; 85025; 99283

== ENCOUNTER 2025-04-23 15:13 | Emergency (ER) | payer OTHER, SELFPAY ==
--- NOTE | 2025-04-23 15:18 | ED.EYEPROB ---
HPI - Eye Problem General Chief complaint: Eye Problems Stated complaint: RT Eye Problem Time Seen by Provider: 04/23/25 15:19 Source: patient and RN notes reviewed Mode of arrival: ambulatory Limitations: no limitations History of Present Illness HPI Narrative: 85-year-old female presents concern for right eye pain. Reports she woke up in middle the night and rubbed her eye and then started having pain. She denies any vision changes. She denies drainage. Her eyes were not crusted shut when she woke up. She has history of cataract surgery MD chief complaint: eye pain Related Data Home Medications ?Medication ?Instructions ?Recorded ?Confirmed ?Last Taken ?Type multivitamin 1 tablet PO DAILY 06/14/21 04/23/25 03/09/25 History fluorometholone 0.1 % eye 1 drp ophthalmic (eye) PRN 12/22/23 04/13/25 Unknown History drops,suspension sennosides 8.6 mg capsule (senna) 8.6 mg PO HS 03/10/25 04/23/25 03/08/25 History losartan 50 mg tablet 50 mg PO DAILY 03/29/25 04/23/25 Unknown History omeprazole 40 mg capsule,delayed 20 mg PO DAILY 04/13/25 04/23/25 Unknown History release Allergies Allergy/AdvReac Type Severity Reaction Status Date / Time nabumetone Allergy Unknown Rash Verified 04/23/25 15:25 Review of Systems Review of Systems: CONSTITUTIONAL: Denies malaise, chills, sweats, or fever. EYES: Denies visual changes. Reports right eye redness, pain. Denies itchiness or discharge. ENT: Denies rhinorrhea, congestion, sinus pain, otalgia or sore throat. NEUROLOGIC: Denies headache. All systems reviewed & are unremarkable except as noted in HPI and below PMFSH Past Medical History Medical History Screening for breast cancer History of uterine cancer Chronic left-sided thoracic back pain Diverticulosis of large intestine without perforation or abscess with bleeding Insomnia, unspecified Heart palpitations Hernia, umbilical Insomnia Osteoporosis Hyperlipidemia Hypertension Surgical History Surgical History H/O cataract removal with insertion of prosthetic lens History of hysterectomy Family History Family History Father Family history of emphysema Patient's father is Family history of chronic obstructive pulmonary disease, Onset Age: 84 Sibling Family history of atrial fibrillation Mother Family history of atrial fibrillation Patient's mother is Family history of malignant neoplasm of kidney Social History Social History Smoking status: Never smoker Second hand tobacco smoke exposure: No Alcohol intake: never Substance use: never Substance use type: does not use Do You Feel Safe in your Home?: Yes Lack of Transportation: No Lack of Food: Never True Current Housing: I Have Housing Concerned About Future Housing: No Difficulty Paying Gas/Electric Bills: No Difficulty Paying for Meds: No Currently Unemployed: No Education: Associate Degree Difficulty w/ Childcare or Family Care: No Occupation/Education: retired Spiritual care concerns: No Comments At time of signature, agree with nursing past medical, surgical, social and family history. There is no relevant family history pertinent to the presenting complaint Exam Narrative: GENERAL: Well-appearing, well-nourished, and in no acute distress. HEAD: Normocephalic, atraumatic. EYES: PERRLA and EOMI. No nystagmus. Right sclera mildly injected, conjunctivae mildly injected. Upper and lower eyelid unremarkable, no periorbital edema noted ENT: Nares clear, turbinates pink, no rhinorrhea or epistaxis. Mucous membranes moist. TM pearly miller with sharp light reflex bilaterally; no tragal tenderness. NECK: Supple. CHEST: No respiratory distress. Speaks in full sentences. HEART: Regular rate and rhythm. SKIN: Warm, dry, no visible rash. NEURO: Alert and oriented x3. PSYCH: Normal mood and affect Course Course Emergency Course: Patient is aware of diagnosis, understands and agrees to treatment plan. Anticipatory guidance given. Patient agrees to follow-up as directed and is aware of reasons to seek care at the emergency department. Portions of this record may have been created with voice recognition software Level of Care: Express Care Visit Vital Signs Vital signs: Reviewed. Procedures Other Procedure Procedure 1: Other Procedure: Tetracaine 1 gtt instilled in right eye, fluorescein stain applied. Corneal abrasion noted upon philippe lamp exam at approximately 12 o'clock in relation to the pupil. Eye washed with NS 100 ml. No foreign bodies or Deny sign noted. MDM - Eye Problem MDM Narrative Medical decision making narrative: Consideration of the following conditions may be warranted for the presenting problem, they are not final diagnoses: Bacterial conjunctivitis, allergic conjunctivitis, viral conjunctivitis, foreign body, blepharitis, chalazion, hordeolum, corneal abrasion, preseptal cellulitis, orbital cellulitis. No evidence of proptosis, ophthalmoplegia, vision loss, pain with eye movement. Exam findings show no acute concerns or changes; patient is non-toxic appearing and is in no distress. Patient is appropriate for outpatient treatment and follow-up. Critical Care Time Critical Care Time Critical Care Time: No Discharge Plan Discharge Clinical Impression: Corneal abrasion Patient Disposition: Home Condition: Stable Instructions: Corneal Abrasion (ED) Additional Instructions: Corneal abrasions will heal in 1-2 days. Keep your eye shut and wear sunglasses or stay in low light to avoid light sensitivity. Do not touch or rub your eye or use a fabric patch You may take Tylenol or ibuprofen for pain Follow-up with PCP or regional training manager if condition is not improving in 2-3days. Patient Language: Yi Prescriptions: New polymyxin B sulf-trimethoprim 10,000 unit- 1 mg/mL drops 1 drp LEFT EYE Q3H 7 Days Qty: 10 0RF Rx Instructions: while awake; do not exceed 6 doses in 24 hours No Action fluorometholone 0.1 % drops,suspension 1 drp ophthalmic (eye) PRN multivitamin Tablet 1 tablet PO DAILY Eliquis 2.5 mg tablet 2.5 mg PO BID Qty: 60 5RF losartan 50 mg tablet 50 mg PO DAILY omeprazole 40 mg capsule,delayed release(DR/EC) 20 mg PO DAILY senna 8.6 mg capsule 8.6 mg PO HS ipratropium bromide 21 mcg (0.03 %) spray,non-aerosol See Rx Instructions .ROUTE .COMPLEX Qty: 30 5RF Dose Instruction: USE 2 SPRAYS INTO EACH NOSTRIL TWICE A DAY Rx Instructions: USE 2 SPRAYS INTO EACH NOSTRIL TWICE A DAY metoprolol succinate 25 mg tablet extended release 24 hr 25 mg PO BID Qty: 180 1RF atorvastatin 10 mg tablet 10 mg PO DAILY Qty: 90 0RF Rx Instructions: DUE FOR APPOINTMENT IN MAY spironolactone 25 mg tablet 25 mg PO QAM Qty: 30 5RF furosemide 20 mg tablet 20 mg PO DAILY Qty: 30 5RF Follow-up/Referrals: Margaret Martin DO [Primary Care Provider, [facility]] Time of Disposition: 15:41
[2025-04-23 15:24] VITALS: BP 129/92; PULSE 69; RESP 16; TEMP 35.6; O2SAT 100
== END 2025-04-23 15:46 | disposition home or self-care (01) ==
PROVIDERS: Emergency Provider Nurse Practitioner; PCP Family Medicine
DX: S05.01XA Injury of conjunctiva and corneal abrasion without foreign body, right eye, initial encounter (principal); X58.XXXA Exposure to other specified factors, initial encounter; I10 Essential (primary) hypertension; E78.5 Hyperlipidemia, unspecified; M81.0 Age-related osteoporosis without current pathological fracture; Z85.42 Personal history of malignant neoplasm of other parts of uterus
CPT/HCPCS: 99213; A9270; G0463

== ENCOUNTER 2025-06-01 16:00 | Outpatient (CLI) | payer OTHER, SELFPAY ==
--- NOTE | ~2025-06-01 | XR_ITS ---
EXAMINATION: XR hip BI 2V w AP pelvis, 06/01/2025 16:19 [facility] HISTORY: Worsening of L anterolateral hip pain, pain x 15 months COMPARISON: No comparisons available. Findings: No acute fracture or malalignment. No significant degenerative changes. Soft tissues unremarkable. Impression: No acute fracture or malalignment. Reviewed, dictated and finalized at location [facility] Impression: No acute fracture or malalignment.
== END 2025-06-01 16:01 | disposition home or self-care (01) ==
LOC: GOSHIMG 16:02
PROVIDERS: PCP Family Medicine; Visit Provider Family Medicine
DX: M25.552 Pain in left hip (principal); G89.29 Other chronic pain
CPT/HCPCS: 73521